=== PATIENT | female | born 1940 | race Caucasian/White ===

== ENCOUNTER → 2017-09-10 09:38 | Outpatient (CLI) | payer MEDICARE, SELFPAY ==
--- NOTE | 2017-09-10 09:41 | RAD_ITS ---
STUDY: X-RAY CHEST REASON FOR EXAM: Female, 76 years old. Long-term use of high risk medication. TECHNIQUE: Frontal and lateral views of the chest. COMPARISON: 12/21/2015. FINDINGS: The lungs are hyperexpanded. There are coarsened interstitial markings suggestive of mild chronic fibrosis. No gross focal infiltrates. No gross effusions. There is borderline cardiomegaly. Normal mediastinum and axel. Normal visualized pulmonary arteries. Normal visualized aortic arch and descending thoracic aorta. Demineralization and diffuse degenerative changes of the skeletal structures. There is no demonstrated abnormality of the visualized soft tissue structures of the upper abdomen. RAD/Chest PA and Lateral IMPRESSION: Stable COPD with mild fibrosis. No acute chest disease. Electronically Signed: Jose Carlos Guzmán MD at 16:47 EST , Service support ,
== END ==
PROVIDERS: Family Provider Family Medicine; PCP Family Medicine; Visit Provider Internal Medicine Cardiovascular Disease
DX: Z79.899 Other long term (current) drug therapy (principal)
CPT/HCPCS: 71046

== ENCOUNTER → 2017-10-22 09:53 | Outpatient (CLI) | payer MEDICARE, SELFPAY ==
[2017-10-22 11:55] LABS: Absolute Neutrophil Count 2.9 X10^3/uL (2.0-7.7); Basophil# 0.06 X10^3/uL; Basophil% 1.2 % (0-1); Eosinophil# 0.08 X10^3/uL; Eosinophils% 1.5 % (0-5); Hematocrit 38.1 % (37-47); Hemoglobin 11.5 g/dl (12.0-15.0); Lymphocyte % 30.8 % (19-41); Mean Corp Hgb Conc 30.2 g/gl (32-36); Mean Corpuscular Hgb 23.8 pg (27.0-32.0); Mean Corpuscular Volume 78.7 fL (81-99); Mean Platelet Vol. 9.9 fl (6.2-12.0); Monocyte# 0.52 X10^3/uL; Neutrophil # 2.94 X10^3/uL (2.7-7.7); Neutrophil % 56.5 % (47-70); Platelet Count 299 K/mm3 (150-450); RBC Distribution Width CV 14.3 % (11.6-14.6); RBC Distribution Width SD 40.9 fl (35.1-43.9); Red Blood Count 4.84 M/mm3 (4.2-5.4); White Blood Count 5.2 K/mm3 (4.4-11.0)
[2017-10-22 11:59] LABS: POSITIVE COUNT NO; POSITIVE DIFFERENTIAL NO; POSITIVE MORPHOLOGY NO
[2017-10-22 12:35] LABS: AST(SGOT) 29 U/L (15-37); Alanine Aminotransfer ALT/SGPT 28 U/L (13-56); Albumin, Serum 3.8 g/dL (3.2-5.0); Alkaline Phosphatase 91 U/L (45-117); Anion Gap 8 (5-15); BUN 13 mg/dL (7-18); BUN/Creat Ratio 12.6 RATIO (10-20); Calcium,Total 8.7 mg/dL (8.5-10.1); Chloride 93 mmol/L (98-107); Creatinine, Serum 1.03 mg/dL (0.55-1.02); EST Glomerular Filtration Rate 55 mL/min (>60); Est Glom Filt Rate - Afr Amer 67 mL/min (>60); Globulin 3.9 g/dL (2.2-4.2); Glucose 86 mg/dL (74-106); Potassium 4.7 mmol/L (3.5-5.1); Protein, Total 7.7 g/dL (6.4-8.2); Sodium Level 130 mmol/L (136-145); Thyroid Stim Hormone (TSH) 5.17 uIU/mL (0.358-3.74)
[2017-10-22 12:37] LABS: Osmolality, Serum 276 mOsm/KG (280-301)
[2017-10-22 12:40] LABS: BNP,B-Type NATRIURETIC PEPTIDE 1146.7 pg/mL (0-100)
== END ==
PROVIDERS: Family Provider Family Medicine; PCP Family Medicine; Visit Provider Family Medicine
DX: I50.9 Heart failure, unspecified (principal); E03.9 Hypothyroidism, unspecified; E87.1 Hypo-osmolality and hyponatremia
CPT/HCPCS: 36415; 80053; 83880; 83930; 84443; 85025

== ENCOUNTER 2018-02-18 07:43 | Inpatient (IN) | payer MEDICARE, SELFPAY ==
[2018-02-18] VITALS (14 sets, daily range): BP systolic 126–150; BP diastolic 64–96; PULSE 69–114; RESP 16–18; TEMP 36.1–36.7; O2SAT 92–100; BMI 18.3
--- NOTE | 2018-02-18 07:54 | RAD_ITS ---
STUDY: X-RAY CHEST REASON FOR EXAM: Female, 77 years old. Chest pain TECHNIQUE: Single AP portable view of the chest. COMPARISON: 09/10/2017 FINDINGS: There is hyperinflation of the lungs consistent with chronic obstructive lung disease (COPD). Lungs are clear. There is no demonstrated pleural abnormality. There is mild cardiac enlargement. Normal mediastinum and axel. Normal visualized pulmonary arteries. There is atherosclerotic tortuosity of the aortic arch and descending thoracic aorta. There are diffuse degenerative changes of the visualized thoracic spine. Normal visualized ribs, clavicles, and shoulders. There is no demonstrated abnormality of the visualized soft tissue structures of the upper abdomen. RAD/Chest 1 View (Portable) IMPRESSION: COPD without acute findings Electronically Signed: Jim King DO at 8:12 EDT Tel , Service support ,
--- NOTE | 2018-02-18 07:54 | EKG12_ITS ---
Test Reason : PALPITATION Blood Pressure : / mmHG Vent. Rate : 089 BPM Atrial Rate : 277 BPM P-R Int : 000 ms QRS Dur : 100 ms QT Int : 402 ms P-R-T Axes : 000 087 -60 degrees QTc Int : 489 ms Atrial flutter with variable A-V block Voltage criteria for left ventricular hypertrophy Nonspecific ST and T wave abnormality Prolonged QT Abnormal ECG Confirmed by SALVADOR BRAND, MIGUEL A ([id number]), video editor CAMPOS WILLIAMSON ([id number] on 02/21/2018 1:17:24 PM Referred By: MAT Confirmed By:MIGUEL A FRANCO MD
[2018-02-18 08:07] LABS: Absolute Lymphocyte Count 0.99 X10^3/ul (0.83-4.51); Absolute Neutrophil Count 4.3 X10^3/uL (2.0-7.7); Basophil# 0.03 X10^3/uL; Basophil% 0.5 % (0-1); Eosinophil# 0.18 X10^3/uL; Eosinophils% 2.9 % (0-5); Hematocrit 36.6 % (37-47); Hemoglobin 11.3 g/dl (12.0-15.0); Lymphocyte # 0.99 X10^3/ul (4.0); Lymphocyte % 15.7 % (19-41); Mean Corp Hgb Conc 30.9 g/gl (32-36); Mean Corpuscular Hgb 23.8 pg (27.0-32.0); Mean Corpuscular Volume 77.2 fL (81-99); Mean Platelet Vol. 9.1 fl (6.2-12.0); Monocyte# 0.82 X10^3/uL; Neutrophil # 4.27 X10^3/uL (2.7-7.7); Neutrophil % 67.7 % (47-70); Platelet Count 282 K/mm3 (150-450); RBC Distribution Width CV 15.1 % (11.6-14.6); RBC Distribution Width SD 42.8 fl (35.1-43.9); Red Blood Count 4.74 M/mm3 (4.2-5.4); White Blood Count 6.3 K/mm3 (4.4-11.0)
[2018-02-18 08:08] LABS: POSITIVE COUNT NO; POSITIVE DIFFERENTIAL NO; POSITIVE MORPHOLOGY NO
--- NOTE | 2018-02-18 08:13 | ED.VISSUMM ---
- ER Visit Summary Date of Service: 02/18/18 Chief Complaint: Palpitations History of Present Illness: The patient is a 77 F with a history of atrial fibrillation, well controlled on Pacerone, who presents for palpitations. She states they began last night between 8 and 9 PM. She had no exertional activity or consumption of stimulants such as caffeine that might have triggered it. She began belching and felt a little bit bluish at the time, but that has resolved. Today she has the sensation of palpitations, but denies any chest pain, shortness of breath, abdominal pain, back pain, weakness or dizziness, or any other symptoms. She is not on Coumadin for 2 years, as she was doing well and was changed to aspirin. She does not smoke. 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 Physical Examination: Vital signs: afebrile, hemodynamically stable, no hypoxia on room air General: well nourished, well developed, in no distress Skin: warm, dry, no rash, no pallor HEENT: normocephalic and atraumatic; PERRL, EOMI, moist mucous membranes Cardiovascular: regular rate irregularly irregular rhythm without murmurs, no peripheral edema, 2+ pulses all distal extremities Respiratory: No increased work of breathing, lungs are clear to auscultation bilaterally, no rales, rhonchi or wheezing Abdominal: Abdomen is soft, nontender with normoactive bowel sounds, no guarding or rebound, no masses MSK: Moves all extremities, no deformities, normal strength Neuro: Awake and alert, oriented ?4. No facial droop, sensation and motor function intact and symmetric Test Results: ] Abnormal Lab Results 02/18/18 02/18/18 02/18/18 08:00 08:00 08:00 WBC 6.3 RBC 4.74 Hgb 11.3 L Hct 36.6 L MCV 77.2 L MCH 23.8 L MCHC 30.9 L RDW 15.1 H RDW Differential 42.8 Plt Count 282 MPV 9.1 Immature Gran % (Auto) 0.200 Neut % (Auto) 67.7 Lymph % (Auto) 15.7 L [place] % (Auto) 13.0 H Eos % (Auto) 2.9 Baso % (Auto) 0.5 Absolute Neuts (auto) 4.3 Absolute Lymphs (auto) 0.99 Total Counted Not Reportable Sodium 132 L Potassium 4.2 Chloride 96 L Carbon Dioxide 30.0 Anion Gap 6 BUN 12 Creatinine 0.98 Estim Creat Clear Calc 34.97 Est GFR (MDRD) Af Amer 71 Est GFR (MDRD) Non-Af 58 L BUN/Creatinine Ratio 12.2 Glucose 102 Calcium 9.1 Troponin I < 0.015 TSH 6.02 H Clinical Impression(s) from Imaging Studies Chest X-Ray 02/18/18 07:54 IMPRESSION: COPD without acute findings Electronically Signed: Jimdelfina ContrerasDO rodney at 8:12 EDT Tel , Service support , Emergency Department Course and Treatment: EKG shows a flutter with a variable ventricular response, rate of 89. Patient in triage was rate of 114. There are no ischemic changes, and QRS and T-wave morphology are similar to patient's EKG from 2016, at which time she was in a normal sinus rhythm. Workup was performed to look for underlying trigger for conversion to A- flutter. Patient had a normal troponin. She had an elevated TSH of 6, and his had an upward trend of her tsh, which has been monitored closely. This is unlikely a cause of a flutter. Patient was discussed with Dr. Shah, who recommended patient be started on a heparin drip and admitted for return to anticoagulation followed by chemical versus electrical cardioversion. Patient is amenable to this plan. She will be discussed with the hospitalist and admitted for further management of her return to a flutter. Treatment Plan: [] Disposition: admit tele Impression: Atrial flutter with variable ventricular response This note was generated with Queweyation software. It may contain incorrect words, spelling, and punctuation that were not noted in review of the chart prior to signing ED Disposition - Plan for ED Patient: Chief Complaint: Palpitations Referrals: Raghu Forbes MD [Primary Care Provider] -
--- NOTE | 2018-02-18 08:17 | ED.DCSUM_ITS ---
- ER Visit Summary Date of Service: 02/18/18 Chief Complaint: Palpitations History of Present Illness: The patient is a 77 F with a history of atrial fibrillation, well controlled on Pacerone, who presents for palpitations. She states they began last night between 8 and 9 PM. She had no exertional activity or consumption of stimulants such as caffeine that might have triggered it. She began belching and felt a little bit bluish at the time, but that has resolved. Today she has the sensation of palpitations, but denies any chest pain, shortness of breath, abdominal pain, back pain, weakness or dizziness, or any other symptoms. She is not on Coumadin for 2 years, as she was doing well and was changed to aspirin. She does not smoke. 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 Shah, and she states she last saw him earlier this year. Physical Examination: Vital signs: afebrile, hemodynamically stable, no hypoxia on room air General: well nourished, well developed, in no distress Skin: warm, dry, no rash, no pallor HEENT: normocephalic and atraumatic; PERRL, EOMI, moist mucous membranes Cardiovascular: regular rate irregularly irregular rhythm without murmurs, no peripheral edema, 2+ pulses all distal extremities Respiratory: No increased work of breathing, lungs are clear to auscultation bilaterally, no rales, rhonchi or wheezing Abdominal: Abdomen is soft, nontender with normoactive bowel sounds, no guarding or rebound, no masses MSK: Moves all extremities, no deformities, normal strength Neuro: Awake and alert, oriented ?4. No facial droop, sensation and motor function intact and symmetric Test Results: ] Abnormal Lab Results 02/18/18 02/18/18 02/18/18 08:00 08:00 08:00 WBC 6.3 RBC 4.74 Hgb 11.3 L Hct 36.6 L MCV 77.2 L MCH 23.8 L MCHC 30.9 L RDW 15.1 H RDW Differential 42.8 Plt Count 282 MPV 9.1 Immature Gran % (Auto) 0.200 Neut % (Auto) 67.7 Lymph % (Auto) 15.7 L [place]comb % (Auto) 13.0 H Eos % (Auto) 2.9 Baso % (Auto) 0.5 Absolute Neuts (auto) 4.3 Absolute Lymphs (auto) 0.99 Total Counted Not Reportable Sodium 132 L Potassium 4.2 Chloride 96 L Carbon Dioxide 30.0 Anion Gap 6 BUN 12 Creatinine 0.98 Estim Creat Clear Calc 34.97 Est GFR (MDRD) Af Amer 71 Est GFR (MDRD) Non-Af 58 L BUN/Creatinine Ratio 12.2 Glucose 102 Calcium 9.1 Troponin I < 0.015 TSH 6.02 H Clinical Impression(s) from Imaging Studies Chest X-Ray 02/18/18 07:54 IMPRESSION: COPD without acute findings Electronically Signed: Jimdelfina ContrerasDO rodney at 8:12 EDT Tel , Service support , Emergency Department Course and Treatment: EKG shows a flutter with a variable ventricular response, rate of 89. Patient in triage was rate of 114. There are no ischemic changes, and QRS and T-wave morphology are similar to patient's EKG from 2016, at which time she was in a normal sinus rhythm. Workup was performed to look for underlying trigger for conversion to A- flutter. Patient had a normal troponin. She had an elevated TSH of 6, and his had an upward trend of her tsh, which has been monitored closely. This is unlikely a cause of a flutter. Patient was discussed with Dr. Shah, who recommended patient be started on a heparin drip and admitted for return to anticoagulation followed by chemical versus electrical cardioversion. Patient is amenable to this plan. She will be discussed with the hospitalist and admitted for further management of her return to a flutter. Treatment Plan: [] Disposition: admit tele Impression: Atrial flutter with variable ventricular response This note was generated with Data3Sixtyation software. It may contain incorrect words, spelling, and punctuation that were not noted in review of the chart prior to signing ED Disposition - Plan for ED Patient: Chief Complaint: Palpitations Referrals: Raghu Forbes MD [Primary Care Provider] -
[2018-02-18 08:24] LABS: Anion Gap 6 (5-15); BUN 12 mg/dL (7-18); BUN/Creat Ratio 12.2 RATIO (10-20); Calcium,Total 9.1 mg/dL (8.5-10.1); Chloride 96 mmol/L (98-107); Creatinine, Serum 0.98 mg/dL (0.55-1.02); EST Glomerular Filtration Rate 58 mL/min (>60); Est Glom Filt Rate - Afr Amer 71 mL/min (>60); Estimated Creatinine Clearance 34.97 ml/min; Glucose 102 mg/dL (74-106); Potassium 4.2 mmol/L (3.5-5.1); Sodium Level 132 mmol/L (136-145)
[2018-02-18 08:49] LABS: Thyroid Stim Hormone (TSH) 6.02 uIU/mL (0.358-3.74)
[2018-02-18 09:49] LABS: Partial Thromboplast Time 34.5 Seconds (24.1-36.2); Prothrombin Time (Protime)PT. 13.4 SECONDS (11.7-14.9)
--- NOTE | 2018-02-18 10:22 | NURSING ---
Pepper notified patient may transfer to PCU
--- NOTE | 2018-02-18 10:43 | ED.RN ---
spoke anika orona charge PCU. regarding heparin and need for pt to recieve.
--- NOTE | 2018-02-18 10:55 | ECHOD_ITS ---
Reason For Study: AFIB Procedure This was a 2D Doppler, Color Flow transthoracic echocardiogram. The exam was of adequate technical quality. Exam performed portable in patient room. Left Ventricle Normal LV size. Apical false tendon noted. Mild global left ventricular systolic dysfunction. The estimated ejection fraction is 40 %. Unable to assess diastolic dysfunction. Right Ventricle Normal RV size. Normal systolic function. Atria The left atrium is moderately enlarged. The right atrium is moderately enlarged. No doppler evidence for ASD. Mitral Valve There is mild mitral annular calcification. Mild diffuse mitral valve thickening. Mild mitral valve prolapse. Mild-Moderate (1-2+) mitral valve insufficiency. Tricuspid Valve Normal tricuspid valve. Mild tricuspid valve insufficiency. Right ventricular systolic pressure estimated to be 30 mmHg. Aortic Valve Trisinus/trileaflet aortic valve. Mild diffuse aortic valve thickening. Mild focal aortic valve calcification. Aortic sclerosis, no stenosis. Trivial aortic valve insufficiency. Pulmonic Valve The pulmonic valve is not well visualized. Trivial pulmonic valve insufficiency. Great Vessels Normal sized aortic root. Pericardium/Pleural No pericardial effusion. MMode/2D Measurements & Calculations LVIDd: 4.0 cm IVSd: 1.1 cm Ao root diam: 2.8 cm LVIDs: 3.1 cm LVPWd: 1.1 cm RVDd: 2.8 cm FS: 21.8 % LAV(MOD-bp): 62.0 ml LA A4 area: 18.2 cm2 RA A4 area: 16.9 cm2 LAV(MOD-bp) Indexed: 43.5 ml/m2 LAV(MOD-sp2): 69.6 ml LAV(MOD-sp4): 48.6 ml Doppler Measurements & Calculations Ao V2 max: 135.3 cm/sec LV V1 max: 90.6 cm/sec PA V2 max: 89.7 cm/sec Ao max P.5 mmHg LV V1 max P.4 mmHg TR max henrik: 260.5 cm/sec TR max P.2 mmHg Interpretation Summary Mild global left ventricular systolic dysfunction. The estimated ejection fraction is 40 %. Apical false tendon noted. The left atrium is moderately enlarged. The right atrium is moderately enlarged. There is mild mitral annular calcification. Mild diffuse mitral valve thickening. Mild mitral valve prolapse. Mild-Moderate (1-2+) mitral valve insufficiency. Mild tricuspid valve insufficiency. Aortic sclerosis, no stenosis. Trivial aortic valve insufficiency. Trivial pulmonic valve insufficiency. Right ventricular systolic pressure estimated to be 30 mmHg. Unable to assess diastolic dysfunction. Ordering Physician: Anmol Gilbert Referring Physician: ELLIS VÁZQUEZ Performed By: Racheal Zamora, ISMA, RVT
[2018-02-18] MEDS: HEPARIN/D5w 25,000 UNITS 25,000 UNITS/250 ML IV.SOLN. 7 UNITS IV (13:07)
[2018-02-18] MEDS: Heparin Injection (Vial) 5,000 UNIT/ML VIAL 3500 UNIT IV (13:07)
--- NOTE | 2018-02-18 15:05 | PCM.HP.STD ---
Problem List (1) Long-term use of high-risk medication Status: Chronic (2) Hyperlipidemia Status: Chronic Qualifiers: (3) Atherosclerotic heart disease of [place] coronary artery without angina pectoris Status: Chronic Qualifiers: (4) Atrial fibrillation Status: Acute Qualifiers: (5) Congestive heart failure Status: Chronic (6) History of GI bleed Status: Chronic (7) History of myocardial infarction Status: Chronic (8) Cardiomyopathy Status: Chronic Qualifiers: History of Present Illness Date of Admission: 02/18/18 Chief Complaint: Palpitations The patient is a 77 year old F who presents to the emergency room due to palpitations. She reports a history of atrial fibrillation and states her symptoms feel similar to prior episodes of A. fib. Her symptoms began last evening. She denies chest pain, shortness of breath. Denies dizziness, lightheadedness. Denies other associated symptoms. Denies recent illness. States she does not feel right. Denies recent illness. She has a past medical history of atrial fibrillation, nonischemic cardiomyopathy, CHF, CAD, hyperlipidemia, GERD, hypertension. Patient follows with Dr. Shah. Past Medical History Past Medical History (Chronic Problems): Chronic Problems (Last Reviewed 08/12/17 @ 09:47 by Stacie Arango) Long-term use of high-risk medication (Chronic) Hyperlipidemia (Chronic) Atherosclerotic heart disease of [place] coronary artery without angina pectoris (Chronic) Congestive heart failure (Chronic) History of GI bleed (Chronic) History of myocardial infarction (Chronic) Cardiomyopathy (Chronic) Medical History: Medical History (Last Reviewed 08/12/17 @ 09:47 by Stacie Arango) Long-term use of high-risk medication (Acute) Z79.899 Hyperlipidemia (Acute) E78.5 Atherosclerotic heart disease of [place] coronary artery without angina pectoris (Chronic) I25.10 Atrial fibrillation (Acute) I48.91 Congestive heart failure (Chronic) I50.9 History of GI bleed (Chronic) Z87.19 History of myocardial infarction (Chronic) I25.2 Cardiomyopathy (Chronic) I42.9 Anxiety F41.9 GERD (gastroesophageal reflux disease) K21.9 Thyroid disorder E07.9 Allergies amiodarone Allergy (Verified 02/18/18 07:45) Hives Pt takes the Pacerone (brand name) with no allergy. Home Medications: Ambulatory Orders Medication Instructions Recorded Pantoprazole Sodium [Protonix] 40 mg PO DAILY PRN 12/14/13 Aspirin 325 mg PO DAILY@0800 12/09/15 lisinopril 2.5 mg tablet 2.5 mg PO DAILY #90 tab 07/18/17 metoprolol tartrate 25 mg tablet 12.5 mg PO BID #90 tab 07/18/17 furosemide 20 mg tablet 20 mg PO DAILY #90 tab 11/04/17 Pacerone 100 mg tablet 100 mg PO QDAY #90 tab NS 12/18/17 Surgical History: Surgical History (Last Reviewed 08/12/17 @ 09:47 by Stacie Arango) History of tubal ligation Z98.51 History of cardiac catheterization Z98.890 thrombectomy of mid LAD 09/12/11 Surgical History: tonsillectomy, - - D&C Psychiatric History: No pertinent psych hx Smoking Status: Never smoker Alcohol: None Drugs: None - *Family History Maternal Family History: Family History (Last Reviewed 08/12/17 @ 09:47 by Stacie Arango) Father Heart disease History Items: No pertinent history Review of Systems Constitutional: Denies: Chills, Fever, Weight Change HEENT: Denies: Head Aches, Sinus Congestion, Sinus Drainage Cardiovascular: Reports: Palpitations. Denies: Chest Pain, Edema, Light Headedness, Syncope Respiratory: Denies: Cough, Shortness of breath at rest, Sputum production Gastrointestinal: Denies: Abdominal Pain, Nausea, Vomiting Genitourinary: Denies: Dysuria Musculoskeletal: Denies: Joint Pain, Joint Tenderness Skin: Denies: Rash, Wounds Neurological: Denies: Numbness, Tingling, Focal weakness Psychiatric: Denies: Anxiety, Depression, Homicidal Ideations, Suicidal Ideations Hematologic/ Lymphatic: Denies: Easy Bruising, Easy Bleeding VTE Information - Inpt Only VTE Present on Admission: No VTE Mechan Device Prophylaxis: None VTE Pharm Prophylaxis ordered?: Yes - Physical Exam General: Alert, Oriented x3, Cooperative, No apparent distress HEENT: Atraumatic, PERRLA, EOMI, Normocephalic Neck: Supple, No JVD, Negative Carotid Bruits Lungs: Clear to auscultation, Normal air movement Cardiovascular: Tachycardic, - - Atrial fibrillation Abdomen: Bowel Sounds Present, Soft, Non Tender, Non-Distended Extremities: No clubbing, No cyanosis, No edema, Capillary Refill Less than 3 Seconds Skin: No rashes, No breakdown Musculoskeletal: No Tenderness to Palpation of Joints or Extremities Neurological: Cranial nerves II-XII grossly intact, Neuro grossly intact Psych/Mental Status: Normal Affect, Appropriate Vital Signs Temp Pulse Resp BP Pulse Ox 98.0 F 101 H 16 147/64 H 98 02/18/18 11:23 02/18/18 12:45 02/18/18 11:23 02/18/18 11:23 02/18/18 11:23 Oxygen Delivery Method Room Air Weight: 99 lb 10.383 oz Body Mass Index (BMI) 18.3 Assessment/Plan All Active Problems (Last Reviewed 08/12/17 @ 09:47 by Stacie Arango) Atrial fibrillation (Acute) 1. Atrial fibrillation with history of paroxysmal atrial fibrillation status post cardioversion-patient denies recent known episodes of atrial fibrillation. She is on Pacerone and metoprolol at home. Rate currently controlled. Begin heparin drip per cardiology. Dr. Shah consulted. Obtain echocardiogram. TSH 6. Check T4. 2. History of nonischemic cardiomyopathy/CHF-echocardiogram in 2014 with an EF of 50%. Repeat echo pending. 3. Hyperlipidemia-not on statin. 4. Hypertension-stable, continue home regimen of metoprolol, lisinopril, Lasix, Pacerone. 5. GERD- Continue PPI. DVT prophylaxis-heparin drip This patient was seen by DOMINIQUE Cooper under the supervision of Dr. Gilbert.
[2018-02-18] MEDS: Furosemide 20 MG Tablet PO (15:10)
[2018-02-18] MEDS: Lisinopril 2.5 MG Tablet PO (15:10)
--- NOTE | 2018-02-18 18:03 | EKG12_ITS ---
Test Reason : Blood Pressure : / mmHG Vent. Rate : 069 BPM Atrial Rate : 326 BPM P-R Int : 000 ms QRS Dur : 098 ms QT Int : 374 ms P-R-T Axes : 000 076 -84 degrees QTc Int : 400 ms Atrial flutter with variable A-V block Left ventricular hypertrophy with repolarization abnormality Abnormal ECG Confirmed by SALVADOR BRAND, MIGUEL A ([id number]), film editor CAMPOS WILLIAMSON ([id number]) on 02/21/2018 1:51:11 PM Referred By: NICK Confirmed By:MIGUEL A FRANCO MD
--- NOTE | 2018-02-18 18:03 | PCM.CONS.C ---
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 She states that she had been in her usual state of health until just recently. She believes yesterday evening she developed symptoms of an atypical chest/abdominal discomfort which she thought was related to a flulike event. However when checking her pulse she noted it was irregular. She waited throughout the night and based upon still an irregular pulse elected to present to the emergency department this day for further evaluation and care. She was found to be in atrial flutter with variable AV block. Based upon her electrocardiogram she was noted to have voltage criteria for LVH and nonspecific ST and T-wave abnormality. She had a troponin I level which was negative. She was brought into the hospital for further evaluation care. At the present time she notes her rhythm is still irregular. She senses the difference in her chest. She has had no other concerning chest discomfort, difficulty breathing, associated nausea or emesis, and there has been no loss of consciousness. She has also undergone evaluation with a transthoracic echocardiogram. The results are as noted below. Interpretation Summary Mild global left ventricular systolic dysfunction. The estimated ejection fraction is 40 %. Apical false tendon noted. The left atrium is moderately enlarged. The right atrium is moderately enlarged. There is mild mitral annular calcification. Mild diffuse mitral valve thickening. Mild mitral valve prolapse. Mild-Moderate (1-2+) mitral valve insufficiency. Mild tricuspid valve insufficiency. Aortic sclerosis, no stenosis. Trivial aortic valve insufficiency. Trivial pulmonic valve insufficiency. Right ventricular systolic pressure estimated to be 30 mmHg. Unable to assess diastolic dysfunction. [] Past Medical History Allergies/Adverse Reactions: Allergies amiodarone Allergy (Verified 02/18/18 07:45) Hives Pt takes the Pacerone (brand name) with no allergy. 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 Denies: Shortness of Breath, Orthopnea, PND, Peripheral Edema, Lightheadedness, Dizziness, Near Syncope, Syncope Respiratory: Denies: Cough, Sputum Production, Hemoptysis Gastrointestinal: Reports: Abdominal Discomfort. Denies: Hematemesis, Hematochezia, Melena Genitourinary: Denies: Dysuria, Hematuria Subjectve: 77-year-old white female who appears to be resting comfortably in no acute distress. Objective: Vital Signs Temp Pulse Resp BP Pulse Ox 98.1 F 69 16 150/84 H 99 02/18/18 16:11 02/18/18 16:11 02/18/18 16:11 02/18/18 16:11 02/18/18 16:11 General: Awake, Alert, Oriented x 3, Cooperative, No Acute Distress HEENT: Atraumatic, Normocephalic, PERRL, EOMI, Sclera Non Icteric Oral: Moist Mucosa Neck: Supple, Good ROM, No JVD Lungs: Clear to auscultation Cardiovascular: Irregular Rhythm, Normal S1, Normal S2 Vascular: No Carotid Bruits Abdomen: Bowel Sounds Present, Soft, Non Tender Extremities: No Cyanosis, No Clubbing, No edema Neurological: No Focal Motor or Sensory Deficit Psych/Mental Status: Appropriate, Normal Affect Rhythm: Atrial flutter EKG: As noted above ECHO: As noted above Transesophageal echocardiogram: 06/10/2012: Moderate segmental systolic dysfunction with an LVEF of 35%; left atrial enlargement; mild spontaneous contrast in the left atrium; no thrombus detected in the left atrial appendage; the right atrium was enlarged; no RA/appendage thrombus identified; equivocal mitral valve prolapse with trivial MR; trivial TR; mild focal aortic valve thickening with trivial AI; negative agitated saline contrast study for interatrial shunting; and a normal-appearing thoracic aorta Stress Test: Pharmacologic stress nuclear imaging study: Previously reported as demonstrating a small area of possible anteroseptal infarct with no evidence of ischemia with borderline preserved LVEF of 53% Cardiac Cath: 04/04/2012: Borderline elevation of the intrapulmonary right heart pressures: Oxygen saturations with a calculated Qp/Qs ratio of 1.3 considered nonhemodynamically significant: A left ventriculogram was not performed: The left main coronary artery, LAD, intermediate ramus, and RCA had no angiographically significant appearing disease and the LCx was a large dominant vessel with proximal 25% tapering leading back to the left main coronary artery. PCI: 09/12/2011: [facility]: LAD thrombectomy thought secondary to an embolic event related to underlying atrial fibrillation CXR: Preliminary evaluation: No acute cardiopulmonary disease process appreciated Assessment/Plan 1. Atrial flutter The patient has had recurrent atrial flutter. This is despite being on rate control therapy and antiarrhythmic therapy if in [id number] Pacerone. The patient has been without anti-coagulant therapy per her previous request as she was remaining in sinus rhythm. At the present time she will need to continue rate control therapy, antiarrhythmic therapy, and reinitiate anticoagulant therapy. She is undergoing noninvasive evaluation. Thus far her cardiac enzymes have been negative and her ECG is demonstrated no new acute changes. She can be considered for further evaluation with a transesophageal echocardiogram to reassess for any obvious evidence of intra-cardiac thrombus. If this is unremarkable then she can proceed with further evaluation and care with synchronized biphasic DC cardioversion. However, she will need to be considered for future EP evaluation, which she has been hesitant to proceed with in the past, based upon recurrence of her atrial dysrhythmia and her concerns of being intolerant to higher dose medication therapy, etc. 2. Non-CAD related cardiomyopathy Her LV systolic function appears to have declined compared to a previous echocardiographic study as she has returned to her atrial dysrhythmia. Thus it appears prudent to continue combined medical management and attempt to regain sinus rhythm. 3. CAD The patient does have evidence of CAD as previously described. It has been non-angiographically significant. She does need to continue risk factor evaluation care as deemed appropriate and as she will allow based upon her concern of intolerance to multiple medications. 4. Hyperlipidemia The patient can undergo evaluation with respect to her lipid profile. If this is concerning then hopefully she will allow herself to be treated with appropriate lipid-lowering medication. The above was discussed and evaluated the patient and Dr. Gilbert. This note was generated with fav.or.it dictation software. It may contain incorrect words, spelling, and punctuation that were not noted in checking the note before signing.
--- NOTE | 2018-02-18 18:14 | CON.PCM_ITS ---
Problem List (1) Atrial flutter Status: Acute (2) Cardiomyopathy Status: Chronic Qualifiers: Cardiomyopathy type: unspecified (3) Atherosclerotic heart disease of [place] coronary artery without angina pectoris Status: Chronic Qualifiers: [place] vs. 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 She states that she had been in her usual state of health until just recently. She believes yesterday evening she developed symptoms of an atypical chest/abdominal discomfort which she thought was related to a flulike event. However when checking her pulse she noted it was irregular. She waited throughout the night and based upon still an irregular pulse elected to present to the emergency department this day for further evaluation and care. She was found to be in atrial flutter with variable AV block. Based upon her electrocardiogram she was noted to have voltage criteria for LVH and nonspecific ST and T-wave abnormality. She had a troponin I level which was negative. She was brought into the hospital for further evaluation care. At the present time she notes her rhythm is still irregular. She senses the difference in her chest. She has had no other concerning chest discomfort, difficulty breathing, associated nausea or emesis, and there has been no loss of consciousness. She has also undergone evaluation with a transthoracic echocardiogram. The results are as noted below. Interpretation Summary Mild global left ventricular systolic dysfunction. The estimated ejection fraction is 40 %. Apical false tendon noted. The left atrium is moderately enlarged. The right atrium is moderately enlarged. There is mild mitral annular calcification. Mild diffuse mitral valve thickening. Mild mitral valve prolapse. Mild-Moderate (1-2+) mitral valve insufficiency. Mild tricuspid valve insufficiency. Aortic sclerosis, no stenosis. Trivial aortic valve insufficiency. Trivial pulmonic valve insufficiency. Right ventricular systolic pressure estimated to be 30 mmHg. Unable to assess diastolic dysfunction. [] Past Medical History Allergies/Adverse Reactions: Allergies amiodarone Allergy (Verified 02/18/18 07:45) Hives Pt takes the Pacerone (brand name) with no allergy. Home Medications: Ambulatory Orders Medication Instructions Recorded Pantoprazole Sodium [Protonix] 40 mg PO DAILY PRN 12/14/13 Aspirin 325 mg PO DAILY@0800 12/09/15 lisinopril 2.5 mg tablet 2.5 mg PO DAILY #90 tab 07/18/17 metoprolol tartrate 25 mg tablet 12.5 mg PO BID #90 tab 07/18/17 furosemide 20 mg tablet 20 mg PO DAILY #90 tab 11/04/17 Pacerone 100 mg tablet 100 mg PO QDAY #90 tab NS 12/18/17 Past Medical History (Chronic Problems): Chronic Problems (Last Reviewed 08/12/17 @ 09:47 by Stacie Arango) Long-term use of high-risk medication (Chronic) Hyperlipidemia (Chronic) Atherosclerotic heart disease of [place] coronary artery without angina pectoris (Chronic) Congestive heart failure (Chronic) History of GI bleed (Chronic) History of myocardial infarction (Chronic) Cardiomyopathy (Chronic) Surgical History: tonsillectomy, - - D&C Psychiatric History: No pertinent psych hx - *Family History Maternal Family History: Family History (Last Reviewed 08/12/17 @ 09:47 by Stacie Arango) Father Heart disease History Items: No pertinent history Smoking Status: Never smoker Alcohol: None Drugs: None Review of Systems - Review of Systems General: Denies: Fever, Night Sweats, Fatigue Cardiovascular: Reports: Chest Discomfort, Palpitations. Denies: Shortness of Breath, Orthopnea, PND, Peripheral Edema, Lightheadedness, Dizziness, Near Syncope, Syncope Respiratory: Denies: Cough, Sputum Production, Hemoptysis Gastrointestinal: Reports: Abdominal Discomfort. Denies: Hematemesis, Hematochezia, Melena Genitourinary: Denies: Dysuria, Hematuria Subjectve: 77-year-old white female who appears to be resting comfortably in no acute distress. Objective: Vital Signs Temp Pulse Resp BP Pulse Ox 98.1 F 69 16 150/84 H 99 02/18/18 16:11 02/18/18 16:11 02/18/18 16:11 02/18/18 16:11 02/18/18 16:11 General: Awake, Alert, Oriented x 3, Cooperative, No Acute Distress HEENT: Atraumatic, Normocephalic, PERRL, EOMI, Sclera Non Icteric Oral: Moist Mucosa Neck: Supple, Good ROM, No JVD Lungs: Clear to auscultation Cardiovascular: Irregular Rhythm, Normal S1, Normal S2 Vascular: No Carotid Bruits Abdomen: Bowel Sounds Present, Soft, Non Tender Extremities: No Cyanosis, No Clubbing, No edema Neurological: No Focal Motor or Sensory Deficit Psych/Mental Status: Appropriate, Normal Affect Rhythm: Atrial flutter EKG: As noted above ECHO: As noted above Transesophageal echocardiogram: 06/10/2012: Moderate segmental systolic dysfunction with an LVEF of 35%; left atrial enlargement; mild spontaneous contrast in the left atrium; no thrombus detected in the left atrial appendage; the right atrium was enlarged; no RA/appendage thrombus identified; equivocal mitral valve prolapse with trivial MR; trivial TR; mild focal aortic valve thickening with trivial AI; negative agitated saline contrast study for interatrial shunting; and a normal-appearing thoracic aorta Stress Test: Pharmacologic stress nuclear imaging study: Previously reported as demonstrating a small area of possible anteroseptal infarct with no evidence of ischemia with borderline preserved LVEF of 53% Cardiac Cath: 04/04/2012: Borderline elevation of the intrapulmonary right heart pressures: Oxygen saturations with a calculated Qp/Qs ratio of 1.3 considered nonhemodynamically significant: A left ventriculogram was not performed: The left main coronary artery, LAD, intermediate ramus, and RCA had no angiographically significant appearing disease and the LCx was a large dominant vessel with proximal 25% tapering leading back to the left main coronary artery. PCI: 09/12/2011: [facility]: LAD thrombectomy thought secondary to an embolic event related to underlying atrial fibrillation CXR: Preliminary evaluation: No acute cardiopulmonary disease process appreciated Assessment/Plan 1. Atrial flutter The patient has had recurrent atrial flutter. This is despite being on rate control therapy and antiarrhythmic therapy if in [id number] Pacerone. The patient has been without anti-coagulant therapy per her previous request as she was remaining in sinus rhythm. At the present time she will need to continue rate control therapy, antiarrhythmic therapy, and reinitiate anticoagulant therapy. She is undergoing noninvasive evaluation. Thus far her cardiac enzymes have been negative and her ECG is demonstrated no new acute changes. She can be considered for further evaluation with a transesophageal echocardiogram to reassess for any obvious evidence of intra-cardiac thrombus. If this is unremarkable then she can proceed with further evaluation and care with synchronized biphasic DC cardioversion. However, she will need to be considered for future EP evaluation, which she has been hesitant to proceed with in the past, based upon recurrence of her atrial dysrhythmia and her concerns of being intolerant to higher dose medication therapy, etc. 2. Non-CAD related cardiomyopathy Her LV systolic function appears to have declined compared to a previous echocardiographic study as she has returned to her atrial dysrhythmia. Thus it appears prudent to continue combined medical management and attempt to regain sinus rhythm. 3. CAD The patient does have evidence of CAD as previously described. It has been non- angiographically significant. She does need to continue risk factor evaluation care as deemed appropriate and as she will allow based upon her concern of intolerance to multiple medications. 4. Hyperlipidemia The patient can undergo evaluation with respect to her lipid profile. If this is concerning then hopefully she will allow herself to be treated with appropriate lipid-lowering medication. The above was discussed and evaluated the patient and Dr. Gilbert. This note was generated with [employer] dictation software. It may contain incorrect words, spelling, and punctuation that were not noted in checking the note before signing.
[2018-02-18 19:36] LABS: Partial Thromboplast Time 134.5 Seconds (24.1-36.2)
[2018-02-18] MEDS: 0.9% NaCl Peripheral Flush Adult/Peds IV ×2 (19:52→22:17)
[2018-02-18] MEDS: Metoprolol Tartrate 25 MG Tablet 12.5 MG PO (22:14)
[2018-02-19] VITALS (23 sets, daily range): BP systolic 97–137; BP diastolic 47–91; PULSE 45–88; RESP 16; TEMP 36.4–36.8; O2SAT 95–100
[2018-02-19 02:27] LABS: Partial Thromboplast Time 41.5 Seconds (24.1-36.2)
[2018-02-19 02:35] LABS: AST(SGOT) 25 U/L (15-37); Alanine Aminotransfer ALT/SGPT 26 U/L (13-56); Albumin, Serum 3.4 g/dL (3.2-5.0); Alkaline Phosphatase 112 U/L (45-117); Bilirubin, Direct 0.13 mg/dL (0.00-0.30); Cholesterol 175 mg/dL (200); Globulin 4.2 g/dL (2.2-4.2); High Density Lipoprotein 101 mg/dL; Protein, Total 7.6 g/dL (6.4-8.2); Triglycerides 48 mg/dL; Very Low Density Lipoprotein 10 mg/dL (5-40)
[2018-02-19] MEDS: Heparin Injection (Vial) 5,000 UNIT/ML VIAL IV ×2 (02:51→12:03)
--- NOTE | 2018-02-19 05:55 | EKG12_ITS ---
Test Reason : RHYTHM Blood Pressure : / mmHG Vent. Rate : 052 BPM Atrial Rate : 052 BPM P-R Int : 178 ms QRS Dur : 104 ms QT Int : 442 ms P-R-T Axes : 054 075 -55 degrees QTc Int : 411 ms Sinus bradycardia Left ventricular hypertrophy with repolarization abnormality Abnormal ECG Confirmed by SALVADOR BRAND, MIGUEL A ([id number]), health editor CAMPOS WILLIAMSON ([id number]) on 02/21/2018 1:48:08 PM Referred By: SALVADOR Confirmed By:MIGUEL A FRANCO MD
--- NOTE | 2018-02-19 08:00 | ECHOTEE_ITS ---
Reason For Study: AFIB/Flutter Medication MANI probe passed with minimal difficulty. No complications were noted. [place] Topical [place] given X9 metered doses orally. Versed 1 mg given slow IVP. Fentanyl 50 mcg given slow IVP. Performed a rapid injection of agitated mix of 9 cc saline and 1cc air to assess for atrial septal defect. Left Ventricle Normal LV size. Moderate global left ventricular systolic dysfunction. The estimated ejection fraction is 35 %. Right Ventricle Normal RV size. The right ventricular wall motion is normal. Atria No doppler evidence for ASD. Bubble contrast study negative for right to left interatrial shunt. The left atrium is moderately enlarged. There is no sponatenous contrast in the left atrium. No thrombus is detected in the left atrial appendage. The right atrium is mildly enlarged. There is no sponatenous contrast in the right atrium. No RA / appendage thrombus identified. Mitral Valve There is mild mitral annular calcification. Mild diffuse mitral valve thickening. Mild (1+) mitral valve insufficiency. Tricuspid Valve Normal tricuspid valve. Trivial tricuspid valve insufficiency. Aortic Valve Trisinus/trileaflet aortic valve. Mild diffuse aortic valve thickening. Mild focal aortic valve calcification. Trivial aortic valve insufficiency. Pulmonic Valve The pulmonic valve is not well visualized. Vessels Normal appearing thoracic aorta. Pericardium No pericardial effusion. Interpretation Summary Moderate global left ventricular systolic dysfunction. The estimated ejection fraction is 35 %. The left atrium is moderately enlarged. There is no sponatenous contrast in the left atrium. No thrombus is detected in the left atrial appendage. The right atrium is mildly enlarged. There is mild mitral annular calcification. Mild diffuse mitral valve thickening. Mild (1+) mitral valve insufficiency. Trivial tricuspid valve insufficiency. Mild diffuse aortic valve thickening. Mild focal aortic valve calcification. Bubble contrast study negative for right to left interatrial shunt. Normal appearing thoracic aorta. Ordering Physician: Sheng Shah Referring Physician: Mio Forbes MD Performed By: Elsy Cano RDCS, RVT ??? Reason For Study: AFIB/Flutter Interpretation Summary Moderate global left ventricular systolic dysfunction. The estimated ejection fraction is 35 %. The left atrium is moderately enlarged. There is no sponatenous contrast in the left atrium. No thrombus is detected in the left atrial appendage. The right atrium is mildly enlarged. There is mild mitral annular calcification. Mild diffuse mitral valve thickening. Mild (1+) mitral valve insufficiency. Trivial tricuspid valve insufficiency. Mild diffuse aortic valve thickening. Mild focal aortic valve calcification. Bubble contrast study negative for right to left interatrial shunt. Normal appearing thoracic aorta. Ordering Physician: Sheng Shah Referring Physician: Mio Forbes MD Performed By: Elsy Cano RDCS, RVT
[2018-02-19] MEDS: Metoprolol Tartrate 25 MG Tablet 12.5 MG PO ×2 (09:48→21:12)
[2018-02-19] MEDS: Lisinopril 2.5 MG Tablet PO (09:48)
[2018-02-19 10:01] LABS: Partial Thromboplast Time 34.8 Seconds (24.1-36.2)
[2018-02-19] MEDS: Etomidate 20 MG/10 ML Vial IV (11:00)
--- NOTE | 2018-02-19 11:02 | SDCEKG_ITS ---
Test Reason : CARDIOVERSION Blood Pressure : / mmHG Vent. Rate : 050 BPM Atrial Rate : 050 BPM P-R Int : 176 ms QRS Dur : 098 ms QT Int : 452 ms P-R-T Axes : 073 077 -67 degrees QTc Int : 412 ms Sinus bradycardia Left ventricular hypertrophy with repolarization abnormality Abnormal ECG Confirmed by SALVADOR BRAND, MIGUEL A ([id number]), editorial specialist CAMPOS WILLIAMSON ([id number]) on 02/21/2018 1:48:59 PM Referred By: NICK Confirmed By:MIGUEL A FRANCO MD
--- NOTE | 2018-02-19 11:04 | PCM.OP.BLANK ---
Problem List (1) Atrial flutter Status: Acute (2) Hyperlipidemia Status: Chronic Qualifiers: Hyperlipidemia type: unspecified (3) Congestive heart failure Status: Chronic (4) History of GI bleed Status: Chronic (5) History of myocardial infarction Status: Chronic (6) Cardiomyopathy Status: Chronic Qualifiers: Cardiomyopathy type: unspecified Operative Report Date of Procedure: 02/19/18 - Conscious sedation CONSCIOUS SEDATION REPORT BRIEF HISTORY OF PRESENT ILLNESS: The patient is a 77-year-old female who presented to [facility] for an elective outpatient cardioversion due to underlying atrial fibrillation. The patient reports no PO intake since midnight. The patient does not have a history of obstructive sleep apnea. The patient reports no history of smoking and COPD. The patient denies any recent constitutional symptoms such as fevers, chills, nausea or vomiting. The patient denies previous anesthetic complications. Patient has been n.p.o. since yesterday. Patient did receive a MANI with 1 mg of Versed and 50 mcg of fentanyl just prior to this procedure and showed no thrombus. PHYSICAL EXAMINATION: VITAL SIGNS: Reviewed and were acceptable. GENERAL: The patient is an obese female, in no apparent distress, speaking in full sentences. HEENT: Normocephalic, atraumatic. Mucous membranes are moist and pink. Good mouth opening noted. Trachea is midline. Good neck mobility. MP I CHEST: S1, S2 irregularly irregular. No murmurs, rubs or gallops were noted. LUNGS: Clear to auscultation bilaterally without appreciable wheezes, rales or rhonchi. ABDOMEN: Soft, nontender, nondistended. Positive bowel sounds. EXTREMITIES: There is no clubbing, cyanosis or edema. ASA Class: II DESCRIPTION OF PROCEDURE: After confirmation of informed consent, the patient's anesthesia plan was reviewed in detail. Etomidate was chosen. Risks and benefits were reviewed and the patient agreed to proceed. At 10:57 AM, the patient was given 4 mg of etomidate. The patient achieved an appropriate level of sedation and received 1 attempt s synchronized cardioversion, at [address] Shah at the bedside. This was successful in achieving normal sinus rhythm. The patient was monitored until 11:03 AM, at which time the patient reached their baseline mental status and function. The patient tolerated the procedure well. COMPLICATIONS: None ESTIMATED BLOOD LOSS: None RECOMMENDATIONS: Okay to recover in usual fashion. Code Visit 9xxxx: Other Procedure See Report - [id number]
--- NOTE | 2018-02-19 11:24 | EKG12_ITS ---
Test Reason : AM EKG Blood Pressure : / mmHG Vent. Rate : 072 BPM Atrial Rate : 357 BPM P-R Int : 000 ms QRS Dur : 098 ms QT Int : 400 ms P-R-T Axes : 000 079 269 degrees QTc Int : 438 ms Atrial fibrillation Voltage criteria for left ventricular hypertrophy Nonspecific ST and T wave abnormality Abnormal ECG Confirmed by SALVADOR BRAND, MIGUEL A ([id number]), editor magazine CAMPOS WILLIAMSON ([id number]) on 02/21/2018 1:50:00 PM Referred By: NICK Confirmed By:MIGUEL A FRANCO MD
--- NOTE | 2018-02-19 12:56 | PCM.PROGNOTE ---
Patient Problems: Active and Suspected Problems (Last Reviewed 08/12/17 @ 09:47 by Stacie Arango) Atrial flutter (Acute) Subjective: Patient seen and examined. Underwent MANI cardioversion this morning. States her heart feels back to normal. Denies shortness of breath, chest pain. Denies palpitations. - Physical Exam General: Alert, Oriented x3, Cooperative HEENT: Atraumatic, PERRLA, EOMI, Normocephalic Neck: Supple, No JVD, Negative Carotid Bruits Lungs: Clear to auscultation, Normal air movement Cardiovascular: Regular Rhythm, Normal S1, Normal S2, No murmurs, Bradycardic - Mild Abdomen: Bowel Sounds Present, Soft, Non Tender, Non-Distended Extremities: No clubbing, No cyanosis, No edema, Capillary Refill Less than 3 Seconds Skin: No rashes, No breakdown Musculoskeletal: No Tenderness to Palpation of Joints or Extremities, Cachexia Neurological: Cranial nerves II-XII grossly intact, Neuro grossly intact Psych/Mental Status: Normal Affect, Appropriate Vital Signs Temp Pulse Resp BP Pulse Ox 98.1 F 45 L 16 133/91 H 99 02/19/18 11:00 02/19/18 11:00 02/19/18 11:00 02/19/18 11:00 02/19/18 11:00 Oxygen Flow Rate (L/min) 2 Oxygen Delivery Method Nasal Cannula Weight: 99 lb 10.383 oz Intake and Output for Last 24 Hours 02/17/18 02/18/18 02/19/18 23:59 23:59 23:59 Intake Total 450 / 450 376 / 376 Balance 450 / 450 376 / 376 Laboratory Tests Past 24 Hrs 02/18/18 02/18/18 02/19/18 18:58 18:58 01:55 APTT 134.5 H* Total Bilirubin 0.50 Direct Bilirubin 0.13 AST 25 ALT 26 Alkaline Phosphatase 112 Total Protein 7.6 Albumin 3.4 Globulin 4.2 Triglycerides 48 Cholesterol 175 LDL Cholesterol 64 VLDL Cholesterol 10 HDL Cholesterol 101 Free T4 1.20 02/19/18 02/19/18 01:55 09:35 APTT 41.5 H 34.8 Total Bilirubin Direct Bilirubin AST ALT Alkaline Phosphatase Total Protein Albumin Globulin Triglycerides Cholesterol LDL Cholesterol VLDL Cholesterol HDL Cholesterol Free T4 Medical Necessity - Tobacco Use Smoking Status: Never smoker Assessment/Plan All Active Problems (Last Reviewed 08/12/17 @ 09:47 by Stacie Arango) Atrial flutter (Acute) Atrial fibrillation (Acute) 1. Atrial flutter with history of paroxysmal atrial fibrillation status post cardioversion-patient denies recent known episodes of atrial fibrillation. She is on Pacerone and metoprolol at home. Patient underwent MANI cardioversion with successful conversion to sinus rhythm. She remains on heparin drip. Cardiology consulted. Patient follows with Dr. Shah. Anticipate discharge home on Coumadin with Lovenox bridging. Cardiology recommending EP evaluation as outpatient. She has been referred in the past and has not followed up. Echocardiogram demonstrated an EF of 40%, apical false tendon noted, mild to moderate mitral valve insufficiency, mild tricuspid valve insufficiency, RVSP estimated to be 30 mmHg. 2. History of nonischemic cardiomyopathy/CHF-echocardiogram in 2014 with an EF of 50%. Repeat echo as noted above. Continue lisinopril, metoprolol, Lasix. 3. Hyperlipidemia-not on statin. Lipid panel within normal limits. 4. Hypertension-stable, continue home regimen of metoprolol, lisinopril, Lasix, Pacerone. 5. GERD- Continue PPI. 6. Elevated TSH-free T4 normal. DVT prophylaxis-heparin drip This patient was seen by DOMINIQUE Cooper under the supervision of Dr. Gilbert.
--- NOTE | 2018-02-19 13:03 | PN_ITS ---
Addendum entered and electronically signed by DOMINIQUE Cooper 02/19/18 15:45: Code Visit Patient has chronic CHF as noted by history of reduced EF. Original Note: Patient Problems: Active and Suspected Problems (Last Reviewed 08/12/17 @ 09:47 by Stacie Arango) Atrial flutter (Acute) Subjective: Patient seen and examined. Underwent MANI cardioversion this morning. States her heart feels back to normal. Denies shortness of breath, chest pain. Denies palpitations. - Physical Exam General: Alert, Oriented x3, Cooperative HEENT: Atraumatic, PERRLA, EOMI, Normocephalic Neck: Supple, No JVD, Negative Carotid Bruits Lungs: Clear to auscultation, Normal air movement Cardiovascular: Regular Rhythm, Normal S1, Normal S2, No murmurs, Bradycardic - Mild Abdomen: Bowel Sounds Present, Soft, Non Tender, Non-Distended Extremities: No clubbing, No cyanosis, No edema, Capillary Refill Less than 3 Seconds Skin: No rashes, No breakdown Musculoskeletal: No Tenderness to Palpation of Joints or Extremities, Cachexia Neurological: Cranial nerves II-XII grossly intact, Neuro grossly intact Psych/Mental Status: Normal Affect, Appropriate Vital Signs Temp Pulse Resp BP Pulse Ox 98.1 F 45 L 16 133/91 H 99 02/19/18 11:00 02/19/18 11:00 02/19/18 11:00 02/19/18 11:00 02/19/18 11:00 Oxygen Flow Rate (L/min) 2 Oxygen Delivery Method Nasal Cannula Weight: 99 lb 10.383 oz Intake and Output for Last 24 Hours 02/17/18 02/18/18 02/19/18 23:59 23:59 23:59 Intake Total 450 / 450 376 / 376 Balance 450 / 450 376 / 376 Laboratory Tests Past 24 Hrs 02/18/18 02/18/18 02/19/18 18:58 18:58 01:55 APTT 134.5 H* Total Bilirubin 0.50 Direct Bilirubin 0.13 AST 25 ALT 26 Alkaline Phosphatase 112 Total Protein 7.6 Albumin 3.4 Globulin 4.2 Triglycerides 48 Cholesterol 175 LDL Cholesterol 64 VLDL Cholesterol 10 HDL Cholesterol 101 Free T4 1.20 02/19/18 02/19/18 01:55 09:35 APTT 41.5 H 34.8 Total Bilirubin Direct Bilirubin AST ALT Alkaline Phosphatase Total Protein Albumin Globulin Triglycerides Cholesterol LDL Cholesterol VLDL Cholesterol HDL Cholesterol Free T4 Medical Necessity - Tobacco Use Smoking Status: Never smoker Assessment/Plan All Active Problems (Last Reviewed 08/12/17 @ 09:47 by Stacie Arango) Atrial flutter (Acute) Atrial fibrillation (Acute) 1. Atrial flutter with history of paroxysmal atrial fibrillation status post cardioversion-patient denies recent known episodes of atrial fibrillation. She is on Pacerone and metoprolol at home. Patient underwent MANI cardioversion with successful conversion to sinus rhythm. She remains on heparin drip. Cardiology consulted. Patient follows with Dr. Shah. Anticipate discharge home on Coumadin with Lovenox bridging. Cardiology recommending EP evaluation as outpatient. She has been referred in the past and has not followed up. Echocardiogram demonstrated an EF of 40%, apical false tendon noted, mild to moderate mitral valve insufficiency, mild tricuspid valve insufficiency, RVSP estimated to be 30 mmHg. 2. History of nonischemic cardiomyopathy/CHF-echocardiogram in 2014 with an EF of 50%. Repeat echo as noted above. Continue lisinopril, metoprolol, Lasix. 3. Hyperlipidemia-not on statin. Lipid panel within normal limits. 4. Hypertension-stable, continue home regimen of metoprolol, lisinopril, Lasix , Pacerone. 5. GERD- Continue PPI. 6. Elevated TSH-free T4 normal. DVT prophylaxis-heparin drip This patient was seen by DOMINIQUE Cooper under the supervision of Dr. Gilbert.
[2018-02-19] MEDS: AMIODARONE HCL 100 MG TABLET PO (13:51)
--- NOTE | 2018-02-19 13:51 | CASEMGMT ---
Per Oliver [employer], pt will be sent home on Lovenox and script e-scribed to [facility] previously. Call to [facility] and per tech, lovenox is covered and co-pay will be $15.00. Pt updated at this time, voices understanding and states would like Mallorie Funez made preferred pharmacy at this time. Pt aware that she will need to waste some of medicine from syringe prior to giving and Lu RN also aware to instruct/teach pt prior to discharge, voices understanding. Samy HOLDER CM
[2018-02-19] MEDS: Furosemide 20 MG Tablet PO (13:52)
--- NOTE | 2018-02-19 14:12 | CASEMGMT ---
Face to Face with patient for initial transition planning/care coordination assessment. GALLO DE GUZMAN introduced self and role at [facility], pt voices understanding and consents to assessment at this time. Pt is sitting up in bed in no distress at this time. Pt is A/O x4 at this time and answers all questions appropriately at this time. Care providers, pharmacy, and demographics verified. See attached link. Pt voices no further concerns/needs at this time. Advised pt to ask for CM if any further questions/concerns/needs arise, voices understanding. PLAN: Home [facility] GALLO DE GUZMAN
--- NOTE | 2018-02-19 17:26 | PCM.OP.BLANK ---
Problem List (1) Atrial flutter Status: Acute (2) Cardiomyopathy Status: Chronic Qualifiers: Cardiomyopathy type: unspecified (3) Atherosclerotic heart disease of [place] coronary artery without angina pectoris Status: Chronic Qualifiers: [place] vs. transplanted heart: [place] heart (4) Hyperlipidemia Status: Chronic Qualifiers: Hyperlipidemia type: unspecified (5) Long-term use of high-risk medication Status: Chronic Operative Report Date of Procedure: 02/19/18 Procedure: Synchronized biphasic DC cardioversion Indications: Atrial flutter; cardiomyopathy Consent: Per the patient Premedications: Per Dr. Moy Camilo with etomidate 4 mg IV push ?1 Procedure: Synchronized biphasic DC cardioversion: 50 J ?1: Result: Sinus rhythm/sinus bradycardia; PACs Complications: No apparent complications This note was generated with [employer] software. It may contain incorrect words, spelling, and punctuation that were not noted in checking the note before signing.
--- NOTE | 2018-02-19 17:29 | PCM.PN.CARD ---
Subjectve: The patient underwent MANI guided synchronized biphasic DC cardioversion earlier this day. She appears without acute adverse event. Objective: Vital Signs Temp Pulse Resp BP Pulse Ox 98.1 F 52 L 16 110/73 95 02/19/18 15:07 02/19/18 15:39 02/19/18 15:07 02/19/18 15:07 02/19/18 15:07 Oxygen Flow Rate (L/min) 2 Oxygen Delivery Method Room Air Weight: 99 lb 10.383 oz Intake and Output for Last 24 Hours 02/17/18 02/18/18 02/19/18 23:59 23:59 23:59 Intake Total 450 / 450 886 / 886 Balance 450 / 450 886 / 886 General: Awake, Alert, Oriented x 3, Cooperative, No Acute Distress Neck: No JVD Lungs: Clear to auscultation Cardiovascular: Regular Rhythm, Premature Ectopic Beats, Normal S1, Normal S2 Abdomen: Bowel Sounds Present, Soft, Non Tender Extremities: No edema 02/18/18 18:58: APTT 134.5 H* 02/19/18 01:55: Total Bilirubin 0.50, Direct Bilirubin 0.13, Triglycerides 48, Cholesterol 175, LDL Cholesterol 64, VLDL Cholesterol 10, HDL Cholesterol 101 02/19/18 01:55: APTT 41.5 H 02/19/18 09:35: APTT 34.8 Rhythm: Sinus rhythm/sinus bradycardia; PACs MANI: Please see official report Medical Necessity - Tobacco Use Smoking Status: Never smoker Assessment/Plan 1. Atrial flutter At the present time she has regained sinus rhythm. She will continue rate limiting therapy, antiarrhythmic therapy, and anticoagulant therapy. She has chosen to remain on anticoagulant therapy with warfarin/Coumadin. However she does not want to remain in the hospital for a prolonged period of time awaiting her INR to be therapeutic. Thus she will be considered for future release home with bridging anticoagulant therapy with Lovenox while her INR is being followed. Once her INR is therapeutic than bridging anticoagulant therapy of Lovenox can be discontinued. She will also be referred to electrophysiology for consideration as to whether or not she is a candidate for possible EPS/RFA of her atrial dysrhythmias. 2. Non-CAD related cardiomyopathy Her LV systolic function appears to have declined compared to a previous echocardiographic study as she has returned to her atrial dysrhythmia. Hopefully this will improve in sinus rhythm. She will continue medical management in the interim. 3. CAD The patient does have evidence of CAD as previously described. It has been non-angiographically significant. She does need to continue risk factor evaluation care as deemed appropriate and as she will allow based upon her concern of intolerance to multiple medications. 4. Hyperlipidemia The patient's lipid profile was reviewed. At the present time the patient wishes to remain without lipid-lowering therapy. The above was discussed and evaluated the patient and Dr. Gilbert. This note was generated with [employer] dictation software. It may contain incorrect words, spelling, and punctuation that were not noted in checking the note before signing.
[2018-02-19 18:22] LABS: Partial Thromboplast Time 62.6 Seconds (24.1-36.2)
[2018-02-19 23:39] LABS: Partial Thromboplast Time 76.6 Seconds (24.1-36.2)
[2018-02-20] VITALS (8 sets, daily range): BP systolic 107–128; BP diastolic 48–78; PULSE 50–64; RESP 16–18; TEMP 36.6–36.7; O2SAT 94–96
[2018-02-20 05:31] LABS: Partial Thromboplast Time 59.9 Seconds (24.1-36.2)
--- NOTE | 2018-02-20 08:45 | PCM.PN.CARD ---
Subjectve: The patient is awake and alert. She states she feels better now that she is back in sinus rhythm. She has no other new acute concerns or complaints. Objective: Vital Signs Temp Pulse Resp BP Pulse Ox 98.1 F 53 L 16 107/54 L 94 02/20/18 03:07 02/20/18 03:07 02/20/18 03:07 02/20/18 03:07 02/20/18 03:07 Oxygen Flow Rate (L/min) 2 Oxygen Delivery Method Room Air Weight: 99 lb 10.383 oz Intake and Output for Last 24 Hours 02/18/18 02/19/18 02/20/18 23:59 23:59 23:59 Intake Total 450 / 450 886 / 886 141.7 / 141.7 Balance 450 / 450 886 / 886 141.7 / 141.7 General: Healthy Appearing, Awake, Alert, Oriented x 3, Cooperative, No Acute Distress HEENT: Atraumatic, Normocephalic, PERRL, EOMI, Sclera Non Icteric Neck: Supple, Good ROM, No JVD Lungs: Clear to auscultation Cardiovascular: Regular Rhythm, Normal S1, Normal S2 Vascular: No Carotid Bruits Abdomen: Bowel Sounds Present, Soft Extremities: No Cyanosis, No Clubbing, No edema Neurological: No Focal Motor or Sensory Deficit Psych/Mental Status: Appropriate, Normal Affect 02/19/18 09:35: APTT 34.8 02/19/18 17:30: APTT 62.6 H 02/19/18 23:22: APTT 76.6 H 02/20/18 05:02: APTT 59.9 H Rhythm: Sinus rhythm/sinus bradycardia/PACs EKG: This rhythm/sinus bradycardia; nonspecific T-wave abnormality Medical Necessity - Tobacco Use Smoking Status: Never smoker Assessment/Plan 1. Atrial flutter At the present time she has regained sinus rhythm. She will continue rate limiting therapy, antiarrhythmic therapy, and anticoagulant therapy. She will continue her low-dose beta-jia therapy for rate limiting therapy. She will continue her antiarrhythmic therapy with Pacerone (she has a reported allergy to amiodarone). Her dose has been increased. She has chosen to remain on anticoagulant therapy with warfarin/Coumadin. However she does not want to remain in the hospital for a prolonged period of time awaiting her INR to be therapeutic. Thus she will be considered for future release home with bridging anticoagulant therapy with Lovenox while her INR is being followed. Once her INR is therapeutic than bridging anticoagulant therapy of Lovenox can be discontinued. She will also be referred to electrophysiology for consideration as to whether or not she is a candidate for possible EPS/RFA of her atrial dysrhythmias. Overall, she will need continued outpatient follow-up. This will include laboratory studies with INR monitoring and outpatient cardiac rate and rhythm monitoring as deemed appropriate. Again she will be referred to electrophysiology for consideration as to being a candidate for possible EPS/RFA. 2. Non-CAD related cardiomyopathy Her LV systolic function appears to have declined compared to a previous echocardiographic study as she has returned to her atrial dysrhythmia. Hopefully this will improve in sinus rhythm. She will continue medical management in the interim. Over time she will need future echocardiographic studies to monitor her left ventricular wall motion systolic function with the hopes of seeing improvement as she is in sinus rhythm. 3. CAD The patient does have evidence of CAD as previously described. It has been non-angiographically significant. She does need to continue risk factor evaluation care as deemed appropriate and as she will allow based upon her concern of intolerance to multiple medications. 4. Hyperlipidemia The patient's lipid profile was reviewed. At the present time the patient wishes to remain without lipid-lowering therapy. This note was generated with [employer] dictation software. It may contain incorrect words, spelling, and punctuation that were not noted in checking the note before signing.
--- NOTE | 2018-02-20 08:49 | PN.CARD_ITS ---
Subjectve: The patient is awake and alert. She states she feels better now that she is back in sinus rhythm. She has no other new acute concerns or complaints. Objective: Vital Signs Temp Pulse Resp BP Pulse Ox 98.1 F 53 L 16 107/54 L 94 02/20/18 03:07 02/20/18 03:07 02/20/18 03:07 02/20/18 03:07 02/20/18 03:07 Oxygen Flow Rate (L/min) 2 Oxygen Delivery Method Room Air Weight: 99 lb 10.383 oz Intake and Output for Last 24 Hours 02/18/18 02/19/18 02/20/18 23:59 23:59 23:59 Intake Total 450 / 450 886 / 886 141.7 / 141.7 Balance 450 / 450 886 / 886 141.7 / 141.7 General: Healthy Appearing, Awake, Alert, Oriented x 3, Cooperative, No Acute Distress HEENT: Atraumatic, Normocephalic, PERRL, EOMI, Sclera Non Icteric Neck: Supple, Good ROM, No JVD Lungs: Clear to auscultation Cardiovascular: Regular Rhythm, Normal S1, Normal S2 Vascular: No Carotid Bruits Abdomen: Bowel Sounds Present, Soft Extremities: No Cyanosis, No Clubbing, No edema Neurological: No Focal Motor or Sensory Deficit Psych/Mental Status: Appropriate, Normal Affect 02/19/18 09:35: APTT 34.8 02/19/18 17:30: APTT 62.6 H 02/19/18 23:22: APTT 76.6 H 02/20/18 05:02: APTT 59.9 H Rhythm: Sinus rhythm/sinus bradycardia/PACs EKG: This rhythm/sinus bradycardia; nonspecific T-wave abnormality Medical Necessity - Tobacco Use Smoking Status: Never smoker Assessment/Plan 1. Atrial flutter At the present time she has regained sinus rhythm. She will continue rate limiting therapy, antiarrhythmic therapy, and anticoagulant therapy. She will continue her low-dose beta-jia therapy for rate limiting therapy. She will continue her antiarrhythmic therapy with Pacerone (she has a reported allergy to amiodarone). Her dose has been increased. She has chosen to remain on anticoagulant therapy with warfarin/Coumadin. However she does not want to remain in the hospital for a prolonged period of time awaiting her INR to be therapeutic. Thus she will be considered for future release home with bridging anticoagulant therapy with Lovenox while her INR is being followed. Once her INR is therapeutic than bridging anticoagulant therapy of Lovenox can be discontinued. She will also be referred to electrophysiology for consideration as to whether or not she is a candidate for possible EPS/RFA of her atrial dysrhythmias. Overall, she will need continued outpatient follow-up. This will include laboratory studies with INR monitoring and outpatient cardiac rate and rhythm monitoring as deemed appropriate. Again she will be referred to electrophysiology for consideration as to being a candidate for possible EPS/ RFA. 2. Non-CAD related cardiomyopathy Her LV systolic function appears to have declined compared to a previous echocardiographic study as she has returned to her atrial dysrhythmia. Hopefully this will improve in sinus rhythm. She will continue medical management in the interim. Over time she will need future echocardiographic studies to monitor her left ventricular wall motion systolic function with the hopes of seeing improvement as she is in sinus rhythm. 3. CAD The patient does have evidence of CAD as previously described. It has been non- angiographically significant. She does need to continue risk factor evaluation care as deemed appropriate and as she will allow based upon her concern of intolerance to multiple medications. 4. Hyperlipidemia The patient's lipid profile was reviewed. At the present time the patient wishes to remain without lipid-lowering therapy. This note was generated with [employer] dictation software. It may contain incorrect words, spelling, and punctuation that were not noted in checking the note before signing.
[2018-02-20] MEDS: Lisinopril 2.5 MG Tablet PO (09:53)
[2018-02-20] MEDS: Furosemide 20 MG Tablet PO (09:53)
[2018-02-20] MEDS: Amiodarone 200 MG Tablet PO (09:54)
[2018-02-20] MEDS: Metoprolol Tartrate 25 MG Tablet 12.5 MG PO (09:55)
--- NOTE | 2018-02-20 10:00 | NURSING ---
per pt she is planning on being discharged today and is not planning on being here at 6pm of lovenox injection.
[2018-02-20] MEDS: Enoxaparin 60 MG/0.6 ML Syringe 50 MG SC (11:21)
--- NOTE | 2018-02-20 16:20 | DCINST_ITS ---
- Discharge Diagnoses Current Active Problems: Current Active and Chronic Problems (Last Reviewed 08/12/17 @ 09:47 by Stacie Arango) Atrial flutter (Acute) You will use the following diet at home:: No restrictions Your food should be the consistency of: Regular Your liquids should be the consistency of: Regular/Thin Discharge Activity: Return to Normal Activity Weight Bearing Status: Full weight bearing Allergies/Adverse Reactions: Allergies amiodarone Allergy (Verified 02/18/18 07:45) Hives Pt takes the Pacerone (brand name) with no allergy. Medications to take at Discharge Pantoprazole Sodium [Protonix] 40 mg PO DAILY PRN 12/14/13 lisinopril 2.5 mg tablet 2.5 mg PO DAILY #90 tab 07/18/17 metoprolol tartrate 25 mg tablet 12.5 mg PO BID #90 tab 07/18/17 furosemide 20 mg tablet 20 mg PO DAILY #90 tab 11/04/17 Acetaminophen [Tylenol Tablet] 650 mg PO Q6H PRN PRN tablet 02/20/18 Amiodarone HCl [Pacerone] 200 mg PO QDAY #90 tab NS 02/20/18 Enoxaparin Sodium [Lovenox] 70 mg SQ DAILY #7 syringe 02/20/18 Warfarin Sodium [Coumadin] 4 mg PO DAILY #60 tablet 02/20/18 The following prescriptions were given: Amiodarone HCl [Pacerone] 200 mg PO QDAY #90 tab NS Enoxaparin Sodium [Lovenox] 70 mg SQ DAILY #7 syringe Warfarin Sodium [Coumadin] 4 mg PO DAILY #60 tablet Primary Care Physician: Raghu Forbes MD [Primary Care Provider] - Please follow up with your Primary Care Physician in: in 2 weeks Test Results: Test results from this visit will be discussed in further detail at your follow- up appointment, if applicable. Please Follow Up With: Sheng Shah MD When: next Saturday for INR
[2018-02-20] MEDS: Enoxaparin 30 MG/0.3 ML Syringe 20 MG SC (17:18)
--- NOTE | 2018-02-21 16:32 | CASEMGMT ---
RN CM Discharge F/U Phone Call LACE: 10 Strata: 3 Discharge date: 02/20/18 Call date: 02/21/18 Call time: [id number] Attempted to reach pt at this time without success, message left for pt to call this RN CM back. [facility] RN CM Admission dx: Afib
--- NOTE | 2018-04-15 08:57 | PCM.DC.SUM ---
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 (Chronic) Long-term use of high-risk medication (Chronic) Hyperlipidemia (Chronic) Atherosclerotic heart disease of [place] coronary artery without angina pectoris (Chronic) Congestive heart failure (Chronic) History of GI bleed (Chronic) History of myocardial infarction (Chronic) Cardiomyopathy (Chronic) Hospital Course and Treatment Operations: None Procedures: Cardioversion Summary of Care Provided: The patient is a 77 year old F who presented to the emergency room at [facility] with chief complaint of palpitations patient had a past history of atrial fibrillation, her Coumadin had been stopped approximately 2 years prior. Evaluation in the emergency room included labs which showed a hemoglobin of 11.3, sodium 132, and TSH of 6.02. EKG showed atrial flutter with variable AV block, chest x-ray did not show any acute findings. Cardiology was contacted and his case was discussed with them, patient was admitted to PCU for new onset atrial flutter, echocardiogram was performed that showed a reduced ejection fraction of 40%. Anticoagulant therapy was reinitiated and medications were adjusted by cardiology for rate control. Transesophageal echocardiogram was ultimately performed which showed a EF of 35% and no evidence of thrombus. It was felt that the patient should undergo a cardioversion for control of her rate, she underwent a cardioversion and converted to normal sinus rhythm-there were no complications from the procedure. On 02/20/18, patient was seen and examined by myself and felt to be in stable condition for discharge home. Discharge Activity: Return to Normal Activity Weight Bearing Status: Full weight bearing Home Medications: Medications to take at Discharge Pantoprazole Sodium [Protonix] 40 mg PO DAILY PRN 12/14/13 lisinopril 2.5 mg tablet 2.5 mg PO DAILY #90 tab 07/18/17 Warfarin [Coumadin] 2 mg PO DAILY 04/01/18 Amiodarone HCl [Pacerone] 200 mg PO BID tab 04/03/18 Metoprolol Tartrate [Lopressor (beta jia)] 25 mg PO BID #0 tab 04/03/18 furosemide 20 mg tablet 20 mg PO BID #90 tab 04/09/18 Primary Care Physician: Raghu Forbes MD [Primary Care Provider] - Please follow up with your Primary Care Physician in: in 2 weeks Please Follow Up With: Sheng Shha MD When: next Saturday for INR Please Follow Up With: Raghu Forbes MD When: in 2 weeks Disposition: Home Minutes spent on discharge:: 32 Patient Condition:: Stable Medical Necessity - Tobacco Use Smoking Status: Never smoker Meaningful Use Info Meaningful Use Diagnoses (Choose all that apply): None applicable Code Visit Inpatient E&M: 67623 Disch Hosp
--- NOTE | 2018-04-15 09:04 | DS.PCM_ITS ---
Discharge Date and Diagnosis Date of Admission: 02/18/18 Date of Discharge: 04/23/18 - Primary Discharge Diagnosis #1 new onset atrial flutter-converted to sinus rhythm at the time of discharge #2 nonischemic cardiomyopathy #3 coronary artery disease #4 hyperlipidemia #5 hypertension #6 chronic systolic congestive heart failure-EF 35% - Secondary Discharge Diagnosis Chronic Problems (Last Reviewed 04/01/18 @ 23:46 by Candelario Conley MD) Anxiety (Chronic) Thyroid disorder (Chronic) GERD (gastroesophageal reflux disease) (Chronic) snf (current) use of anticoagulants (Chronic) Long-term use of high-risk medication (Chronic) Hyperlipidemia (Chronic) Atherosclerotic heart disease of [place] coronary artery without angina pectoris (Chronic) Congestive heart failure (Chronic) History of GI bleed (Chronic) History of myocardial infarction (Chronic) Cardiomyopathy (Chronic) Hospital Course and Treatment Operations: None Procedures: Cardioversion Summary of Care Provided: The patient is a 77 year old F who presented to the emergency room at [facility] with chief complaint of palpitations patient had a past history of atrial fibrillation, her Coumadin had been stopped approximately 2 years prior. Evaluation in the emergency room included labs which showed a hemoglobin of 11.3, sodium 132, and TSH of 6.02. EKG showed atrial flutter with variable AV block, chest x-ray did not show any acute findings. Cardiology was contacted and his case was discussed with them, patient was admitted to PCU for new onset atrial flutter, echocardiogram was performed that showed a reduced ejection fraction of 40%. Anticoagulant therapy was reinitiated and medications were adjusted by cardiology for rate control. Transesophageal echocardiogram was ultimately performed which showed a EF of 35 % and no evidence of thrombus. It was felt that the patient should undergo a cardioversion for control of her rate, she underwent a cardioversion and converted to normal sinus rhythm-there were no complications from the procedure. On 02/20/18, patient was seen and examined by myself and felt to be in stable condition for discharge home. Discharge Activity: Return to Normal Activity Weight Bearing Status: Full weight bearing Home Medications: Medications to take at Discharge Pantoprazole Sodium [Protonix] 40 mg PO DAILY PRN 12/14/13 lisinopril 2.5 mg tablet 2.5 mg PO DAILY #90 tab 07/18/17 Warfarin [Coumadin] 2 mg PO DAILY 04/01/18 Amiodarone HCl [Pacerone] 200 mg PO BID tab 04/03/18 Metoprolol Tartrate [Lopressor (beta jia)] 25 mg PO BID #0 tab 04/03/18 furosemide 20 mg tablet 20 mg PO BID #90 tab 04/09/18 Primary Care Physician: Raghu Forbes MD [Primary Care Provider] - Please follow up with your Primary Care Physician in: in 2 weeks Please Follow Up With: Sheng Shah MD When: next Saturday for INR Please Follow Up With: Raghu Forbes MD When: in 2 weeks Disposition: Home Minutes spent on discharge:: 32 Patient Condition:: Stable Medical Necessity - Tobacco Use Smoking Status: Never smoker Meaningful Use Info Meaningful Use Diagnoses (Choose all that apply): None applicable Code Visit Inpatient E&M: 95077 Disch Hosp
== END 2018-02-20 17:38 | disposition home or self-care (01) | DRG 309 ==
LOC: ED 08:34 → PCU 10:33
PROVIDERS: Internal Medicine Cardiovascular Disease; Nurse Practitioner Family; Admitting Provider Internal Medicine; Emergency Provider Emergency Medicine; Family Provider Family Medicine; PCP Family Medicine; Visit Provider Internal Medicine
DX: I48.92 Unspecified atrial flutter (principal); I50.22 Chronic systolic (congestive) heart failure; I11.0 Hypertensive heart disease with heart failure; I42.9 Cardiomyopathy, unspecified; I25.10 Atherosclerotic heart disease of native coronary artery without angina pectoris; E78.5 Hyperlipidemia, unspecified
CPT/HCPCS: 36415; 71045; 80048; 80061; 80076; 84439; 84443; 84484; 85025; 85610; 85730; 92960; 93005; 93306; 93312; 93320; 93325; 99283; J7030; A4216

== ENCOUNTER 2018-02-24 09:08 | Outpatient (RCR) | payer MEDICARE, SELFPAY ==
[2018-02-24 12:48] LABS: Prothrombin Time (Protime)PT. 42.9 SECONDS (11.7-14.9)
[2018-02-24 13:02] LABS: International Normalized Ratio 4.5
== END 2018-02-25 20:00 | disposition home or self-care (01) ==
LOC: MTLAB 09:08
PROVIDERS: Family Provider Family Medicine; PCP Family Medicine; Visit Provider Internal Medicine Cardiovascular Disease
DX: I48.91 Unspecified atrial fibrillation (principal); Z79.01 Long term (current) use of anticoagulants
CPT/HCPCS: 36415; 85610

== ENCOUNTER 2018-03-24 09:36 | Outpatient (RCR) | payer MEDICARE, SELFPAY ==
[2018-02-27 12:16] LABS: Prothrombin Time (Protime)PT. 53.3 SECONDS (11.7-14.9)
[2018-02-27 12:27] LABS: International Normalized Ratio 5.9
[2018-03-03 12:07] LABS: International Normalized Ratio 3.4; Prothrombin Time (Protime)PT. 34.7 SECONDS (11.7-14.9)
[2018-03-10 12:41] LABS: International Normalized Ratio 3.1; Prothrombin Time (Protime)PT. 31.8 SECONDS (11.7-14.9)
[2018-03-17 12:17] LABS: International Normalized Ratio 3.6; Prothrombin Time (Protime)PT. 36.4 SECONDS (11.7-14.9)
[2018-03-24 12:07] LABS: International Normalized Ratio 1.7; Prothrombin Time (Protime)PT. 20.4 SECONDS (11.7-14.9)
== END 2018-03-24 11:00 | disposition home or self-care (01) ==
LOC: LAB 09:36
PROVIDERS: Family Provider Family Medicine; PCP Family Medicine; Visit Provider Internal Medicine Cardiovascular Disease
DX: I48.91 Unspecified atrial fibrillation (principal); Z79.01 Long term (current) use of anticoagulants
CPT/HCPCS: 36415; 85610

== ENCOUNTER 2018-04-01 16:24 | Inpatient (IN) | payer MEDICARE, SELFPAY ==
[2018-04-01] VITALS (14 sets, daily range): BP systolic 121–158; BP diastolic 79–119; PULSE 80–132; RESP 18–24; TEMP 36.4–36.7; O2SAT 92–99; BMI 18.4; BMI 19.0
[2018-04-01 17:12] LABS: Anion Gap 11 (5-15); BUN 13 mg/dL (7-18); BUN/Creat Ratio 11.9 RATIO (10-20); Chloride 89 mmol/L (98-107); Creatinine, Serum 1.09 mg/dL (0.55-1.02); EST Glomerular Filtration Rate 52 mL/min (>60); Est Glom Filt Rate - Afr Amer 63 mL/min (>60); Estimated Creatinine Clearance 31.76 ml/min; Glucose 177 mg/dL (74-106); Potassium 4.8 mmol/L (3.5-5.1); Sodium Level 128 mmol/L (136-145)
[2018-04-01 17:29] LABS: Absolute Lymphocyte Count 1.07 X10^3/ul (0.83-4.51); Absolute Neutrophil Count 6.6 X10^3/uL (2.0-7.7); Basophil# 0.04 X10^3/uL; Basophil% 0.5 % (0-1); Eosinophil# 0.05 X10^3/uL; Eosinophils% 0.6 % (0-5); Hematocrit 36.2 % (37-47); Hemoglobin 11.2 g/dl (12.0-15.0); Lymphocyte # 1.07 X10^3/ul (4.0); Lymphocyte % 12.3 % (19-41); Mean Corp Hgb Conc 30.9 g/gl (32-36); Mean Corpuscular Hgb 23.1 pg (27.0-32.0); Mean Corpuscular Volume 74.6 fL (81-99); Mean Platelet Vol. 9.1 fl (6.2-12.0); Monocyte# 0.91 X10^3/uL; Monocyte% 10.5 % (0-10); Platelet Count 429 K/mm3 (150-450); RBC Distribution Width CV 14.9 % (11.6-14.6); RBC Distribution Width SD 40.3 fl (35.1-43.9); Red Blood Count 4.85 M/mm3 (4.2-5.4); White Blood Count 8.7 K/mm3 (4.4-11.0)
[2018-04-01 17:30] LABS: Differential Indicated SCAN CRITERIA MET; POSITIVE COUNT NO; POSITIVE DIFFERENTIAL NO; POSITIVE MORPHOLOGY YES
[2018-04-01 17:53] LABS: Differential Comment SCANNED; Hypochromasia RARE; Ovalocyte 1+; Polychromasia RARE
[2018-04-01 17:54] LABS: Crenated RBC 1+
[2018-04-01] MEDS: Metoprolol Tartrate 5 MG/5 ML Vial IV (20:20)
[2018-04-01] MEDS: Furosemide 20 MG/2 ML VIAL IV (20:20)
--- NOTE | 2018-04-01 20:24 | ED.DCSUM_ITS ---
- ER Visit Summary Date of Service: 04/01/18 Chief Complaint: Short of breath, heart racing History of Present Illness: The patient is a 77 F with a 2 day history of shortness of breath and feeling her heart has been racing. She has a history of paroxysmal A. fib. She does report some mild chest pressure and states her legs feel weak. She states her INR today was 1.9. They have been talking about potentially trying another cardioversion for her. She is scheduled to have a cardiac ablation in June. Physical Examination: Blood pressure is 131/119, temperature 97.5, heart rate 101, respiratory rate 18, pulse ox 96% on room air. Patient sitting upright in bed. Heart rate is fluctuating between 95 and 115 during the time of my exam. Head neck examination is unremarkable. Heart is tachycardic and irregular. Lung sounds clear. Abdomen soft nontender. Test Results: EKG is A. fib at 107. She has mild inferior lateral ST depression. CBC was normal white count hemoglobin 11.2. Chemistry studies reveal a sodium of 128 which is just below her baseline. Glucose is 177. Troponin is 0.015. Portable chest x-ray shows new bilateral lower lobe opacity possibly representing bilateral pleural effusions. 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 I spoke with Dr. Shah. He states she will need to be placed on IV heparin and have her Coumadin dose increased. She will be given a dose of Lopressor now to help control heart rate and patient needs to be diuresed. He will check the schedule to see if they will be able to do a MANI and cardioversion and will see her tomorrow. Treatment Plan: [] Disposition: Admit Impression: A. fib RVR This note was generated with [employer] dictation software. It may contain incorrect words, spelling, and punctuation that were not noted in review of the chart prior to signing ED Disposition - Plan for ED Patient: Chief Complaint: Shortness of Breath Referrals: Raghu Forbes MD [Primary Care Provider] -
--- NOTE | 2018-04-01 20:36 | PCM.HP.STD ---
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 transplanted heart: [place] heart Qualified Code(s): I25.10 - Atherosclerotic heart disease of [place] coronary artery without angina pectoris (4) History of myocardial infarction Status: Chronic (5) Cardiomyopathy Status: Chronic Qualifiers: Cardiomyopathy type: unspecified Qualified Code(s): I42.9 - Cardiomyopathy, unspecified History of Present Illness Date of Admission: 04/01/18 Chief Complaint: Shortness of breath and generalized weakness ?1 day The patient is a 77 year old F with a significant history of chronic atrial fibrillation, cardiomyopathy and [place] who presented for 1 day history of shortness of breath and weakness. Associated with her symptoms is episodic feeling of her heart racing. Patient is on chronic anticoagulation with warfarin. At emergency department on the day of admission her INR was 1.9. In regards to her A. fib, she sees Dr. Shah. The plan was for cardiac ablation in June 2018. ED doctor reported conversation with Dr. Shah today. Per ED, Dr. Shah is considering MANI with cardioversion tomorrow (next day of admission); and recommended heparin drip, diuresis; heart rate control and increase of her warfarin dose. Past Medical History Past Medical History (Chronic Problems): Chronic Problems (Last Reviewed 04/01/18 @ 23:37 by Candelario Conley MD) Anxiety (Chronic) Thyroid disorder (Chronic) GERD (gastroesophageal reflux disease) (Chronic) detention (current) use of anticoagulants (Chronic) Long-term use of high-risk medication (Chronic) Hyperlipidemia (Chronic) Atherosclerotic heart disease of [place] coronary artery without angina pectoris (Chronic) Congestive heart failure (Chronic) History of GI bleed (Chronic) History of myocardial infarction (Chronic) Cardiomyopathy (Chronic) Medical History: Medical History (Last Reviewed 04/01/18 @ 23:46 by Candelario Conley MD) Anxiety (Chronic) F41.9 Thyroid disorder (Chronic) E07.9 GERD (gastroesophageal reflux disease) (Chronic) K21.9 Long-term use of high-risk medication (Chronic) Z79.899 Hyperlipidemia (Chronic) E78.5 Atherosclerotic heart disease of [place] coronary artery without angina pectoris (Chronic) I25.10 Atrial fibrillation (Acute) I48.91 DCCV 02/19/18 @ [facility]; Congestive heart failure (Chronic) I50.9 History of GI bleed (Chronic) Z87.19 History of myocardial infarction (Chronic) I25.2 Cardiomyopathy (Chronic) I42.9 Allergies amiodarone Allergy (Verified 04/01/18 16:28) Hives Pt takes the Pacerone (brand name) with no allergy. Home Medications: Ambulatory Orders Medication Instructions Recorded Pantoprazole Sodium [Protonix] 40 mg PO DAILY PRN 12/14/13 lisinopril 2.5 mg tablet 2.5 mg PO DAILY #90 tab 07/18/17 furosemide 20 mg tablet 20 mg PO DAILY #90 tab 11/04/17 Pacerone 100 mg tablet 200 mg PO QDAY #180 tab NS 02/25/18 metoprolol tartrate 25 mg tablet 12.5 mg PO BID tab 03/14/18 Warfarin [Coumadin ([facility])] 2 mg PO DAILY 04/01/18 Surgical History: Surgical History (Last Reviewed 04/01/18 @ 23:46 by Candelario Conley MD) History of cardiac catheterization Z98.890 thrombectomy of mid LAD 09/12/11 History of tonsillectomy Z90.89 History of tubal ligation Z98.51 Surgical History: tonsillectomy, - - D&C Psychiatric History: No pertinent psych hx Lives: Alone Smoking Status: Never smoker - *Family History Maternal Family History: Family History (Last Reviewed 04/01/18 @ 23:46 by Candelario Conley MD) Father Heart disease Sister Heart disease Cardiomyopathy History Items: No pertinent history Review of Systems Constitutional: Reports: Weakness. Denies: Anorexia Eyes: Denies: Blurred vision, Pain HEENT: Denies: Head Aches, Sinus Congestion, Sinus Drainage Cardiovascular: Reports: Heaviness - Chest heaviness., Palpitations Respiratory: Reports: Shortness of breath at rest Gastrointestinal: Denies: Abdominal Pain, Nausea, Vomiting Genitourinary: Denies: Dysuria Musculoskeletal: Reports: Arm Pain Skin: Denies: Rash, Wounds Neurological: Denies: Numbness, Tingling, Focal weakness Psychiatric: Denies: Anxiety, Depression, Homicidal Ideations, Suicidal Ideations Endocrine: Denies: Change in Body Habitus, Polyuria Hematologic/ Lymphatic: Denies: Easy Bruising, Easy Bleeding VTE Information - Inpt Only VTE Present on Admission: No VTE Mechan Device Prophylaxis: None VTE Pharm Prophylaxis ordered?: No Reason prophylaxis not ordered:: Treatment Not Indicated - Started on heparin drip and on Coumadin for A. fib. Patient Problems: Active and Suspected Problems (Last Reviewed 04/01/18 @ 23:37 by Candelario Conley MD) Persistent atrial fibrillation with rapid ventricular response (Acute) - Physical Exam General: Alert, Oriented x3, Cooperative HEENT: Atraumatic, PERRLA, EOMI, Normocephalic Neck: Supple, No JVD, Negative Carotid Bruits Lungs: Clear to auscultation, Tachypneic Cardiovascular: Normal S1, Normal S2, Tachycardic Abdomen: Bowel Sounds Present, Soft, Non Tender Extremities: No edema, Capillary Refill Less than 3 Seconds Skin: No rashes, No breakdown Musculoskeletal: No Tenderness to Palpation of Joints or Extremities Neurological: Cranial nerves II-XII grossly intact Psych/Mental Status: Normal Affect, Appropriate Vital Signs Temp Pulse Resp BP Pulse Ox 97.5 F L 116 H 24 H 121/104 H 97 04/01/18 16:26 04/01/18 20:12 04/01/18 20:12 04/01/18 20:12 04/01/18 20:12 Oxygen Delivery Method Room Air Weight: 45.813 kg Body Mass Index (BMI) 18.4 Laboratory Tests Past 24 Hrs 04/01/18 04/01/18 04/01/18 16:45 16:45 16:45 WBC 8.7 RBC 4.85 Hgb 11.2 L Hct 36.2 L MCV 74.6 L MCH 23.1 L MCHC 30.9 L RDW 14.9 H RDW Differential 40.3 Plt Count 429 MPV 9.1 Immature Gran % (Auto) 0.100 Neut % (Auto) 76.0 H Lymph % (Auto) 12.3 L [place] % (Auto) 10.5 H Eos % (Auto) 0.6 Baso % (Auto) 0.5 Absolute Neuts (auto) 6.6 Absolute Lymphs (auto) 1.07 Total Counted Not Reportable Differential Comment SCANNED RBC Morphology 1+ Polychromasia RARE Hypochromasia RARE Ovalocytes 1+ Sodium 128 L Potassium 4.8 Chloride 89 L Carbon Dioxide 28.0 Anion Gap 11 BUN 13 Creatinine 1.09 H Estim Creat Clear Calc 31.76 Est GFR (MDRD) Af Amer 63 Est GFR (MDRD) Non-Af 52 L BUN/Creatinine Ratio 11.9 Glucose 177 H Calcium 9.0 Troponin I 0.015 B-Natriuretic Peptide Pending Assessment/Plan All Active Problems (Last Reviewed 04/01/18 @ 23:37 by Candelario Conley MD) Persistent atrial fibrillation with rapid ventricular response (Acute) Atrial flutter (Acute) Atrial fibrillation (Acute) The patient is a 77 year old F with a significant history of chronic atrial fibrillation, cardiomyopathy and [place] who presented for 1 day history of shortness of breath, weakness and palpitations and found to be in A. fib with RVR. A. fib with RVR Ventricular rate = 101-110 on admission. Received Metoprolol Tartrate 5mg IV X 1 Scheduled amiodarone and metoprolol tartrate continued. Metoprolol IV as needed ordered for heart rate of > 100. Heparin bolus and drip started On Home Coumadin 2mg daily. INR at admission was 2.1. Coumadin 3mg daily. Daily PT/INR. Titrate Coumadin. TSH on 02/18/2018 showed subclinical hypothyroidism. Magnesium ordered. Cardiology consult. Systolic heart failure Old records reviewed. Last echocardiogram on 02/19/2018 showed an ejection fraction of about 35%. Decompensated with bilateral effusions and BNP of 1,232. On home Lasix 20 mg daily. Received Lasix 20 mg IV at emergency department Lasix 20 mg IV twice daily ordered. Lisinopril continued Trend BMP. Hyponatremia Chronic Likely due to diuretic use. Trend BMP. GERD Pantoprazole continued. DVT prophylaxis Not indicated. Patient is on heparin drip and Coumadin for A. fib. . Code Visit OBSV E&M: 44078 Initial observation care L3
--- NOTE | 2018-04-01 20:58 | NURSING ---
Called ED supervisor concrete stone finishing phone at this time. Confirmed with Nicole that Pt is okay to come to PCU.
[2018-04-01 22:50] LABS: International Normalized Ratio 2.1; Prothrombin Time (Protime)PT. 23.4 SECONDS (11.7-14.9)
[2018-04-01 22:51] LABS: Partial Thromboplast Time 39.5 Seconds (24.1-36.2)
[2018-04-01] MEDS: Metoprolol Tartrate 25 MG Tablet 12.5 MG PO (22:57)
[2018-04-01] MEDS: HEPARIN/D5w 25,000 UNITS 25,000 UNITS/250 ML IV.SOLN. 7 UNITS IV (23:01)
[2018-04-01] MEDS: Heparin Injection (Vial) 5,000 UNIT/ML VIAL 3500 UNIT IV (23:04)
[2018-04-02] VITALS (18 sets, daily range): BP systolic 97–126; BP diastolic 58–73; PULSE 54–85; RESP 14–20; TEMP 36.5–36.9; O2SAT 92–99; BMI 19.0
[2018-04-02 01:12] LABS: Magnesium 1.9 mg/dL (1.6-2.6)
[2018-04-02] MEDS: 0.9% NaCl Peripheral Flush Adult/Peds IV ×4 (05:46→21:09)
[2018-04-02] MEDS: Furosemide 20 MG/2 ML VIAL IV ×2 (05:55→21:09)
[2018-04-02 06:00] LABS: Hematocrit 33.6 % (37-47); Hemoglobin 10.6 g/dl (12.0-15.0); Mean Corp Hgb Conc 31.5 g/gl (32-36); Mean Corpuscular Hgb 23.2 pg (27.0-32.0); Mean Corpuscular Volume 73.7 fL (81-99); Mean Platelet Vol. 9.2 fl (6.2-12.0); Platelet Count 356 K/mm3 (150-450); RBC Distribution Width SD 39.8 fl (35.1-43.9); Red Blood Count 4.56 M/mm3 (4.2-5.4); White Blood Count 6.3 K/mm3 (4.4-11.0)
[2018-04-02 06:01] LABS: Scan Indicated on CBC? Y/N YES- FLAGS NOTED
[2018-04-02 06:09] LABS: Anion Gap 8 (5-15); BUN 13 mg/dL (7-18); BUN/Creat Ratio 13.8 RATIO (10-20); Calcium,Total 8.6 mg/dL (8.5-10.1); Chloride 95 mmol/L (98-107); Creatinine, Serum 0.94 mg/dL (0.55-1.02); EST Glomerular Filtration Rate 61 mL/min (>60); Est Glom Filt Rate - Afr Amer 74 mL/min (>60); Estimated Creatinine Clearance 37.94 ml/min; Glucose 92 mg/dL (74-106); Potassium 3.8 mmol/L (3.5-5.1); Sodium Level 134 mmol/L (136-145)
[2018-04-02 06:21] LABS: Partial Thromboplast Time 221.7 Seconds (24.1-36.2)
[2018-04-02 06:27] LABS: Differential Comment SCANNED
[2018-04-02 06:59] LABS: International Normalized Ratio 2.2; Prothrombin Time (Protime)PT. 24.5 SECONDS (11.7-14.9)
--- NOTE | 2018-04-02 11:02 | EKG12_ITS ---
Test Reason : PRE CARDIOVERSION Blood Pressure : / mmHG Vent. Rate : 087 BPM Atrial Rate : 312 BPM P-R Int : 000 ms QRS Dur : 100 ms QT Int : 406 ms P-R-T Axes : 000 088 -78 degrees QTc Int : 488 ms Atrial flutter with variable A-V block Left ventricular hypertrophy with repolarization abnormality Abnormal ECG When compared with ECG of 01-APR-2018 16:35, MANUAL COMPARISON REQUIRED, DATA IS UNCONFIRMED Confirmed by PRANAV DE LEÓN ([id number]), newspaper photo editor CAMPOS WILLIAMSON ([id number]) on 04/08/2018 3:16:12 PM Referred By: Sheng Shah Confirmed By:PRANAV DE LEÓN
--- NOTE | 2018-04-02 12:53 | PCM.PN.HOSP ---
Patient Problems: Active and Suspected Problems (Last Reviewed 04/01/18 @ 23:46 by Candelario Conley MD) Persistent atrial fibrillation with rapid ventricular response (Acute) Atrial fibrillation and flutter (Acute) Subjective: Patient heart rate is controlled but is still irregular. She has A. fib diagnosed about 6 years ago. Schedule for MANI and subsequent cardioversion The patient has coronary artery disease, congestive heart failure. Vitals/I&O's: Vital Signs Temp Pulse Resp BP Pulse Ox 98.2 F 85 20 H 106/63 94 04/02/18 10:15 04/02/18 11:03 04/02/18 10:15 04/02/18 10:15 04/02/18 10:15 Oxygen Delivery Method Room Air Weight: 104 lb 0.931 oz Body Mass Index (BMI) 19.0 Intake and Output for Last 24 Hours 03/31/18 04/01/18 04/02/18 23:59 23:59 23:59 Intake Total 31.1 / 31.1 80.9 / 80.9 Output Total 900 / 900 1250 / 1250 Balance -868.9 / -868.9 -1169.1 / -1169.1 General: Alert, Oriented x3, Cooperative HEENT: Atraumatic, PERRLA, EOMI, Normocephalic Neck: Supple, No JVD, Negative Carotid Bruits Lungs: Clear to auscultation, Normal air movement Cardiovascular: Regular rate, Normal S1, Normal S2, No murmurs, Irregular Rate Abdomen: Bowel Sounds Present, Soft, Non Tender Extremities: No edema, Capillary Refill Less than 3 Seconds Skin: No rashes, No breakdown Musculoskeletal: No Tenderness to Palpation of Joints or Extremities Neurological: Cranial nerves II-XII grossly intact Psych/Mental Status: Normal Affect, Appropriate Laboratory Results 04/01/18 22:00: PT Cancelled, INR Cancelled, APTT Cancelled 04/01/18 22:13: PT 23.4 H, INR 2.1, APTT 39.5 H 04/02/18 00:29: Magnesium 1.9, Troponin I 0.026 04/02/18 03:20: Troponin I 0.026 04/02/18 05:30: WBC 6.3, RBC 4.56, Hgb 10.6 L, Hct 33.6 L, MCV 73.7 L, MCH 23.2 L, MCHC 31.5 L, RDW 15.0 H, RDW Differential 39.8, Plt Count 356, MPV 9.2, Differential Comment SCANNED 04/02/18 05:30: PT 24.5 H, INR 2.2 04/02/18 05:30: Sodium 134 L, Potassium 3.8, Chloride 95 L, Carbon Dioxide 31.0, Anion Gap 8, BUN 13, Creatinine 0.94, Estim Creat Clear Calc 37.94, Est GFR (MDRD) Af Amer 74, Est GFR (MDRD) Non-Af 61, BUN/Creatinine Ratio 13.8, Glucose 92, Calcium 8.6, Troponin I 0.022 04/02/18 05:30: APTT 221.7 H* 04/02/18 12:00: APTT Pending Current Medications Amiodarone HCl (Cordarone) 200 mg PO DAILY [facility] Bisacodyl (Dulcolax) 5 mg PO DAILY PRN PRN PRN Reason: Constipation Furosemide (Lasix) 20 mg IV BID [facility] Last Admin: 04/02/18 05:55 Dose: 10 mg Sodium Chloride () 1,000 mls @ 15 mls/hr IV .Q48H [facility] PRN Reason: KVO Lisinopril (Zestril) 2.5 mg PO DAILY [facility] Magnesium Hydroxide (Milk Of Magnesia) 30 ml PO DAILY PRN PRN Reason: Constipation Metoprolol Tartrate (Lopressor (Beta Fan)) 5 mg IV Q4H PRN PRN PRN Reason: Heart Rate > 100 Metoprolol Tartrate (Lopressor (Beta Fan)) 25 mg PO BID [facility] Nutritional Formula (Lactose Free) (Ensure Enlive) 120 ml PO 4X/DAY [facility] Last Admin: 04/02/18 11:30 Dose: Not Given Ondansetron HCl (Zofran) 4 mg IV Q8H PRN PRN PRN Reason: Nausea Pantoprazole Sodium (Protonix) 40 mg PO DAILY PRN PRN PRN Reason: Abdominal Pain Sodium Chloride () 5 - 30 ml IV UD PRN PRN Reason: SALINE FLUSH Last Admin: 04/02/18 06:31 Dose: 10 ml Warfarin Sodium (Coumadin (Pbkc)) 3 mg PO DAILY@1700 [facility] Last Admin: 04/01/18 22:58 Dose: 3 mg Medical Necessity - Tobacco Use Smoking Status: Never smoker Tobacco Use: Non-smoker Assessment/Plan All Active Problems (Last Reviewed 04/01/18 @ 23:46 by Candelario Conley MD) Persistent atrial fibrillation with rapid ventricular response (Acute) Atrial fibrillation and flutter (Acute) Atrial flutter (Acute) Atrial fibrillation (Acute) The patient is a 77 year old F with a significant history of chronic atrial fibrillation, cardiomyopathy, coronary artery disease and [place] who presented for 1 day history of shortness of breath, weakness and palpitations and found to be in A. fib with RVR. Chronic A. fib with RVR: Patient had cardioversions in the past and was converted. Patient had successful cardioversion after MANI. Patient was still in A. fib although her heart rate was controlled in the morning after the amiodarone and metoprolol. INR is therapeutic, 2.2. On metoprolol 25 mg twice daily and amiodarone 200 mg daily. Acute on chronic systolic heart failure Patient had MANI. Report is pending. Last echocardiogram on 02/19/2018 showed an ejection fraction of about 35%. Decompensated with bilateral effusions and BNP of 1,232. On Lasix 20 mg twice daily. Blood pressure systolic 120s. On STEPHANIE inhibitor. Hyponatremia, chronic, most probably from chronic diuretic, Lasix use Sodium 134. GERD Pantoprazole continued. DVT prophylaxis INR therapeutic. . Active Medications Amiodarone HCl (Pacerone) 200 mg PO DAILY [facility] Last Admin: 04/02/18 18:01 Dose: 200 mg Bisacodyl (Dulcolax) 5 mg PO DAILY PRN PRN PRN Reason: Constipation Furosemide (Lasix) 20 mg IV BID [facility] Last Admin: 04/02/18 05:55 Dose: 10 mg Sodium Chloride () 1,000 mls @ 15 mls/hr IV .Q48H [facility] PRN Reason: KVO Lisinopril (Zestril) 2.5 mg PO DAILY [facility] Last Admin: 04/02/18 17:09 Dose: 2.5 mg Magnesium Hydroxide (Milk Of Magnesia) 30 ml PO DAILY PRN PRN Reason: Constipation Metoprolol Tartrate (Lopressor (Beta Fan)) 5 mg IV Q4H PRN PRN PRN Reason: Heart Rate > 100 Metoprolol Tartrate (Lopressor (Beta Fan)) 25 mg PO BID [facility] Nutritional Formula (Lactose Free) (Ensure Enlive) 120 ml PO 4X/DAY [facility] Last Admin: 04/02/18 18:01 Dose: 120 ml Ondansetron HCl (Zofran) 4 mg IV Q8H PRN PRN PRN Reason: Nausea Pantoprazole Sodium (Protonix) 40 mg PO DAILY PRN PRN PRN Reason: Abdominal Pain Sodium Chloride () 5 - 30 ml IV UD PRN PRN Reason: SALINE FLUSH Last Admin: 04/02/18 06:31 Dose: 10 ml Warfarin Sodium (Coumadin (Pbkc)) 3 mg PO DAILY@1700 [facility] Last Admin: 04/02/18 17:09 Dose: 3 mg Laboratory Results 04/01/18 16:45: B-Natriuretic Peptide 1232.0 H 04/01/18 22:00: PT Cancelled, INR Cancelled, APTT Cancelled 04/01/18 22:13: PT 23.4 H, INR 2.1, APTT 39.5 H 04/02/18 00:29: Magnesium 1.9, Troponin I 0.026 04/02/18 03:20: Troponin I 0.026 04/02/18 05:30: WBC 6.3, RBC 4.56, Hgb 10.6 L, Hct 33.6 L, MCV 73.7 L, MCH 23.2 L, MCHC 31.5 L, RDW 15.0 H, RDW Differential 39.8, Plt Count 356, MPV 9.2, Differential Comment SCANNED 04/02/18 05:30: PT 24.5 H, INR 2.2 04/02/18 05:30: Sodium 134 L, Potassium 3.8, Chloride 95 L, Carbon Dioxide 31.0, Anion Gap 8, BUN 13, Creatinine 0.94, Estim Creat Clear Calc 37.94, Est GFR (MDRD) Af Amer 74, Est GFR (MDRD) Non-Af 61, BUN/Creatinine Ratio 13.8, Glucose 92, Calcium 8.6, Troponin I 0.022 04/02/18 05:30: APTT 221.7 H* 04/02/18 12:00: APTT 42.0 H Clinical Impression(s) from Imaging Studies Chest X-Ray 04/01/18 16:46 IMPRESSION: New bilateral lower lobe opacity given appearance is suspicious for bilateral effusions with edema atelectasis however cannot exclude pneumonia. 2D echo from January 2018 reviewed. Reported as EF 30% with mild global systolic dysfunction. Moderately enlarged left and right atria. 2+ MR. Code Visit Inpatient E&M: 37739 Subs Hosp L3
--- NOTE | 2018-04-02 13:45 | EKG12_ITS ---
Test Reason : Blood Pressure : / mmHG Vent. Rate : 060 BPM Atrial Rate : 060 BPM P-R Int : 180 ms QRS Dur : 098 ms QT Int : 466 ms P-R-T Axes : 082 088 -70 degrees QTc Int : 466 ms Sinus rhythm with Premature atrial complexes Left ventricular hypertrophy with repolarization abnormality Abnormal ECG When compared with ECG of 02-APR-2018 11:22, MANUAL COMPARISON REQUIRED, DATA IS UNCONFIRMED Confirmed by PRANAV DE LEÓN ([id number]), photograph editor CAMPOS WILLIAMSON ([id number]) on 04/08/2018 3:16:24 PM Referred By: Sheng Shah Confirmed By:PRANAV DE LEÓN
--- NOTE | 2018-04-02 13:47 | PCM.OP.BLANK ---
Problem List (1) Atrial fibrillation and flutter Status: Acute (2) Congestive heart failure Status: Chronic Qualifiers: Heart failure type: systolic Heart failure chronicity: acute on chronic Qualified Code(s): I50.23 - Acute on chronic systolic (congestive) heart failure (3) Cardiomyopathy Status: Chronic Qualifiers: Cardiomyopathy type: unspecified Qualified Code(s): I42.9 - Cardiomyopathy, unspecified (4) Atherosclerotic heart disease of [place] coronary artery without angina pectoris Status: Chronic Qualifiers: [place] vs. transplanted heart: [place] heart Qualified Code(s): I25.10 - Atherosclerotic heart disease of [place] coronary artery without angina pectoris (5) Hyperlipidemia Status: Chronic Qualifiers: Hyperlipidemia type: unspecified Qualified Code(s): E78.5 - Hyperlipidemia, unspecified (6) long-term (current) use of anticoagulants Status: Chronic Operative Report Date of Procedure: 04/02/18 Procedure: Synchronized biphasic DC cardioversion Indications: Atrial fibrillation / flutter; cardiomyopathy Consent: Per the patient Premedications: Per Dr. Moy Camilo with etomidate 4 mg IV push ?1 Procedure: Synchronized biphasic DC cardioversion: 200 J ?1: Result: Sinus rhythm/sinus bradycardia; PACs Complications: No apparent complications This note was generated with [employer] software. It may contain incorrect words, spelling, and punctuation that were not noted in checking the note before signing.
--- NOTE | 2018-04-02 14:19 | NURSING ---
Read and reviewed SN documentation
--- NOTE | 2018-04-02 14:48 | PCM.OP.BLANK ---
Problem List (1) Persistent atrial fibrillation with rapid ventricular response Status: Acute (2) Atrial fibrillation and flutter Status: Acute (3) Long-term use of high-risk medication Status: Chronic (4) Congestive heart failure Status: Chronic Qualifiers: Heart failure type: systolic Heart failure chronicity: acute on chronic Qualified Code(s): I50.23 - Acute on chronic systolic (congestive) heart failure (5) History of GI bleed Status: Chronic (6) History of myocardial infarction Status: Chronic Operative Report Date of Procedure: 04/02/18 - Conscious sedation CONSCIOUS SEDATION REPORT BRIEF HISTORY OF PRESENT ILLNESS: The patient is a 77-year-old female who presented to [facility] for an elective outpatient cardioversion due to underlying atrial fibrillation. The patient reports no PO intake since midnight. The patient does not have a history of obstructive sleep apnea. The patient reports no history of smoking and COPD. The patient denies any recent constitutional symptoms such as fevers, chills, nausea or vomiting. The patient denies previous anesthetic complications. Patient did have a MANI just prior to cardioversion and received 1 mg Versed and 50 mcg of fentanyl. Patient is also on Coumadin therapy with a therapeutic INR. Patient had cardioversion approximately 6 weeks prior without complication using etomidate. PHYSICAL EXAMINATION: VITAL SIGNS: Reviewed and were acceptable. GENERAL: The patient is an obese female, in no apparent distress, speaking in full sentences. HEENT: Normocephalic, atraumatic. Mucous membranes are moist and pink. Good mouth opening noted. Trachea is midline. Good neck mobility. MP I CHEST: S1, S2 irregularly irregular. No murmurs, rubs or gallops were noted. LUNGS: Clear to auscultation bilaterally without appreciable wheezes, rales or rhonchi. ABDOMEN: Soft, nontender, nondistended. Positive bowel sounds. EXTREMITIES: There is no clubbing, cyanosis or edema. ASA Class: II DESCRIPTION OF PROCEDURE: After confirmation of informed consent, the patient's anesthesia plan was reviewed in detail. Etomidate was chosen. Risks and benefits were reviewed and the patient agreed to proceed. At 1:40 PM, the patient was given 4 mg of etomidate. The patient achieved an appropriate level of sedation and received 1 attempt synchronized cardioversion, at [address] Shah at the bedside. This was successful in achieving normal sinus rhythm. The patient was monitored until 1:45 PM, at which time the patient reached their baseline mental status and function. The patient tolerated the procedure well. COMPLICATIONS: None ESTIMATED BLOOD LOSS: None RECOMMENDATIONS: Okay to recover in usual fashion.
[2018-04-02] MEDS: Lisinopril 2.5 MG Tablet PO (17:09)
[2018-04-02] MEDS: AMIODARONE HCL 100 MG TABLET 200 MG PO ×2 (18:01→21:17)
--- NOTE | 2018-04-02 19:50 | PCM.CONS.C ---
Problem List (1) Atrial fibrillation and flutter Status: Acute (2) Congestive heart failure Status: Chronic Qualifiers: Heart failure type: systolic Heart failure chronicity: acute on chronic Qualified Code(s): I50.23 - Acute on chronic systolic (congestive) heart failure (3) Cardiomyopathy Status: Chronic Qualifiers: Cardiomyopathy type: unspecified Qualified Code(s): I42.9 - Cardiomyopathy, unspecified (4) Atherosclerotic heart disease of [place] coronary artery without angina pectoris Status: Chronic Qualifiers: [place] vs. transplanted heart: [place] heart Qualified Code(s): I25.10 - Atherosclerotic heart disease of [place] coronary artery without angina pectoris (5) Hyperlipidemia Status: Chronic Qualifiers: Hyperlipidemia type: unspecified Qualified Code(s): E78.5 - Hyperlipidemia, unspecified (6) senior care (current) use of anticoagulants Status: Chronic Reason for Consult Date of Consultation: 04/02/18 History of Present Illness: The patient is a 77 year old white female with a past cardiovascular history of atrial dysrhythmia with atrial fibrillation and flutter, just of heart failure-chronic systolic, cardiomyopathy, RTM-gou-dxdoxrnpaxxereax significant, hyperlipidemia, and hypertension who presented presents for recurrent atrial fibrillation/flutter with recurrent due to on chronic systolic CHF. She has recently undergone evaluation and care in January of this year for similar type symptoms. She was treated medically. She underwent noninvasive evaluation with both transthoracic and transesophageal echocardiogram. She subsequently underwent synchronized biphasic DC cardioversion to regain sinus rhythm. She was released home for continued outpatient follow-up. However she subsequently was noted to revert back to atrial fibrillation/flutter. She presented to the outpatient setting yesterday with concerns of progressive shortness of breath and dyspnea and was recommended for repeat emergency department evaluation. She was thought to have evidence of recurrent atrial dysrhythmia with acute on chronic CHF. She was placed back in the hospital for further evaluation and care. She has undergone evaluation with cardiac enzymes which have been negative. She had an elevated BNP level. Her ECGs demonstrated the appearance of atrial flutter with consideration for voltage criteria for LVH with nonspecific ST and T-wave changes with subsequent notation of atrial fibrillation with similar type findings. She was treated medically. This included IV diuresis. She noted her breathing has improved. She has subsequently been referred for additional cardiovascular evaluation with consideration for transesophageal echocardiogram, as her INR levels have been intermittently low, as a prelude to repeat synchronized biphasic DC cardioversion in an attempt to regain sinus rhythm. In the interim the patient has also been evaluated by [facility] electrophysiology. She is pending EP study with radiofrequency ablation scheduled for June of this year. [] Past Medical History Allergies/Adverse Reactions: Allergies amiodarone Allergy (Verified 04/01/18 16:28) Hives Pt takes the Pacerone (brand name) with no allergy. Home Medications: Ambulatory Orders Medication Instructions Recorded Pantoprazole Sodium [Protonix] 40 mg PO DAILY PRN 12/14/13 lisinopril 2.5 mg tablet 2.5 mg PO DAILY #90 tab 07/18/17 furosemide 20 mg tablet 20 mg PO DAILY #90 tab 11/04/17 Pacerone 100 mg tablet 200 mg PO QDAY #180 tab NS 02/25/18 metoprolol tartrate 25 mg tablet 12.5 mg PO BID tab 03/14/18 Warfarin [Coumadin ([facility])] 2 mg PO DAILY 04/01/18 Past Medical History (Chronic Problems): Chronic Problems (Last Reviewed 04/01/18 @ 23:46 by Candelario Conley MD) Anxiety (Chronic) Thyroid disorder (Chronic) GERD (gastroesophageal reflux disease) (Chronic) 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 (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) Long-term use of high-risk medication (Chronic) Hyperlipidemia (Chronic) Atherosclerotic heart disease of [place] coronary artery without angina pectoris (Chronic) Congestive heart failure (Chronic) History of GI bleed (Chronic) History of myocardial infarction (Chronic) Cardiomyopathy (Chronic) Surgical History: tonsillectomy, - - D&C Psychiatric History: No pertinent psych hx - *Family History Maternal Family History: Family History (Last Reviewed 04/01/18 @ 23:46 by Candelario Conley MD) Father Heart disease Sister Heart disease Cardiomyopathy History Items: No pertinent history Lives: Alone Smoking Status: Never smoker Tobacco Use: Non-smoker Alcohol: None Drugs: None Review of Systems - Review of Systems General: Denies: Fever, Night Sweats, Fatigue Cardiovascular: Reports: Shortness of Breath, Shortness of Breath at Rest, Shortness of Breath with Exertion, Palpitations. Denies: Chest Discomfort, Orthopnea, PND, Peripheral Edema, Lightheadedness, Dizziness, Near Syncope, Syncope Respiratory: Reports: Shortness of Breath. Denies: Cough, Sputum Production, Hemoptysis Gastrointestinal: Denies: Hematemesis, Hematochezia, Melena Genitourinary: Denies: Dysuria, Hematuria Skin: Denies: Rash Subjectve: This is a 77-year-old white female who appears to be resting comfortably at the moment in no acute distress. Objective: Vital Signs Temp Pulse Resp BP Pulse Ox 98.2 F 68 14 126/62 H 95 04/02/18 15:01 04/02/18 18:40 04/02/18 15:01 04/02/18 15:01 04/02/18 15:01 Oxygen Delivery Method Room Air Weight: 104 lb 0.931 oz Body Mass Index (BMI) 19.0 Intake and Output for Last 24 Hours 03/31/18 04/01/18 04/02/18 23:59 23:59 23:59 Intake Total 31.1 / 31.1 780.9 / 780.9 Output Total 900 / 900 1475 / 1475 Balance -868.9 / -868.9 -694.1 / -694.1 General: Awake, Alert, Oriented x 3, Cooperative, No Acute Distress HEENT: Atraumatic, Normocephalic, PERRL, EOMI, Sclera Non Icteric Oral: Moist Mucosa Neck: Supple, Good ROM, No JVD Lungs: Rales - Horace Bases Cardiovascular: Irregular Rhythm, Normal S1, Normal S2 Vascular: No Carotid Bruits Abdomen: Bowel Sounds Present, Soft, Non Tender Extremities: No Cyanosis, No Clubbing, No edema Neurological: No Focal Motor or Sensory Deficit Psych/Mental Status: Appropriate 04/01/18 22:00: PT Cancelled, INR Cancelled, APTT Cancelled 04/01/18 22:13: PT 23.4 H, INR 2.1, APTT 39.5 H 04/02/18 00:29: Magnesium 1.9, Troponin I 0.026 04/02/18 03:20: Troponin I 0.026 04/02/18 05:30: WBC 6.3, RBC 4.56, Hgb 10.6 L, Hct 33.6 L, MCV 73.7 L, MCH 23.2 L, MCHC 31.5 L, RDW 15.0 H, RDW Differential 39.8, Plt Count 356, MPV 9.2 04/02/18 05:30: PT 24.5 H, INR 2.2 04/02/18 05:30: Sodium 134 L, Potassium 3.8, Chloride 95 L, Carbon Dioxide 31.0, Anion Gap 8, BUN 13, Creatinine 0.94, Est GFR (MDRD) Af Amer 74, Est GFR (MDRD) Non-Af 61, BUN/Creatinine Ratio 13.8, Glucose 92, Calcium 8.6, Troponin I 0.022 04/02/18 05:30: APTT 221.7 H* 04/02/18 12:00: APTT 42.0 H Rhythm: As noted above EKG: As noted above ECHO: 02/18/2018: Left ventricle with global hypokinesis with an LVEF of 40%; moderate biatrial enlargement; mild mitral annular calcification with mild diffuse mitral valve thickening with mild mitral valve prolapse with mild to moderate MR and mild TR and aortic valve sclerosis with trivial AI. Trivial AL. Estimated RV systolic pressure of 30 mmHg. Transesophageal echocardiogram: 02/19/2018: Left ventricle with global hypokinesis with an LVEF of 30%; moderate left atrial enlargement with no spontaneous contrast and no thrombus detected in the left atrial appendage; mild right atrial enlargement; mild mitral annular calcification with mild diffuse mitral valve thickening with mild MR, trivial TR, mild diffuse aortic valve thickening with mild focal aortic valve calcification, negative agitated saline contrast study for interatrial shunt, and normal-appearing thoracic aorta Stress Test: Previous pharmacologic stress nuclear imaging study reported as demonstrating a small area of possible anteroseptal infarct with no evidence of ischemia. Cardiac Cath: 04/04/2012: Borderline elevation of the intrapulmonary and right heart pressures; oxygen saturation with a calculated Qp/Qs ratio of 1.3 considered nonhemodynamically significant; a left ventriculogram was not performed; the left main coronary artery, LAD, intermediate ramus, and RCA had no angiographically significant appearing disease and the LCx was a large dominant vessel with proximal 25% tapering stenosis leading back towards the left main coronary artery PCI: 09/12/2011: [facility]: LAD thrombectomy secondary to an embolic event related to underlying atrial dysrhythmia CXR: Preliminary evaluation: Concerns of increased pulmonary vascularity and bilateral pleural effusions: Please see official report Assessment/Plan 1. Atrial fibrillation/flutter The patient has recurrence of her atrial fibrillation/flutter. It appears that when the patient regains atrial fibrillation/flutter she has diminished LV systolic function and developed acute on chronic systolic mediated CHF. At the present time she is being treated with rate control and anticoagulant therapy. She has been on antiarrhythmic therapy. She has been hesitant to accelerate her dose and attempt to maintain sinus rhythm. She is scheduled for upcoming EPS/RFA at [facility] in June of this year. In the interim, based upon her ongoing concerns, it was felt not unreasonable to reassess her in an attempt to regain sinus rhythm which may help with her overall symptoms and left ventricular systolic function. Thus she will undergo further evaluation care with MANI guided synchronized biphasic DC cardioversion. 2. Congestive heart failure She does present with signs and symptoms and objective findings compatible with acute on chronic systolic mediated CHF. She will continue medical management including diuretic therapy. She will also have an attempt at regaining sinus rhythm to assist with her clinical course. 3. Cardiomyopathy She is thought to have a non-CAD related cardiomyopathy. She has been noted when she has atrial dysrhythmia to have diminished LV systolic function and develop associated symptoms. Thus it was felt prudent that she undergo not only medical therapy but EP consult and attempt to regain and maintain her sinus rhythm in order to assist with her underlying LV systolic function and associated symptoms. In the interim she will continue medical management and evaluation care as noted above. 4. CAD He has a history of non-angiographically significant appearing CAD. She will need to continue risk factor evaluation care as deemed appropriate. 5. Hyperlipidemia She will continue medical management as deemed appropriate and tolerated. Comment: The above was discussed and reviewed with the patient. He was agreeable to this approach. This note was generated with [employer] software. It may contain incorrect words, spelling, and punctuation that were not noted in checking the note before signing.
[2018-04-02] MEDS: Metoprolol Tartrate 25 MG Tablet PO (21:09)
[2018-04-03] VITALS (10 sets, daily range): BP systolic 99–122; BP diastolic 52–72; PULSE 54–89; RESP 16–18; TEMP 36.3–36.8; O2SAT 3–99
[2018-04-03 05:59] LABS: International Normalized Ratio 2.2; Prothrombin Time (Protime)PT. 24.5 SECONDS (11.7-14.9)
[2018-04-03 06:08] LABS: Anion Gap 9 (5-15); BUN 18 mg/dL (7-18); BUN/Creat Ratio 17.3 RATIO (10-20); Calcium,Total 8.5 mg/dL (8.5-10.1); Chloride 97 mmol/L (98-107); Creatinine, Serum 1.04 mg/dL (0.55-1.02); EST Glomerular Filtration Rate 55 mL/min (>60); Est Glom Filt Rate - Afr Amer 66 mL/min (>60); Estimated Creatinine Clearance 32.98 ml/min; Glucose 96 mg/dL (74-106); Sodium Level 136 mmol/L (136-145)
[2018-04-03] MEDS: Metoprolol Tartrate 25 MG Tablet PO (10:05)
[2018-04-03] MEDS: AMIODARONE HCL 100 MG TABLET 200 MG PO (10:05)
[2018-04-03] MEDS: Lisinopril 2.5 MG Tablet PO (10:05)
[2018-04-03] MEDS: Furosemide 20 MG Tablet PO (10:08)
--- NOTE | 2018-04-03 11:56 | PCM.DC ---
- Discharge Diagnoses Current Active Problems: Current Active and Chronic Problems (Last Reviewed 04/01/18 @ 23:46 by Candelario Conley MD) Persistent atrial fibrillation with rapid ventricular response (Acute) Atrial fibrillation and flutter (Acute) You will use the following diet at home:: Cardiac Allergies/Adverse Reactions: Allergies amiodarone Allergy (Verified 04/01/18 16:28) Hives Pt takes the Pacerone (brand name) with no allergy. Medications to take at Discharge Pantoprazole Sodium [Protonix] 40 mg PO DAILY PRN 12/14/13 lisinopril 2.5 mg tablet 2.5 mg PO DAILY #90 tab 07/18/17 Warfarin [Coumadin] 2 mg PO DAILY 04/01/18 Amiodarone HCl [Pacerone] 200 mg PO BID tablet 04/03/18 Furosemide [Lasix] 20 mg PO BID #90 tab 04/03/18 Metoprolol Tartrate [Lopressor (beta jia)] 25 mg PO BID #0 tab 04/03/18 Primary Care Physician: Raghu Forbes MD [Primary Care Provider] - Please follow up with your Primary Care Physician in: in 1-2 weeks with INR Test Results: Test results from this visit will be discussed in further detail at your follow-up appointment, if applicable. Please Follow Up With: Sheng Shah MD When: IN 4 weeks as scheduled
--- NOTE | 2018-04-03 12:26 | CASEMGMT ---
Face to Face with patient for initial transition planning/care coordination assessment. GALLO DE GUZMAN introduced self and role at [facility], pt voices understanding and consents to assessment at this time. Pt is sitting up in bed in no distress at this time. Pt is A/O x4 at this time and answers all questions appropriately. Care providers, pharmacy, and demographics verified. See attached link. Pt voices no further concerns/needs at this time. Advised pt to ask for CM if any further questions/concerns/needs arise, voices understanding. PLAN[place] GALLO [place] GUZMAN
--- NOTE | 2018-04-03 13:27 | PCM.PN.CARD ---
Subjectve: The patient was evaluated earlier this day. She appeared to be remaining in sinus rhythm. She stated she was feeling better overall. She states her breathing has improved compared to admission. Objective: Vital Signs Temp Pulse Resp BP Pulse Ox 98.0 F 89 18 122/72 H 99 04/03/18 12:32 04/03/18 12:32 04/03/18 12:32 04/03/18 12:32 04/03/18 12:32 Oxygen Delivery Method Room Air Weight: 100 lb 1.438 oz Body Mass Index (BMI) 19.0 Intake and Output for Last 24 Hours 04/01/18 04/02/18 04/03/18 23:59 23:59 23:59 Intake Total 977 / 1040.9 460 / 460 Output Total 1125 / 1475 Balance -148 / -434.1 460 / 460 General: Awake, Alert, Oriented x 3, Cooperative, No Acute Distress HEENT: Atraumatic, Normocephalic, PERRL, EOMI, Sclera Non Icteric Oral: Moist Mucosa Neck: Supple, Good ROM, No JVD Lungs: Diminished Horace Bases - Minimal Cardiovascular: Regular Rhythm, Normal S1, Normal S2 Abdomen: Bowel Sounds Present, Soft, Non Tender Extremities: No edema Neurological: No Focal Motor or Sensory Deficit Psych/Mental Status: Appropriate, Normal Affect 04/03/18 05:08: PT 24.5 H, INR 2.2 04/03/18 05:08: Sodium 136, Potassium 4.0, Chloride 97 L, Carbon Dioxide 30.0, Anion Gap 9, BUN 18, Creatinine 1.04 H, Est GFR (MDRD) Af Amer 66, Est GFR (MDRD) Non-Af 55 L, BUN/Creatinine Ratio 17.3, Glucose 96, Calcium 8.5 Rhythm: Sinus rhythm Medical Necessity - Tobacco Use Smoking Status: Never smoker Tobacco Use: Non-smoker Assessment/Plan 1. Atrial fibrillation/flutter The patient has recurrence of her atrial fibrillation/flutter. It appears that when the patient regains atrial fibrillation/flutter she has diminished LV systolic function and developed acute on chronic systolic mediated CHF. She underwent further evaluation with MANI guided synchronized biphasic DC cardioversion. She did regain sinus rhythm. She is continuing medical management. This has included rate control therapy, antiarrhythmic therapy, and anticoagulant therapy. She is pending future follow-up at [facility] with EPS/RFA scheduled for June of this year. 2. Congestive heart failure She does present with signs and symptoms and objective findings compatible with acute on chronic systolic mediated CHF. She will continue medical management including diuretic therapy. 3. Cardiomyopathy She is thought to have a non-CAD related cardiomyopathy. She has been noted when she has atrial dysrhythmia to have diminished LV systolic function and develop associated symptoms. Thus it was felt prudent that she undergo not only medical therapy but EP consult and attempt to regain and maintain her sinus rhythm in order to assist with her underlying LV systolic function and associated symptoms. In the interim she will continue medical management and evaluation care as noted above. 4. CAD He has a history of non-angiographically significant appearing CAD. She will need to continue risk factor evaluation care as deemed appropriate. 5. Hyperlipidemia She will continue medical management as deemed appropriate and tolerated. Comment: The above was discussed and reviewed with the patient. He was agreeable to this approach. This note was generated with [employer] dictation software. It may contain incorrect words, spelling, and punctuation that were not noted in checking the note before signing.
--- NOTE | 2018-04-03 14:04 | PCM.DC.SUM ---
Discharge Date and Diagnosis Date of Admission: 04/01/18 Date of Discharge: 04/03/18 - Primary Discharge Diagnosis Active and Suspected Problems (Last Reviewed 04/01/18 @ 23:46 by Candelario Conley MD) Chronic A. 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 chronic diuretic, - Secondary Discharge Diagnosis Chronic Problems (Last Reviewed 04/01/18 @ 23:46 by Candelario Conley MD) Anxiety (Chronic) Thyroid disorder (Chronic) GERD (gastroesophageal reflux disease) (Chronic) half-way (current) use of anticoagulants (Chronic) Long-term use of high-risk medication (Chronic) Hyperlipidemia (Chronic) Atherosclerotic heart disease of [place] coronary artery without angina pectoris (Chronic) Congestive heart failure (Chronic) History of GI bleed (Chronic) History of myocardial infarction (Chronic) Cardiomyopathy (Chronic) Hospital Course and Treatment Consultations 04/02/18 11:02 MD to MD Notification of Procedure Routine MD Notified:: Sheng Shah Operations: None Summary of Care Provided: [] The patient is a 77 year old F with a significant history of chronic atrial fibrillation, cardiomyopathy, coronary artery disease and PA who presented for 1 day history of shortness of breath, weakness and palpitations and found to be in A. fib with RVR. Seen and examined Patient was converted to normal sinus rhythm but fluid back to A. fib today in the morning. General: Awake, Alert, Oriented x 3, Cooperative, No Acute Distress HEENT: Atraumatic, Normocephalic, PERRL, EOMI, Sclera Non Icteric Oral: Moist Mucosa Neck: Supple, Good ROM, No JVD Lungs: Diminished Horace Bases - Minimal Cardiovascular: Irregular rhythm, Normal S1, Normal S2 Abdomen: Bowel Sounds Present, Soft, Non Tender Extremities: No edema Neurological: No Focal Motor or Sensory Deficit Psych/Mental Status: Appropriate, Normal Affect Chronic A. fib with RVR: Patient had cardioversions in the past and was converted. Patient has history of recurrence of A. fib/flutter Patient had successful cardioversion after MANI by Dr. Shah but flipped back to A. fib. Advised continue medical management with rate control strategy. 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 INR is therapeutic, 2.2. On metoprolol 25 mg twice daily and amiodarone 200 mg daily. Acute on chronic systolic heart failure: Medical management. Patient euvolemic on medical management. Patient had MANI. MANI shows EF 30% with moderately severe global left ventricular systolic dysfunction. No evidence of ASD. Left atrium moderately enlarged. No thrombus seen left atrial appendage. Right atrium moderately enlarged. Last echocardiogram on 02/19/2018 showed an ejection fraction of about 35%. Decompensated with bilateral effusions and BNP of 1,232. On Lasix 20 mg twice daily. Blood pressure systolic 120s. On STEPHANIE inhibitor. Hyponatremia, chronic, most probably from chronic diuretic, Lasix use Sodium 134. GERD Pantoprazole continued. DVT prophylaxis INR therapeutic. Patient was discharged on amiodarone 200 mg twice daily and Lasix 20 mg p.o. twice daily. Follow-up INR with PCP. Discharge medication reconciliation done. Discharge follow-up instructions completed. Total time spent, exact 35 minutes on discharge meds reconciliation, examination, review of imaging and blood test and discussion with the patient on follow-up instructions. Home Medications: Medications to take at Discharge Pantoprazole Sodium [Protonix] 40 mg PO DAILY PRN 12/14/13 lisinopril 2.5 mg tablet 2.5 mg PO DAILY #90 tab 07/18/17 Warfarin [Coumadin] 2 mg PO DAILY 04/01/18 Amiodarone HCl [Pacerone] 200 mg PO BID tab 04/03/18 Furosemide [Lasix] 20 mg PO BID #90 tab 04/03/18 Metoprolol Tartrate [Lopressor (beta jia)] 25 mg PO BID #0 tab 04/03/18 Primary Care Physician: Raghu Forbes MD [Primary Care Provider] - Please follow up with your Primary Care Physician in: in 1-2 weeks with INR Please Follow Up With: Sheng Shah MD When: IN 4 weeks as scheduled Medical Necessity - Tobacco Use Smoking Status: Never smoker Tobacco Use: Non-smoker Meaningful Use Info Meaningful Use Diagnoses (Choose all that apply): None applicable Code Visit Inpatient E&M: 85738 Disch Hosp
--- NOTE | 2018-04-04 14:53 | CASEMGMT ---
GALLO DE GUZMAN DC PHONE CALL: no answer
== END 2018-04-03 15:41 | disposition home or self-care (01) | DRG 308 ==
LOC: ED 20:48 → PCU 21:25
PROVIDERS: Internal Medicine Cardiovascular Disease; Admitting Provider Hospitalist; Emergency Provider Emergency Medicine; Family Provider Family Medicine; PCP Family Medicine; Visit Provider Internal Medicine
DX: I48.2 Chronic atrial fibrillation (principal); I50.23 Acute on chronic systolic (congestive) heart failure; E87.1 Hypo-osmolality and hyponatremia; I42.9 Cardiomyopathy, unspecified; I48.92 Unspecified atrial flutter; F41.9 Anxiety disorder, unspecified; I25.2 Old myocardial infarction; I25.10 Atherosclerotic heart disease of native coronary artery without angina pectoris; Z79.01 Long term (current) use of anticoagulants; Z79.899 Other long term (current) drug therapy; E78.5 Hyperlipidemia, unspecified; K21.9 Gastro-esophageal reflux disease without esophagitis; I11.0 Hypertensive heart disease with heart failure; Z87.19 Personal history of other diseases of the digestive system
CPT/HCPCS: 36415; 71045; 80048; 83735; 83880; 84484; 85025; 85027; 85610; 85730; 93005; 93312; 93320; 93325; 97802; 99283; J7030; A4216; J1940

== ENCOUNTER → 2018-04-11 10:04 | Outpatient (CLI) | payer MEDICARE, SELFPAY ==
[2018-04-11 12:29] LABS: International Normalized Ratio 2.8; Prothrombin Time (Protime)PT. 29.8 SECONDS (11.7-14.9)
== END ==
PROVIDERS: Family Provider Family Medicine; PCP Family Medicine; Visit Provider Internal Medicine Cardiovascular Disease
DX: I48.91 Unspecified atrial fibrillation (principal); Z79.899 Other long term (current) drug therapy
CPT/HCPCS: 36415; 85610

== ENCOUNTER 2018-04-24 10:23 | Outpatient (RCR) | payer MEDICARE, SELFPAY ==
[2018-04-01 12:56] LABS: International Normalized Ratio 1.9; Prothrombin Time (Protime)PT. 22.1 SECONDS (11.7-14.9)
[2018-04-24 12:21] LABS: International Normalized Ratio 2.9; Prothrombin Time (Protime)PT. 30.6 SECONDS (11.7-14.9)
== END 2018-04-24 12:00 | disposition home or self-care (01) ==
LOC: MTLAB 10:23
PROVIDERS: Family Provider Family Medicine; PCP Family Medicine; Visit Provider Internal Medicine Cardiovascular Disease
DX: I48.91 Unspecified atrial fibrillation (principal); Z79.899 Other long term (current) drug therapy
CPT/HCPCS: 36415; 85610

== ENCOUNTER → 2018-04-28 12:01 | Outpatient (CLI) | payer MEDICARE, SELFPAY ==
[2018-04-28 14:34] LABS: T4 Free Direct 1.53 ng/dL (0.76-1.46); Thyroid Stim Hormone (TSH) 4.23 uIU/mL (0.358-3.74)
== END ==
PROVIDERS: Family Provider Family Medicine; PCP Family Medicine; Visit Provider Family Medicine
DX: E03.9 Hypothyroidism, unspecified (principal)
CPT/HCPCS: 36415; 84439; 84443

== ENCOUNTER 2018-05-15 09:38 | Outpatient (RCR) | payer MEDICARE, SELFPAY ==
[2018-05-09 13:00] LABS: Thyroid Stim Hormone (TSH) 3.57 uIU/mL (0.358-3.74)
[2018-05-15 12:30] LABS: International Normalized Ratio 2.9; Prothrombin Time (Protime)PT. 30.5 SECONDS (11.7-14.9)
== END 2018-05-15 11:00 | disposition home or self-care (01) ==
LOC: MTLAB 09:38
PROVIDERS: Family Provider Family Medicine; PCP Family Medicine; Referring Provider Internal Medicine Cardiovascular Disease; Visit Provider Internal Medicine Cardiovascular Disease
DX: I48.91 Unspecified atrial fibrillation (principal); Z79.899 Other long term (current) drug therapy
CPT/HCPCS: 36415; 84443; 85610

== ENCOUNTER 2018-06-16 10:21 | Outpatient (RCR) | payer MEDICARE, SELFPAY ==
[2018-06-16 12:50] LABS: International Normalized Ratio 2.1; Prothrombin Time (Protime)PT. 23.2 SECONDS (11.7-14.9)
== END 2018-06-16 11:00 | disposition home or self-care (01) ==
LOC: MTLAB 10:21
PROVIDERS: Family Provider Family Medicine; PCP Family Medicine; Referring Provider Internal Medicine Cardiovascular Disease; Visit Provider Internal Medicine Cardiovascular Disease
DX: I48.91 Unspecified atrial fibrillation (principal); Z79.899 Other long term (current) drug therapy
CPT/HCPCS: 36415; 85610

== ENCOUNTER → 2018-06-24 11:22 | Outpatient (CLI) | payer MEDICARE, SELFPAY ==
[2018-06-24 14:12] LABS: Hematocrit 37.1 % (37-47); Hemoglobin 11.7 g/dl (12.0-15.0); Mean Corp Hgb Conc 31.5 g/gl (32-36); Mean Corpuscular Hgb 23.2 pg (27.0-32.0); Mean Corpuscular Volume 73.6 fL (81-99); Mean Platelet Vol. 9.6 fl (6.2-12.0); Platelet Count 397 K/mm3 (150-450); RBC Distribution Width CV 19.8 % (11.6-14.6); RBC Distribution Width SD 43.1 fl (35.1-43.9); Red Blood Count 5.04 M/mm3 (4.2-5.4); Scan Indicated on CBC? Y/N NO; White Blood Count 7.2 K/mm3 (4.4-11.0)
[2018-06-24 14:36] LABS: Anion Gap 9 (5-15); BUN 17 mg/dL (7-18); BUN/Creat Ratio 16.2 RATIO (10-20); Calcium,Total 9.4 mg/dL (8.5-10.1); Chloride 93 mmol/L (98-107); Creatinine, Serum 1.05 mg/dL (0.55-1.02); EST Glomerular Filtration Rate 54 mL/min (>60); Est Glom Filt Rate - Afr Amer 65 mL/min (>60); Glucose 91 mg/dL (74-106); Potassium 4.7 mmol/L (3.5-5.1); Sodium Level 133 mmol/L (136-145)
== END ==
PROVIDERS: Family Provider Family Medicine; PCP Family Medicine
DX: I48.0 Paroxysmal atrial fibrillation (principal)
CPT/HCPCS: 36415; 80048; 85027

== ENCOUNTER 2018-07-28 10:15 | Outpatient (RCR) | payer MEDICARE, SELFPAY ==
[2018-04-17 10:59] VITALS: BMI 18.3
[2018-07-09 14:37] LABS: International Normalized Ratio 2.2; Prothrombin Time (Protime)PT. 24.7 SECONDS (11.7-14.9)
[2018-07-14 12:17] LABS: International Normalized Ratio 3.2; Prothrombin Time (Protime)PT. 32.9 SECONDS (11.7-14.9)
[2018-07-21 10:47] LABS: Prothrombin Time (Protime)PT. 35.4 SECONDS (11.7-14.9)
[2018-07-21 11:09] LABS: International Normalized Ratio 3.5
[2018-07-28 12:31] LABS: Prothrombin Time (Protime)PT. 31.5 SECONDS (11.7-14.9)
== END 2018-07-28 11:00 | disposition home or self-care (01) ==
LOC: MTLAB 10:15
PROVIDERS: Family Provider Family Medicine; PCP Family Medicine; Referring Provider Internal Medicine Cardiovascular Disease; Visit Provider Internal Medicine Cardiovascular Disease
DX: I48.91 Unspecified atrial fibrillation (principal); Z79.899 Other long term (current) drug therapy
CPT/HCPCS: 36415; 85610

== ENCOUNTER → 2018-08-13 09:14 | Outpatient (CLI) | payer MEDICARE, SELFPAY ==
[2018-08-13 10:14] LABS: Hematocrit 37.4 % (37-47); Hemoglobin 10.8 g/dl (12.0-15.0); Mean Corp Hgb Conc 28.9 g/gl (32-36); Mean Corpuscular Volume 69.1 fL (81-99); Platelet Count 420 K/mm3 (150-450); RBC Distribution Width SD 42.5 fl (35.1-43.9); Red Blood Count 5.41 M/mm3 (4.2-5.4); Scan Indicated on CBC? Y/N YES- FLAGS NOTED; White Blood Count 6.1 K/mm3 (4.4-11.0)
== END ==
PROVIDERS: Family Provider Family Medicine; PCP Family Medicine
DX: Z79.01 Long term (current) use of anticoagulants (principal)
CPT/HCPCS: 36415; 85027

== ENCOUNTER 2018-08-28 11:38 | Outpatient (RCR) | payer MEDICARE, SELFPAY ==
[2018-04-17 10:59] VITALS: BMI 18.3
[2018-08-04 11:55] LABS: International Normalized Ratio 3.4; Prothrombin Time (Protime)PT. 34.8 SECONDS (11.7-14.9)
[2018-08-11 10:13] LABS: International Normalized Ratio 3.2; Prothrombin Time (Protime)PT. 33.1 SECONDS (11.7-14.9)
[2018-08-21 10:27] LABS: International Normalized Ratio 3.1; Prothrombin Time (Protime)PT. 31.9 SECONDS (11.7-14.9)
[2018-08-28 14:32] LABS: International Normalized Ratio 3.1
== END 2018-08-28 13:00 | disposition home or self-care (01) ==
LOC: MTLAB 11:38
PROVIDERS: Family Provider Family Medicine; PCP Family Medicine; Referring Provider Internal Medicine Cardiovascular Disease; Visit Provider Internal Medicine Cardiovascular Disease
DX: I48.91 Unspecified atrial fibrillation (principal); Z79.899 Other long term (current) drug therapy
CPT/HCPCS: 36415; 85610

== ENCOUNTER 2018-09-25 09:02 | Outpatient (RCR) | payer MEDICARE, SELFPAY ==
[2018-04-17 10:59] VITALS: BMI 18.3
[2018-09-04 10:18] LABS: International Normalized Ratio 2.7; Prothrombin Time (Protime)PT. 28.4 SECONDS (11.7-14.9)
[2018-09-11 12:34] LABS: International Normalized Ratio 2.8; Prothrombin Time (Protime)PT. 29.4 SECONDS (11.7-14.9)
[2018-09-18 12:20] LABS: International Normalized Ratio 3.1; Prothrombin Time (Protime)PT. 32.5 SECONDS (11.7-14.9)
[2018-09-25 10:13] LABS: International Normalized Ratio 3.2; Prothrombin Time (Protime)PT. 32.9 SECONDS (11.7-14.9)
== END 2018-09-25 14:51 | disposition home or self-care (01) ==
LOC: MTLAB 09:02
PROVIDERS: Family Provider Family Medicine; PCP Family Medicine; Referring Provider Internal Medicine Cardiovascular Disease; Visit Provider Internal Medicine Cardiovascular Disease
DX: I48.91 Unspecified atrial fibrillation (principal); Z79.899 Other long term (current) drug therapy
CPT/HCPCS: 36415; 85610

== ENCOUNTER 2018-10-20 09:00 | Outpatient (RCR) | payer MEDICARE, SELFPAY ==
[2018-04-17 10:59] VITALS: BMI 18.3
[2018-10-02 10:12] LABS: Hematocrit 38.3 % (37-47); Hemoglobin 10.8 g/dl (12.0-15.0); Mean Corp Hgb Conc 28.2 g/gl (32-36); Mean Corpuscular Hgb 19.5 pg (27.0-32.0); Mean Corpuscular Volume 69.1 fL (81-99); Mean Platelet Vol. 9.8 fl (6.2-12.0); Platelet Count 384 K/mm3 (150-450); RBC Distribution Width CV 18.5 % (11.6-14.6); RBC Distribution Width SD 45.5 fl (35.1-43.9); Red Blood Count 5.54 M/mm3 (4.2-5.4); White Blood Count 5.9 K/mm3 (4.4-11.0)
[2018-10-02 10:13] LABS: International Normalized Ratio 2.9; Prothrombin Time (Protime)PT. 30.6 SECONDS (11.7-14.9)
[2018-10-02 10:14] LABS: Scan Indicated on CBC? Y/N YES- FLAGS NOTED
[2018-10-02 10:20] LABS: Anion Gap 5 (5-15); BUN 21 mg/dL (7-18); BUN/Creat Ratio 20.8 RATIO (10-20); Calcium,Total 8.7 mg/dL (8.5-10.1); Chloride 100 mmol/L (98-107); Creatinine, Serum 1.01 mg/dL (0.55-1.02); EST Glomerular Filtration Rate 57 mL/min (>60); Est Glom Filt Rate - Afr Amer 68 mL/min (>60); Glucose 97 mg/dL (74-106); Potassium 4.1 mmol/L (3.5-5.1); Sodium Level 136 mmol/L (136-145)
[2018-10-16 09:59] LABS: International Normalized Ratio 2.8; Prothrombin Time (Protime)PT. 29.5 SECONDS (11.7-14.9)
[2018-10-20 10:44] LABS: International Normalized Ratio 2.6; Prothrombin Time (Protime)PT. 28.3 SECONDS (11.7-14.9)
== END 2018-10-20 10:00 | disposition home or self-care (01) ==
LOC: MTLAB 09:00
PROVIDERS: Family Provider Family Medicine; PCP Family Medicine; Referring Provider Internal Medicine Cardiovascular Disease; Visit Provider Internal Medicine Cardiovascular Disease
DX: I48.91 Unspecified atrial fibrillation (principal); Z79.899 Other long term (current) drug therapy
CPT/HCPCS: 36415; 80048; 85027; 85610

== ENCOUNTER 2018-11-21 08:58 | Outpatient (RCR) | payer MEDICARE, SELFPAY ==
[2018-04-17 10:59] VITALS: BMI 18.3
[2018-10-29 12:25] LABS: International Normalized Ratio 2.3; Prothrombin Time (Protime)PT. 25.3 SECONDS (11.7-14.9)
[2018-10-29 13:38] LABS: Anion Gap 7 (5-15); BUN 22 mg/dL (7-18); BUN/Creat Ratio 19.8 RATIO (10-20); Calcium,Total 8.8 mg/dL (8.5-10.1); Chloride 99 mmol/L (98-107); Creatinine, Serum 1.11 mg/dL (0.55-1.02); EST Glomerular Filtration Rate 51 mL/min (>60); Est Glom Filt Rate - Afr Amer 61 mL/min (>60); Glucose 101 mg/dL (74-106); Potassium 4.1 mmol/L (3.5-5.1); Sodium Level 136 mmol/L (136-145)
[2018-11-06 12:27] LABS: Prothrombin Time (Protime)PT. 35.1 SECONDS (11.7-14.9)
[2018-11-06 12:40] LABS: International Normalized Ratio 3.5
[2018-11-13 12:42] LABS: International Normalized Ratio 2.9; Prothrombin Time (Protime)PT. 30.7 SECONDS (11.7-14.9)
[2018-11-21 10:10] LABS: International Normalized Ratio 2.6
[2018-11-21 10:40] LABS: BNP,B-Type NATRIURETIC PEPTIDE 1926.4 pg/mL (0-100)
[2018-11-21 11:17] LABS: Anion Gap 3 (5-15); BUN 21 mg/dL (7-18); BUN/Creat Ratio 19.1 RATIO (10-20); Calcium,Total 8.9 mg/dL (8.5-10.1); Chloride 97 mmol/L (98-107); EST Glomerular Filtration Rate 51 mL/min (>60); Est Glom Filt Rate - Afr Amer 62 mL/min (>60); Glucose 109 mg/dL (74-106); Magnesium 2.3 mg/dL (1.6-2.6); Potassium 4.8 mmol/L (3.5-5.1); Sodium Level 133 mmol/L (136-145); T4 Free Direct 1.31 ng/dL (0.76-1.46); Thyroid Stim Hormone (TSH) 4.98 uIU/mL (0.358-3.74)
== END 2018-11-25 16:00 | disposition home or self-care (01) ==
LOC: MTLAB 08:58
PROVIDERS: Internal Medicine; Nurse Practitioner Family; Family Provider Family Medicine; PCP Family Medicine; Referring Provider Internal Medicine Cardiovascular Disease; Visit Provider Internal Medicine Cardiovascular Disease
DX: I48.91 Unspecified atrial fibrillation (principal); Z79.899 Other long term (current) drug therapy
CPT/HCPCS: 36415; 80048; 83735; 83880; 84439; 84443; 85610

== ENCOUNTER 2018-11-25 10:16 | Day surgery (SDC) | payer MEDICARE, SELFPAY ==
[2018-11-20 14:29] VITALS: BMI 18.4
[2018-11-24 07:59] VITALS: BMI 18.4
[2018-11-25 10:30] LABS: Prothrombin Time Fingerstick 36.1 SEC (11.9-14.4)
--- NOTE | 2018-11-25 12:27 | PCM.OP.PRO ---
Problem List (1) Atrial fibrillation Status: Acute Qualifiers: Comment: [facility] 02/19/18 @ [facility]; [facility] 04/02/2018 @ [facility]; (2) Anxiety Status: Chronic (3) Cardiomyopathy Status: Chronic Qualifiers: (4) Congestive heart failure Status: Chronic Qualifiers: (5) GERD (gastroesophageal reflux disease) Status: Chronic (6) History of GI bleed Status: Chronic (7) History of myocardial infarction Status: Chronic (8) Hyperlipidemia Status: Chronic Qualifiers: (9) custodial (current) use of anticoagulants Status: Chronic (10) Long-term use of high-risk medication Status: Chronic Procedure Report Date of Procedure: 11/25/18 - Conscious sedation CONSCIOUS SEDATION REPORT BRIEF HISTORY OF PRESENT ILLNESS: The patient is a 77-year-old female who presented to [facility] for an elective outpatient cardioversion due to underlying atrial fibrillation. The patient reports no PO intake since midnight. The patient does not have a history of obstructive sleep apnea. The patient reports no history of smoking and COPD. The patient denies any recent constitutional symptoms such as fevers, chills, nausea or vomiting. The patient denies previous anesthetic complications. Patient's last known ejection fraction was 30%. INR on the day of the procedure was 3.2. Patient has been seen previously for a cardioversion and had no complications. PHYSICAL EXAMINATION: VITAL SIGNS: Reviewed and were acceptable. GENERAL: The patient is a female, in no apparent distress, speaking in full sentences. HEENT: Normocephalic, atraumatic. Mucous membranes are moist and pink. Good mouth opening noted. Trachea is midline. Good neck mobility. MP I CHEST: S1, S2 irregularly irregular. No murmurs, rubs or gallops were noted. LUNGS: Clear to auscultation bilaterally without appreciable wheezes, rales or rhonchi. ABDOMEN: Soft, nontender, nondistended. Positive bowel sounds. EXTREMITIES: There is no clubbing, cyanosis or edema. ASA Class: II DESCRIPTION OF PROCEDURE: After confirmation of informed consent, the patient's anesthesia plan was reviewed in detail. Etomidate was chosen. Risks and benefits were reviewed and the patient agreed to proceed. At 11:52 AM, the patient was given 4 mg of etomidate. The patient achieved an appropriate level of sedation and received 1 attempt synchronized cardioversion, at [address] Shah at the bedside. This was successful in achieving normal sinus rhythm. The patient was monitored until 12 PM, at which time the patient reached their baseline mental status and function. The patient tolerated the procedure well. COMPLICATIONS: None ESTIMATED BLOOD LOSS: None RECOMMENDATIONS: Okay to recover in usual fashion. Code Visit 9xxxx: Other Procedure See Report - 96516 -8 minutes conscious sedation
--- NOTE | 2018-11-25 12:30 | PRO.PCM_ITS ---
Problem List (1) Atrial fibrillation Status: Acute Qualifiers: Comment: [facility] 02/19/18 @ [facility]; [facility] 04/02/2018 @ [facility]; (2) Anxiety Status: Chronic (3) Cardiomyopathy Status: Chronic Qualifiers: (4) Congestive heart failure Status: Chronic Qualifiers: (5) GERD (gastroesophageal reflux disease) Status: Chronic (6) History of GI bleed Status: Chronic (7) History of myocardial infarction Status: Chronic (8) Hyperlipidemia Status: Chronic Qualifiers: (9) half-way (current) use of anticoagulants Status: Chronic (10) Long-term use of high-risk medication Status: Chronic Procedure Report Date of Procedure: 11/25/18 - Conscious sedation CONSCIOUS SEDATION REPORT BRIEF HISTORY OF PRESENT ILLNESS: The patient is a 77-year-old female who presented to [facility] for an elective outpatient cardioversion due to underlying atrial fibrillation. The patient reports no PO intake since midnight. The patient does not have a history of obstructive sleep apnea. The patient reports no history of smoking and COPD. The patient denies any recent constitutional symptoms such as fevers, chills, nausea or vomiting. The patient denies previous anesthetic complications. Patient's last known ejection fraction was 30%. INR on the day of the procedure was 3.2. Patient has been seen previously for a cardioversion and had no complications. PHYSICAL EXAMINATION: VITAL SIGNS: Reviewed and were acceptable. GENERAL: The patient is a female, in no apparent distress, speaking in full sentences. HEENT: Normocephalic, atraumatic. Mucous membranes are moist and pink. Good mouth opening noted. Trachea is midline. Good neck mobility. MP I CHEST: S1, S2 irregularly irregular. No murmurs, rubs or gallops were noted. LUNGS: Clear to auscultation bilaterally without appreciable wheezes, rales or rhonchi. ABDOMEN: Soft, nontender, nondistended. Positive bowel sounds. EXTREMITIES: There is no clubbing, cyanosis or edema. ASA Class: II DESCRIPTION OF PROCEDURE: After confirmation of informed consent, the patient's anesthesia plan was reviewed in detail. Etomidate was chosen. Risks and benefits were reviewed and the patient agreed to proceed. At 11:52 AM, the patient was given 4 mg of etomidate. The patient achieved an appropriate level of sedation and received 1 attempt synchronized cardioversion, at [address] Shah at the bedside. This was successful in achieving normal sinus rhythm. The patient was monitored until 12 PM, at which time the patient reached their baseline mental status and function. The patient tolerated the procedure well. COMPLICATIONS: None ESTIMATED BLOOD LOSS: None RECOMMENDATIONS: Okay to recover in usual fashion. Code Visit 9xxxx: Other Procedure See Report - 63137 -8 minutes conscious sedation
--- NOTE | 2018-11-25 12:55 | EKG12_ITS ---
Test Reason : PRE PROCEDURE Blood Pressure : / mmHG Vent. Rate : 107 BPM Atrial Rate : 288 BPM P-R Int : 000 ms QRS Dur : 092 ms QT Int : 314 ms P-R-T Axes : 000 093 -54 degrees QTc Int : 419 ms Atrial flutter with variable A-V block Voltage criteria for left ventricular hypertrophy T wave abnormality, consider inferior ischemia Abnormal ECG No previous ECGs available Confirmed by DAREN COLON ([id number]), electronic news gathering editor CAMPOS WILLIAMSON ([id number]) on 12/01/2018 2:34:10 PM Referred By: Sheng Shah Confirmed By:ANDREWS COLON
--- NOTE | 2018-11-25 12:55 | PCM.OPRPT ---
Problem List (1) Atrial fibrillation and flutter Status: Chronic Report of Operation Date of Procedure: 11/25/18 Pre-Operative Diagnosis: Atrial fibrillation/flutter Post-Operative Diagnosis: Atrial fibrillation/flutter Surgery/Procedure Performed:: Synchronized biphasic DC cardioversion Description of Surgical Findings:: Procedure: Synchronized Biphasic DC Cardioversion Indications: Atrial fibrillation/flutter Consent: [Per the Patient] Anesthesia: per Dr. Camilo of pulmonology and critical care medicine with etomidate 4 mg IV push total Procedure: Synchronized Biphasic DC Cardioversion: 200 J x1: Result: Sinus rhythm with PACs Complications: no apparent complications Type of Anesthesia:: IV Sedation Anesthesiologist: Moy Camilo Special Medications: Etomidate 4 mg IV push total Specimen's removed: N/A Description of Procedure: Procedure: Synchronized Biphasic DC Cardioversion Indications: Atrial fibrillation/flutter Consent: [Per the Patient] Anesthesia: per Dr. Camilo of pulmonology and critical care medicine with etomidate 4 mg IV push total Procedure: Synchronized Biphasic DC Cardioversion: 200 J x1: Result: Sinus rhythm with PACs Complications: no apparent complications - Complications None - Admit VTE Documentation VTE Present on Admission: No VTE Mechan Device Prophylaxis: None VTE Pharm Prophylaxis ordered?: No Reason prophylaxis not ordered:: Treatment Not Indicated - Patient on oral systemic anticoagulant therapy
== END 2018-11-25 13:17 | disposition home or self-care (01) ==
LOC: CLSP 10:17
PROVIDERS: Family Provider Family Medicine; PCP Family Medicine; Referring Provider Internal Medicine Cardiovascular Disease; Visit Provider Internal Medicine Cardiovascular Disease
DX: I48.0 Paroxysmal atrial fibrillation (principal); I48.92 Unspecified atrial flutter; I42.9 Cardiomyopathy, unspecified; I25.10 Atherosclerotic heart disease of native coronary artery without angina pectoris; I50.9 Heart failure, unspecified; E78.5 Hyperlipidemia, unspecified; K21.9 Gastro-esophageal reflux disease without esophagitis; I25.2 Old myocardial infarction; Z79.01 Long term (current) use of anticoagulants; Z79.899 Other long term (current) drug therapy
CPT/HCPCS: 36416; 85610; 92960; 93005; J7040

== ENCOUNTER 2018-12-26 08:59 | Outpatient (RCR) | payer MEDICARE, SELFPAY ==
[2018-11-24 07:59] VITALS: BMI 18.4
[2018-12-09 12:29] LABS: International Normalized Ratio 2.5; Prothrombin Time (Protime)PT. 26.6 SECONDS (11.7-14.9)
[2018-12-26 10:24] LABS: International Normalized Ratio 2.6; Prothrombin Time (Protime)PT. 28.3 SECONDS (11.7-14.9)
== END 2018-12-26 10:00 | disposition home or self-care (01) ==
LOC: MTLAB 08:59
PROVIDERS: Family Provider Family Medicine; PCP Family Medicine; Referring Provider Internal Medicine Cardiovascular Disease; Visit Provider Internal Medicine Cardiovascular Disease
DX: I48.91 Unspecified atrial fibrillation (principal); Z79.899 Other long term (current) drug therapy
CPT/HCPCS: 36415; 85610

== ENCOUNTER 2019-01-23 08:53 | Outpatient (RCR) | payer MEDICARE, SELFPAY ==
[2018-11-24 07:59] VITALS: BMI 18.4
[2019-01-23 10:21] LABS: Prothrombin Time (Protime)PT. 35.7 SECONDS (11.7-14.9)
[2019-01-23 10:27] LABS: International Normalized Ratio 3.5
== END 2019-01-23 09:00 | disposition home or self-care (01) ==
LOC: MTLAB 08:53
PROVIDERS: Family Provider Family Medicine; PCP Family Medicine; Referring Provider Internal Medicine Cardiovascular Disease; Visit Provider Internal Medicine Cardiovascular Disease
DX: I48.91 Unspecified atrial fibrillation (principal); Z79.899 Other long term (current) drug therapy
CPT/HCPCS: 36415; 85610

== ENCOUNTER 2019-02-05 09:03 | Outpatient (RCR) | payer MEDICARE, SELFPAY ==
[2018-11-24 07:59] VITALS: BMI 18.4
[2019-02-05 12:43] LABS: International Normalized Ratio 2.9; Prothrombin Time (Protime)PT. 30.8 SECONDS (11.7-14.9)
== END 2019-02-25 06:35 | disposition home or self-care (01) ==
LOC: MTLAB 09:03
PROVIDERS: Family Provider Family Medicine; PCP Family Medicine; Referring Provider Internal Medicine Cardiovascular Disease; Visit Provider Internal Medicine Cardiovascular Disease
DX: I48.91 Unspecified atrial fibrillation (principal); Z79.899 Other long term (current) drug therapy
CPT/HCPCS: 36415; 85610

== ENCOUNTER → 2019-03-04 10:37 | Outpatient (CLI) | payer MEDICARE, SELFPAY ==
[2019-02-19 08:04] VITALS: BMI 17.7
--- NOTE | 2019-03-04 10:40 | RAD_ITS ---
STUDY: X-RAY CHEST REASON FOR EXAM: Female, 78 years old. Amiodarone therapy. History of atrial fibrillation and cardiomyopathy. TECHNIQUE: 2 views COMPARISON: Prior PA and lateral chest of December 21, 2015 and a portable chest of April 01, 2018 FINDINGS: Lung yadav are severely hyperexpanded without consolidation, focal atelectasis or pleural effusion. Calcified granuloma of the left upper lobe. Normal size heart. Normal mediastinum and axel. Normal visualized pulmonary arteries. There is atherosclerotic calcification of the aortic arch with tortuosity. There is demineralization of the osseous structures with a stable increased kyphosis. 1 mild superior endplate compression deformity of a lower thoracic vertebral body unchanged from prior exam. There is no demonstrated abnormality of the visualized soft tissue structures of the upper abdomen. RAD/Chest PA and Lateral IMPRESSION: Continued severe hyperexpansion without other acute pulmonary findings. Normal cardiac size without evidence of pulmonary venous congestion or pleural effusion. Atherosclerotic changes of the thoracic aorta. Electronically Signed: Brittany Arnold MD at 17:04 EDT , Service support ,
== END ==
PROVIDERS: Family Provider Family Medicine; PCP Family Medicine; Referring Provider Nurse Practitioner Family; Visit Provider Nurse Practitioner Family
DX: I42.9 Cardiomyopathy, unspecified (principal); I48.91 Unspecified atrial fibrillation; I48.92 Unspecified atrial flutter; Z79.899 Other long term (current) drug therapy
CPT/HCPCS: 71046

== ENCOUNTER → 2019-03-19 | Outpatient (CLI) | payer MEDICARE, SELFPAY ==
[2019-02-19 08:04] VITALS: BMI 17.7
--- NOTE | 2019-03-19 10:34 | PFTCOMP_ITS ---
COMPLETE PULMONARY FUNCTION TEST INTERPRETATION Brief HPI: Patient is a 78 year old female, currently under the care of Barrett Boss, who presents to [facility] for complete pulmonary function tests secondary to diagnosis of high risk med use. Respiratory therapist reports good effort and reproducible results. Interpretation: Forced expiration spirometry shows no large airways obstructive ventilatory defect with an FEV1 of 94% predicted. There is no significant bronchodilator response by strict ATS criteria. Spirograms are of good quality and plateau normally. The respiratory flow volume loop shows a normal pattern. Lung volumes were not obtained Diffusion capacity by carbon monoxide is normal at 79% predicted. The airway resistance is normal. Compared to previous pulmonary function tests from 09/25/2016, there has been no significant change. Impression: Normal spirometry and diffusing capacity
== END | disposition home or self-care (01) ==
LOC: PSN 08:42
PROVIDERS: Family Provider Family Medicine; PCP Family Medicine; Referring Provider Nurse Practitioner Family; Visit Provider Nurse Practitioner Family
DX: Z79.899 Other long term (current) drug therapy (principal)
CPT/HCPCS: 94060; 94726; 94729

== ENCOUNTER 2019-03-27 12:24 | Outpatient (RCR) | payer MEDICARE, SELFPAY ==
[2019-02-19 08:04] VITALS: BMI 17.7
[2019-02-27 12:34] LABS: AST(SGOT) 26 U/L (15-37); Alanine Aminotransfer ALT/SGPT 29 U/L (13-56); Albumin, Serum 3.5 g/dL (3.2-5.0); Alkaline Phosphatase 86 U/L (45-117); Bilirubin, Direct 0.13 mg/dL (0.00-0.30); Protein, Total 7.5 g/dL (6.4-8.2)
[2019-02-27 12:39] LABS: International Normalized Ratio 2.9; Prothrombin Time (Protime)PT. 30.4 SECONDS (11.7-14.9)
[2019-03-27 13:53] LABS: International Normalized Ratio 2.8; Prothrombin Time (Protime)PT. 29.4 SECONDS (11.7-14.9)
== END 2019-03-27 13:24 | disposition home or self-care (01) ==
LOC: MTLAB 12:24
PROVIDERS: Nurse Practitioner Family; Family Provider Family Medicine; PCP Family Medicine; Referring Provider Internal Medicine Cardiovascular Disease; Visit Provider Internal Medicine Cardiovascular Disease
DX: I48.91 Unspecified atrial fibrillation (principal); I48.92 Unspecified atrial flutter; Z79.899 Other long term (current) drug therapy
CPT/HCPCS: 36415; 80076; 85610

== ENCOUNTER 2019-04-17 10:03 | Outpatient (RCR) | payer MEDICARE, SELFPAY ==
[2019-02-19 08:04] VITALS: BMI 17.7
[2019-04-17 13:04] LABS: International Normalized Ratio 2.3; Prothrombin Time (Protime)PT. 25.1 SECONDS (11.7-14.9)
== END 2019-04-17 18:00 | disposition home or self-care (01) ==
LOC: MTLAB 10:03
PROVIDERS: Family Provider Family Medicine; PCP Family Medicine; Referring Provider Internal Medicine Cardiovascular Disease; Visit Provider Internal Medicine Cardiovascular Disease
DX: I48.91 Unspecified atrial fibrillation (principal); I48.92 Unspecified atrial flutter; Z79.899 Other long term (current) drug therapy
CPT/HCPCS: 36415; 85610

== ENCOUNTER 2019-05-12 11:11 | Outpatient (RCR) | payer MEDICARE, SELFPAY ==
[2019-02-19 08:04] VITALS: BMI 17.7
[2019-05-12 12:32] LABS: International Normalized Ratio 2.3; Prothrombin Time (Protime)PT. 25.4 SECONDS (11.7-14.9)
== END 2019-05-12 18:00 | disposition home or self-care (01) ==
LOC: MTLAB 11:11
PROVIDERS: Family Provider Family Medicine; PCP Family Medicine; Referring Provider Internal Medicine Cardiovascular Disease; Visit Provider Internal Medicine Cardiovascular Disease
DX: I48.91 Unspecified atrial fibrillation (principal); Z79.899 Other long term (current) drug therapy
CPT/HCPCS: 36415; 85610

== ENCOUNTER 2019-06-09 09:27 | Outpatient (RCR) | payer MEDICARE, SELFPAY ==
[2019-02-19 08:04] VITALS: BMI 17.7
[2019-06-09 12:26] LABS: Prothrombin Time (Protime)PT. 22.8 SECONDS (11.7-14.9)
== END 2019-06-09 18:00 | disposition home or self-care (01) ==
LOC: MTLAB 09:27
PROVIDERS: Family Provider Family Medicine; PCP Family Medicine; Referring Provider Internal Medicine Cardiovascular Disease; Visit Provider Internal Medicine Cardiovascular Disease
DX: I48.91 Unspecified atrial fibrillation (principal); I48.92 Unspecified atrial flutter; Z79.899 Other long term (current) drug therapy
CPT/HCPCS: 36415; 85610

== ENCOUNTER 2019-07-13 10:42 | Outpatient (RCR) | payer MEDICARE, SELFPAY ==
[2019-02-19 08:04] VITALS: BMI 17.7
[2019-06-29 09:25] VITALS: BMI 17.9
[2019-07-13 12:29] LABS: International Normalized Ratio 1.8; Prothrombin Time (Protime)PT. 20.7 SECONDS (11.7-14.9)
== END 2019-07-13 18:00 | disposition home or self-care (01) ==
LOC: MTLAB 10:42
PROVIDERS: Family Provider Family Medicine; PCP Family Medicine; Referring Provider Internal Medicine Cardiovascular Disease; Visit Provider Internal Medicine Cardiovascular Disease
DX: I48.91 Unspecified atrial fibrillation (principal); I48.92 Unspecified atrial flutter; Z79.899 Other long term (current) drug therapy
CPT/HCPCS: 36415; 85610

== ENCOUNTER → 2019-07-27 08:47 | Outpatient (CLI) | payer MEDICARE, SELFPAY ==
[2019-06-29 09:25] VITALS: BMI 17.9
--- NOTE | 2019-07-27 08:47 | ECHOD_ITS ---
Reason For Study: CHF Procedure This was a 2D Doppler, Color Flow transthoracic echocardiogram. The exam was of adequate technical quality. Exam performed in department. Left Ventricle Normal LV size. Left ventricular systolic function is normal. The estimated ejection fraction is 55 %. There is evidence of diastolic dysfunction. No regional wall motion abnormalities noted. Right Ventricle Normal RV size. Normal systolic function. Atria The left atrium is moderately enlarged. Normal right atrium. No doppler evidence for ASD. Mitral Valve There is no mitral annular calcification. Anterior leaflet diffuse mitral valve thickening. Mild (1+) mitral valve insufficiency. Tricuspid Valve Normal tricuspid valve. Trivial tricuspid valve insufficiency. Right ventricular systolic pressure estimated to be 21 mmHg. Aortic Valve Trisinus/trileaflet aortic valve. Mild focal aortic valve calcification. Trivial aortic valve insufficiency. Pulmonic Valve The pulmonic valve is not well visualized. Great Vessels Normal sized aortic root. Pericardium/Pleural No pericardial effusion. MMode/2D Measurements & Calculations LVIDd: 4.0 cm IVSd: 0.99 cm Ao root diam: 2.7 cm LVIDs: 3.0 cm LVPWd: 0.98 cm RVDd: 2.9 cm FS: 24.4 % LAV(MOD-bp): 65.5 ml LA A4 area: 24.0 cm2 LA dimension(2D): 3.6 cm LAV(MOD-bp) Indexed: 46.0 ml/m2 LAV(MOD-sp2): 56.6 ml LAV(MOD-sp4): 71.6 ml RA A4 area: 16.8 cm2 Time Measurements MV dec time: 0.17 sec Doppler Measurements & Calculations MV E max romeo: 110.6 cm/sec Lat Peak E' Romeo: 3.4 cm/sec Med Peak E' Romeo: 3.7 cm/sec E/E' lat: 33.0 E/E' med: 30.1 Ao V2 max: 175.8 cm/sec AI max romeo: 368.9 cm/sec LV V1 max: 100.0 cm/sec Ao max P.4 mmHg AI max P.5 mmHg LV V1 max P.0 mmHg AI dec slope: 225.4 cm/sec2 AI P1/2t: 479.3 msec TR max romeo: 207.1 cm/sec TR max P.8 mmHg Interpretation Summary Left ventricular systolic function is normal. The estimated ejection fraction is 55 %. The left atrium is moderately enlarged. Anterior leaflet diffuse mitral valve thickening. Mild (1+) mitral valve insufficiency. Trivial tricuspid valve insufficiency. Mild focal aortic valve calcification. Trivial aortic valve insufficiency. Right ventricular systolic pressure estimated to be 21 mmHg. There is evidence of diastolic dysfunction. Ordering Physician: Barrett Boss/Sheng Shah Referring Physician: ELILS VÁZQUEZ Performed By: Racheal Zamora RDCS, RVT
== END ==
PROVIDERS: Family Provider Family Medicine; PCP Family Medicine; Referring Provider Nurse Practitioner Family; Visit Provider Nurse Practitioner Family
DX: I25.10 Atherosclerotic heart disease of native coronary artery without angina pectoris (principal); I42.9 Cardiomyopathy, unspecified; I48.0 Paroxysmal atrial fibrillation
CPT/HCPCS: 93306

== ENCOUNTER → 2019-09-10 | Outpatient (CLI) | payer MEDICARE, SELFPAY ==
[2019-06-29 09:25] VITALS: BMI 17.9
[2019-09-10 12:33] LABS: Hematocrit 36.2 % (37-47); Hemoglobin 10.2 g/dL (12.0-15.0); Mean Corp Hgb Conc 28.2 g/dL (32-36); Mean Corpuscular Hgb 21.2 pg (27.0-32.0); Mean Corpuscular Volume 75.3 fL (81-99); Mean Platelet Vol. 10.6 fl (6.2-12.0); Platelet Count 311 K/mm3 (150-450); RBC Distribution Width CV 17.6 % (11.6-14.6); RBC Distribution Width SD 47.5 fl (35.1-43.9); Red Blood Count 4.81 M/mm3 (4.2-5.4); White Blood Count 5.6 K/mm3 (4.4-11.0)
[2019-09-10 13:03] LABS: AST(SGOT) 20 U/L (15-37); Alanine Aminotransfer ALT/SGPT 19 U/L (13-56); Albumin, Serum 3.8 g/dL (3.2-5.0); Alkaline Phosphatase 104 U/L (45-117); Anion Gap 5 (5-15); BUN 19 mg/dL (7-18); BUN/Creat Ratio 18.8 RATIO (10-20); Bilirubin, Direct 0.16 mg/dL (0.00-0.30); Calcium,Total 9.3 mg/dL (8.5-10.1); Chloride 98 mmol/L (98-107); Cholesterol 191 mg/dL (200); Creatinine, Serum 1.01 mg/dL (0.55-1.02); EST Glomerular Filtration Rate 56 mL/min (>60); Est Glom Filt Rate - Afr Amer 68 mL/min (>60); Globulin 3.4 g/dL (2.2-4.2); Glucose 78 mg/dL (74-106); High Density Lipoprotein 92 mg/dL; Potassium 5.4 mmol/L (3.5-5.1); Prealbumin 20.9 mg/dL (20.0-40.0); Protein, Total 7.2 g/dL (6.4-8.2); Sodium Level 135 mmol/L (136-145); Thyroid Stim Hormone (TSH) 4.39 uIU/mL (0.358-3.74); Triglycerides 89 mg/dL; Very Low Density Lipoprotein 18 mg/dL (5-40)
== END | disposition home or self-care (01) ==
LOC: MFPLAB 11:02
PROVIDERS: PCP Family Medicine; Referring Provider Family Medicine; Visit Provider Family Medicine
DX: I11.0 Hypertensive heart disease with heart failure (principal); I50.9 Heart failure, unspecified; R63.4 Abnormal weight loss
CPT/HCPCS: 36415; 80048; 80061; 80076; 84134; 84443; 85027

== ENCOUNTER → 2019-11-30 | Outpatient (CLI) | payer MEDICARE, SELFPAY ==
[2019-11-30 12:53] VITALS: BMI 17.7
[2019-11-30 15:03] LABS: Absolute Lymphocyte Count 1.59 X10^3/uL (0.83-4.51); Absolute Neutrophil Count 5.7 X10^3/uL (2.0-7.7); Basophil# 0.05 X10^3/uL; Basophil% 0.6 % (0-1); Eosinophil# 0.02 X10^3/uL; Eosinophils% 0.2 % (0-5); Hematocrit 35.6 % (37-47); Hemoglobin 10.4 g/dL (12.0-15.0); Lymphocyte # 1.59 X10^3/ul (4.0); Lymphocyte % 19.3 % (19-41); Mean Corp Hgb Conc 29.2 g/dL (32-36); Mean Corpuscular Hgb 22.1 pg (27.0-32.0); Mean Corpuscular Volume 75.7 fL (81-99); Mean Platelet Vol. 10.2 fl (6.2-12.0); Monocyte# 0.89 X10^3/uL; Monocyte% 10.8 % (0-10); NRBC Flagged by Analyzer 0 % (0-5); Neutrophil # 5.65 X10^3/uL (2.7-7.7); Neutrophil % 68.9 % (47-70); Platelet Count 289 K/mm3 (150-450); RBC Distribution Width SD 39.6 fl (35.1-43.9); White Blood Count 8.2 K/mm3 (4.4-11.0)
[2019-11-30 15:58] LABS: Anion Gap 6 (5-15); BUN 19 mg/dL (7-18); BUN/Creat Ratio 18.8 RATIO (10-20); Calcium,Total 9.2 mg/dL (8.5-10.1); Chloride 98 mmol/L (98-107); Creatinine, Serum 1.01 mg/dL (0.55-1.02); EST Glomerular Filtration Rate 56 mL/min (>60); Est Glom Filt Rate - Afr Amer 68 mL/min (>60); Glucose 92 mg/dL (74-106); Magnesium 2.1 mg/dL (1.6-2.6); Potassium 4.5 mmol/L (3.5-5.1); Sodium Level 133 mmol/L (136-145); T4 Free Direct 1.38 ng/dL (0.76-1.46); Thyroid Stim Hormone (TSH) 4.96 uIU/mL (0.358-3.74)
== END | disposition home or self-care (01) ==
LOC: LAB 13:52
PROVIDERS: PCP Family Medicine; Referring Provider Nurse Practitioner Family; Visit Provider Nurse Practitioner Family
DX: I48.0 Paroxysmal atrial fibrillation (principal); I42.9 Cardiomyopathy, unspecified; I25.10 Atherosclerotic heart disease of native coronary artery without angina pectoris
CPT/HCPCS: 36415; 80048; 83735; 84439; 84443; 85025

== ENCOUNTER 2019-12-22 09:42 | Outpatient (RCR) | payer MEDICARE, SELFPAY ==
[2019-11-30 12:53] VITALS: BMI 17.7
[2019-12-07 14:56] LABS: International Normalized Ratio 1.2
[2019-12-14 16:04] LABS: International Normalized Ratio 1.4; Prothrombin Time (Protime)PT. 16.3 SECONDS (11.7-14.9)
[2019-12-22 13:38] LABS: International Normalized Ratio 1.4; Prothrombin Time (Protime)PT. 16.7 SECONDS (11.7-14.9)
== END 2019-12-22 18:00 | disposition home or self-care (01) ==
LOC: MTLAB 09:42
PROVIDERS: PCP Family Medicine; Referring Provider Internal Medicine Cardiovascular Disease; Visit Provider Internal Medicine Cardiovascular Disease
DX: I48.0 Paroxysmal atrial fibrillation (principal); Z79.01 Long term (current) use of anticoagulants
CPT/HCPCS: 36415; 85610

== ENCOUNTER 2020-01-26 09:44 | Outpatient (RCR) | payer MEDICARE, SELFPAY ==
[2019-11-30 12:53] VITALS: BMI 17.7
[2019-12-29 12:22] LABS: International Normalized Ratio 1.4; Prothrombin Time (Protime)PT. 16.9 SECONDS (11.7-14.9)
[2020-01-05 12:20] LABS: International Normalized Ratio 1.7; Prothrombin Time (Protime)PT. 19.7 SECONDS (11.7-14.9)
[2020-01-12 12:32] LABS: International Normalized Ratio 2.2; Prothrombin Time (Protime)PT. 23.7 SECONDS (11.7-14.9)
[2020-01-19 12:57] LABS: Prothrombin Time (Protime)PT. 37.3 SECONDS (11.7-14.9)
[2020-01-19 13:04] LABS: International Normalized Ratio 3.8
[2020-01-26 12:44] LABS: International Normalized Ratio 5.6
== END 2020-01-26 18:00 | disposition home or self-care (01) ==
LOC: MTLAB 09:44
PROVIDERS: PCP Family Medicine; Referring Provider Internal Medicine Cardiovascular Disease; Visit Provider Internal Medicine Cardiovascular Disease
DX: I48.0 Paroxysmal atrial fibrillation (principal); Z79.01 Long term (current) use of anticoagulants
CPT/HCPCS: 36415; 85610

== ENCOUNTER 2020-02-25 10:05 | Outpatient (RCR) | payer MEDICARE, SELFPAY ==
[2019-11-30 12:53] VITALS: BMI 17.7
[2020-01-28 12:52] LABS: Prothrombin Time (Protime)PT. 35.6 SECONDS (11.7-14.9)
[2020-01-28 12:57] LABS: International Normalized Ratio 3.6
[2020-02-01 13:05] LABS: Prothrombin Time (Protime)PT. 22.1 SECONDS (11.7-14.9)
[2020-02-09 15:18] LABS: International Normalized Ratio 1.5
[2020-02-18 12:28] LABS: International Normalized Ratio 1.7; Prothrombin Time (Protime)PT. 19.4 SECONDS (11.7-14.9)
[2020-02-25 13:20] LABS: International Normalized Ratio 2.1; Prothrombin Time (Protime)PT. 23.1 SECONDS (11.7-14.9)
== END 2020-02-25 18:00 | disposition home or self-care (01) ==
LOC: MTLAB 10:05
PROVIDERS: PCP Family Medicine; Referring Provider Internal Medicine Cardiovascular Disease; Visit Provider Internal Medicine Cardiovascular Disease
DX: I48.0 Paroxysmal atrial fibrillation (principal); Z79.01 Long term (current) use of anticoagulants
CPT/HCPCS: 36415; 85610

== ENCOUNTER → 2020-03-14 | Outpatient (CLI) | payer MEDICARE, SELFPAY ==
[2020-03-11 09:33] VITALS: BMI 18.1
[2020-03-14 13:01] LABS: Anion Gap 4 (5-15); BUN 15 mg/dL (7-18); BUN/Creat Ratio 17.9 RATIO (10-20); Calcium,Total 8.8 mg/dL (8.5-10.1); Chloride 97 mmol/L (98-107); Creatinine, Serum 0.84 mg/dL (0.55-1.02); EST Glomerular Filtration Rate 70 mL/min (>60); Est Glom Filt Rate - Afr Amer 84 mL/min (>60); Glucose 96 mg/dL (74-106); Potassium 4.7 mmol/L (3.5-5.1); Sodium Level 133 mmol/L (136-145)
== END | disposition home or self-care (01) ==
LOC: MTLAB 11:00
PROVIDERS: PCP Family Medicine; Referring Provider Nurse Practitioner Family; Visit Provider Nurse Practitioner Family
DX: I25.10 Atherosclerotic heart disease of native coronary artery without angina pectoris (principal); I42.9 Cardiomyopathy, unspecified; I48.0 Paroxysmal atrial fibrillation
CPT/HCPCS: 36415; 80048

== ENCOUNTER → 2020-03-15 | Outpatient (CLI) | payer MEDICARE, SELFPAY ==
[2020-03-11 09:33] VITALS: BMI 18.1
[2020-03-15 15:23] LABS: Absolute Lymphocyte Count 1.66 X10^3/uL (0.83-4.51); Absolute Neutrophil Count 4.3 X10^3/uL (2.0-7.7); Basophil# 0.09 X10^3/uL; Basophil% 1.2 % (0-1); Eosinophil# 0.83 X10^3/uL; Eosinophils% 10.8 % (0-5); Hematocrit 36.7 % (37-47); Hemoglobin 10.2 g/dL (12.0-15.0); Lymphocyte # 1.66 X10^3/ul (4.0); Lymphocyte % 21.6 % (19-41); Mean Corp Hgb Conc 27.8 g/dL (32-36); Mean Corpuscular Hgb 19.7 pg (27.0-32.0); Mean Corpuscular Volume 70.7 fL (81-99); Mean Platelet Vol. 9.8 fl (6.2-12.0); Monocyte# 0.86 X10^3/uL; Monocyte% 11.2 % (0-10); NRBC Flagged by Analyzer 0 % (0-5); Neutrophil # 4.25 X10^3/uL (2.7-7.7); Neutrophil % 55.1 % (47-70); Platelet Count 423 K/mm3 (150-450); RBC Distribution Width CV 17.1 % (11.6-14.6); Red Blood Count 5.19 M/mm3 (4.2-5.4); White Blood Count 7.7 K/mm3 (4.4-11.0)
[2020-03-15 15:41] LABS: Erythrocyte Sedimentation Rate 11 mm/hr (0-30); Vitamin B12 552 pg/mL (211-911); Vitamin D,25 Hydroxy 35.5 ng/mL
[2020-03-15 15:46] LABS: AST(SGOT) 34 U/L (15-37); Alanine Aminotransfer ALT/SGPT 35 U/L (13-56); Albumin, Serum 3.7 g/dL (3.2-5.0); Alkaline Phosphatase 106 U/L (45-117); Anion Gap 6 (5-15); BUN 17 mg/dL (7-18); BUN/Creat Ratio 19.6 RATIO (10-20); Calcium,Total 8.8 mg/dL (8.5-10.1); Chloride 95 mmol/L (98-107); Creatinine, Serum 0.87 mg/dL (0.55-1.02); EST Glomerular Filtration Rate 67 mL/min (>60); Est Glom Filt Rate - Afr Amer 81 mL/min (>60); Globulin 3.8 g/dL (2.2-4.2); Glucose 93 mg/dL (74-106); Iron 19 ug/dL (50-170); Potassium 4.6 mmol/L (3.5-5.1); Protein, Total 7.5 g/dL (6.4-8.2); Sodium Level 131 mmol/L (136-145); T4 Free Direct 1.19 ng/dL (0.76-1.46); Thyroid Stim Hormone (TSH) 5.24 uIU/mL (0.358-3.74)
== END | disposition home or self-care (01) ==
LOC: MFPLAB 11:32
PROVIDERS: PCP Family Medicine; Referring Provider Family Medicine; Visit Provider Family Medicine
DX: E03.9 Hypothyroidism, unspecified (principal); R19.8 Other specified symptoms and signs involving the digestive system and abdomen; R53.83 Other fatigue; I48.91 Unspecified atrial fibrillation; I50.9 Heart failure, unspecified; M81.0 Age-related osteoporosis without current pathological fracture
CPT/HCPCS: 36415; 80053; 82306; 82607; 83540; 83880; 84439; 84443; 85025; 85652

== ENCOUNTER 2020-03-17 07:52 | Observation (INO) | payer MEDICARE, SELFPAY ==
[2020-03-11 09:33] VITALS: BMI 18.1
[2020-03-17] VITALS (17 sets, daily range): BP systolic 131–177; BP diastolic 68–109; PULSE 72–141; RESP 16–18; TEMP 36.6–37.1; O2SAT 95–99; BMI 18.1; BMI 18.0
--- NOTE | 2020-03-17 08:09 | RAD_ITS ---
STUDY: X-RAY CHEST REASON FOR EXAM: Female, 79 years old. Abdominal pain and distention TECHNIQUE: Single AP portable view of the chest. COMPARISON: 03/04/2019 FINDINGS: EKG leads overlie the chest Lungs are mildly hyperexpanded with development of interstitial edema and bilateral pleural effusions since the previous study. There is likely underlying atelectasis. Follow-up recommended to assure resolution Normal size heart. Normal mediastinum and axel. Normal visualized pulmonary arteries. Normal visualized aortic arch and descending thoracic aorta. There are diffuse degenerative changes of the visualized thoracic spine. Normal visualized ribs, clavicles, and shoulders. There is no demonstrated abnormality of the visualized soft tissue structures of the upper abdomen. RAD/Chest 1 View (Portable) IMPRESSION: Diffuse interstitial edema with bilateral pleural effusions. Findings suggest CHF. Follow-up recommended to ensure resolution Electronically Signed: Maxwell Mae MD at 8:46 EDT , Service support ,
--- NOTE | 2020-03-17 08:10 | EKG12_ITS ---
Test Reason : Blood Pressure : / mmHG Vent. Rate : 117 BPM Atrial Rate : 394 BPM P-R Int : 000 ms QRS Dur : 082 ms QT Int : 346 ms P-R-T Axes : 000 089 -86 degrees QTc Int : 482 ms Atrial flutter with variable A-V block Left ventricular hypertrophy with repolarization abnormality Abnormal ECG Confirmed by ISAIAH BRAND, DAREN ([id number]), makeup editor BRAULIO SAHNI ([id number]) on 03/25/2020 11:15:28 A M Referred By: DOYLE Confirmed By:ANDREWS COLON MD
--- NOTE | 2020-03-17 08:12 | ED.DCSUM_ITS ---
- ER Visit Summary Date of Service: 03/17/20 Chief Complaint: Generalized weakness History of Present Illness: The patient is a 79 F presenting with generalized weakness. She states that this has been ongoing for the past 2 weeks. She states she feels fatigued. She has had intermittent abdominal pain. She has been seen by her primary care physician for these symptoms. She was started on Bentyl but states that this made her feel spacey. The abdominal pain is controlled with Pepto-Bismol. She has had mild diarrhea. She denies blood in her stool. Denies nausea or vomiting. Denies fever or cough. Denies chest pain or shortness of breath. Denies myalgias. Denies urinary complaints. Denies lightheadedness or syncope. Denies headache. She did not take her morning medications, but states she is otherwise compliant with her medications. Physical Examination: Vitals are stable. Heart rate 128. Patient is afebrile. Alert no acute distress. HEENT exam is unremarkable. Neck is supple. Lungs are clear and equal bilaterally. Heart is irregularly irregular Abdomen is soft nontender nondistended. No guarding or rebound Extremities are unremarkable. Skin is warm and dry. No focal neurologic deficit. Remainder of exam is unremarkable. Emergency Department Course and Treatment: EKG is A. fib with rate of 117, LVH. Chest x-ray shows diffuse interstitial edema with bilateral pleural effusions. Findings suggest CHF. Follow-up recommended to ensure resolution. CBC shows hemoglobin 10.7, chemistries show sodium 132. Alk phos 120, AST 38. Lipase is normal. INR 6.3. Troponin is negative. She was given her home dose of Lopressor. She continues to be tachycardic in the 120s. She was given Cardizem IV. She states with ambulation she gets very weak and short of breath. Discussed with the hospitalist for observation. Disposition: Observation Impression: A. fib with RVR, CHF exacerbation, generalized weakness This note was generated with Vivaty dictation software. It may contain incorrect words, spelling, and punctuation that were not noted in review of the chart prior to signing ED Disposition - Plan for ED Patient: Disposition: Acute Care [facility]
[2020-03-17 08:30] LABS: Absolute Lymphocyte Count 1.14 X10^3/uL (0.83-4.51); Absolute Neutrophil Count 5.1 X10^3/uL (2.0-7.7); Basophil# 0.06 X10^3/uL; Basophil% 0.9 % (0-1); Eosinophil# 0.02 X10^3/uL; Eosinophils% 0.3 % (0-5); Hematocrit 37.5 % (37-47); Hemoglobin 10.7 g/dL (12.0-15.0); Lymphocyte # 1.14 X10^3/ul (4.0); Lymphocyte % 16.2 % (19-41); Mean Corp Hgb Conc 28.5 g/dL (32-36); Mean Corpuscular Hgb 19.5 pg (27.0-32.0); Mean Corpuscular Volume 68.2 fL (81-99); Mean Platelet Vol. 9.4 fl (6.2-12.0); Monocyte# 0.74 X10^3/uL; Monocyte% 10.5 % (0-10); NRBC Flagged by Analyzer 0 % (0-5); Neutrophil # 5.05 X10^3/uL (2.7-7.7); Platelet Count 391 K/mm3 (150-450); RBC Distribution Width CV 16.6 % (11.6-14.6); RBC Distribution Width SD 39.4 fl (35.1-43.9)
[2020-03-17 08:46] LABS: ALB/GLOB Ratio 0.9 RATIO (0.9-2.4); AST(SGOT) 38 U/L (15-37); Alanine Aminotransfer ALT/SGPT 36 U/L (13-56); Albumin, Serum 3.7 g/dL (3.2-5.0); Alkaline Phosphatase 120 U/L (45-117); Anion Gap 4 (5-15); BUN 17 mg/dL (7-18); BUN/Creat Ratio 18.6 RATIO (10-20); Calcium,Total 8.8 mg/dL (8.5-10.1); Chloride 98 mmol/L (98-107); Creatinine, Serum 0.91 mg/dL (0.55-1.02); EST Glomerular Filtration Rate 63 mL/min (>60); Est Glom Filt Rate - Afr Amer 77 mL/min (>60); Estimated Creatinine Clearance 36.28 ml/min; Glucose 111 mg/dL (74-106); Lipase 265 U/L (73-393); Potassium 4.6 mmol/L (3.5-5.1); Protein, Total 7.7 g/dL (6.4-8.2); Sodium Level 132 mmol/L (136-145)
[2020-03-17 08:49] LABS: International Normalized Ratio 6.3
[2020-03-17] MEDS: Metoprolol Tartrate 25 MG Tablet 12.5 MG PO (09:02)
[2020-03-17 09:12] LABS: Bacteria 0 SEEN /hpf (None Seen); Mucous, Urine 0 SEEN /hpf (<or=2+); Red Blood Cells-Urine 0 SEEN /hpf (0-5); White Blood Cells 0 SEEN /hpf (0-5)
[2020-03-17 09:13] LABS: Color, Urine Yellow (Yellow); Glucose, Dipstick Normal (Normal); Ketone-Dipstick Negative (Negative); Leukocyte Esterase-Dipstick Negative /ul (Negative); Nitrite-Dipstick Negative (Negative); Occult Blood-Urine 10 /ul (Negative); Protein-Dipstick 15 mg/dl (Negative); Urine Bilirubin Dipstick Negative (Negative); Urine Clarity Clear (Clear); Urine Urobilinogen Normal (Normal)
[2020-03-17 09:21] LABS: Squamous Epithelial Cells - UA 0-5 SEEN /hpf (5-10)
[2020-03-17] MEDS: dilTIAZem 25 MG/5 ML Vial 10 MG IV BOLUS (09:55)
--- NOTE | 2020-03-17 10:08 | NURSING ---
102 AFIB WITH RVR, GENERALIZED WEAKNESS KOTSONIA
--- NOTE | 2020-03-17 14:07 | CHAPLAIN ---
Type of Pastoral Visit _x__ Initial Visit ___ Follow-up Visit ___ On-call Visit ___ General Patient Visit ___ Spiritual Assessment ___ Family Conference ___ Bereavement ___ Rapid Response ___ Code Blue ___ Other (describe below) Pastoral Care Referral From _x__ Patient ___ Family ___ Nurse ___ Physician ___ Field Producer ___ Stevedoring Supervisor ___ Other (describe below) Sacrament/Intervention _x__ Active listening ___ Anointing ___ Confucianist ___ Bereavement ___ Communion _x__ Sofia exploration ___ _x__ Life review _x__ Prayer ___ Reconciliation ___ Sacrament of Sick _x__ Supportive presence ___ Wedding ___ Other (describe below) Pastoral Comments
--- NOTE | 2020-03-17 16:26 | HP.PCM_ITS ---
History of Present Illness Date of Admission: 03/17/20 Chief Complaint: Weakness The patient is a 79 year old F H as below presents to the hospital with generalized weakness that is been going on for the last 2 weeks. She says that she feels fatigue and she has been going in and out of of heart palpitations. She was seen by cardiology about a week ago who stated that she needed to be therapeutic on her INR for at least 3 weeks before they can cardiovert her. She is currently supratherapeutic on her INR. In the ER she was found to be in A. fib with RVR with heart rates in the 120s and this was felt to be the cause of her weakness and fatigue. She denies any shortness of breath or fever and does not have any chest pain, lightheadedness, or dizziness. Past Medical History Past Medical History (Chronic Problems): Chronic Problems (Last Reviewed 02/03/20 @ 13:07 by Stacie Arango) Paroxysmal atrial fibrillation (Chronic) Anxiety (Chronic) Thyroid disorder (Chronic) GERD (gastroesophageal reflux disease) (Chronic) [employer] (current) use of anticoagulants (Chronic) Long-term use of high-risk medication (Chronic) Hyperlipidemia (Chronic) Atherosclerotic heart disease of [place] coronary artery without angina pectoris (Chronic) Congestive heart failure (Chronic) History of GI bleed (Chronic) History of myocardial infarction (Chronic) Cardiomyopathy (Chronic) Medical History: Medical History (Last Reviewed 02/03/20 @ 13:07 by Stacie Arango) Paroxysmal atrial fibrillation (Chronic) I48.0 Anxiety (Chronic) F41.9 Thyroid disorder (Chronic) E07.9 GERD (gastroesophageal reflux disease) (Chronic) K21.9 [employer] (current) use of anticoagulants (Chronic) Z79.01 Long-term use of high-risk medication (Chronic) Z79.899 Hyperlipidemia (Chronic) E78.5 Atherosclerotic heart disease of [place] coronary artery without angina pectoris (Chronic) I25.10 Congestive heart failure (Chronic) I50.9 History of GI bleed (Chronic) Z87.19 History of myocardial infarction (Chronic) I25.2 Cardiomyopathy (Chronic) I42.9 Atrial flutter I48.92 Persistent atrial fibrillation with rapid ventricular response I48.1 Atrial fibrillation I48.91 DCCV 02/19/18 @ [facility]; DCCV 04/02/2018 @ [facility]; 11/03/2018 at [facility]; 11/25/2018; radiofrequency PVI on 10/21/2018 Atrial fibrillation and flutter I48.91, I48.92 Allergies amiodarone Allergy (Verified 03/17/20 07:53) Hives Pt takes the Pacerone (brand name) with no allergy. Home Medications: Ambulatory Orders Medication Instructions Recorded furosemide 40 mg tablet 20 mg PO DAILY tab 06/29/19 metoprolol tartrate 25 mg tablet 12.5 mg PO BID tab 02/03/20 Lisinopril 2.5 mg PO DAILY 03/17/20 Warfarin Sodium 2 mg PO DAILY 03/17/20 Warfarin [Coumadin] 4 mg PO DAILY 03/17/20 Surgical History: Surgical History (Last Reviewed 02/03/20 @ 13:07 by Stacie Arango) History of cardiac catheterization Z98.890 thrombectomy of mid LAD 09/12/11 History of tonsillectomy Z90.89 History of tubal ligation Z98.51 Surgical History: tonsillectomy, - - D&C Psychiatric History: No pertinent psych hx Smoking Status: Never smoker Tobacco Use: Non-smoker Alcohol: None Drugs: None - *Family History Maternal Family History: Family History (Last Reviewed 02/03/20 @ 13:07 by Stacie Arango) Father Heart disease Sister Heart disease Cardiomyopathy History Items: No pertinent history Review of Systems Constitutional: Reports: Weakness, Fatigue. Denies: Chills, Fever HEENT: Denies: Head Aches, Sinus Congestion, Sinus Drainage Cardiovascular: Denies: Chest Pain, Palpitations Respiratory: Denies: Cough, Shortness of breath at rest, Sputum production Gastrointestinal: Denies: Abdominal Pain, Nausea, Vomiting Genitourinary: Denies: Dysuria Musculoskeletal: Denies: Joint Pain, Joint Tenderness Skin: Denies: Rash, Wounds Neurological: Denies: Numbness, Tingling, Focal weakness Psychiatric: Denies: Anxiety, Depression Hematologic/ Lymphatic: Denies: Easy Bruising, Easy Bleeding VTE Information - Inpt Only VTE Present on Admission: No - Physical Exam Vitals/I&O's: Vital Signs Temp Pulse Resp BP Pulse Ox 98.8 F 72 18 137/86 H 98 03/17/20 16:21 03/17/20 16:21 03/17/20 16:21 03/17/20 16:21 03/17/20 16:21 Oxygen Delivery Method Room Air Weight: 98 lb 8.746 oz Body Mass Index (BMI) 18.0 General: Alert, Oriented x3, Cooperative, No apparent distress HEENT: Atraumatic, PERRLA, EOMI, Normocephalic Oral: Moist Mucosa Neck: Supple, No JVD Lungs: Clear to auscultation, Normal air movement, No rhonchi, No wheeze, No rales, Diminished Cardiovascular: Regular rate, Regular Rhythm, Normal S1, Normal S2, No murmurs Abdomen: Soft, Non Tender, Non-Distended, No Hepato-splenomegaly Extremities: No edema, Capillary Refill Less than 3 Seconds Skin: No rashes, No breakdown Neurological: Neuro grossly intact, Sensory exam intact to light touch and pain Psych/Mental Status: Normal Affect, Appropriate Laboratory Results 03/17/20 08:20: WBC 7.0, RBC 5.50 H, Hgb 10.7 L, Hct 37.5, MCV 68.2 L, MCH 19.5 L, MCHC 28.5 L, RDW Std Deviation 39.4, RDW Coeff of [place] 16.6 H, Plt Count 391, MPV 9.4, Immature Gran % (Auto) 0.100, Neut % (Auto) 72.0 H, Lymph % (Auto) 16.2 L, [place] % (Auto) 10.5 H, Eos % (Auto) 0.3, Baso % (Auto) 0.9, Absolute Neuts (auto) 5.1, Absolute Lymphs (auto) 1.14, Nucleated RBC % 0 03/17/20 08:20: PT 56.0 H, INR 6.3 H* 03/17/20 08:20: Sodium 132 L, Potassium 4.6, Chloride 98, Carbon Dioxide 30.0, Anion Gap 4 L, BUN 17, Creatinine 0.91, Estim Creat Clear Calc 36.28, Est GFR (MDRD) Af Amer 77, Est GFR (MDRD) Non-Af 63, BUN/Creatinine Ratio 18.6, Glucose 111 H, Calcium 8.8, Total Bilirubin 0.70, AST 38 H, ALT 36, Alkaline Phosphatase 120 H, Troponin I < 0.015, Total Protein 7.7, Albumin 3.7, Globulin 4.0, Albumin/Globulin Ratio 0.9, Lipase 265 03/17/20 09:06: Urine Color Yellow, Urine Clarity Clear, Urine pH 8.0, Ur Specific [place] 1.010, Urine Protein 15 H, Urine Glucose (UA) Normal, Urine Ketones Negative, Urine Occult Blood 10 H, Urine Nitrite Negative, Urine Bilirubin Negative, Urine Urobilinogen Normal, Ur Leukocyte Esterase Negative, Urine RBC 0 SEEN, Urine WBC 0 SEEN, Ur Squamous Epith Cells 0-5 SEEN, Urine Bacteria 0 SEEN, Urine Mucus 0 SEEN Current Medications Acetaminophen (Tylenol) 650 mg PO Q6H PRN PRN PRN Reason: Pain Score 1-10/Temp > 100.7 F Melatonin (Melatonin) 3 mg PO QHS PRN PRN PRN Reason: INSOMNIA Metoprolol Tartrate (Lopressor (Beta Fan)) 25 mg PO BID BEBETO Ondansetron HCl (Zofran) 4 mg IV Q8H PRN PRN PRN Reason: NAUSEA/VOMITING Sodium Chloride () 10 - 40 ml IV UD PRN PRN Reason: SALINE FLUSH Assessment/Plan 1. Paroxysmal A. fib with RVR/HTN/HLD/CAD status post thrombectomy -History of paroxysmal A. fib however she was unable to be cardioverted because she had to be therapeutic on her INR for at least 3 weeks per cardiology -She does not want to take a novel oral anticoagulant -Continue with metoprolol but will increase her home dose from 12-1/2 twice daily to 25 twice daily. She states that metoprolol makes her raynauds worse and she would like cardiology to see her. Can potentially switch her to Cardizem to help both the heart rate and her raynauds, however I will leave this up to cardiology as she would like for them to be involved. -We will also continue with her Lasix as her chest x-ray did not demonstrate findings of acute CHF, her last echo was in June 2019 with an EF of 55% with a right ventricular systolic pressure of 21 mmHg with some evidence of diastolic dysfunction however I think that her current evidence of heart failure is secondary to her A. fib with RVR so once this gets under control this will resolve on its own -Of note she has been cardioverted in 2018 twice and then 2019 at [facility] -We will continue with her lisinopril -We will hold her Coumadin for now as her INR 6.3 DVT: Supratherapeutic INR OBSV E&M: 54121 Initial observation care L3
[2020-03-17] MEDS: Metoprolol Tartrate 25 MG Tablet PO (21:30)
[2020-03-18] VITALS (8 sets, daily range): BP systolic 118–124; BP diastolic 71–94; PULSE 83–108; RESP 16–18; TEMP 37.1–37.3; O2SAT 95–97
[2020-03-18 06:33] LABS: Absolute Lymphocyte Count 2.58 X10^3/uL (0.83-4.51); Absolute Neutrophil Count 4.2 X10^3/uL (2.0-7.7); Basophil# 0.08 X10^3/uL; Eosinophil# 0.17 X10^3/uL; Eosinophils% 2.1 % (0-5); Hematocrit 38.4 % (37-47); Hemoglobin 10.8 g/dL (12.0-15.0); Lymphocyte # 2.58 X10^3/ul (4.0); Lymphocyte % 31.3 % (19-41); Mean Corp Hgb Conc 28.1 g/dL (32-36); Mean Corpuscular Hgb 19.2 pg (27.0-32.0); Mean Corpuscular Volume 68.3 fL (81-99); Mean Platelet Vol. 9.6 fl (6.2-12.0); Monocyte# 1.18 X10^3/uL; Monocyte% 14.3 % (0-10); NRBC Flagged by Analyzer 0 % (0-5); Neutrophil # 4.21 X10^3/uL (2.7-7.7); Neutrophil % 51.1 % (47-70); Platelet Count 381 K/mm3 (150-450); RBC Distribution Width CV 16.9 % (11.6-14.6); RBC Distribution Width SD 39.3 fl (35.1-43.9); Red Blood Count 5.62 M/mm3 (4.2-5.4); White Blood Count 8.2 K/mm3 (4.4-11.0)
[2020-03-18 06:42] LABS: Prothrombin Time (Protime)PT. 54.3 SECONDS (11.7-14.9)
[2020-03-18 06:47] LABS: International Normalized Ratio 6.1
[2020-03-18 06:54] LABS: Anion Gap 3 (5-15); BUN 15 mg/dL (7-18); BUN/Creat Ratio 18.8 RATIO (10-20); Calcium,Total 8.7 mg/dL (8.5-10.1); Chloride 99 mmol/L (98-107); EST Glomerular Filtration Rate 74 mL/min (>60); Est Glom Filt Rate - Afr Amer 89 mL/min (>60); Glucose 94 mg/dL (74-106); Potassium 4.5 mmol/L (3.5-5.1); Sodium Level 132 mmol/L (136-145)
[2020-03-18] MEDS: Furosemide 20 MG Tablet PO (09:23)
[2020-03-18] MEDS: Metoprolol Tartrate 25 MG Tablet PO (09:23)
[2020-03-18] MEDS: Lisinopril 2.5 MG Tablet PO (09:23)
--- NOTE | 2020-03-18 10:58 | PN_ITS ---
Subjective: Doing okay, still notices that she is in A. fib. No lightheadedness or dizziness. No chest pain. No shortness of breath. Vitals/I&O's: Vital Signs Temp Pulse Resp BP Pulse Ox 99.1 F 106 H 18 118/71 96 03/18/20 09:20 03/18/20 09:23 03/18/20 09:20 03/18/20 09:23 03/18/20 09:20 Oxygen Delivery Method Room Air Weight: 98 lb 8.746 oz Body Mass Index (BMI) 18.0 Intake and Output for Last 24 Hours 03/16/20 03/17/20 03/18/20 23:59 23:59 23:59 Intake Total 460 / 460 150 / 150 Balance 460 / 460 150 / 150 General: Alert, Oriented x3, Cooperative, No apparent distress HEENT: Atraumatic, PERRLA, EOMI, Normocephalic Oral: Moist Mucosa Neck: Supple, No JVD Lungs: Clear to auscultation, Normal air movement, No rhonchi, No wheeze, No rales, Diminished Cardiovascular: Regular rate, irregular rhythm, Normal S1, Normal S2, No murmurs Abdomen: Soft, Non Tender, Non-Distended, No Hepato-splenomegaly Extremities: No edema, Capillary Refill Less than 3 Seconds Skin: No rashes, No breakdown Neurological: Neuro grossly intact, Sensory exam intact to light touch and pain Psych/Mental Status: Normal Affect, Appropriate Laboratory Results 03/18/20 05:48: Sodium 132 L, Potassium 4.5, Chloride 99, Carbon Dioxide 30.0, Anion Gap 3 L, BUN 15, Creatinine 0.80, Estim Creat Clear Calc 40.90, Est GFR (MDRD) Af Amer 89, Est GFR (MDRD) Non-Af 74, BUN/Creatinine Ratio 18.8, Glucose 94, Calcium 8.7 03/18/20 05:48: WBC 8.2, RBC 5.62 H, Hgb 10.8 L, Hct 38.4, MCV 68.3 L, MCH 19.2 L, MCHC 28.1 L, RDW Std Deviation 39.3, RDW Coeff of [place] 16.9 H, Plt Count 381, MPV 9.6, Immature Gran % (Auto) 0.200, Neut % (Auto) 51.1, Lymph % (Auto) 31.3, [place] % (Auto) 14.3 H, Eos % (Auto) 2.1, Baso % (Auto) 1.0, Absolute Neuts (auto) 4.2, Absolute Lymphs (auto) 2.58, Nucleated RBC % 0 03/18/20 05:48: PT 54.3 H, INR 6.1 H* Current Medications Acetaminophen (Tylenol) 650 mg PO Q6H PRN PRN PRN Reason: Pain Score 1-10/Temp > 100.7 F Furosemide (Lasix) 20 mg PO DAILY [facility] Last Admin: 03/18/20 09:23 Dose: 20 mg Documented by: Lisinopril (Zestril) 2.5 mg PO DAILY [facility] Last Admin: 03/18/20 09:23 Dose: 2.5 mg Documented by: Melatonin (Melatonin) 3 mg PO QHS PRN PRN PRN Reason: INSOMNIA Metoprolol Tartrate (Lopressor (Beta Fan)) 25 mg PO BID [facility] Last Admin: 03/18/20 09:23 Dose: 25 mg Documented by: Ondansetron HCl (Zofran) 4 mg IV Q8H PRN PRN PRN Reason: NAUSEA/VOMITING Sodium Chloride () 10 - 40 ml IV UD PRN PRN Reason: SALINE FLUSH STROKE Vital Signs/Narrative: Vital Signs Temp Pulse Resp BP Pulse Ox 03/18/20 09:23 106 H 118/71 03/18/20 09:20 99.1 F 106 H 18 118/71 96 03/18/20 07:00 96 Medical Necessity - Tobacco Use Smoking Status: Never smoker Tobacco Use: Non-smoker Assessment/Plan 1. Paroxysmal A. fib with RVR/HTN/HLD/CAD status post thrombectomy -History of paroxysmal A. fib however she was unable to be cardioverted because she had to be therapeutic on her INR for at least 3 weeks per cardiology -She does not want to take a novel oral anticoagulant -Continue with metoprolol but will increase her home dose from 12-1/2 twice daily to 25 twice daily. She states that metoprolol makes her raynauds worse and she would like cardiology to see her. Can potentially switch her to Cardizem to help both the heart rate and her raynauds, however I will leave this up to cardiology as she would like for them to be involved. She cannot tolerate amiodarone. -We will also continue with her Lasix as her chest x-ray did not demonstrate findings of acute CHF, her last echo was in June 2019 with an EF of 55% with a right ventricular systolic pressure of 21 mmHg with some evidence of diastolic dysfunction however I think that her current evidence of heart failure is secondary to her A. fib with RVR so once this gets under control this will resolve on its own -Of note she has been cardioverted in 2018 twice and then 2019 at [facility] she had an ablation -We will continue with her lisinopril -We will hold her Coumadin for now as her INR 6.1 DVT: Supratherapeutic INR OBSV E&M: 08916 Subsequent observation care L2
--- NOTE | 2020-03-18 12:07 | CASEMGMT ---
GALLO DE GUZMAN Note: Intro role of CM to patient and EDEN form explained re: Observation status for treatment of Atrial Fibrillation. Explained hospitalization will be paid per insurance policy for Outpatient billing and condition will continue to be evaluated for Inpt necessity. Also let pt know that [facility] sends paper in the billing packet with their phone number if questions arise. Discussed Pharmacy section of EDEN form and self administered medication guideline. Pt verbalizes understanding and does not have further questions. Form signed and placed in chart, copy to pt. ADDIE HOLDER BSN CM
--- NOTE | 2020-03-18 12:30 | PHA.DC.MC ---
Pharmacy Service has performed discharge medication reconciliation and counseling for this patient. The patient was counseled on the following discharge medications and changes in medications for homegoing were reviewed. 1. DILTIAZEM The Reason for Use, instructions for use, and potential side effects were reviewed for all new medications. The patient's questions regarding all of their medications were answered. The patient was able to verbally demonstrate an understanding of their discharge medications. Home Medications furosemide 40 mg tablet 20 mg PO DAILY tab 06/29/19 metoprolol tartrate 25 mg tablet 12.5 mg PO BID tab 02/03/20 Lisinopril 2.5 mg PO DAILY 03/17/20 Warfarin Sodium 2 mg PO DAILY 03/17/20 Warfarin [Coumadin] 4 mg PO DAILY 03/17/20 The patient's discharge medication list was reviewed for discrepancies and discrepancies were resolved.
--- NOTE | 2020-03-18 13:39 | DCINST_ITS ---
You will use the following diet at home:: Cardiac Your food should be the consistency of: Regular Your liquids should be the consistency of: Regular/Thin Discharge Activity: Return to Normal Activity Call your doctor if you observe: Fever of 101 or Higher, Shortness of breath, Dizziness, Fainting spells, Swelling in the ankles, Chest pain, Increased palpitations (irregular heartbeat) Additional Instructions: Obtain an INR on Saturday to evaluate your coumadin level. On discharge it is 6.1 and should be between 2-3. Hold all coumadin until your INR level on saturday and your doctor will notify you when to resume and how much. Allergies/Adverse Reactions: Allergies amiodarone Allergy (Verified 03/17/20 07:53) Hives Pt takes the Pacerone (brand name) with no allergy. Medications to take at Discharge furosemide 40 mg tablet 20 mg PO DAILY tab 06/29/19 Diltiazem CD [Cardizem CD] 120 mg PO DAILY #30 cap 03/18/20 Warfarin Sodium 2 mg PO DAILY #0 03/18/20 Warfarin [Coumadin] 4 mg PO DAILY #0 03/18/20 The following prescriptions were given: Diltiazem CD [Cardizem CD] 120 mg PO DAILY #30 cap Transmission Status: Pending to [facility] Primary Care Physician: Raghu Forbes MD [Primary Care Provider] - Please follow up with your Primary Care Physician in: 3-5 days Test Results: Test results from this visit will be discussed in further detail at your follow- up appointment, if applicable. Please Follow Up With: Sheng Shah MD When: 2-4 weeks
--- NOTE | 2020-03-18 13:48 | PCM.DC.SUM ---
Discharge Date and Diagnosis Date of Admission: 03/17/20 Date of Discharge: 03/18/20 - Secondary Discharge Diagnosis Chronic Problems: Chronic Problems (Last Reviewed 02/03/20 @ 13:07 by Stacie Arango) Paroxysmal atrial fibrillation (Chronic) Anxiety (Chronic) Thyroid disorder (Chronic) GERD (gastroesophageal reflux disease) (Chronic) [facility] (current) use of anticoagulants (Chronic) Long-term use of high-risk medication (Chronic) Hyperlipidemia (Chronic) Atherosclerotic heart disease of [place] coronary artery without angina pectoris (Chronic) Congestive heart failure (Chronic) History of GI bleed (Chronic) History of myocardial infarction (Chronic) Cardiomyopathy (Chronic) Hospital Course and Treatment Imaging Results: Clinical Impression(s) from Imaging Studies Chest X-Ray 03/17/20 08:09 IMPRESSION: Diffuse interstitial edema with bilateral pleural effusions. Findings suggest CHF. Follow-up recommended to ensure resolution Electronically Signed: Maxwell Mae MD at 8:46 EDT , Service support , Consults: Cardiology Operations: None Procedures: None Summary of Care Provided: Per HPI: The patient is a 79 year old F PMH as below presents to the hospital with generalized weakness that is been going on for the last 2 weeks. She says that she feels fatigue and she has been going in and out of of heart palpitations. She was seen by cardiology about a week ago who stated that she needed to be therapeutic on her INR for at least 3 weeks before they can cardiovert her. She is currently supratherapeutic on her INR. In the ER she was found to be in A. fib with RVR with heart rates in the 120s and this was felt to be the cause of her weakness and fatigue. She denies any shortness of breath or fever and does not have any chest pain, lightheadedness, or dizziness. Hospital Course: 1. A. fib with RVR/HTN/HLD/CAD status post [id number]-[id number]-old female with paroxysmal A. fib who has been cardioverted multiple times in the past as well as had an ablation presents once again with A. fib and RVR. Her metoprolol initially was increased from 12-1/2-25 twice daily however she said that the last time this was tried her Raynauds worsened. Cardiology was consulted per her request and they agreed with my initial assessment of transitioning her to Cardizem which would help both her raynauds, as well as her A. fib. I did discuss with her the possibility of amiodarone however she says that she was on that in the past and she had side effects from it. Cardiology recommended also discontinuing her lisinopril as her EF on her last echo was normal and therefore this would give us a little bit more room to manipulate her Cardizem in terms of her blood pressure. Give her the option to stay today and make sure that the Cardizem works and to recheck her INR in the morning however she said that she wants to go home. I did discuss with her the discharge plan and she expressed understanding of the risks and benefits of going home today. She is to get an INR on Saturday, this was both put in the discharge instructions as well as verbalized to her which she expressed understanding to. She will hold her Coumadin until the INR on Saturday until her PCP calls her with instructions for her Coumadin use. - Physical Exam Vitals/I&O's: Vital Signs Temp Pulse Resp BP Pulse Ox 99.1 F 83 18 118/71 96 03/18/20 09:20 03/18/20 11:00 03/18/20 09:20 03/18/20 09:23 03/18/20 09:20 Oxygen Delivery Method Room Air Weight: 98 lb 8.746 oz Body Mass Index (BMI) 18.0 Intake and Output for Last 24 Hours 03/16/20 03/17/20 03/18/20 23:59 23:59 23:59 Intake Total 460 / 460 390 / 390 Balance 460 / 460 390 / 390 General: Alert, Oriented x3, Cooperative, No apparent distress HEENT: Atraumatic, PERRLA, EOMI, Normocephalic Oral: Moist Mucosa Neck: Supple, No JVD Lungs: Clear to auscultation, Normal air movement, No rhonchi, No wheeze, No rales, Diminished Cardiovascular: Regular rate, irregular rhythm, Normal S1, Normal S2, No murmurs Abdomen: Soft, Non Tender, Non-Distended, No Hepato-splenomegaly Extremities: No edema, Capillary Refill Less than 3 Seconds Skin: No rashes, No breakdown Neurological: Neuro grossly intact, Sensory exam intact to light touch and pain Psych/Mental Status: Normal Affect, Appropriate Laboratory Results 03/18/20 05:48: Sodium 132 L, Potassium 4.5, Chloride 99, Carbon Dioxide 30.0, Anion Gap 3 L, BUN 15, Creatinine 0.80, Estim Creat Clear Calc 40.90, Est GFR (MDRD) Af Amer 89, Est GFR (MDRD) Non-Af 74, BUN/Creatinine Ratio 18.8, Glucose 94, Calcium 8.7 03/18/20 05:48: WBC 8.2, RBC 5.62 H, Hgb 10.8 L, Hct 38.4, MCV 68.3 L, MCH 19.2 L, MCHC 28.1 L, RDW Std Deviation 39.3, RDW Coeff of [place] 16.9 H, Plt Count 381, MPV 9.6, Immature Gran % (Auto) 0.200, Neut % (Auto) 51.1, Lymph % (Auto) 31.3, [place] % (Auto) 14.3 H, Eos % (Auto) 2.1, Baso % (Auto) 1.0, Absolute Neuts (auto) 4.2, Absolute Lymphs (auto) 2.58, Nucleated RBC % 0 03/18/20 05:48: PT 54.3 H, INR 6.1 H* Current Medications Acetaminophen (Tylenol) 650 mg PO Q6H PRN PRN PRN Reason: Pain Score 1-10/Temp > 100.7 F Furosemide (Lasix) 20 mg PO DAILY [facility] Last Admin: 03/18/20 09:23 Dose: 20 mg Documented by: Lisinopril (Zestril) 2.5 mg PO DAILY [facility] Last Admin: 03/18/20 09:23 Dose: 2.5 mg Documented by: Melatonin (Melatonin) 3 mg PO QHS PRN PRN PRN Reason: INSOMNIA Metoprolol Tartrate (Lopressor (Beta Fan)) 25 mg PO BID [facility] Last Admin: 03/18/20 09:23 Dose: 25 mg Documented by: Ondansetron HCl (Zofran) 4 mg IV Q8H PRN PRN PRN Reason: NAUSEA/VOMITING Sodium Chloride () 10 - 40 ml IV UD PRN PRN Reason: SALINE FLUSH Discharge Activity: Return to Normal Activity Call your doctor if you observe: Fever of 101 or Higher, Shortness of breath, Dizziness, Fainting spells, Swelling in the ankles, Chest pain, Increased palpitations (irregular heartbeat) Home Medications: Medications to take at Discharge furosemide 40 mg tablet 20 mg PO DAILY tab 06/29/19 Diltiazem CD [Cardizem CD] 120 mg PO DAILY #30 cap 03/18/20 Warfarin Sodium 2 mg PO DAILY #0 03/18/20 Warfarin [Coumadin] 4 mg PO DAILY #0 03/18/20 Following Prescriptions Were Given to Patient: Diltiazem CD [Cardizem CD] 120 mg PO DAILY #30 cap Transmission Status: Received by [facility] Primary Care Physician: Raghu Forbes MD [Primary Care Provider] - Please follow up with your Primary Care Physician in: 3-5 days Please Follow Up With: Sheng Sahh MD When: 2-4 weeks Disposition: Home Minutes spent on discharge:: 35 Patient Condition:: Stable Medical Necessity - Tobacco Use Smoking Status: Never smoker Tobacco Use: Non-smoker Meaningful Use Info Meaningful Use Diagnoses (Choose all that apply): None applicable OBSV E&M: 40202 Observation care discharge
--- NOTE | 2020-03-18 14:24 | PCM.CONS.C ---
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 She presents to the hospital with generalized weakness that is been going on for the last 2 weeks. She says that she feels fatigue and she has been going in and out of of heart palpitations. She was seen by us about a week ago in the office and plan was to cardiovert her after she has been therapeutic with her INR for about 4 weeks.. She is currently supratherapeutic on her INR. In the ER she was found to be in A. fib with RVR with heart rates in the 120s and this was felt to be the cause of her weakness and fatigue. She denies any shortness of breath or fever and does not have any chest pain, lightheadedness, or dizziness. Review of systems: All systems reviewed. All else is negative except that in HPI Past Medical History Allergies/Adverse Reactions: Allergies amiodarone Allergy (Verified 03/17/20 07:53) Hives Pt takes the Pacerone (brand name) with no allergy. 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 (Chronic) Long-term use of high-risk medication (Chronic) Hyperlipidemia (Chronic) Atherosclerotic heart disease of [place] coronary artery without angina pectoris (Chronic) Congestive heart failure (Chronic) History of GI bleed (Chronic) History of myocardial infarction (Chronic) Cardiomyopathy (Chronic) Surgical History: tonsillectomy, - - D&C Psychiatric History: No pertinent psych hx - *Family History Maternal Family History: Family History (Last Reviewed 02/03/20 @ 13:07 by Stacie Arango) Father Heart disease Sister Heart disease Cardiomyopathy History Items: No pertinent history Smoking Status: Never smoker Tobacco Use: Non-smoker Alcohol: None Drugs: None Objective: Vital Signs Temp Pulse Resp BP Pulse Ox 98.9 F 88 18 123/94 H 97 03/18/20 13:52 03/18/20 13:52 03/18/20 13:52 03/18/20 13:52 03/18/20 13:52 Oxygen Delivery Method Room Air Weight: 98 lb 8.746 oz Body Mass Index (BMI) 18.0 Intake and Output for Last 24 Hours 03/16/20 03/17/20 03/18/20 23:59 23:59 23:59 Intake Total 460 / 460 390 / 390 Balance 460 / 460 390 / 390 General: Awake, Alert, Oriented x 3 HEENT: Atraumatic Oral: Moist Mucosa, Dry Mucosa Lungs: Clear to auscultation Cardiovascular: Irregular Rhythm Abdomen: Soft Extremities: No edema Skin: No Rashes Psych/Mental Status: Appropriate 03/18/20 05:48: Sodium 132 L, Potassium 4.5, Chloride 99, Carbon Dioxide 30.0, Anion Gap 3 L, BUN 15, Creatinine 0.80, Est GFR (MDRD) Af Amer 89, Est GFR (MDRD) Non-Af 74, BUN/Creatinine Ratio 18.8, Glucose 94, Calcium 8.7 03/18/20 05:48: WBC 8.2, RBC 5.62 H, Hgb 10.8 L, Hct 38.4, MCV 68.3 L, MCH 19.2 L, MCHC 28.1 L, Plt Count 381, MPV 9.6, Immature Gran % (Auto) 0.200, Neut % (Auto) 51.1, Lymph % (Auto) 31.3, [place] % (Auto) 14.3 H, Eos % (Auto) 2.1, Baso % (Auto) 1.0, Absolute Neuts (auto) 4.2, Nucleated RBC % 0 03/18/20 05:48: PT 54.3 H, INR 6.1 H* Rhythm: EKG: ECHO: Stress Test: Cardiac Cath: PCI: CT Surgery: Holter monitor: EPS: PPM: CXR: Chest CT Scan: Assessment/Plan 1. Atrial fibrillation: Patient was not able to tolerate higher dose of metoprolol because it made her Raynauds worse. She had preserved EF by last echo in June 2019. We will discontinue her metoprolol and try Cardizem CD 120 mg p.o. daily. Since her blood pressure is borderline we can stop the lisinopril as well. 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
--- NOTE | 2020-03-18 15:49 | CON.PCM_ITS ---
Reason for Consult Date of Consultation: 03/18/20 Reason for Consultation: Evaluate for CAD History of Present Illness: The patient is a 79 year old F [] Patient has multiple risk factor for CAD, diabetes, hypertension, dyslipidemia Presented with symptoms of typical angina. Has significant change in the EKG and had elevated cardiac biomarkers with 3 sets of troponins elevated. Discuss cardiac care plan in detail with the patient, family, nursing staff. 1. Proceed with cardiac catheterization #2 aggressive medical therapy on discuss cardiac care blood with the patient. Past Medical History Allergies/Adverse Reactions: Allergies amiodarone Allergy (Verified 03/17/20 07:53) Hives Pt takes the Pacerone (brand name) with no allergy. 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 coronary artery without angina pectoris (Chronic) Congestive heart failure (Chronic) History of GI bleed (Chronic) History of myocardial infarction (Chronic) Cardiomyopathy (Chronic) Surgical History: tonsillectomy, - - D&C Psychiatric History: No pertinent psych hx - *Family History Maternal Family History: Family History (Last Reviewed 02/03/20 @ 13:07 by Stacie Arango) Father Heart disease Sister Heart disease Cardiomyopathy History Items: No pertinent history Smoking Status: Never smoker Tobacco Use: Non-smoker Alcohol: None Drugs: None Objective: Vital Signs Temp Pulse Resp BP Pulse Ox 98.9 F 88 18 123/94 H 97 03/18/20 13:52 03/18/20 13:52 03/18/20 13:52 03/18/20 13:52 03/18/20 13:52 Oxygen Delivery Method Room Air Weight: 98 lb 8.746 oz Body Mass Index (BMI) 18.0 Intake and Output for Last 24 Hours 03/16/20 03/17/20 03/18/20 23:59 23:59 23:59 Intake Total 460 / 460 390 / 390 Balance 460 / 460 390 / 390 03/18/20 05:48: Sodium 132 L, Potassium 4.5, Chloride 99, Carbon Dioxide 30.0, Anion Gap 3 L, BUN 15, Creatinine 0.80, Est GFR (MDRD) Af Amer 89, Est GFR (MDRD) Non-Af 74, BUN/Creatinine Ratio 18.8, Glucose 94, Calcium 8.7 03/18/20 05:48: WBC 8.2, RBC 5.62 H, Hgb 10.8 L, Hct 38.4, MCV 68.3 L, MCH 19.2 L, MCHC 28.1 L, Plt Count 381, MPV 9.6, Immature Gran % (Auto) 0.200, Neut % (Auto) 51.1, Lymph % (Auto) 31.3, [place] % (Auto) 14.3 H, Eos % (Auto) 2.1, Baso % (Auto) 1.0, Absolute Neuts (auto) 4.2, Nucleated RBC % 0 03/18/20 05:48: PT 54.3 H, INR 6.1 H* Rhythm: EKG: ECHO: Stress Test: Cardiac Cath: PCI: CT Surgery: Holter monitor: EPS: PPM: CXR: Chest CT Scan:
== END 2020-03-18 13:41 | disposition home or self-care (01) ==
LOC: ED 08:27 → PCU 10:02
PROVIDERS: Admitting Provider Family Medicine; Emergency Provider Emergency Medicine; PCP Family Medicine; Visit Provider Family Medicine
DX: I48.0 Paroxysmal atrial fibrillation (principal); E78.5 Hyperlipidemia, unspecified; I25.10 Atherosclerotic heart disease of native coronary artery without angina pectoris; I11.0 Hypertensive heart disease with heart failure; I50.9 Heart failure, unspecified; K21.9 Gastro-esophageal reflux disease without esophagitis; I25.2 Old myocardial infarction; I73.00 Raynaud's syndrome without gangrene; I42.9 Cardiomyopathy, unspecified; Z79.899 Other long term (current) drug therapy; Z79.01 Long term (current) use of anticoagulants
CPT/HCPCS: 36415; 71045; 80048; 80053; 81001; 83690; 84484; 85025; 85610; 93005; 96374; 99218; 99285; J7030; A4216; G0378

== ENCOUNTER 2020-03-28 11:06 | Outpatient (RCR) | payer MEDICARE, SELFPAY ==
[2020-02-03 13:05] VITALS: BMI 18.0
[2020-03-03 12:44] LABS: International Normalized Ratio 1.9; Prothrombin Time (Protime)PT. 21.4 SECONDS (11.7-14.9)
[2020-03-10 15:57] LABS: International Normalized Ratio 2.8; Prothrombin Time (Protime)PT. 28.8 SECONDS (11.7-14.9)
[2020-03-21 12:22] LABS: International Normalized Ratio 1.6; Prothrombin Time (Protime)PT. 18.7 SECONDS (11.7-14.9)
[2020-03-28 15:36] LABS: International Normalized Ratio 3.1; Prothrombin Time (Protime)PT. 31.7 SECONDS (11.7-14.9)
== END 2020-03-28 18:00 | disposition home or self-care (01) ==
LOC: MTLAB 11:06
PROVIDERS: PCP Family Medicine; Referring Provider Internal Medicine Cardiovascular Disease; Visit Provider Internal Medicine Cardiovascular Disease
DX: I48.0 Paroxysmal atrial fibrillation (principal); Z79.01 Long term (current) use of anticoagulants
CPT/HCPCS: 36415; 85610

== ENCOUNTER 2020-04-26 12:13 | Outpatient (RCR) | payer MEDICARE, SELFPAY ==
[2020-03-17 11:07] VITALS: BMI 18.0
[2020-04-05 13:09] LABS: International Normalized Ratio 1.8; Prothrombin Time (Protime)PT. 20.6 SECONDS (11.7-14.9)
[2020-04-12 13:23] LABS: International Normalized Ratio 1.9; Prothrombin Time (Protime)PT. 21.5 SECONDS (11.7-14.9)
[2020-04-19 12:16] LABS: International Normalized Ratio 1.8; Prothrombin Time (Protime)PT. 19.9 SECONDS (11.7-14.9)
[2020-04-26 15:45] LABS: International Normalized Ratio 1.9; Prothrombin Time (Protime)PT. 21.6 SECONDS (11.7-14.9)
== END 2020-04-26 18:00 | disposition home or self-care (01) ==
LOC: MTLAB 12:13
PROVIDERS: PCP Family Medicine; Referring Provider Internal Medicine Cardiovascular Disease; Visit Provider Internal Medicine Cardiovascular Disease
DX: I48.0 Paroxysmal atrial fibrillation (principal); Z79.01 Long term (current) use of anticoagulants
CPT/HCPCS: 36415; 85610

== ENCOUNTER 2020-05-17 10:12 | Outpatient (RCR) | payer MEDICARE, SELFPAY ==
[2020-03-17 11:07] VITALS: BMI 18.0
[2020-05-03 12:29] LABS: International Normalized Ratio 2.4
[2020-05-17 12:07] LABS: International Normalized Ratio 2.5; Prothrombin Time (Protime)PT. 26.9 SECONDS (11.7-14.9)
== END 2020-05-17 18:00 | disposition home or self-care (01) ==
LOC: MTLAB 10:12
PROVIDERS: PCP Family Medicine; Referring Provider Internal Medicine Cardiovascular Disease; Visit Provider Internal Medicine Cardiovascular Disease
DX: I48.0 Paroxysmal atrial fibrillation (principal); Z79.01 Long term (current) use of anticoagulants
CPT/HCPCS: 36415; 85610

== ENCOUNTER 2020-06-07 10:07 | Outpatient (RCR) | payer MEDICARE, SELFPAY ==
[2020-05-03 10:33] VITALS: BMI 17.2
[2020-06-07 12:32] LABS: International Normalized Ratio 2.1; Prothrombin Time (Protime)PT. 22.6 SECONDS (11.7-14.9)
== END 2020-06-07 18:00 | disposition home or self-care (01) ==
LOC: MTLAB 10:07
PROVIDERS: PCP Family Medicine; Referring Provider Internal Medicine Cardiovascular Disease; Visit Provider Internal Medicine Cardiovascular Disease
DX: I48.0 Paroxysmal atrial fibrillation (principal); Z79.01 Long term (current) use of anticoagulants
CPT/HCPCS: 36415; 85610

== ENCOUNTER 2020-07-26 10:30 | Outpatient (RCR) | payer MEDICARE, SELFPAY ==
[2020-05-03 10:33] VITALS: BMI 17.2
[2020-07-05 16:31] LABS: International Normalized Ratio 3.1; Prothrombin Time (Protime)PT. 31.9 SECONDS (11.7-14.9)
[2020-07-26 12:39] LABS: International Normalized Ratio 2.6; Prothrombin Time (Protime)PT. 27.7 SECONDS (11.7-14.9)
== END 2020-07-26 18:00 | disposition home or self-care (01) ==
LOC: MTLAB 10:30
PROVIDERS: PCP Family Medicine; Referring Provider Internal Medicine Cardiovascular Disease; Visit Provider Internal Medicine Cardiovascular Disease
DX: I48.0 Paroxysmal atrial fibrillation (principal); Z79.01 Long term (current) use of anticoagulants
CPT/HCPCS: 36415; 85610

== ENCOUNTER 2020-08-26 09:44 | Outpatient (RCR) | payer MEDICARE, SELFPAY ==
[2020-05-03 10:33] VITALS: BMI 17.2
[2020-08-08 09:53] VITALS: BMI 17.5
[2020-08-23 12:25] LABS: Prothrombin Time (Protime)PT. 47.5 SECONDS (11.7-14.9)
[2020-08-23 12:31] LABS: International Normalized Ratio 5.1
[2020-08-26 12:25] LABS: International Normalized Ratio 2.4; Prothrombin Time (Protime)PT. 25.4 SECONDS (11.7-14.9)
== END 2020-08-26 18:00 | disposition home or self-care (01) ==
LOC: MTLAB 09:44
PROVIDERS: PCP Family Medicine; Referring Provider Internal Medicine Cardiovascular Disease; Visit Provider Internal Medicine Cardiovascular Disease
DX: I48.0 Paroxysmal atrial fibrillation (principal); Z79.01 Long term (current) use of anticoagulants
CPT/HCPCS: 36415; 85610

== ENCOUNTER 2020-09-19 10:31 | Outpatient (RCR) | payer MEDICARE, SELFPAY ==
[2020-08-08 09:53] VITALS: BMI 17.5
[2020-09-02 12:19] LABS: International Normalized Ratio 2.9; Prothrombin Time (Protime)PT. 29.6 SECONDS (11.7-14.9)
[2020-09-16 12:50] LABS: Prothrombin Time (Protime)PT. 52.3 SECONDS (11.7-14.9)
[2020-09-16 12:56] LABS: International Normalized Ratio 5.8
[2020-09-19 12:57] LABS: Prothrombin Time (Protime)PT. 39.9 SECONDS (11.7-14.9)
[2020-09-19 12:59] LABS: International Normalized Ratio 4.1
== END 2020-09-19 18:00 | disposition home or self-care (01) ==
LOC: MTLAB 10:31
PROVIDERS: PCP Family Medicine; Referring Provider Internal Medicine Cardiovascular Disease; Visit Provider Internal Medicine Cardiovascular Disease
DX: I48.0 Paroxysmal atrial fibrillation (principal); Z79.01 Long term (current) use of anticoagulants
CPT/HCPCS: 36415; 85610

== ENCOUNTER 2020-10-10 10:24 | Outpatient (RCR) | payer MEDICARE, SELFPAY ==
[2020-08-08 09:53] VITALS: BMI 17.5
[2020-09-26 12:28] LABS: Prothrombin Time (Protime)PT. 30.9 SECONDS (11.7-14.9)
[2020-10-10 12:53] LABS: International Normalized Ratio 2.1; Prothrombin Time (Protime)PT. 22.9 SECONDS (11.7-14.9)
== END 2020-10-10 18:00 | disposition home or self-care (01) ==
LOC: MTLAB 10:24
PROVIDERS: PCP Family Medicine; Referring Provider Internal Medicine Cardiovascular Disease; Visit Provider Internal Medicine Cardiovascular Disease
DX: I48.0 Paroxysmal atrial fibrillation (principal); Z79.01 Long term (current) use of anticoagulants
CPT/HCPCS: 36415; 85610

== ENCOUNTER 2020-11-13 03:19 | Emergency (ER) | payer MEDICARE, SELFPAY ==
[2020-08-08 09:53] VITALS: BMI 17.5
[2020-11-13 03:19] VITALS: BP 139/85; PULSE 67; RESP 18; TEMP 37.2; O2SAT 97; BMI 18.6
[2020-11-13 03:21] VITALS: BP 139/85; PULSE 67; RESP 18; TEMP 37.2; O2SAT 97
--- NOTE | 2020-11-13 03:35 | CT_ITS ---
STUDY: CT ABDOMEN AND PELVIS WITH CONTRAST REASON FOR EXAM: Female, 79 years old. abd pain -- IV PO Contrast RADIATION DOSAGE (If Supplied By Facility): CTDIvol = ( 12.90 ) mGy, DLP = ( 536.61 ) mGycm TECHNIQUE: Transaxial images were obtained from the dome of the diaphragm to the symphysis pubis without oral contrast. Oral and amp; IV Breeza Neutral and amp; 100mL Isovue-370 was administered. Sagittal and coronal images were reconstructed. Individualized dose optimization techniques were used for this CT. COMPARISON: 05/14/2012 FINDINGS: The visualized lung bases are unremarkable. The visualized portions of the heart are within normal limits. Normal liver. Normal gallbladder and extrahepatic biliary system. Normal spleen. Normal pancreas. Normal bilateral adrenal glands. Normal right kidney. 2 cm cyst in the upper pole the left kidney. Normal visualized stomach. Normal small intestine. Normal colon. The appendix is visualized and appears normal. Normal abdominal aorta. Normal inferior vena cava. Normal retroperitoneum. Normal urinary bladder. Normal abdominal wall. Mild dextroscoliosis of the thoracolumbar spine. CT/Abdomen/Pelvis WITH Contrast IMPRESSION: Normal enhanced CT of the abdomen and pelvis. Electronically Signed: Miguel Torres MD at 6:39 EDT Tel , Service support ,
[2020-11-13 03:41] LABS: Absolute Lymphocyte Count 0.52 X10^3/uL (0.83-4.51); Absolute Neutrophil Count 11.9 X10^3/uL (2.0-7.7); Basophil# 0.02 X10^3/uL; Basophil% 0.1 % (0-1); Eosinophil# 0.01 X10^3/uL; Eosinophils% 0.1 % (0-5); Hematocrit 33.4 % (37-47); Hemoglobin 9.4 g/dL (12.0-15.0); Lymphocyte # 0.52 X10^3/ul (0.83-4.51); Lymphocyte % 3.9 % (19-41); Mean Corp Hgb Conc 28.1 g/dL (32-36); Mean Corpuscular Hgb 19.1 pg (27.0-32.0); Mean Corpuscular Volume 67.9 fL (81-99); Mean Platelet Vol. 9.5 fl (6.2-12.0); Monocyte# 0.89 X10^3/uL; Monocyte% 6.6 % (0-10); NRBC Flagged by Analyzer 0 % (0-5); Neutrophil # 11.87 X10^3/uL (2.7-7.7); Neutrophil % 88.6 % (47-70); POSITIVE DIFFERENTIAL YES; Platelet Count 272 K/mm3 (150-450); RBC Distribution Width CV 17.2 % (11.6-14.6); RBC Distribution Width SD 40.3 fl (35.1-43.9); Red Blood Count 4.92 M/mm3 (4.2-5.4); White Blood Count 13.4 K/mm3 (4.4-11.0)
[2020-11-13 03:46] LABS: Differential Indicated SCAN CRITERIA MET
[2020-11-13 03:54] LABS: International Normalized Ratio 2.8; Prothrombin Time (Protime)PT. 28.8 SECONDS (11.7-14.9)
[2020-11-13 03:56] LABS: AST(SGOT) 25 U/L (15-37); Alanine Aminotransfer ALT/SGPT 19 U/L (13-56); Albumin, Serum 3.2 g/dL (3.2-5.0); Alkaline Phosphatase 104 U/L (45-117); Anion Gap 6 (5-15); BUN 20 mg/dL (7-18); Bilirubin, Direct 0.32 mg/dL (0.00-0.30); Calcium,Total 8.6 mg/dL (8.5-10.1); Chloride 96 mmol/L (98-107); Creatinine, Serum 1.05 mg/dL (0.55-1.02); EST Glomerular Filtration Rate 54 mL/min (>60); Est Glom Filt Rate - Afr Amer 65 mL/min (>60); Estimated Creatinine Clearance 32.14 ml/min; Globulin 3.8 g/dL (2.2-4.2); Glucose 112 mg/dL (74-106); Lipase 151 U/L (73-393); Potassium 3.8 mmol/L (3.5-5.1); Sodium Level 132 mmol/L (136-145)
[2020-11-13 04:57] LABS: Acanthocytes RARE; Differential Comment SCANNED
[2020-11-13 04:58] LABS: Ovalocyte 1+
[2020-11-13 06:00] LABS: Mucous, Urine 0 SEEN /hpf (<or=2+)
[2020-11-13 06:04] LABS: Color, Urine Yellow (Yellow); Glucose, Dipstick Normal (Normal); Ketone-Dipstick 5 mg/dl (Negative); Leukocyte Esterase-Dipstick 500 /ul (Negative); Nitrite-Dipstick Positive (Negative); Occult Blood-Urine 50 /ul (Negative); Protein-Dipstick 100 mg/dl (Negative); Urine Bilirubin Dipstick Negative (Negative); Urine Clarity Sl. Cloudy (Clear); Urine Urobilinogen Normal (Normal)
[2020-11-13 06:19] LABS: Bacteria 3+ /hpf (None Seen); Red Blood Cells-Urine 0-5 SEEN /hpf (0-5); Renal Epithelial Cells 0-5 SEEN /hpf (0-5); Squamous Epithelial Cells - UA 0-5 SEEN /hpf (5-10); White Blood Cells 25-50 SEEN /hpf (0-5); White Cell Cast 0-5 SEEN /lpf (None Seen)
[2020-11-13 06:38] VITALS: BP 112/68; PULSE 100; RESP 19; O2SAT 96
--- NOTE | 2020-11-13 06:53 | ED.DCSUM_ITS ---
History of Present Illness Chief Complaint: Abd Pain Informant: Patient Onset: Yesterday Context: Gradual Onset Timing: Waxes and wanes Current Severity: Mild Maximum Severity: Moderate Narrative: Patient presents with back and lower abdominal pain that started last evening. She denies urinary symptoms such as frequency or dysuria. She does complain of some body aches. She has not noted fever. She does note decreased appetite but did have normal bowel movement. - Past Medical History (1) Anxiety Status: Chronic (2) Cardiomyopathy Status: Chronic (3) Congestive heart failure Status: Chronic (4) GERD (gastroesophageal reflux disease) Status: Chronic (5) History of GI bleed Status: Chronic (6) History of myocardial infarction Status: Chronic (7) Hyperlipidemia Status: Chronic (8) Paroxysmal atrial fibrillation Status: Chronic Past Medical History - Allergies and Home Meds Allergies/Adverse Reactions: Allergies amiodarone Allergy (Verified 11/13/20 03:23) Hives Pt takes the Pacerone (brand name) with no allergy. Primary Care Physician: Raghu Forbes MD [Primary Care Provider] - 1 Week if not improving Prior records reviewed: Yes Surgical History: tonsillectomy, - - D&C Smoking Status: Never smoker - Family History Maternal Family History: Family History (Last Reviewed 02/03/20 @ 13:07 by Stacie Arango) Father Heart disease Sister Heart disease Cardiomyopathy Family History: Reports: No pertinent history Review of Systems General: Denies: Chills, Fever Eyes: Denies: Visual changes - bilaterally ENT: Denies: Bilateral ear pain Cardiovascular: Denies: Chest pain Respiratory: Denies: Dyspnea, Cough Gastrointestinal: Reports: Abdominal pain. Denies: Vomiting, Diarrhea Genitourinary: Denies: Dysuria Musculoskeletal: Denies: Swelling, Extremity Pain Skin: Denies: Rash Neurological: Denies: Headache Hematologic: Denies: Easy bruising, Easy bleeding Allergy: Denies: Uticaria Physical Exam Vital Signs/Narrative: Vital Signs Temp Pulse Resp BP Pulse Ox 11/13/20 06:38 100 19 H 112/68 96 11/13/20 03:21 98.9 F 67 18 139/85 H 97 11/13/20 03:19 98.9 F 67 18 139/85 H 97 Inital Vital Signs reviewed: Yes General: Well nourished, Well developed Head: Normocephalic ENT: Moist mucous membranes Neck: Supple Cardiovascular: Irregular Respiratory: No distress, CTA bilaterally Abdomen: Soft, Tender - Mild lower abdominal tenderness palpation.. Negative for: Guarding, Rebound tenderness Extremities: Nontender Skin: Normal color Neurological: Alert, Oriented x3, Normal Strength, Normal Sensation Psychological: Normal affect Diagnostic/Tx/Re-eval Impressions Abdomen/Pelvis CT 11/13/20 03:35 IMPRESSION: Normal enhanced CT of the abdomen and pelvis. Electronically Signed: Miguel Torres MD at 6:39 EDT Tel , Service support , 11/13/20 03:35 Abdomen/Pelvis WITH Contrast [CT] Stat Laboratory Results 11/13/20 11/13/20 11/13/20 03:32 03:32 03:32 WBC 13.4 H RBC 4.92 Hgb 9.4 L Hct 33.4 L MCV 67.9 L MCH 19.1 L MCHC 28.1 L RDW Std Deviation 40.3 RDW Coeff of [place] 17.2 H Plt Count 272 MPV 9.5 Immature Gran % (Auto) 0.700 Neut % (Auto) 88.6 H Lymph % (Auto) 3.9 L [place] % (Auto) 6.6 Eos % (Auto) 0.1 Baso % (Auto) 0.1 Absolute Neuts (auto) 11.9 H Absolute Lymphs (auto) 0.52 L Nucleated RBC % 0 Differential Comment SCANNED Ovalocytes 1+ Acanthocytes (Spur) RARE PT 28.8 H INR 2.8 Sodium 132 L Potassium 3.8 Chloride 96 L Carbon Dioxide 30.0 Anion Gap 6 BUN 20 H Creatinine 1.05 H Estim Creat Clear Calc 32.14 Est GFR (MDRD) Af Amer 65 Est GFR (MDRD) Non-Af 54 L BUN/Creatinine Ratio 19.0 Glucose 112 H Calcium 8.6 Total Bilirubin 0.80 Direct Bilirubin 0.32 H AST 25 ALT 19 Alkaline Phosphatase 104 Total Protein 7.0 Albumin 3.2 Globulin 3.8 Lipase 151 Urine Color Urine Clarity Urine pH Ur Specific [place] Urine Protein Urine Glucose (UA) Urine Ketones Urine Occult Blood Urine Nitrite Urine Bilirubin Urine Urobilinogen Ur Leukocyte Esterase Urine RBC Urine WBC Ur Squamous Epith Cells Ur Renal Epithelial Cell Urine Bacteria WBC Casts Urine Mucus 11/13/20 05:55 WBC RBC Hgb Hct MCV MCH MCHC RDW Std Deviation RDW Coeff of [place] Plt Count MPV Immature Gran % (Auto) Neut % (Auto) Lymph % (Auto) [place] % (Auto) Eos % (Auto) Baso % (Auto) Absolute Neuts (auto) Absolute Lymphs (auto) Nucleated RBC % Differential Comment Ovalocytes Acanthocytes (Spur) PT INR Sodium Potassium Chloride Carbon Dioxide Anion Gap BUN Creatinine Estim Creat Clear Calc Est GFR (MDRD) Af Amer Est GFR (MDRD) Non-Af BUN/Creatinine Ratio Glucose Calcium Total Bilirubin Direct Bilirubin AST ALT Alkaline Phosphatase Total Protein Albumin Globulin Lipase Urine Color Yellow Urine Clarity Sl. Cloudy Urine pH 8.0 Ur Specific [place] 1.010 Urine Protein 100 H Urine Glucose (UA) Normal Urine Ketones 5 H Urine Occult Blood 50 H Urine Nitrite Positive H Urine Bilirubin Negative Urine Urobilinogen Normal Ur Leukocyte Esterase 500 H Urine RBC 0-5 SEEN Urine WBC 25-50 SEEN Ur Squamous Epith Cells 0-5 SEEN Ur Renal Epithelial Cell 0-5 SEEN Urine Bacteria 3+ WBC Casts 0-5 SEEN Urine Mucus 0 SEEN - Medical Decision Making Patient declined anything for pain while here. CBC does reveal elevated white count. Chemistry studies largely unremarkable. CT scan with p.o. and IV contrast is obtained. No acute abnormality is noted. I was advised by CT staff that her IV did infiltrate with the bolus. On repeat examination warm compress has been applied to the arm and is improving. Urinalysis ultimately returns with evidence of infection. Patient is treated with Bactrim and will be given prescription for 3 days at home. Urine culture has been added. Test results discussed with the patient. She voices understanding and agreement. She is given return instructions. ED Disposition - Plan for ED Patient: Disposition: Home or Assisted Living Diagnosis: UTI (urinary tract infection) Instructions: ED Bladder Infection, Female (Adult) Prescriptions: Smz/Tmp Ds [Bactrim Ds] 1 tablet PO BID #6 tab Prescription Printed Referrals: Raghu Forbes MD [Primary Care Provider] - 1 Week if not improving
[2020-11-13] MEDS: Smz/Tmp Ds Tablet 1 TABLET PO (06:58)
[2020-11-13 06:59] VITALS: BP 112/68; PULSE 71; RESP 16; O2SAT 95
== END 2020-11-13 07:27 | disposition home or self-care (01) ==
PROVIDERS: Emergency Provider Emergency Medicine; PCP Family Medicine
DX: N39.0 Urinary tract infection, site not specified (principal); I48.0 Paroxysmal atrial fibrillation; E78.5 Hyperlipidemia, unspecified; K21.9 Gastro-esophageal reflux disease without esophagitis; Z79.01 Long term (current) use of anticoagulants; Z79.899 Other long term (current) drug therapy
CPT/HCPCS: 74177; 80048; 80076; 81001; 83690; 85025; 85610; 87086; 87088; 87186; 99285; Q9967; A4216

== ENCOUNTER 2020-11-18 10:00 | Outpatient (RCR) | payer MEDICARE, SELFPAY ==
[2020-08-08 09:53] VITALS: BMI 17.5
[2020-10-31 12:17] LABS: International Normalized Ratio 1.7; Prothrombin Time (Protime)PT. 19.1 SECONDS (11.7-14.9)
[2020-11-07 12:44] LABS: International Normalized Ratio 1.9; Prothrombin Time (Protime)PT. 20.6 SECONDS (11.7-14.9)
[2020-11-18 13:45] LABS: International Normalized Ratio 1.5; Prothrombin Time (Protime)PT. 17.3 SECONDS (11.7-14.9)
== END 2020-11-18 18:00 | disposition home or self-care (01) ==
LOC: MTLAB 10:00
PROVIDERS: PCP Family Medicine; Referring Provider Internal Medicine Cardiovascular Disease; Visit Provider Internal Medicine Cardiovascular Disease
DX: I48.0 Paroxysmal atrial fibrillation (principal); Z79.01 Long term (current) use of anticoagulants
CPT/HCPCS: 36415; 85610

== ENCOUNTER → 2020-11-24 10:38 | Outpatient (CLI) | payer MEDICARE, SELFPAY ==
[2020-11-13 03:19] VITALS: BMI 18.6
[2020-11-24 12:37] LABS: BNP,B-Type NATRIURETIC PEPTIDE 601.7 pg/mL (0-100)
[2020-11-24 12:39] LABS: Vitamin D,25 Hydroxy 25.2 ng/mL
[2020-11-24 12:50] LABS: Anion Gap 5 (5-15); BUN 19 mg/dL (7-18); BUN/Creat Ratio 21.4 RATIO (10-20); Calcium,Total 8.9 mg/dL (8.5-10.1); Chloride 96 mmol/L (98-107); Cholesterol 161 mg/dL (200); Creatinine, Serum 0.89 mg/dL (0.55-1.02); EST Glomerular Filtration Rate 65 mL/min (>60); Est Glom Filt Rate - Afr Amer 79 mL/min (>60); Glucose 82 mg/dL (74-106); High Density Lipoprotein 72 mg/dL; Potassium 4.4 mmol/L (3.5-5.1); Sodium Level 131 mmol/L (136-145); Thyroid Stim Hormone (TSH) 6.24 uIU/mL (0.358-3.74); Triglycerides 70 mg/dL; Very Low Density Lipoprotein 14 mg/dL (5-40)
== END ==
PROVIDERS: PCP Family Medicine; Referring Provider Family Medicine; Visit Provider Family Medicine
DX: I50.9 Heart failure, unspecified (principal); E03.9 Hypothyroidism, unspecified; M81.0 Age-related osteoporosis without current pathological fracture
CPT/HCPCS: 36415; 80048; 80061; 82306; 83880; 84439; 84443

== ENCOUNTER 2020-12-16 10:17 | Outpatient (RCR) | payer MEDICARE, SELFPAY ==
[2020-12-02 12:17] LABS: International Normalized Ratio 1.7; Prothrombin Time (Protime)PT. 19.1 SECONDS (11.7-14.9)
[2020-12-16 12:39] LABS: International Normalized Ratio 1.8; Prothrombin Time (Protime)PT. 19.8 SECONDS (11.7-14.9)
== END 2020-12-16 18:00 | disposition home or self-care (01) ==
LOC: MTLAB 10:17
PROVIDERS: PCP Family Medicine; Referring Provider Internal Medicine Cardiovascular Disease; Visit Provider Internal Medicine Cardiovascular Disease
DX: I48.0 Paroxysmal atrial fibrillation (principal); Z79.01 Long term (current) use of anticoagulants
CPT/HCPCS: 36415; 85610

== ENCOUNTER 2021-01-13 10:15 | Outpatient (RCR) | payer MEDICARE, SELFPAY ==
[2020-12-30 12:36] LABS: International Normalized Ratio 2.5; Prothrombin Time (Protime)PT. 25.8 SECONDS (11.7-14.9)
[2021-01-13 12:36] LABS: International Normalized Ratio 2.2; Prothrombin Time (Protime)PT. 23.3 SECONDS (11.7-14.9)
== END 2021-01-13 18:00 | disposition home or self-care (01) ==
LOC: MTLAB 10:15
PROVIDERS: PCP Family Medicine; Referring Provider Internal Medicine Cardiovascular Disease; Visit Provider Internal Medicine Cardiovascular Disease
DX: I48.0 Paroxysmal atrial fibrillation (principal); Z79.01 Long term (current) use of anticoagulants
CPT/HCPCS: 36415; 85610

== ENCOUNTER 2021-02-03 10:37 | Outpatient (RCR) | payer MEDICARE, SELFPAY ==
[2021-02-03 12:43] LABS: International Normalized Ratio 2.4; Prothrombin Time (Protime)PT. 25.2 SECONDS (11.7-14.9)
== END 2021-02-03 18:00 | disposition home or self-care (01) ==
LOC: MTLAB 10:37
PROVIDERS: PCP Family Medicine; Referring Provider Internal Medicine Cardiovascular Disease; Visit Provider Internal Medicine Cardiovascular Disease
DX: I48.0 Paroxysmal atrial fibrillation (principal); Z79.01 Long term (current) use of anticoagulants
CPT/HCPCS: 36415; 85610

== ENCOUNTER 2021-03-03 10:17 | Outpatient (RCR) | payer MEDICARE, SELFPAY ==
[2021-03-03 12:09] LABS: International Normalized Ratio 2.5; Prothrombin Time (Protime)PT. 26.1 SECONDS (11.7-14.9)
== END 2021-03-03 18:00 | disposition home or self-care (01) ==
LOC: MTLAB 10:17
PROVIDERS: PCP Family Medicine; Referring Provider Internal Medicine Cardiovascular Disease; Visit Provider Internal Medicine Cardiovascular Disease
DX: I48.0 Paroxysmal atrial fibrillation (principal); Z79.01 Long term (current) use of anticoagulants
CPT/HCPCS: 36415; 85610

== ENCOUNTER 2021-03-31 10:25 | Outpatient (RCR) | payer MEDICARE, SELFPAY ==
[2021-03-29 01:29] VITALS: BMI 18.6
== END 2021-03-31 18:00 | disposition home or self-care (01) ==
LOC: MTLAB 10:25
PROVIDERS: PCP Family Medicine; Referring Provider Internal Medicine Cardiovascular Disease; Visit Provider Internal Medicine Cardiovascular Disease
DX: I48.0 Paroxysmal atrial fibrillation (principal); Z79.01 Long term (current) use of anticoagulants
CPT/HCPCS: 36415; 85610

== ENCOUNTER 2021-05-22 10:22 | Outpatient (RCR) | payer MEDICARE, SELFPAY ==
[2021-04-28 02:05] VITALS: BMI 18.6
[2021-04-28 12:30] LABS: International Normalized Ratio 1.5; Prothrombin Time (Protime)PT. 17.5 SECONDS (11.7-14.9)
[2021-05-08 12:18] LABS: International Normalized Ratio 2.6; Prothrombin Time (Protime)PT. 26.9 SECONDS (11.7-14.9)
[2021-05-22 12:28] LABS: International Normalized Ratio 2.5; Prothrombin Time (Protime)PT. 26.1 SECONDS (11.7-14.9)
== END 2021-05-28 18:00 | disposition home or self-care (01) ==
LOC: MTLAB 10:22
PROVIDERS: PCP Family Medicine; Referring Provider Internal Medicine Cardiovascular Disease; Visit Provider Internal Medicine Cardiovascular Disease
DX: I48.0 Paroxysmal atrial fibrillation (principal); Z79.01 Long term (current) use of anticoagulants
CPT/HCPCS: 36415; 85610

== ENCOUNTER 2021-06-12 10:11 | Outpatient (RCR) | payer MEDICARE, SELFPAY ==
[2021-05-28 20:42] VITALS: BMI 18.6
[2021-06-12 12:17] LABS: International Normalized Ratio 2.8; Prothrombin Time (Protime)PT. 28.6 SECONDS (11.7-14.9)
== END 2021-06-27 18:00 | disposition home or self-care (01) ==
LOC: MTLAB 10:11
PROVIDERS: PCP Family Medicine; Referring Provider Internal Medicine Cardiovascular Disease; Visit Provider Internal Medicine Cardiovascular Disease
DX: I48.0 Paroxysmal atrial fibrillation (principal); Z79.01 Long term (current) use of anticoagulants
CPT/HCPCS: 36415; 85610

== ENCOUNTER 2021-07-10 10:34 | Outpatient (RCR) | payer MEDICARE, SELFPAY ==
[2021-06-28 04:13] VITALS: BMI 18.6
[2021-07-10 12:35] LABS: International Normalized Ratio 2.5; Prothrombin Time (Protime)PT. 26.1 SECONDS (11.7-14.9)
== END 2021-07-29 18:00 | disposition home or self-care (01) ==
LOC: MTLAB 10:34
PROVIDERS: PCP Family Medicine; Referring Provider Internal Medicine Cardiovascular Disease; Visit Provider Internal Medicine Cardiovascular Disease
DX: I48.0 Paroxysmal atrial fibrillation (principal); Z79.01 Long term (current) use of anticoagulants
CPT/HCPCS: 36415; 85610

== ENCOUNTER 2021-08-07 10:46 | Outpatient (RCR) | payer MEDICARE, SELFPAY ==
[2021-07-30 18:30] VITALS: BMI 18.6
[2021-08-07 12:20] LABS: International Normalized Ratio 2.5; Prothrombin Time (Protime)PT. 26.4 SECONDS (11.7-14.9)
== END 2021-08-28 18:00 | disposition home or self-care (01) ==
LOC: MTLAB 10:46
PROVIDERS: PCP Family Medicine; Referring Provider Internal Medicine Cardiovascular Disease; Visit Provider Internal Medicine Cardiovascular Disease
DX: I48.0 Paroxysmal atrial fibrillation (principal); Z79.01 Long term (current) use of anticoagulants
CPT/HCPCS: 36415; 85610

== ENCOUNTER 2021-12-31 16:44 | Emergency (ER) | payer MEDICARE, SELFPAY ==
[2021-12-31 16:44] VITALS: BP 148/98; PULSE 125; RESP 18; TEMP 36.4; O2SAT 95; BMI 18.3
--- NOTE | 2021-12-31 17:07 | EKG12_ITS ---
Test Reason : ABD PAIN Blood Pressure : / mmHG Vent. Rate : 097 BPM Atrial Rate : 396 BPM P-R Int : 000 ms QRS Dur : 090 ms QT Int : 374 ms P-R-T Axes : 000 082 -69 degrees QTc Int : 474 ms Atrial flutter with variable A-V block Left ventricular hypertrophy with repolarization abnormality Abnormal ECG Confirmed by SALVADOR BRAND, MIGUEL A ([id number]), newspaper editor BRAULIO SAHNI ([id number]) on 01/02/2022 1:28:00 PM Referred By: WILLIAM Confirmed By:MIGUEL A FRANCO MD
--- NOTE | 2021-12-31 17:10 | EX.ED.DYSGE1 ---
HPI History of Present Illness Chief Complaint: Abd Pain Informant: patient Onset/Context/Timing Onset: Days Context: Gradual Onset Current Severity: Mild Maximum Severity: Moderate Narrative Narrative: Patient presents due to concern for GI bleed. She states she has had discomfort in her abdomen over the past week. She has noted that every time she eats she has a bowel movement. Her stools are dark but she does note that she is taking Pepto. She is concerned that she may have a GI bleed. Triage note documents dysuria and frequency but patient denies this. No fever or chills. 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 Long-term use of high-risk medication Paroxysmal atrial fibrillation Persistent atrial fibrillation with rapid ventricular response Thyroid disorder Home Medications diltiazem HCl 120 mg capsule,extended release 24 hr 120 mg PO DAILY #90 cap 04/18/21 [Rx Last Taken Unknown] aspirin 325 mg tablet 325 mg PO DAILY #90 tab 08/23/21 [Rx Last Taken Unknown] chlorpheniramine maleate 4 mg tablet 4 mg PO Q8H PRN 08/23/21 [History Last Taken Unknown] furosemide 40 mg tablet 20 mg PO BID #90 tab 10/19/21 [Rx Last Taken Unknown] Allergy/AdvReac Type Severity Reaction Status Date / Time amiodarone Allergy Hives Verified 12/31/21 16:46 Family History Father Heart disease cardiomyopathy Sister Heart disease Cardiomyopathy heart transplant Surgical History History of cardiac catheterization History of tonsillectomy History of tubal ligation Social History Smoking Status: Never smoker alcohol intake: never substance use type: does not use caffeine: Yes Type: coffee Number of servings: 3 ROS ROS ED Constitutional Constitutional ED: Denies chills or fever(s) Eyes Eyes: Denies change in vision ENT ENT ED: Denies sore throat Cardiovascular Cardiovascular: Denies chest pain Respiratory/Chest Respiratory/Chest: Denies cough or dyspnea Gastrointestinal Gastrointestinal: Reports abdominal pain; Denies diarrhea, nausea or vomiting Genitourinary Genitourinary ED: Denies dysuria Musculoskeletal Musculoskeletal: Denies back pain or neck pain Integumentary Denies rash Neurologic Neurologic: Denies headache(s) or weakness Allergic/Immunologic Allergic/Immunologic ED: Denies urticaria EXAM Physical Exam Const Vital Signs: 12/31/21 16:44 12/31/21 19:03 Temperature 97.5 F L Temperature Source Temporal Pulse Rate 125 H 106 H Respiratory Rate 18 25 H Blood Pressure 148/98 H 159/98 H Blood Pressure Mean 114 118 Pulse Ox 95 97 Oxygen Delivery Method Room Air Positive well nourished and well developed General Appearance ED: well developed HEENT Reports moist mucous membranes Eyes PERRL and EOMs intact bilaterally Neck supple Chest Wall inspection of chest normal and palpation of chest normal Resp normal respiratory effort and clear to auscultation bilaterally Cardio regular rhythm Rate: tachycardic GI non-tender Auscultation: hypoactive bowel sounds Palpation: soft Extremity normal to inspection Neuro oriented x3 Sensorium / Orientation: alert Psych mental status grossly normal Skin no rashes or lesions noted MDM MDM MDM Narrative Medical decision making narrative: 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 EKG, lab work, urinalysis, stool guaiac obtained. Patient given IV fluids. Lab Data Attestation: I reviewed the patient's lab results. Labs: Laboratory Results - last 24 hr 12/31/21 12/31/21 12/31/21 17:15 17:15 17:15 WBC 2.9 L RBC 5.23 Hgb 10.6 L Hct 36.6 L MCV 70.0 L MCH 20.3 L MCHC 29.0 L RDW Std Deviation 42.8 RDW Coeff of [place] 17.1 H Plt Count 193 MPV 9.9 Immature Gran % (Auto) 0.300 Neut % (Auto) 49.0 Lymph % (Auto) 29.4 [place] % (Auto) 20.6 H Eos % (Auto) 0.0 Baso % (Auto) 0.7 Absolute Neuts (auto) 1.4 L Absolute Lymphs (auto) 0.84 Nucleated RBC % 0 Sodium 131 L Potassium 3.4 L Chloride 93 L Carbon Dioxide 32.0 Anion Gap 6 BUN 18 Creatinine 1.08 H Estim Creat Clear Calc 29.75 Est GFR (MDRD) Af Amer 63 Est GFR (MDRD) Non-Af 52 L BUN/Creatinine Ratio 16.7 Glucose 98 Calcium 8.4 L Total Bilirubin 0.40 Direct Bilirubin 0.13 AST 29 ALT 20 Alkaline Phosphatase 84 Total Protein 7.3 Albumin 3.7 Globulin 3.6 Lipase 436 H Urine Color [place] Urine Clarity Clear Urine pH 6.5 Ur Specific [place] 1.015 Urine Protein 30 H Urine Glucose (UA) Normal Urine Ketones Negative Urine Occult Blood Negative Urine Nitrite Positive H Urine Bilirubin 3 H Urine Urobilinogen 8 H Ur Leukocyte Esterase 25 H Urine RBC 0 SEEN Urine WBC 0 SEEN Ur Squamous Epith Cells 0 SEEN Urine Bacteria RARE Urine Mucus 0 SEEN Radiography Diagnostic Testing: Clinical Impression(s) from Imaging Studies Abdomen/Pelvis CT 12/31/21 18:08 IMPRESSION: No acute abnormalities in the abdomen or pelvis. Interstitial edema in the lung bases. Electronically Signed: Mio Maravilla MD at 20:33 EDT , EKG Initial EKG: Attestation: I personally reviewed and interpreted this EKG as follows: Interpretation: Atrial Flutter (Atrial flutter with variable block. Ventricular rate of 97 on EKG. Lateral T wave inversions noted, unchanged when compared to prior study of 2019.) Treatment and Re-Evaluation Narrative: CBC reveals low white counts of 2.9. Hemoglobin is 10.6. Chemistry studies unremarkable. Lipase minimally elevated at 436. Urinalysis shows rare bacteria and 0 white cells. She has not had urinary symptoms. Stool guaiac is negative. Patient is sent for CT scan of the abdomen and pelvis with contrast. This is unremarkable. Test results are all discussed with the patient. She may very well have a viral infection given her leukopenia. I encouraged her to follow a bland diet and slowly increase as tolerated. Return instructions are provided. Discharge Plan Triage Chief Complaint: Abd Pain ED Provider: Nicole Mcmanus Dx/Rx/DC Orders Clinical Impression: Abdominal pain Instructions: ED Abdominal Pain Unkn Cause Fem Prescriptions: No Action chlorpheniramine maleate [Allergy (chlorpheniramine)] 4 mg tablet 4 mg PO Q8H PRN (Reason: Allergy Symptoms) RF: 0 aspirin 325 mg tablet 325 mg PO DAILY Qty: 90 RF: 3 diltiazem HCl 120 mg capsule,extended release 24hr 120 mg PO DAILY Qty: 90 RF: 3 furosemide 40 mg tablet 20 mg PO BID Qty: 90 RF: 3 Primary Care Provider: Raghu Forbes Referrals: Raghu Forbes MD [Primary Care Provider] - 1 Week if not improving Disposition Disposition: Home, Self Care
[2021-12-31 17:25] LABS: Mucous, Urine 0 SEEN /hpf (<or=2+); Red Blood Cells-Urine 0 SEEN /hpf (0-5); Squamous Epithelial Cells - UA 0 SEEN /hpf (5-10); White Blood Cells 0 SEEN /hpf (0-5)
[2021-12-31 17:30] LABS: Absolute Lymphocyte Count 0.84 X10^3/uL (0.83-4.51); Absolute Neutrophil Count 1.4 X10^3/uL (2.0-7.7); Basophil# 0.02 X10^3/uL; Basophil% 0.7 % (0-1); Hematocrit 36.6 % (37-47); Hemoglobin 10.6 g/dL (12.0-15.0); Lymphocyte # 0.84 X10^3/ul (0.83-4.51); Lymphocyte % 29.4 % (19-41); Mean Corpuscular Hgb 20.3 pg (27.0-32.0); Mean Platelet Vol. 9.9 fl (6.2-12.0); Monocyte# 0.59 X10^3/uL; Monocyte% 20.6 % (0-10); NRBC Flagged by Analyzer 0 % (0-5); Platelet Count 193 K/mm3 (150-450); RBC Distribution Width CV 17.1 % (11.6-14.6); RBC Distribution Width SD 42.8 fl (35.1-43.9); Red Blood Count 5.23 M/mm3 (4.2-5.4); White Blood Count 2.9 K/mm3 (4.4-11.0)
[2021-12-31 17:31] LABS: Color, Urine Amber (Yellow); Glucose, Dipstick Normal (Normal); Ketone-Dipstick Negative (Negative); Leukocyte Esterase-Dipstick 25 /ul (Negative); Nitrite-Dipstick Positive (Negative); Occult Blood-Urine Negative /ul (Negative); Protein-Dipstick 30 mg/dl (Negative); Specific Gravity, Urine 1.015 (1.002-1.030); Urine Clarity Clear (Clear); Urine Urobilinogen 8 mg/dl (Normal); Urine pH 6.5 (5.0 - 8.0)
[2021-12-31 17:33] LABS: Urine Bilirubin Dipstick 3 mg/dL (Negative)
[2021-12-31 17:42] LABS: Bacteria RARE /hpf (None Seen)
[2021-12-31] MEDS: 0.9% Normal Saline 1,000 ML 150 ML IV (17:43)
[2021-12-31 17:53] LABS: AST(SGOT) 29 U/L (15-37); Alanine Aminotransfer ALT/SGPT 20 U/L (13-56); Albumin, Serum 3.7 g/dL (3.2-5.0); Alkaline Phosphatase 84 U/L (45-117); Anion Gap 6 (5-15); BUN 18 mg/dL (7-18); BUN/Creat Ratio 16.7 RATIO (10-20); Bilirubin, Direct 0.13 mg/dL (0.00-0.30); Calcium,Total 8.4 mg/dL (8.5-10.1); Chloride 93 mmol/L (98-107); Creatinine, Serum 1.08 mg/dL (0.55-1.02); EST Glomerular Filtration Rate 52 mL/min (>60); Est Glom Filt Rate - Afr Amer 63 mL/min (>60); Estimated Creatinine Clearance 29.75 ml/min; Globulin 3.6 g/dL (2.2-4.2); Glucose 98 mg/dL (74-106); Lipase 436 U/L (73-393); Potassium 3.4 mmol/L (3.5-5.1); Protein, Total 7.3 g/dL (6.4-8.2); Sodium Level 131 mmol/L (136-145)
--- NOTE | 2021-12-31 18:08 | CT_ITS ---
INDICATION: abd pain -- IV PO Contrast, hx gi bleed, a fib, abd pain x 1 week, urinary pain EXAMINATION: CT Abdomen And Pelvis W/ Contrast Injection TECHNIQUE: Helically acquired images were obtained of the abdomen and pelvis after IV contrast. A radiation dose optimization technique was used for this scan. IV Contrast dosage and agent: isovue 370 75 ml Oral contrast: None. COMPARISON: 11/13/2020. FINDINGS: Visualized lung bases: Emphysematous changes. There is interlobular septal thickening with groundglass opacities. Liver: Unremarkable Gallbladder: Unremarkable Spleen: Unremarkable Pancreas: Unremarkable Adrenal Glands: Unremarkable Kidneys: Simple 2 cm left lower pole renal cyst. Vasculature: Mild scattered aortoiliac atherosclerotic calcifications. GI Tract: Scattered diverticula throughout the colon without evidence of inflammation. Lymphadenopathy: None Peritoneum: No ascites. Bladder: Unremarkable Reproductive organs: Unremarkable Bones/Soft tissues: No suspicious osseous or soft tissue lesions CT/Abdomen/Pelvis WITH Contrast IMPRESSION: No acute abnormalities in the abdomen or pelvis. Interstitial edema in the lung bases. Electronically Signed: Mio Maravilla MD at 20:33 EDT ,
[2021-12-31 19:03] VITALS: BP 159/98; PULSE 106; RESP 25; O2SAT 97
[2021-12-31 21:14] VITALS: BP 144/92; PULSE 83; RESP 18
== END 2021-12-31 21:15 | disposition home or self-care (01) ==
PROVIDERS: Emergency Provider Emergency Medicine; PCP Family Medicine; Visit Provider Emergency Medicine
DX: R10.9 Unspecified abdominal pain (principal); I42.9 Cardiomyopathy, unspecified; I50.9 Heart failure, unspecified; I25.10 Atherosclerotic heart disease of native coronary artery without angina pectoris; E78.5 Hyperlipidemia, unspecified; K21.9 Gastro-esophageal reflux disease without esophagitis; Z79.82 Long term (current) use of aspirin; Z79.899 Other long term (current) drug therapy
CPT/HCPCS: 74177; 80048; 80076; 81001; 82274; 83690; 85025; 93005; 96360; 96361; 99284; J7030; Q9967; A4216

== ENCOUNTER 2022-11-28 07:02 | Inpatient (IN) | payer MEDICARE, SELFPAY ==
[2022-11-28] VITALS (12 sets, daily range): BP systolic 127–155; BP diastolic 80–97; PULSE 67–135; RESP 16–29; TEMP 36.4–36.7; O2SAT 91–95; BMI 17.3; BMI 19.8
--- NOTE | 2022-11-28 07:24 | ED.VIS.DYS ---
HPI History of Present Illness Chief Complaint: Shortness of Breath Informant: patient Onset/Context/Timing Onset: Days (2) Context: gradual Timing: Continuous Quality: Positive for Dyspnea on exertion Worsened by: Exertion Relieved by: Rest Associated Symptoms rhinorrhea and post nasal drip; Negative for cough, ear pain, fever, sore throat, chills or sweats Chest Pain: Positive for - (Heaviness) Narrative Narrative: Patient presents with tautness of breath that has been getting worse over the last 2 days. Patient states it is gotten gradually worse. Patient states her breathing became worse with ambulation this morning. Patient states she has had some rhinorrhea and postnasal drainage over the past few days. Patient states she has had some heaviness in her chest over the last couple days. Patient denies any fevers or chills. Patient denies any cough. Patient denies any nausea or vomiting. [facility] Medical History Anxiety Atherosclerotic heart disease of [place] coronary artery without angina pectoris Atrial fibrillation Atrial fibrillation and flutter Atrial flutter Cardiomyopathy Congestive heart failure GERD (gastroesophageal reflux disease) History of GI bleed History of myocardial infarction Hyperlipidemia half-way (current) use of anticoagulants Long-term use of high-risk medication Paroxysmal atrial fibrillation Persistent atrial fibrillation with rapid ventricular response Thyroid disorder Home Medications aspirin 325 mg tablet 325 mg PO DAILY #90 tabs 08/23/21 [Rx Last Taken Unknown] chlorpheniramine maleate 4 mg tablet (Allergy (chlorpheniramine)) 4 mg PO Q8H PRN Allergy Symptoms 08/23/21 [History Last Taken Unknown] diltiazem HCl 120 mg capsule,extended release 24 hr 120 mg PO DAILY #90 caps 05/07/22 [Rx Last Taken Unknown] furosemide 40 mg tablet 20 mg PO BID water pill #90 tabs 11/26/22 [Rx Last Taken Unknown] Allergy/AdvReac Type Severity Reaction Status Date / Time amiodarone Allergy Hives Verified 11/26/22 15:28 Family History Father Heart disease cardiomyopathy Sister Heart disease Cardiomyopathy heart transplant Surgical History History of cardiac catheterization History of tonsillectomy History of tubal ligation Social History Smoking Status: Never smoker alcohol intake: never substance use type: does not use caffeine: Yes Type: coffee Number of servings: 3 ROS ROS ED Constitutional Constitutional ED: Denies chills or fever(s) Eyes Eyes: Denies blurry vision or change in vision ENT ENT ED: Reports rhinorrhea; Denies sore throat Cardiovascular Cardiovascular: Reports chest pain; Denies palpitations Respiratory/Chest Respiratory/Chest: Reports dyspnea; Denies cough Gastrointestinal Gastrointestinal: Denies nausea or vomiting Genitourinary Genitourinary ED: Denies dysuria or hematuria Musculoskeletal Musculoskeletal: Denies back pain or neck pain Integumentary Denies abscess or rash Neurologic Neurologic: Denies headache(s) or weakness Allergic/Immunologic Allergic/Immunologic ED: Denies mouth swelling or urticaria EXAM Physical Exam Const Vital Signs: 11/28/22 07:04 11/28/22 07:06 11/28/22 07:08 Temperature 97.5 F L 97.5 F L Temperature Source Temporal Temporal Pulse Rate 135 H 115 H Respiratory Rate 22 H 22 H Respiratory Effort Normal Non-Labored Respiratory Depth Normal Respiratory Pattern Normal Blood Pressure 155/89 H 155/89 H Blood Pressure Mean 111 111 Pulse Ox Oxygen Delivery Method Room Air Room Air 11/28/22 07:11 11/28/22 07:29 11/28/22 08:06 Temperature 97.6 F L Temperature Source Temporal Pulse Rate 119 H Respiratory Rate 22 H Respiratory Effort Respiratory Depth Respiratory Pattern Blood Pressure 147/97 H Blood Pressure Mean 113 Pulse Ox 91 92 92 Oxygen Delivery Method Room Air Room Air Room Air 11/28/22 09:00 Temperature 97.5 F L Temperature Source Temporal Pulse Rate 73 Respiratory Rate 29 H Respiratory Effort Respiratory Depth Respiratory Pattern Blood Pressure 127/96 H Blood Pressure Mean 106 Pulse Ox 92 Oxygen Delivery Method Room Air Positive well nourished and well developed General Appearance ED: well developed HEENT Reports moist mucous membranes Neck supple and no JVD Resp normal respiratory effort Auscultation: diminished lung sounds Cardio Rate: tachycardic Rhythm: abnormal rhythm irregularly irregular GI normal to inspection, nondistended, normoactive bowel sounds and non-tender Palpation: soft Extremity normal to inspection General Extremety ED: Negative for edema or tenderness General Extremity: Negative for edema Neuro oriented x3, CN's II-XII intact bilaterally and no sensory deficits noted Sensorium / Orientation: alert Motor Exam: strength 5/5 throughout Psych mental status grossly normal Skin no rashes or lesions noted MDM MDM MDM Narrative Medical decision making narrative: Differential diagnosis includes cardiac dysrhythmia, cardiac ischemia, pneumonia, bronchitis, upper respiratory infection, congestive heart failure, pulmonary embolism, hyperthyroidism, hypothyroidism, COVID infection, influenza infection, and pneumothorax. EKG will be obtained to assess for cardiac dysrhythmia and cardiac ischemia. Chest x-ray will be obtained to assess for pneumonia and pneumothorax. CBC will be obtained to assess for leukocytosis and anemia. Basic metabolic profile will be obtained to assess for electrolyte abnormality and renal function. High-sensitivity troponin will be obtained to assess for cardiac ischemia. BNP will be obtained to assess for congestive heart failure. D-dimer will be obtained to assess for pulmonary embolism. TSH will be obtained to assess for thyroid dysfunction. COVID-19 rapid antigen will be obtained to assess for COVID infection. Influenza A and influenza B antigens will be obtained to assess for influenza infection. Lab Data Attestation: I reviewed the patient's lab results. Lab results narrative: CBC was reviewed and was essentially within normal limits. Basic metabolic profile was reviewed and was essentially within normal limits. PT with INR and PTT were reviewed and were normal. D-dimer was reviewed and was 0.64 which is normal for her age. High-sensitivity troponin was reviewed and was normal. TSH was reviewed and was normal. BNP was reviewed and was elevated at 1025.8. COVID-19 rapid antigen was reviewed and was negative. Influenza A and influenza B antigens were reviewed and were negative. Labs: Laboratory Results - last 24 hr 11/28/22 11/28/22 11/28/22 07:35 07:35 07:35 WBC 8.6 RBC 5.72 H Hgb 13.4 Hct 45.4 MCV 79.4 L MCH 23.4 L MCHC 29.5 L RDW Std Deviation 46.6 H RDW Coeff of [place] 16.5 H Plt Count 297 MPV 9.6 Immature Gran % (Auto) 0.400 Neut % (Auto) 76.5 H Lymph % (Auto) 13.5 L [place] % (Auto) 8.0 Eos % (Auto) 0.8 Baso % (Auto) 0.8 Absolute Neuts (auto) 6.6 Absolute Lymphs (auto) 1.15 Nucleated RBC % 0 PT 13.5 INR 1.0 APTT 32.6 D-Dimer Quant (PE/DVT) 0.64 H* Sodium 137 Potassium 4.4 Chloride 97 L Carbon Dioxide 33.0 H Anion Gap 7 BUN 21 H Creatinine 0.86 Estim Creat Clear Calc 35.42 Est GFR (MDRD) Af Amer 82 Est GFR (MDRD) Non-Af 68 BUN/Creatinine Ratio 24.5 H Glucose 143 H Calcium 9.7 Troponin I High Sens 32 B-Natriuretic Peptide TSH 3.44 11/28/22 07:35 WBC RBC Hgb Hct MCV MCH MCHC RDW Std Deviation RDW Coeff of [place] Plt Count MPV Immature Gran % (Auto) Neut % (Auto) Lymph % (Auto) [place] % (Auto) Eos % (Auto) Baso % (Auto) Absolute Neuts (auto) Absolute Lymphs (auto) Nucleated RBC % PT INR APTT D-Dimer Quant (PE/DVT) Sodium Potassium Chloride Carbon Dioxide Anion Gap BUN Creatinine Estim Creat Clear Calc Est GFR (MDRD) Af Amer Est GFR (MDRD) Non-Af BUN/Creatinine Ratio Glucose Calcium Troponin I High Sens B-Natriuretic Peptide 1025.8 H TSH Radiography Chest X-Ray - ED: 2 View, Read by ED Physician and CHF Diagnostic Testing: Clinical Impression(s) from Imaging Studies Chest X-Ray 11/28/22 07:29 IMPRESSION: CHF. Bibasilar pneumonia, atelectasis and/or pulmonary edema. COPD. Electronically Signed: Ramiro Tim MD at 7:55 EDT , PA and lateral chest x-ray was obtained. There are 2 views. On my independent interpretation, there is evidence of congestive heart failure. There is bibasilar atelectasis versus infiltrate. Bony thorax is normal. There is no cardiomegaly. Radiologist also interpreted the x-ray and agrees. EKG Initial EKG: Attestation: I personally reviewed and interpreted this EKG as follows: Interpretation: Atrial Flutter (113) and Non-Specific ST Changes Comments: EKG was obtained. On my independent interpretation, it shows atrial flutter with a rate of 113. QRS interval was normal. QTc interval was normal. [place] was normal. There is left ventricular hypertrophy noted. There are nonspecific ST-T wave changes which are likely related to the left ventricular hypertrophy. Prior EKG tracings: available for review Prior: Unchanged (04/19/2022) Management Discussion w/another healthcare provider: Hospitalist Treatment and Re-Evaluation :: Patient was given a dose of IV Cardizem here. Patient was also given a dose of Lasix. Patient was advised of her findings. Patient is feeling better on reevaluation. Patient was advised of the need for hospitalization. Case was discussed with the hospitalist. She will admit the patient to her service. Patient understood and was agreeable with the plan. All questions were answered. Discharge Plan Dx/Rx/DC Orders Clinical Impression: Congestive heart failure, Dyspnea Disposition Disposition: Acute Care Hospital [facility]
--- NOTE | 2022-11-28 07:29 | RAD_ITS ---
EXAM: XR CHEST, 2 VIEWS CLINICAL INDICATION: Dyspnea TECHNIQUE: Frontal and lateral views of the chest. COMPARISON: XR Chest dated 03/17/2020 FINDINGS: LUNGS AND PLEURAL SPACES: Small bilateral pleural effusions and bibasilar pulmonary densities which may represent edema, pneumonia and/or atelectasis. Upper lobes of lungs appear hyperinflated. No pneumothorax. HEART: Heart is enlarged. MEDIASTINUM: No mediastinal or hilar mass. BONES/JOINTS: No acute abnormality. RAD/Chest PA and Lateral IMPRESSION: CHF. Bibasilar pneumonia, atelectasis and/or pulmonary edema. COPD. Electronically Signed: Ramiro Tim MD at 7:55 EDT ,
[2022-11-28 07:50] LABS: Absolute Lymphocyte Count 1.15 X10^3/uL (0.83-4.51); Absolute Neutrophil Count 6.6 X10^3/uL (2.0-7.7); Basophil# 0.07 X10^3/uL; Basophil% 0.8 % (0-1); Eosinophil# 0.07 X10^3/uL; Eosinophils% 0.8 % (0-5); Hematocrit 45.4 % (37-47); Hemoglobin 13.4 g/dL (12.0-15.0); Lymphocyte # 1.15 X10^3/ul (0.83-4.51); Lymphocyte % 13.5 % (19-41); Mean Corp Hgb Conc 29.5 g/dL (32-36); Mean Corpuscular Hgb 23.4 pg (27.0-32.0); Mean Corpuscular Volume 79.4 fL (81-99); Mean Platelet Vol. 9.6 fl (6.2-12.0); Monocyte# 0.68 X10^3/uL; NRBC Flagged by Analyzer 0 % (0-5); Neutrophil # 6.55 X10^3/uL (2.7-7.7); Neutrophil % 76.5 % (47-70); Platelet Count 297 K/mm3 (150-450); RBC Distribution Width CV 16.5 % (11.6-14.6); RBC Distribution Width SD 46.6 fl (35.1-43.9); Red Blood Count 5.72 M/mm3 (4.2-5.4); White Blood Count 8.6 K/mm3 (4.4-11.0)
[2022-11-28 08:08] LABS: Anion Gap 7 (5-15); BUN 21 mg/dL (7-18); BUN/Creat Ratio 24.5 RATIO (10-20); Calcium,Total 9.7 mg/dL (8.5-10.1); Chloride 97 mmol/L (98-107); Creatinine, Serum 0.86 mg/dL (0.55-1.02); EST Glomerular Filtration Rate 68 mL/min (>60); Est Glom Filt Rate - Afr Amer 82 mL/min (>60); Estimated Creatinine Clearance 35.42 ml/min; Glucose 143 mg/dL (74-106); Potassium 4.4 mmol/L (3.5-5.1); Sodium Level 137 mmol/L (136-145); Thyroid Stim Hormone (TSH) 3.44 uIU/mL (0.358-3.74); Troponin-I HS 32 pg/mL (3.0-54.0)
[2022-11-28 08:10] LABS: BNP,B-Type NATRIURETIC PEPTIDE 1025.8 pg/mL (0-100)
[2022-11-28 08:32] LABS: Prothrombin Time (Protime)PT. 13.5 SECONDS (11.7-14.9)
[2022-11-28 08:33] LABS: Partial Thromboplast Time 32.6 Seconds (24.1-36.2)
[2022-11-28] MEDS: dilTIAZem 25 MG/5 ML Vial IV BOLUS (08:36)
[2022-11-28 08:56] LABS: D-Dimer Quantitative (DVT/PE) 0.64 FEU/ug/m (0.27-0.49)
[2022-11-28] MEDS: Furosemide 40 MG/4 ML Vial IV ×2 (09:05→17:07)
--- NOTE | 2022-11-28 09:38 | HP.PCM.HOS_ITS ---
HPI - General General Date of Admission: 11/28/22 Date of Service: 11/28/22 Chief Complaint: shortness of breath HPI Narrative GISSEL MCKINNEY, is a 81 F with a PMH as outlined who presents via the ED on 11/28/2022 with a complaint of shortness of breath which had been going on for several days. She had associated chest heaviness, and shortness of breath worsened with ambulation and exertion. She denied orthopnea or PND and denied any lightheadedness or dizziness or palpitations. Review of systems is otherwise negative. Vitals were blood pressure of 130/82 with pulse rate of 98 and temperature of 98.1 Fahrenheit. Respiratory rate was 18 and she was saturating at 92% on room air. CBC was largely unremarkable and BMP was significant for BNP of 1025.8. Initial troponin was 32 and trended down was 30. Chest x-ray showed evidence of bibasilar pneumonia and/or pulmonary edema as well as CHF and cardiomegaly. She has been admitted to be managed for acute on chronic exacerbation of heart failure. 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 Long-term use of high-risk medication Paroxysmal atrial fibrillation Persistent atrial fibrillation with rapid ventricular response Thyroid disorder Home Medications aspirin 325 mg tablet 325 mg PO DAILY #90 tabs 08/23/21 [Rx Last Taken Unknown] chlorpheniramine maleate 4 mg tablet (Allergy (chlorpheniramine)) 4 mg PO Q8H PRN Allergy Symptoms 08/23/21 [History Last Taken Unknown] diltiazem HCl 120 mg capsule,extended release 24 hr 120 mg PO DAILY #90 caps 05/07/22 [Rx Last Taken Unknown] furosemide 40 mg tablet 20 mg PO BID water pill #90 tabs 11/26/22 [Rx Last Taken Unknown] Allergy/AdvReac Type Severity Reaction Status Date / Time amiodarone Allergy Hives Verified 11/26/22 15:28 Family History Father Heart disease cardiomyopathy Sister Heart disease Cardiomyopathy heart transplant Surgical History History of cardiac catheterization History of tonsillectomy History of tubal ligation Social History Smoking Status: Never smoker alcohol intake: never substance use type: does not use caffeine: Yes Type: coffee Number of servings: 3 ROS Review of Systems ROS Unobtainable: Denies due to encephalopathy Constitutional Constitutional: Reports fatigue, malaise and weakness; Denies anorexia, chills or fever(s) Eyes Eyes: Denies change in vision ENT HEENT: Denies dysphagia, headache(s) or nasal congestion Cardiovascular Cardiovascular: Reports dyspnea on exertion; Denies chest pain, claudication, edema, lightheadedness, orthopnea, palpitations, paroxysmal nocturnal dyspnea, rapid heart rate or syncope Respiratory/Chest Respiratory/Chest: Reports shortness of breath at rest and shortness of breath with exertion; Denies cough, dyspnea or productive cough Gastrointestinal Gastrointestinal: Denies constipation, diarrhea, nausea or vomiting Genitourinary Genitourinary: Denies dysuria Musculoskeletal Musculoskeletal: Denies arthralgias or joint pain Neurologic Neurologic: Denies confusion, disequilibrium, dizziness, focal weakness, headache(s), numbness or seizures Psychiatric Psychiatric: Denies anxiety or depression Endocrine Endocrinology: Denies change in body appearance Hematologic/Lymphatic Hematologic/Lymphatic: Reports easy bleeding; Denies anemia Vital Signs Vital Signs Vital Signs: 11/28/22 07:04 11/28/22 07:06 11/28/22 07:08 Temperature 97.5 F L 97.5 F L Temperature Source Temporal Temporal Pulse Rate 135 H 115 H Respiratory Rate 22 H 22 H Respiratory Effort Normal Non-Labored Respiratory Depth Normal Respiratory Pattern Normal Blood Pressure 155/89 H 155/89 H Blood Pressure Mean 111 111 Pulse Ox Oxygen Delivery Method Room Air Room Air 11/28/22 07:11 11/28/22 07:29 11/28/22 08:06 Temperature 97.6 F L Temperature Source Temporal Pulse Rate 119 H Respiratory Rate 22 H Respiratory Effort Respiratory Depth Respiratory Pattern Blood Pressure 147/97 H Blood Pressure Mean 113 Pulse Ox 91 92 92 Oxygen Delivery Method Room Air Room Air Room Air 11/28/22 09:00 Temperature 97.5 F L Temperature Source Temporal Pulse Rate 73 Respiratory Rate 29 H Respiratory Effort Respiratory Depth Respiratory Pattern Blood Pressure 127/96 H Blood Pressure Mean 106 Pulse Ox 92 Oxygen Delivery Method Room Air Weight Weight: 94 lb 12.78 oz Body Mass Index (BMI) 17.3 Physical Exam Const alert, oriented x3 and no apparent distress Constitutional Narrative: frail General Appearance: cooperative HEENT normocephalic, head/scalp atraumatic, hearing grossly normal bilaterally and moist oral mucous membranes Mouth: oral and palatal mucosa normal Eyes PERRL, EOMs intact bilaterally and conjunctivae normal Neck no lymphadenopathy, supple and no JVD Resp Resp Narrative: diminished breath sounds bibasally, no crackles, no wheezing. On room air. Cardio regular rate, regular rhythm, S1 normal heart sound, S2 normal heart sound and no murmurs GI normal to inspection, nondistended, normoactive bowel sounds, soft to palpation, non-tender and non-distended Extremity normal to inspection, full ROM and no clubbing, cyanosis or edema Neuro oriented x3, CN's II-XII intact bilaterally and moves all extremities Sensorium / Orientation: awake and alert Motor Exam: strength 5/5 throughout Psych affect normal Results Lab / Micro Data Result Diagrams: 11/28/22 07:35 11/28/22 07:35 Labs: Laboratory Results - last 24 hr 11/28/22 07:35: WBC 8.6, RBC 5.72 H, Hgb 13.4, Hct 45.4, MCV 79.4 L, MCH 23.4 L, MCHC 29.5 L, RDW Std Deviation 46.6 H, RDW Coeff of [place] 16.5 H, Plt Count 297, MPV 9.6, Immature Gran % (Auto) 0.400, Neut % (Auto) 76.5 H, Lymph % (Auto) 13.5 L, [place] % (Auto) 8.0, Eos % (Auto) 0.8, Baso % (Auto) 0.8, Absolute Neuts (auto) 6.6, Absolute Lymphs (auto) 1.15, Nucleated RBC % 0 11/28/22 07:35: PT 13.5, INR 1.0, APTT 32.6, D-Dimer Quant (PE/DVT) 0.64 H* 11/28/22 07:35: Sodium 137, Potassium 4.4, Chloride 97 L, Carbon Dioxide 33.0 H, Anion Gap 7, BUN 21 H, Creatinine 0.86, Estim Creat Clear Calc 35.42, Est GFR (MDRD) Af Amer 82, Est GFR (MDRD) Non-Af 68, BUN/Creatinine Ratio 24.5 H, Glucose 143 H, Calcium 9.7, Troponin I High Sens 32, TSH 3.44 11/28/22 07:35: B-Natriuretic Peptide 1025.8 H Micro: Microbiology 11/28/22 07:36 Nasal Secretion SARS-CoV-2 & FLU Antigen (Rapid) - Final Radiology Impression Chest X-Ray 11/28/22 07:29 IMPRESSION: CHF. Bibasilar pneumonia, atelectasis and/or pulmonary edema. COPD. Electronically Signed: Ramiro Tim MD at 7:55 EDT , Assessment & Plan Assessment/Plan (1) Congestive heart failure: (2) Dyspnea: PLAN: Plan #Acute on chronic exacerbation of heart failure * Admit to PCU. BNP is elevated at over thousand. * Chest x-ray showed evidence of CHF with pulmonary edema and a bibasilar pneumonia. However I suspect that the features are more likely due to CHF exacerbation. * Admit to PCU. Diuresed with IV Lasix 40 mg twice daily. Monitor intake and blood. Fluid restriction 1500 cc daily. * 2D echo ordered. * Previous 2D echo in EMR from 2019 showed EF of 55% with evidence of diastolic dysfunction and no regional wall motion abnormalities noted. * #Paroxysmal afib: * She is s/p cardioversion in January 2018, March 2018 and October 2018 at [facility] as well as radiofrequency ablation. Currently rate controlled. On cardizem. * not anticoagulated. From her last cardiology visit in November 2022 which was just 2 days prior to this admission, it is noted that patient is not on long-term anticoagulation and it is her decision to be off anticoagulation. * * DVT prophylaxis: Lovenox CODE STATUS: Full code * Patient counseled extensively about different types of CODE STATUS including full code, DNR CCA and DNR CCA. Patient elects to be full code. * Total [id number] time 17 minutes. * Total time spent on evaluation and management of patient, reviewing chart, discussing plan with patient, discussion with nursing and ancillary staff as well as documentation: 77 mins # Charges/Coding Visit Charges Inpatient E&M: 49188 Init Hosp L3 Procedures Hospitalists Procedures: 82462 Advncd Care Plan 30 Min
--- NOTE | 2022-11-28 09:40 | NURSING ---
DR SANDOVAL FOR DR PHILLIPS
--- NOTE | 2022-11-28 09:51 | NURSING ---
PCU KORAM CHF, DYSPNEA, ATRIAL FLUTTER
--- NOTE | 2022-11-28 11:25 | ECHOCS_ITS ---
Reason For Study: CONGESTIVE HEART FAILURE Procedure This was a 2D Doppler, Color Flow transthoracic echocardiogram. The study was technically difficult. Exam performed portable in patient room. Left Ventricle Normal LV size. Mild concentric left ventricular hypertrophy. The left ventricular ejection fraction is 50 %. Diastolic function is indeterminate. Right Ventricle Normal right ventricle. Atria The left atrium is severely enlarged. The right atrium is moderately enlarged. Mitral Valve Mild (1+) mitral valve insufficiency. Tricuspid Valve Normal tricuspid valve. Aortic Valve Mild diffuse aortic valve calcification. Mild aortic stenosis. Pulmonic Valve The pulmonic valve is not well visualized. Mild (1+) pulmonic valve insufficiency. Great Vessels Normal sized aortic root. Pericardium/Pleural No pericardial effusion. Large right pleural effusion. Large left pleural effusion. Medication Diluted definity 2ml given slow IV push to enhance endocardial definition. MMode/2D Measurements & Calculations LVIDd: 3.7 cm IVSd: 1.1 cm LVOT diam: 1.9 cm LVIDs: 2.8 cm LVPWd: 1.0 cm RVDd: 3.1 cm FS: 23.3 % LVOT area: 2.7 cm2 Ao root diam: 3.2 cm LAV(MOD-bp): 49.7 ml LVAd ap4: 33.7 cm2 LAV(MOD-bp) Indexed: 33.8 ml/m2 LVLd ap4: 7.5 cm LAV(MOD-sp2): 53.9 ml EDV(MOD-sp4): 123.6 ml LAV(MOD-sp4): 43.3 ml EDV(sp4-el): 128.7 ml LVAs ap4: 23.9 cm2 LVLs ap4: 6.4 cm ESV(MOD-sp4): 72.3 ml ESV(sp4-el): 76.0 ml EF(MOD-sp4): 41.5 % EF(sp4-el): 41.0 % LVAd ap2: 28.9 cm2 SV(MOD-sp4): 51.3 ml SV(MOD-sp2): 46.0 ml LVLd ap2: 6.9 cm EDV(MOD-sp2): 97.3 ml EDV(sp2-el): 102.7 ml LVAs ap2: 19.7 cm2 LVLs ap2: 5.7 cm ESV(MOD-sp2): 51.3 ml ESV(sp2-el): 57.7 ml EF(MOD-sp2): 47.3 % SV(sp4-el): 52.7 ml LA dimension(2D): 3.8 cm LA A4 area: 16.9 cm2 RA A4 area: 16.3 cm2 Time Measurements MV dec time: 0.15 sec Doppler Measurements & Calculations MV E max romeo: 113.4 cm/sec Lat Peak E' Romeo: 7.2 cm/sec Med Peak E' Romeo: 6.0 cm/sec E/E' lat: 15.8 E/E' med: 18.9 Ao V2 max: 212.3 cm/sec LV V1 max: 92.6 cm/sec PA V2 max: 98.5 cm/sec Ao max P.2 mmHg LV V1 max P.5 mmHg PA max PG (full): 1.5 mmHg DAVE(V,D): 1.2 cm2 ECHO/Echo Complete W/ Contrast Interpretation Summary Mild concentric left ventricular hypertrophy. The left ventricular ejection fraction is 45-50 %. Mid to distal septal hypokin esis. Diastolic function is indeterminate. The left atrium is severely enlarged. The right atrium is moderately enlarged. Mild aortic stenosis. Moderate to large bilateral pleural effusions. Ordering Physician: Olivia Newby Referring Physician: Mio Forbes MD Performed By: Aminata Renee
[2022-11-28 14:00] LABS: Troponin-I HS 30 pg/mL (3.0-54.0)
[2022-11-28] MEDS: dilTIAZem CD 120 MG Capsule PO (15:29)
[2022-11-28] MEDS: Aspirin 325 MG Tablet PO (15:29)
[2022-11-28] MEDS: 0.9% Saline Lock 10 ML Syringe IV (17:07)
[2022-11-29 04:18] VITALS: BP 102/61; PULSE 89; RESP 16; TEMP 36.7; O2SAT 92
[2022-11-29 05:50] LABS: Absolute Lymphocyte Count 1.56 X10^3/uL (0.83-4.51); Absolute Neutrophil Count 4.3 X10^3/uL (2.0-7.7); Basophil# 0.07 X10^3/uL; Eosinophil# 0.13 X10^3/uL; Eosinophils% 1.9 % (0-5); Hematocrit 41.6 % (37-47); Hemoglobin 12.6 g/dL (12.0-15.0); Lymphocyte # 1.56 X10^3/ul (0.83-4.51); Lymphocyte % 22.3 % (19-41); Mean Corp Hgb Conc 30.3 g/dL (32-36); Mean Corpuscular Hgb 23.6 pg (27.0-32.0); Mean Corpuscular Volume 77.8 fL (81-99); Mean Platelet Vol. 9.2 fl (6.2-12.0); Monocyte# 0.94 X10^3/uL; Monocyte% 13.4 % (0-10); NRBC Flagged by Analyzer 0 % (0-5); Neutrophil # 4.28 X10^3/uL (2.7-7.7); Neutrophil % 61.1 % (47-70); Platelet Count 261 K/mm3 (150-450); RBC Distribution Width CV 16.2 % (11.6-14.6); RBC Distribution Width SD 45.6 fl (35.1-43.9); Red Blood Count 5.35 M/mm3 (4.2-5.4)
[2022-11-29 06:24] LABS: Anion Gap 6 (5-15); BUN 18 mg/dL (7-18); BUN/Creat Ratio 21.5 RATIO (10-20); Calcium,Total 9.1 mg/dL (8.5-10.1); Chloride 98 mmol/L (98-107); Creatinine, Serum 0.84 mg/dL (0.55-1.02); EST Glomerular Filtration Rate 69 mL/min (>60); Est Glom Filt Rate - Afr Amer 84 mL/min (>60); Estimated Creatinine Clearance 41.49 ml/min; Glucose 110 mg/dL (74-106); Potassium 3.9 mmol/L (3.5-5.1); Sodium Level 137 mmol/L (136-145)
[2022-11-29] MEDS: Aspirin 325 MG Tablet PO (08:19)
[2022-11-29 09:26] VITALS: O2SAT 93
[2022-11-29] MEDS: dilTIAZem CD 120 MG Capsule PO (09:29)
[2022-11-29 09:35] VITALS: BP 105/61; PULSE 99; RESP 15; TEMP 36.6; O2SAT 93
[2022-11-29] MEDS: 0.9% Saline Lock 10 ML Syringe IV ×2 (09:46→17:05)
[2022-11-29] MEDS: Furosemide 40 MG/4 ML Vial IV ×2 (09:46→17:05)
--- NOTE | 2022-11-29 11:35 | CASEMGMT ---
RN CM Face to Face with patient for initial transition planning/care coordination assessment. RN CM introduced self and role at [facility]. Patient lying in bed, alert and oriented. Patient willing to participate in assessment and is able to answer all questions appropriately. Care providers, pharmacy, and demographics verified. Patient wishes to discharge home, denies need for home health at this time. Patient states she has no further needs or concerns at this time. CM to follow for discharge planning needs that may arise. PCP: Leidy Specialists: Ruby belt sander Preferred [facility]acy: [facility] Prescription Benefit: yes Living Will/HPOA: none LNOK: son Living Arrangements: Patient lives alone in a mobile home with 3 steps and railing to enter the home. Patient states she is independent at home. Transportation: self, son DME/HHC: Patient denies DME in the home. No previous HHC or SNF Disposition Plan: Patient to discharge home with family support and follow-up plans in place. Tomeka LEMONS, RN, CM
--- NOTE | 2022-11-29 12:35 | PN_ITS ---
Subjective Subjective Patient seen and examined. She had no complaints and feels much better. Her breathing is improved. Review of systems otherwise negative. She has remained hemodynamically stable. Objective Data Objective Data Vital Signs: Vital Signs Temp Pulse Resp BP Pulse Ox O2 Del Method O2 Flow Rate 97.9 F 99 15 105/61 93 Room Air 100 11/29/22 09:35 11/29/22 09:35 11/29/22 09:35 11/29/22 09:35 11/29/22 09:35 11/29/22 09:44 11/29/22 09:35 Oxygen Flow Rate (L/min) 100 Oxygen Delivery Method Room Air Weight: 108 lb 7.479 oz Body Mass Index (BMI) 19.8 Intake & Output: Intake and Output for Last 24 Hours 11/27/22 11/28/22 11/29/22 23:59 23:59 23:59 Intake Total 270 / 270 100 / 100 Output Total 600 / 600 Balance -330 / -330 100 / 100 Lab / Micro Data Result Diagrams: 11/29/22 05:33 11/29/22 05:33 Labs: Laboratory Results - last 24 hr 11/28/22 13:35: Troponin I High Sens 30 11/29/22 05:33: Sodium 137, Potassium 3.9, Chloride 98, Carbon Dioxide 33.0 H, Anion Gap 6, BUN 18, Creatinine 0.84, Estim Creat Clear Calc 41.49, Est GFR (MDRD) Af Amer 84, Est GFR (MDRD) Non-Af 69, BUN/Creatinine Ratio 21.5 H, G lucose 110 H, Calcium 9.1 11/29/22 05:33: WBC 7.0, RBC 5.35, Hgb 12.6, Hct 41.6, MCV 77.8 L, MCH 23.6 L, MCHC 30.3 L, RDW Std Deviation 45.6 H, RDW Coeff of [place] 16.2 H, Plt Count 261, MPV 9.2, Immature Gran % (Auto) 0.300, Neut % (Auto) 61.1, Lymph % (Auto) 22.3, [place] % (Auto) 13.4 H, Eos % (Auto) 1.9, Baso % (Auto) 1.0, Absolute Neuts (auto) 4.3, Absolute Lymphs (auto) 1.56, Nucleated RBC % 0 Micro: Microbiology 11/28/22 07:36 Nasal Secretion SARS-CoV-2 & FLU Antigen (Rapid) - Final Radiography Diagnostic Testing: Radiology Impression Echocardiogram 11/28/22 11:25 Interpretation Summary Mild concentric left ventricular hypertrophy. The left ventricular ejection fraction is 45-50 %. Mid to distal septal hypokinesis. Diastolic function is indeterminate. The left atrium is severely enlarged. The right atrium is moderately enlarged. Mild aortic stenosis. Moderate to large bilateral pleural effusions. Ordering Physician: Olivia Newby Referring Physician: Mio Forbes MD Performed By: Aminata Renee Physical Exam Const alert, oriented x3 and no apparent distress Constitutional Narrative: frail General Appearance: cooperative HEENT normocephalic, head/scalp atraumatic, hearing grossly normal bilaterally and moist oral mucous membranes Eyes PERRL, EOMs intact bilaterally and conjunctivae normal Neck no lymphadenopathy, supple and no JVD Resp Resp Narrative: diminished breath sounds bibasally, no crackles, no wheezing. On room air. Cardio regular rate, regular rhythm, S1 normal heart sound, S2 normal heart sound and no murmurs GI normal to inspection, nondistended, normoactive bowel sounds, soft to palpation, non-tender and non-distended Extremity normal to inspection, full ROM and no clubbing, cyanosis or edema Skin General Skin Exam: no breakdown Neuro oriented x3, CN's II-XII intact bilaterally and moves all extremities Sensorium / Orientation: awake and alert Motor Exam: strength 5/5 throughout Psych affect normal Assessment & Plan Assessment/Plan (1) Congestive heart failure: (2) Dyspnea: PLAN: Plan #Acute on chronic exacerbation of heart failure with preserved EF * feels much better today. On room air * being diuresed with IV lasix 40mg bid * Monitor intake and output. Fluid restriction to 1500 cc daily. * 2D echo shows EF of 45 to 50% with mild concentric left ventricular hypertrophy and mid to distal septal hypokinesis with severely enlarged left atrium and moderately enlarged right atrium as well as moderate to large bilateral pleural effusion and mild aortic stenosis. * Patient requesting cardiology evaluation. Dr. Beltran informed. * * #Paroxysmal afib: * She is s/p cardioversion in January 2018, March 2018 and October 2018 at [facility] as well as radiofrequency ablation. Currently rate controlled. On cardizem. * not anticoagulated. From her last cardiology visit in November 2022 which was just 2 days prior to this admission, it is noted that patient is not on long-term anticoagulation and it is her decision to be off anticoagulation. * * DVT prophylaxis: Lovenox CODE STATUS: Full code * * Total time spent on evaluation and management of patient, reviewing chart, discussing plan with patient, discussion with nursing and ancillary staff as well as documentation: 45 mins # Charges/Coding Visit Charges Inpatient E&M: 70995 Subs Hosp L2
--- NOTE | 2022-11-29 13:06 | CHAPLAIN ---
Type of Pastoral Visit _x__ Initial Visit ___ Follow-up Visit ___ On-call Visit ___ General Patient Visit ___ Spiritual Assessment ___ Family Conference ___ Bereavement ___ Rapid Response ___ Code Blue ___ Other (describe below) Pastoral Care Referral From _x__ Patient ___ Family ___ Nurse ___ Physician ___ Project Controls Specialist ___ Macroeconomics Professor ___ Other (describe below) Sacrament/Intervention _x__ Active listening ___ Anointing ___ Nondenominational ___ Bereavement ___ Communion _x__ Sofia exploration ___ ___ Life review _x__ Prayer ___ Reconciliation ___ Sacrament of Sick _x__ Supportive presence ___ Wedding ___ Other (describe below) Pastoral Comments
[2022-11-29 14:23] VITALS: BP 108/63; PULSE 87; RESP 17; TEMP 36.4; O2SAT 92
[2022-11-29] MEDS: Ensure Plus High Protein 120 ML LIQUID PO (16:48)
[2022-11-29 18:01] VITALS: BP 124/76; PULSE 75; RESP 16; TEMP 36.5; O2SAT 96
[2022-11-30] VITALS (7 sets, daily range): BP systolic 113–133; BP diastolic 64–82; PULSE 67–95; RESP 16; TEMP 36.1–36.9; O2SAT 93–96; BMI 17.2
[2022-11-30 06:58] LABS: Absolute Lymphocyte Count 1.36 X10^3/uL (0.83-4.51); Absolute Neutrophil Count 4.1 X10^3/uL (2.0-7.7); Basophil# 0.06 X10^3/uL; Basophil% 0.9 % (0-1); Eosinophil# 0.21 X10^3/uL; Eosinophils% 3.2 % (0-5); Hematocrit 43.3 % (37-47); Hemoglobin 12.7 g/dL (12.0-15.0); Lymphocyte # 1.36 X10^3/ul (0.83-4.51); Mean Corp Hgb Conc 29.3 g/dL (32-36); Mean Corpuscular Hgb 23.1 pg (27.0-32.0); Mean Corpuscular Volume 78.7 fL (81-99); Monocyte# 0.77 X10^3/uL; Monocyte% 11.9 % (0-10); NRBC Flagged by Analyzer 0 % (0-5); Neutrophil # 4.08 X10^3/uL (2.7-7.7); Neutrophil % 62.8 % (47-70); Platelet Count 270 K/mm3 (150-450); RBC Distribution Width CV 16.2 % (11.6-14.6); RBC Distribution Width SD 45.9 fl (35.1-43.9); White Blood Count 6.5 K/mm3 (4.4-11.0)
[2022-11-30 07:37] LABS: Anion Gap 6 (5-15); BUN 20 mg/dL (7-18); BUN/Creat Ratio 24.1 RATIO (10-20); Calcium,Total 8.9 mg/dL (8.5-10.1); Chloride 97 mmol/L (98-107); Creatinine, Serum 0.83 mg/dL (0.55-1.02); EST Glomerular Filtration Rate 70 mL/min (>60); Est Glom Filt Rate - Afr Amer 85 mL/min (>60); Estimated Creatinine Clearance 36.36 ml/min; Glucose 100 mg/dL (74-106); Potassium 3.5 mmol/L (3.5-5.1); Sodium Level 139 mmol/L (136-145)
[2022-11-30] MEDS: dilTIAZem CD 120 MG Capsule PO (08:32)
[2022-11-30] MEDS: Ensure Plus High Protein 120 ML LIQUID PO (08:32)
[2022-11-30] MEDS: Aspirin 325 MG Tablet PO (08:32)
[2022-11-30] MEDS: Furosemide 40 MG/4 ML Vial IV (08:33)
[2022-11-30] MEDS: 0.9% Saline Lock 10 ML Syringe IV (08:34)
--- NOTE | 2022-11-30 10:14 | DS.PCM_ITS ---
Providers Date of Admission: 11/28/22 Date of Discharge: 11/30/22 Primary Care Physician: Dr. Raghu Forbes MD Reason For Visit: ACUTE EXACERBATION OF HEART FAILURE Diagnosis Discharge Diagnosis (1) Congestive heart failure: Status: Acute Code(s): I50.9 - Heart failure, unspecified (2) Dyspnea: Status: Acute Code(s): R06.00 - Dyspnea, unspecified Plan #Acute on chronic exacerbation of heart failure with preserved EF * feels much better today. On room air * being diuresed with IV lasix 40mg bid * Monitor intake and output. Fluid restriction to 1500 cc daily. * 2D echo shows EF of 45 to 50% with mild concentric left ventricular hypertrophy and mid to distal septal hypokinesis with severely enlarged left atrium and moderately enlarged right atrium as well as moderate to large bilateral pleural effusion and mild aortic stenosis. * Patient requesting cardiology evaluation. Dr. Beltran informed. * * #Paroxysmal afib: * She is s/p cardioversion in January 2018, March 2018 and October 2018 at [facility] as well as radiofrequency ablation. Currently rate controlled. On cardizem. * not anticoagulated. From her last cardiology visit in November 2022 which was just 2 days prior to this admission, it is noted that patient is not on long-term anticoagulation and it is her decision to be off anticoagulation. * * DVT prophylaxis: Lovenox CODE STATUS: Full code * * Total time spent on evaluation and management of patient, reviewing chart, discussing plan with patient, discussion with nursing and ancillary staff as well as documentation: 45 mins # Medications at Discharge Home Medications aspirin 325 mg tablet 325 mg PO DAILY #90 tabs 08/23/21 chlorpheniramine maleate 4 mg tablet (Allergy (chlorpheniramine)) 4 mg PO Q8H PRN Allergy Symptoms 08/23/21 diltiazem HCl 120 mg capsule,extended release 24 hr 120 mg PO DAILY #90 caps 05/07/22 furosemide 40 mg tablet 40 mg PO BID #60 tabs 11/30/22 potassium chloride 20 mEq tablet,extended release(part/cryst) (Klor-Con M) 20 meq PO DAILY #30 tabs 11/30/22 Hospital Course Operations None Procedures 2-D Echocardiogram Summary of Care Provided Minutes Spent on Discharge: 47 Hospital Course: GISSEL GERELVIRANIC, is a 81 F with a PMH as outlined who presents via the ED on 11/28/2022 with a complaint of shortness of breath which had been going on for several days. She had associated chest heaviness, and shortness of breath worsened with ambulation and exertion.? She denied orthopnea or PND and denied any lightheadedness or dizziness or palpitations.? Review of systems is otherwise negative. Vitals were blood pressure of 130/82 with pulse rate of 98 and temperature of 98.1 Fahrenheit.? Respiratory rate was 18 and she was saturating at 92% on room air.? CBC was largely unremarkable and BMP was significant for BNP of 1025.8.? Initial troponin was 32 and trended down was 30.? Chest x-ray showed evidence of bibasilar pneumonia and/or pulmonary edema as well as CHF and cardiomegaly.? She was admitted to be managed for acute on chronic exacerbation of heart failure with preserved EF. She was diuresed with IV Lasix 40 mg twice daily. Shortness of breath improved and she felt better. She had 2D echo which showed EF of 45 to 50% with mild concentric left ventricular hypertrophy and mid to distal septal hypokinesis with severely enlarged left atrium and moderately enlarged right atrium as well as moderate to large bilateral pleural effusions and mild aortic stenosis. Patient was not on anticoagulation for her A-fib and said this was per her request as she was on aspirin and did not want to be on anything stronger. His shortness of breath improved and she felt better so thoracentesis was deferred. She was placed on room air and felt much better. She was discharged home on 11/30/2022 on p.o. Lasix 40 mg twice daily with potassium supplementation. She is follow-up with her primary care doctor and follow-up with cardiology on outpatient basis. Patient seen and examined prior to discharge. She felt much better and had no active complaints. She had an uneventful night and review of systems otherwise negative. Labs and vitals reviewed. Home medication reviewed and reconciled. Physical Exam Const alert, oriented x3 and no apparent distress Constitutional Narrative: frail General Appearance: cooperative and comfortable HEENT normocephalic, head/scalp atraumatic, hearing grossly normal bilaterally and moist oral mucous membranes Mouth: oral and palatal mucosa normal Eyes PERRL, EOMs intact bilaterally and conjunctivae normal Neck no lymphadenopathy, supple and no JVD Resp Resp Narrative: diminished breath sounds bibasally, no crackles, no wheezing. On room air. Cardio regular rate, regular rhythm, S1 normal heart sound, S2 normal heart sound and no murmurs GI normal to inspection, nondistended, normoactive bowel sounds, soft to palpation, non-tender and non-distended Extremity normal to inspection, full ROM and no clubbing, cyanosis or edema Skin no rashes or lesions noted General Skin Exam: no breakdown Neuro oriented x3, CN's II-XII intact bilaterally and moves all extremities Sensorium / Orientation: awake and alert Motor Exam: strength 5/5 throughout Psych affect normal Medical Records Data Medical Nutrition Assessment Dietitian: Malnutrition Criteria Met Start: 11/29/22 13:49 Freq: Status: Active Protocol: Document 11/29/22 13:49 (Rec: 11/29/22 13:49 [id number]) Nutrition Malnutrition Evidence of Malnutrition Exists Yes Malnutrition (moderate): Chronic Evidenced By Suboptimal Energy Intake ( Moderate),Physical Changes ( Moderate) Clinical Problem Chronic Disease or Condition Related Malnutrition Etiology moderate, chronic malnutrition related to inadequate energy intake Signs/Symptoms as evidenced by estimated PO intake meeting <75% of estimated energy needs > 3 months; moderate muscle wasting/fat loss evident per physical exam in orbital, clavicle, acromion and temporal areas; BMI 19.8 (BMI w/ usual body wt 18.1) Status Active Problem Recommendation Dietitian Recommendations/Changes sodium restricted diet w/ fluid restriction as indicated ; will add 120mL ensure plus high protein TID given evidence of malnutrition Weight / BMI Weight Weight: 93 lb 14.671 oz Body Mass Index (BMI) 17.2 ABG / Lab / Microbiology Data Result Diagrams: 11/30/22 06:05 11/30/22 06:05 Laboratory: Laboratory Results - last 24 hr 11/30/22 06:05: Sodium 139, Potassium 3.5, Chloride 97 L, Carbon Dioxide 36.0 H, Anion Gap 6, BUN 20 H, Creatinine 0.83, Estim Creat Clear Calc 36.36, Est GFR (MDRD) Af Amer 85, Est GFR (MDRD) Non-Af 70, BUN/Creatinine Ratio 24.1 H, Glucose 100, Calcium 8.9 11/30/22 06:05: WBC 6.5, RBC 5.50 H, Hgb 12.7, Hct 43.3, MCV 78.7 L, MCH 23.1 L, MCHC 29.3 L, RDW Std Deviation 45.9 H, RDW Coeff of [place] 16.2 H, Plt Count 270, MPV 10.0, Immature Gran % (Auto) 0.200, Neut % (Auto) 62.8, Lymph % (Auto) 21.0, [place] % (Auto) 11.9 H, Eos % (Auto) 3.2, Baso % (Auto) 0.9, Absolute Neuts (auto) 4.1, Absolute Lymphs (auto) 1.36, Nucleated RBC % 0 Microbiology: Microbiology 11/28/22 07:36 Nasal Secretion SARS-CoV-2 & FLU Antigen (Rapid) - Final Radiography Diagnostic Testing: Radiology Impression Echocardiogram 11/28/22 11:25 Interpretation Summary Mild concentric left ventricular hypertrophy. The left ventricular ejection fraction is 45-50 %. Mid to distal septal hypokinesis. Diastolic function is indeterminate. The left atrium is severely enlarged. The right atrium is moderately enlarged. Mild aortic stenosis. Moderate to large bilateral pleural effusions. Ordering Physician: Olivia Newby Referring Physician: Mio Forbes MD Performed By: Aminata Renee D/C Instructions Discharge Diet: Low fat / Low cholesterol Discharge Activity: Return to Normal Activity Weight Bearing Status: Weight bearing as tolerated Call your doctor if you observe: Fever of 101 or Higher, Shortness of breath, Dizziness, Swelling in the ankles and Chest pain Meaningful Use Info Meaningful Use Diagnoses (Choose all that apply): CHF CHF STEPHANIE/ARB ordered at discharge?: No Reason STEPHANIE/ARB not ordered?: Not indicated Documented LVEF (%): 45 Discharge Plan Admission Admit Date/Time: 11/28/22 09:40 Primary Reason for Your Visit: acute on chronic heart failure Attending Provider: Olivia Newby Primary Care Provider: Raghu Forbes Instructions Patient Instructions: ED Heart Failure, Congestive (CHF), Heart Failure Discharge Orders/Prescriptions Prescriptions: New furosemide 40 mg tablet 40 mg PO BID Qty: 60 2RF potassium chloride [Klor-Con M20] 20 mEq tablet,ER particles/crystals 20 meq PO DAILY Qty: 30 1RF Continued chlorpheniramine maleate [Allergy (chlorpheniramine)] 4 mg tablet 4 mg PO Q8H PRN (Reason: Allergy Symptoms) Rx Instructions: do not exceed 2 doses per 24 hrs aspirin 325 mg tablet 325 mg PO DAILY Qty: 90 3RF diltiazem HCl 120 mg capsule,extended release 24hr 120 mg PO DAILY Qty: 90 3RF Discontinued furosemide 40 mg tablet 20 mg PO BID Qty: 90 3RF Referrals / Follow Up: Gokul Beltran MD [Med Staff - Active Staff] - Within 1 Month (see to establish cardiology care) Raghu Forbes MD [Primary Care Provider] - Within 2 Weeks Disposition Disposition (needs filled in before D/C Order can be placed): Home, Self Care Charges/Coding Visit Charges Inpatient E&M: 39704 Disch Hosp >30min
== END 2022-11-30 12:47 | disposition home or self-care (01) | DRG 292 ==
LOC: ED 09:32 → PCU 09:50
PROVIDERS: Admitting Provider Student in an Organized Health Care Education/Training Program; Emergency Provider Emergency Medicine; PCP Family Medicine; Visit Provider Student in an Organized Health Care Education/Training Program
DX: I50.33 Acute on chronic diastolic (congestive) heart failure (principal); I42.9 Cardiomyopathy, unspecified; E44.0 Moderate protein-calorie malnutrition; Z68.1 Body mass index [BMI] 19.9 or less, adult; I48.0 Paroxysmal atrial fibrillation; I25.10 Atherosclerotic heart disease of native coronary artery without angina pectoris; E78.5 Hyperlipidemia, unspecified; I35.0 Nonrheumatic aortic (valve) stenosis; I25.2 Old myocardial infarction; Z20.822 Contact with and (suspected) exposure to COVID-19; Z79.82 Long term (current) use of aspirin; Z79.899 Other long term (current) drug therapy
CPT/HCPCS: 36415; 71046; 80048; 83880; 84443; 84484; 85025; 85379; 85610; 85730; 87428; 93005; 93306; 99285; Q9957; A4216; C8929; J1940

== ENCOUNTER → 2022-12-11 | Outpatient (CLI) | payer MEDICARE, SELFPAY ==
[2022-12-11 12:55] LABS: Anion Gap 5 (5-15); BUN 21 mg/dL (7-18); BUN/Creat Ratio 22.5 RATIO (10-20); Calcium,Total 9.6 mg/dL (8.5-10.1); Chloride 95 mmol/L (98-107); Creatinine, Serum 0.93 mg/dL (0.55-1.02); EST Glomerular Filtration Rate 61 mL/min (>60); Est Glom Filt Rate - Afr Amer 74 mL/min (>60); Glucose 95 mg/dL (74-106); Potassium 4.4 mmol/L (3.5-5.1); Sodium Level 134 mmol/L (136-145)
[2022-12-11 13:51] LABS: BNP,B-Type NATRIURETIC PEPTIDE 734.7 pg/mL (0-100)
== END | disposition home or self-care (01) ==
LOC: MTLAB 09:40
PROVIDERS: PCP Family Medicine; Referring Provider Family Medicine; Visit Provider Family Medicine
DX: I42.9 Cardiomyopathy, unspecified (principal)
CPT/HCPCS: 80048; 83880

== ENCOUNTER 2023-01-14 10:01 | Emergency (ER) | payer MEDICARE, SELFPAY ==
[2023-01-14 10:02] VITALS: BP 160/112; PULSE 70; RESP 24; TEMP 36.7; O2SAT 93; BMI 16.7
[2023-01-14 11:26] LABS: Absolute Lymphocyte Count 0.87 X10^3/uL (0.83-4.51); Absolute Neutrophil Count 5.6 X10^3/uL (2.0-7.7); Basophil# 0.06 X10^3/uL; Basophil% 0.8 % (0-1); Eosinophil# 0.03 X10^3/uL; Eosinophils% 0.4 % (0-5); Hematocrit 44.9 % (37-47); Hemoglobin 13.2 g/dL (12.0-15.0); Lymphocyte # 0.87 X10^3/ul (0.83-4.51); Lymphocyte % 11.9 % (19-41); Mean Corp Hgb Conc 29.4 g/dL (32-36); Mean Corpuscular Hgb 23.7 pg (27.0-32.0); Mean Corpuscular Volume 80.8 fL (81-99); Mean Platelet Vol. 9.6 fl (6.2-12.0); Monocyte# 0.74 X10^3/uL; Monocyte% 10.2 % (0-10); NRBC Flagged by Analyzer 0 % (0-5); Neutrophil # 5.57 X10^3/uL (2.7-7.7); Neutrophil % 76.4 % (47-70); Platelet Count 293 K/mm3 (150-450); RBC Distribution Width CV 15.6 % (11.6-14.6); RBC Distribution Width SD 45.1 fl (35.1-43.9); Red Blood Count 5.56 M/mm3 (4.2-5.4); White Blood Count 7.3 K/mm3 (4.4-11.0)
[2023-01-14 11:27] VITALS: BP 106/55; PULSE 66; RESP 16; TEMP 36.6
--- NOTE | 2023-01-14 11:38 | ED.VIS.DYS ---
HPI History of Present Illness Chief Complaint: Shortness of Breath Narrative Narrative: Patient presents with shortness of breath that has been getting worse over the last 2 days. Patient states it is gradually getting worse. Patient states it is constant. Patient states it feels similar to prior episodes of congestive heart failure. Patient states her breathing is worse with exertion. Patient states she has had some upper respiratory congestion and rhinorrhea recently. Patient admits to some sweats but denies any fevers or chills. 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 Long-term use of high-risk medication Paroxysmal atrial fibrillation Persistent atrial fibrillation with rapid ventricular response Thyroid disorder Home Medications aspirin 325 mg tablet 325 mg PO DAILY #90 tabs 08/23/21 [Rx Last Taken Unknown] chlorpheniramine maleate 4 mg tablet (Allergy (chlorpheniramine)) 4 mg PO Q8H PRN Allergy Symptoms 08/23/21 [History Last Taken Unknown] diltiazem HCl 120 mg capsule,extended release 24 hr 120 mg PO DAILY #90 caps 05/07/22 [Rx Last Taken Unknown] furosemide 40 mg tablet 40 mg PO BID #60 tabs 11/30/22 [Rx Last Taken Unknown] potassium chloride 20 mEq tablet,extended release(part/cryst) (Klor-Con M) 20 meq PO DAILY #30 tabs 11/30/22 [Rx Last Taken Unknown] Allergy/AdvReac Type Severity Reaction Status Date / Time amiodarone Allergy Hives Verified 01/14/23 10:04 Family History Father Heart disease cardiomyopathy Sister Heart disease Cardiomyopathy heart transplant Surgical History History of cardiac catheterization History of tonsillectomy History of tubal ligation Social History Smoking Status: Never smoker alcohol intake: never substance use type: does not use caffeine: Yes Type: coffee Number of servings: 3 ROS ROS ED Constitutional Constitutional ED: Reports sweats; Denies chills or fever(s) Eyes Eyes: Denies blurry vision or change in vision ENT ENT ED: Reports rhinorrhea and sore throat Cardiovascular Cardiovascular: Denies chest pain or palpitations Respiratory/Chest Respiratory/Chest: Reports dyspnea; Denies cough Gastrointestinal Gastrointestinal: Denies nausea or vomiting Genitourinary Genitourinary ED: Denies dysuria or hematuria Musculoskeletal Musculoskeletal: Denies back pain or neck pain Integumentary Denies abscess or rash Neurologic Neurologic: Denies headache(s) or weakness Allergic/Immunologic Allergic/Immunologic ED: Denies mouth swelling or urticaria EXAM Physical Exam Const Vital Signs: 01/14/23 10:02 01/14/23 11:27 01/14/23 11:27 Temperature 98.0 F 97.8 F Temperature Source Temporal Oral Pulse Rate 70 66 66 Respiratory Rate 24 H 16 16 Respiratory Effort Respiratory Pattern Blood Pressure 160/112 H 106/55 L 106/55 L Blood Pressure Mean 128 72 72 Pulse Ox 93 Oxygen Delivery Method Room Air Room Air Room Air 01/14/23 11:34 01/14/23 12:27 Temperature Temperature Source Pulse Rate 80 Respiratory Rate 18 Respiratory Effort Normal Respiratory Pattern Normal Blood Pressure 134/71 H Blood Pressure Mean 92 Pulse Ox Oxygen Delivery Method Room Air Room Air Positive well nourished and well developed General Appearance ED: well developed and NAD HEENT Reports moist mucous membranes atraumatic Neck supple, no meningeal signs and no JVD Resp normal respiratory effort Auscultation: rales bilateral base (Mild) Cardio Rate: tachycardic Rhythm: abnormal rhythm irregularly irregular GI non-tender Palpation: soft Extremity normal to inspection General Extremety ED: Negative for edema or tenderness General Extremity: Negative for edema Neuro oriented x3, CN's II-XII intact bilaterally and no sensory deficits noted Sensorium / Orientation: alert Speech: speech normal Motor Exam: strength 5/5 throughout Psych mental status grossly normal MDM MDM MDM Narrative Medical decision making narrative: Differential diagnosis includes congestive heart failure, cardiac dysrhythmia, cardiac ischemia, pneumonia, pneumothorax, anemia, and electrolyte abnormality. Patient has a Wells score of 0. I do not feel this is from pulmonary embolism. Lab Data Attestation: I reviewed the patient's lab results. Lab results narrative: CBC was reviewed and was essentially within normal limits. Basic metabolic profile was reviewed and was essentially within normal limits. High-sensitivity troponin was reviewed and was normal at 34. BNP was reviewed and was elevated at 1246.3. COVID-19 rapid antigen was reviewed and was negative. Influenza A and influenza B antigens were reviewed and were negative. Labs: Laboratory Results - last 24 hr 01/14/23 01/14/23 01/14/23 11:15 11:15 11:15 WBC 7.3 RBC 5.56 H Hgb 13.2 Hct 44.9 MCV 80.8 L MCH 23.7 L MCHC 29.4 L RDW Std Deviation 45.1 H RDW Coeff of [place] 15.6 H Plt Count 293 MPV 9.6 Immature Gran % (Auto) 0.300 Neut % (Auto) 76.4 H Lymph % (Auto) 11.9 L [place] % (Auto) 10.2 H Eos % (Auto) 0.4 Baso % (Auto) 0.8 Absolute Neuts (auto) 5.6 Absolute Lymphs (auto) 0.87 Nucleated RBC % 0 Sodium 135 L Potassium 4.4 Chloride 96 L Carbon Dioxide 33.0 H Anion Gap 6 BUN 20 H Creatinine 0.95 Estim Creat Clear Calc 30.40 Est GFR (MDRD) Af Amer 72 Est GFR (MDRD) Non-Af 60 BUN/Creatinine Ratio 21.0 H Glucose 77 Calcium 9.9 Troponin I High Sens 34 B-Natriuretic Peptide 1246.3 H Radiography Diagnostic Testing: Clinical Impression(s) from Imaging Studies Chest X-Ray 01/14/23 11:45 IMPRESSION: Mild bilateral pleural effusions with decreased bibasilar atelectasis, pneumonia, or edema. Electronically Signed: Renetta Rowe MD at 12:00 EDT , PA and lateral chest x-ray was obtained. There are 2 views. On my independent interpretation, lung yadav show some scarring and hyperinflation. There are mild bilateral pleural effusions and bibasilar edema. These are improved from previous chest x-ray. There is normal cardiac silhouette. Bony thorax is normal. There is no acute process noted. Radiologist also interpreted the x-ray and agrees. EKG Initial EKG: Attestation: I personally reviewed and interpreted this EKG as follows: Interpretation: Atrial Fibrillation (115) and Non-Specific ST Changes Comments: EKG was obtained. On my independent interpretation, it shows atrial fibrillation with a rate of 115. QRS interval with normal at 84 ms. QTc interval was normal at 467 ms. Chest [place] was normal. There are nonspecific ST-T wave changes. This was unchanged compared to previous EKG dated 11/28/2022. Prior EKG tracings: available for review Prior: Unchanged (11/28/2022) Treatment and Re-Evaluation :: Patient was advised of her findings. Patient was given a dose of Lasix here. Patient was instructed to follow-up with her primary care physician this week. Patient understands and is agreeable with the plan. All questions were answered. Discharge Plan Triage Chief Complaint: Shortness of Breath ED Provider: Landen Jones Dx/Rx/DC Orders Clinical Impression: Dyspnea, Congestive heart failure Instructions: ED Heart Failure, Congestive (CHF) Prescriptions: No Action chlorpheniramine maleate [Allergy (chlorpheniramine)] 4 mg tablet 4 mg PO Q8H PRN (Reason: Allergy Symptoms) Rx Instructions: do not exceed 2 doses per 24 hrs aspirin 325 mg tablet 325 mg PO DAILY Qty: 90 3RF furosemide 40 mg tablet 40 mg PO BID Qty: 60 2RF potassium chloride [Klor-Con M20] 20 mEq tablet,ER particles/crystals 20 meq PO DAILY Qty: 30 1RF diltiazem HCl 120 mg capsule,extended release 24hr 120 mg PO DAILY Qty: 90 3RF Primary Care Provider: Raghu Forbes Referrals: Raghu Forbes MD [Primary Care Provider] - 3-5 Days Disposition Disposition: Home, Self Care
[2023-01-14 11:41] LABS: Anion Gap 6 (5-15); BUN 20 mg/dL (7-18); Calcium,Total 9.9 mg/dL (8.5-10.1); Chloride 96 mmol/L (98-107); Creatinine, Serum 0.95 mg/dL (0.55-1.02); EST Glomerular Filtration Rate 60 mL/min (>60); Est Glom Filt Rate - Afr Amer 72 mL/min (>60); Glucose 77 mg/dL (74-106); Potassium 4.4 mmol/L (3.5-5.1); Sodium Level 135 mmol/L (136-145); Troponin-I HS 34 pg/mL (3.0-54.0)
--- NOTE | 2023-01-14 11:45 | RAD_ITS ---
HISTORY: Dyspnea. TECHNIQUE: XR Chest 2 Views. COMPARISON: 11/28/2022. FINDINGS: CARDIOMEDIASTINAL BORDERS: Cardiac silhouette again upper limits of normal in size. Mediastinal contour unremarkable with calcification of the aortic knob. LUNGS: Bibasilar opacities, decreased from prior. Hyperinflation suggesting COPD. PLEURA: Mild pleural effusions, also decreased from prior. OSSEOUS STRUCTURES: Degenerative change. RAD/Chest PA and Lateral IMPRESSION: Mild bilateral pleural effusions with decreased bibasilar atelectasis, pneumonia, or edema. Electronically Signed: Renetta Rowe MD at 12:00 EDT ,
[2023-01-14 11:50] LABS: BNP,B-Type NATRIURETIC PEPTIDE 1246.3 pg/mL (0-100)
[2023-01-14 12:27] VITALS: BP 134/71; PULSE 80; RESP 18
[2023-01-14 12:29] VITALS: BP 134/71; PULSE 100; RESP 16; TEMP 36.6
[2023-01-14] MEDS: Furosemide 20 MG Tablet PO (12:32)
[2023-01-14 12:54] VITALS: BP 123/90; PULSE 100; RESP 18; O2SAT 96
== END 2023-01-14 13:00 | disposition home or self-care (01) ==
PROVIDERS: Emergency Provider Emergency Medicine; PCP Family Medicine; Visit Provider Emergency Medicine
DX: R06.02 Shortness of breath (principal); I50.9 Heart failure, unspecified; I25.10 Atherosclerotic heart disease of native coronary artery without angina pectoris; E78.5 Hyperlipidemia, unspecified
CPT/HCPCS: 71046; 80048; 83880; 84484; 85025; 87428; 93005; 99284; A4216

== ENCOUNTER 2023-02-20 13:44 | Inpatient (IN) | payer MEDICARE, SELFPAY ==
[2023-02-20 13:46] VITALS: BP 148/97; PULSE 118; RESP 18; TEMP 36.6; O2SAT 92; BMI 16.6
--- NOTE | 2023-02-20 14:40 | EKG12_ITS ---
Test Reason : SOB Blood Pressure : / mmHG Vent. Rate : 110 BPM Atrial Rate : 375 BPM P-R Int : 000 ms QRS Dur : 080 ms QT Int : 318 ms P-R-T Axes : 000 075 -56 degrees QTc Int : 430 ms Atrial flutter with variable A-V block Minimal voltage criteria for LVH, may be normal variant ( Sokolow-Vallejo ) ST & T wave abnormality, consider lateral ischemia Abnormal ECG Confirmed by LISA BRAND, KEESHA ([id number]), school photograph editor BRAULIO SAHNI ([id number]) on 02/21/2023 1:28:53 PM Referred By: Confirmed By:KEESHA GONZALEZ MD
--- NOTE | 2023-02-20 14:40 | RAD_ITS ---
STUDY: X-RAY CHEST REASON FOR EXAM: Female, 82 years old. Shortness of breath TECHNIQUE: Single AP portable view of the chest. COMPARISON: Comparison is made with prior study January 14, 2023. FINDINGS: Hyperinflation. There is evidence of small bilateral pleural effusions with bibasilar atelectasis and/or infiltrates superimposed on CHF. Normal size heart. Normal mediastinum and axel. Normal visualized pulmonary arteries. There is atherosclerotic calcification of the aortic arch with tortuosity. There are diffuse degenerative changes of the visualized thoracic spine. Normal visualized ribs, clavicles, and shoulders. There is no demonstrated abnormality of the visualized soft tissue structures of the upper abdomen. RAD/Chest 1 View (Portable) IMPRESSION: CHF with superimposed small bilateral pleural effusions and bibasilar atelectasis and/or infiltrates. Electronically Signed: Mau Faulkner MD at 15:00 EDT ,
--- NOTE | 2023-02-20 14:41 | ED.VIS.DYS ---
HPI History of Present Illness Chief Complaint: Shortness of Breath Narrative Narrative: 82-year-old female past medical history of atrial fibrillation, does not take a blood thinner any longer. 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 She states that she also had a diagnosis of congestive heart failure back in November of this year. She takes Lasix 40 mg twice a day. She states she becomes winded on exertion and complains of generalized fatigue. No fevers or chills, no cough, she does have frequent urination secondary to Lasix but no dysuria or hematuria noted. She presents because she also feels heart palpitations at times but denies any chest pain. She does not have any leg swelling but states when she is in CHF she retains fluid in her lungs. PFSH PFS Medical History Anxiety Atherosclerotic heart disease of [place] coronary artery without angina pectoris Atrial fibrillation Atrial fibrillation and flutter Atrial flutter Cardiomyopathy Congestive heart failure Congestive heart failure GERD (gastroesophageal reflux disease) History of GI bleed History of myocardial infarction Hyperlipidemia pen[facility] (current) use of anticoagulants Long-term use of high-risk medication Paroxysmal atrial fibrillation Persistent atrial fibrillation with rapid ventricular response Thyroid disorder Home Medications aspirin 325 mg tablet 325 mg PO DAILY #90 tabs 08/23/21 [Rx Last Taken Unknown] chlorpheniramine maleate 4 mg tablet (Allergy (chlorpheniramine)) 4 mg PO Q8H PRN Allergy Symptoms 08/23/21 [History Last Taken Unknown] diltiazem HCl 120 mg capsule,extended release 24 hr 120 mg PO DAILY #90 caps 05/07/22 [Rx Last Taken Unknown] furosemide 40 mg tablet 40 mg PO BID #60 tabs 11/30/22 [Rx Last Taken Unknown] potassium chloride 20 mEq tablet,extended release(part/cryst) (Klor-Con M) 20 meq PO DAILY #30 tabs 11/30/22 [Rx Last Taken Unknown] Allergy/AdvReac Type Severity Reaction Status Date / Time amiodarone Allergy Hives Verified 02/20/23 13:46 Family History Father Heart disease cardiomyopathy Sister Heart disease Cardiomyopathy heart transplant Surgical History History of cardiac catheterization History of tonsillectomy History of tubal ligation Social History Smoking Status: Never smoker alcohol intake: never substance use type: does not use caffeine: Yes Type: coffee Number of servings: 3 ROS ROS ED ROS Narrative Constitutional: No fever, no chills. Positive fatigue and generalized weakness. HEENT: No sore throat. No neck pain. No loss of vision. No rhinorrhea. Cardiovascular: No chest pain. Occasional palpitations. No pedal edema. Respiratory: No cough, positive dyspnea on exertion and shortness of breath. Abdominal: No abdominal pain. No nausea. No vomiting. Genitourinary: No dysuria. No hematuria. Musculoskeletal: No myalgias. No arthralgias. Neurologic: No headaches. No dizziness. No lightheadedness. Skin: No rash. No change in color. Psychiatric: No depression. No anxiety. EXAM Physical Exam Narrative Exam Narrative: Afebrile. Vital signs noted. HEENT: Normocephalic. Atraumatic. PERRL, EOMI. Neck soft and supple. No point tenderness or step off. Cardiovascular: Positive tachycardia. No murmurs, rubs, or gallops appreciated. Respiratory: No tachypnea. No distress. Speaking in full sentences. Bibasilar rales. Gastrointestinal: Abdomen soft, nontender, with normoactive bowel sounds. No rebound or guarding. Neurological: Awake. Alert. Nonfocal, nonlateralizing. Skin: No rash. Normal color. No pallor. Musculoskeletal: No pedal edema. Full range of motion extremities. Const Vital Signs: 02/20/23 13:46 02/20/23 15:01 02/20/23 15:01 Temperature 97.9 F Temperature Source Temporal Pulse Rate 118 H 84 Respiratory Rate 18 21 H Respiratory Effort Normal Respiratory Depth Normal Respiratory Pattern Normal Blood Pressure 148/97 H Blood Pressure Mean 114 Pulse Ox 92 99 Oxygen Delivery Method Room Air Room Air MDM MDM MDM Narrative Medical decision making narrative: Comprehensive work-up was pursued. Concern is for CHF exacerbation and atrial fibrillation with RVR. EKG will be obtained along with chest x-ray and basic laboratory work including a single troponin as this has been ongoing for the last 4 days, and a BNP. However, clinically she shows no sign of pedal edema, but she does have rales on examination. EKG was obtained and interpreted by myself as atrial flutter with variable AV block at [address] changes. No STEMI. I reviewed her laboratory work, and she has normal white count of 8.4, hemoglobin normal at 13.7, platelet count normal at 309. CMP shows slightly low sodium of 131, chloride 91 with a normal potassium of 3.8. Glucose is appropriately elevated at 103 with a normal anion gap/low at 3. Normal BUN of 16 and normal creatinine of 1.0. Urinalysis is positive for nitrites but negative for leukocyte esterases. Negative for ketones. I do not feel that antibiotics are currently indicated as she is not really having dysuria. Of significance is her BNP which is elevated at 1628, higher than before. She was administered an extra dose of Lasix 40 mg intravenously. Troponin is also elevated at 199. This is high-sensitivity, and it has been in the 30s in the past. I discussed the patient with Dr. Beltran with cardiology. She did receive aspirin, but heparin was deferred as this may be more of a rate this pendent ischemia. I then discussed the patient with Dr. Bharat Perez for admission to the PCU. Patient is in stable condition. History & Record Review Discussion w/independent historian: Patient Additional record(s) reviewed:: Prior ED visit and Prior labs Lab Data Attestation: I reviewed the patient's lab results. Labs: Laboratory Results - last 24 hr 02/20/23 02/20/23 15:00 15:38 WBC 8.4 RBC 5.76 H Hgb 13.7 Hct 45.6 MCV 79.2 L MCH 23.8 L MCHC 30.0 L RDW Std Deviation 44.1 H RDW Coeff of [place] 15.8 H Plt Count 309 MPV 9.8 Immature Gran % (Auto) 0.400 Neut % (Auto) 74.9 H Lymph % (Auto) 12.8 L [place] % (Auto) 10.8 H Eos % (Auto) 0.5 Baso % (Auto) 0.6 Absolute Neuts (auto) 6.3 Absolute Lymphs (auto) 1.08 Nucleated RBC % 0 Sodium 131 L Potassium 3.8 Chloride 91 L Carbon Dioxide 37.0 H Anion Gap 3 L BUN 16 Creatinine 1.00 Estim Creat Clear Calc 28.78 Est GFR (MDRD) Af Amer 68 Est GFR (MDRD) Non-Af 57 L BUN/Creatinine Ratio 16.0 Glucose 103 Calcium 9.4 Total Bilirubin 0.60 AST 32 ALT 32 Alkaline Phosphatase 99 Troponin I High Sens 199 H* B-Natriuretic Peptide 1626.8 H Total Protein 7.8 Albumin 3.7 Globulin 4.1 Albumin/Globulin Ratio 0.9 Urine Color Yellow Urine Clarity Clear Urine pH 7.0 Ur Specific [place] 1.010 Urine Protein 30 H Urine Glucose (UA) Normal Urine Ketones Negative Urine Occult Blood Negative Urine Nitrite Positive H Urine Bilirubin 1 H Urine Urobilinogen 1 H Ur Leukocyte Esterase Negative Radiography Diagnostic Testing: Clinical Impression(s) from Imaging Studies Chest X-Ray 02/20/23 14:40 IMPRESSION: CHF with superimposed small bilateral pleural effusions and bibasilar atelectasis and/or infiltrates. Electronically Signed: Mau Faulkner MD at 15:00 EDT , Management Discussion w/another healthcare provider: Hospitalist (Dr. Bharat Perez) and Stock Chaser (Dr. Beltran) Discharge Plan Dx/Rx/DC Orders Clinical Impression: Congestive heart failure, Elevated troponin, Paroxysmal atrial fibrillation Disposition Disposition: Acute Care Hospital [facility]
[2023-02-20] MEDS: dilTIAZem 25 MG/5 ML Vial 10 MG IV BOLUS (14:58)
[2023-02-20 15:01] VITALS: PULSE 84; RESP 21; O2SAT 99
[2023-02-20 15:09] LABS: Absolute Lymphocyte Count 1.08 X10^3/uL (0.83-4.51); Absolute Neutrophil Count 6.3 X10^3/uL (2.0-7.7); Basophil# 0.05 X10^3/uL; Basophil% 0.6 % (0-1); Eosinophil# 0.04 X10^3/uL; Eosinophils% 0.5 % (0-5); Hematocrit 45.6 % (37-47); Hemoglobin 13.7 g/dL (12.0-15.0); Lymphocyte # 1.08 X10^3/ul (0.83-4.51); Lymphocyte % 12.8 % (19-41); Mean Corpuscular Hgb 23.8 pg (27.0-32.0); Mean Corpuscular Volume 79.2 fL (81-99); Mean Platelet Vol. 9.8 fl (6.2-12.0); Monocyte# 0.91 X10^3/uL; Monocyte% 10.8 % (0-10); NRBC Flagged by Analyzer 0 % (0-5); Neutrophil # 6.31 X10^3/uL (2.7-7.7); Neutrophil % 74.9 % (47-70); Platelet Count 309 K/mm3 (150-450); RBC Distribution Width CV 15.8 % (11.6-14.6); RBC Distribution Width SD 44.1 fl (35.1-43.9); Red Blood Count 5.76 M/mm3 (4.2-5.4); White Blood Count 8.4 K/mm3 (4.4-11.0)
[2023-02-20 15:25] LABS: BNP,B-Type NATRIURETIC PEPTIDE 1626.8 pg/mL (0-100)
[2023-02-20 15:46] LABS: ALB/GLOB Ratio 0.9 RATIO (0.9-2.4); AST(SGOT) 32 U/L (15-37); Alanine Aminotransfer ALT/SGPT 32 U/L (13-56); Albumin, Serum 3.7 g/dL (3.2-5.0); Alkaline Phosphatase 99 U/L (45-117); Anion Gap 3 (5-15); BUN 16 mg/dL (7-18); Calcium,Total 9.4 mg/dL (8.5-10.1); Chloride 91 mmol/L (98-107); EST Glomerular Filtration Rate 57 mL/min (>60); Est Glom Filt Rate - Afr Amer 68 mL/min (>60); Estimated Creatinine Clearance 28.78 ml/min; Globulin 4.1 g/dL (2.2-4.2); Glucose 103 mg/dL (74-106); Potassium 3.8 mmol/L (3.5-5.1); Protein, Total 7.8 g/dL (6.4-8.2); Sodium Level 131 mmol/L (136-145); Troponin-I HS 199 pg/mL (3.0-54.0)
[2023-02-20 15:49] LABS: Mucous, Urine 0 SEEN /hpf (<or=2+); Red Blood Cells-Urine 0 SEEN /hpf (0-5); White Blood Cells 0 SEEN /hpf (0-5)
[2023-02-20 15:57] LABS: Color, Urine Yellow (Yellow); Glucose, Dipstick Normal (Normal); Ketone-Dipstick Negative (Negative); Leukocyte Esterase-Dipstick Negative /ul (Negative); Nitrite-Dipstick Positive (Negative); Occult Blood-Urine Negative /ul (Negative); Protein-Dipstick 30 mg/dl (Negative); Urine Clarity Clear (Clear); Urine Urobilinogen 1 mg/dl (Normal)
[2023-02-20 16:28] LABS: Urine Bilirubin Dipstick 1 mg/dL (Negative)
[2023-02-20 16:32] LABS: Bacteria RARE /hpf (None Seen); Squamous Epithelial Cells - UA 0-5 SEEN /hpf (5-10)
--- NOTE | 2023-02-20 17:02 | HP.PCM.HOS_ITS ---
HPI - General General Date of Admission: 02/20/23 Date of Service: 02/20/23 Chief Complaint: Shortness of breath HPI Narrative GISSEL MCKINNEY, is a 82 F with past medical history seen for congestive heart failure with preserved ejection fraction, paroxysmal A-fib who presented with shortness of breath. Patient symptoms started 3 days prior to her admission. Patient has since experienced progressive dyspnea with minimal exertion. She also did complain of feeling extremely tired. Patient also felt her heart was racing. Presented to the emergency department was found to be in A-fib with RVR did receive Cardizem bolus. Checks x-ray did show vascular congestion. Patient was found to have elevated BNP and troponin. 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 Long-term use of high-risk medication Paroxysmal atrial fibrillation Persistent atrial fibrillation with rapid ventricular response Thyroid disorder Home Medications aspirin 325 mg tablet 325 mg PO DAILY #90 tabs 08/23/21 [Rx Last Taken 02/19/23] chlorpheniramine maleate 4 mg tablet (Allergy (chlorpheniramine)) 4 mg PO Q8H PRN Allergy Symptoms 08/23/21 [History Last Taken 02/20/23] diltiazem HCl 120 mg capsule,extended release 24 hr 120 mg PO DAILY #90 caps 05/07/22 [Rx Last Taken 02/19/23] furosemide 40 mg tablet 40 mg PO BID #60 tabs 11/30/22 [Rx Last Taken 02/20/23] potassium chloride 20 mEq tablet,extended release(part/cryst) (Klor-Con M) 20 meq PO DAILY PRN LEG CRAMPS 02/20/23 [History Last Taken Unknown] Allergy/AdvReac Type Severity Reaction Status Date / Time amiodarone Allergy Hives Verified 02/20/23 13:46 Family History Father Heart disease cardiomyopathy Sister Heart disease Cardiomyopathy heart transplant Surgical History History of cardiac catheterization History of tonsillectomy History of tubal ligation Social History Smoking Status: Never smoker alcohol intake: never substance use type: does not use caffeine: Yes Type: coffee Number of servings: 3 ROS ROS Narrative GENERAL: denies fever, chills, night sweats, weight loss, anorexia HEENT: denies headache, sinus congestion, or drainage, dysphagia RESPIRATORY: shortness of breath, dyspnea on exertion CARDIAC: palpitations, orthopnea, GASTROINTESTINAL: denies abdominal pain, nausea, vomiting, melena, GENITOURINARY: denies dysuria, urgency, frequency, heamaturia EXTREMITY: denies swelling MUSCULOSKELETAL: denies current joint pain or tenderness NEUROLOGIC: denies focal numbness, weakness, tingling HEMATOLOGIC: denies easy bruising and/or hemorrhage INTEGUMENT: denies rashes PSYCHIATRIC: denies suicidal or homicidal ideation Vital Signs Vital Signs Vital Signs: 02/20/23 13:46 02/20/23 15:01 02/20/23 15:01 Temperature 97.9 F Temperature Source Temporal Pulse Rate 118 H 84 Respiratory Rate 18 21 H Respiratory Effort Normal Respiratory Depth Normal Respiratory Pattern Normal Blood Pressure 148/97 H Blood Pressure Mean 114 Pulse Ox 92 99 Oxygen Delivery Method Room Air Room Air Weight Weight: 41.322 kg Body Mass Index (BMI) 16.6 Physical Exam Narrative GENERAL: cooperative HEENT: Atraumatic; normocephalic EYES; Anicteric, Normal Conjunctiva NECK; supple, normal thyroid, RESPIRATORY: Diminished to auscultation with bibasilar Rales CARDIOVASCULAR: Irregular S1-S2 GI: soft, normoactive bowel sounds, : No Renal angle tenderness; EXTREMITIES: Cyanosis of fingers and toes MUSCULOSKELETAL: no muscle wasting NEURO: Awake; no lateralizing signs. SKIN: No Rash PSYCH; Flat affect Results Lab / Micro Data 02/20/23 15:00 02/20/23 15:00 Labs: Laboratory Results - last 24 hr 02/20/23 15:00: WBC 8.4, RBC 5.76 H, Hgb 13.7, Hct 45.6, MCV 79.2 L, MCH 23.8 L, MCHC 30.0 L, RDW Std Deviation 44.1 H, RDW Coeff of [place] 15.8 H, Plt Count 309, MPV 9.8, Immature Gran % (Auto) 0.400, Neut % (Auto) 74.9 H, Lymph % (Auto) 12.8 L, [place] % (Auto) 10.8 H, Eos % (Auto) 0.5, Baso % (Auto) 0.6, Absolute Neuts (auto) 6.3, Absolute Lymphs (auto) 1.08, Nucleated RBC % 0, Sodium 131 L, Potassium 3.8, Chloride 91 L, Carbon Dioxide 37.0 H, Anion Gap 3 L, BUN 16, Creatinine 1.00, Estim Creat Clear Calc 28.78, Est GFR (MDRD) Af Amer 68, Est GFR (MDRD) Non-Af 57 L, BUN/Creatinine Ratio 16.0, Glucose 103, Calcium 9.4, Total Bilirubin 0.60, AST 32, ALT 32, Alkaline Phosphatase 99, Troponin I High Sens 199 H*, B-Natriuretic Peptide 1626.8 H, Total Protein 7.8, Albumin 3.7, Thu bulin 4.1, Albumin/Globulin Ratio 0.9 02/20/23 15:38: Urine Color Yellow, Urine Clarity Clear, Urine pH 7.0, Ur Specific [place] 1.010, Urine Protein 30 H, Urine Glucose (UA) Normal, Urine Ketones Negative, Urine Occult Blood Negative, Urine Nitrite Positive H, Urine Bilirubin 1 H, Urine Urobilinogen 1 H, Ur Leukocyte Esterase Negative, Urine RBC 0 SEEN, Urine WBC 0 SEEN, Ur Squamous Epith Cells 0-5 SEEN, Urine Bacteria RARE, Urine Mucus 0 SEEN Radiology Impression Chest X-Ray 02/20/23 14:40 IMPRESSION: CHF with superimposed small bilateral pleural effusions and bibasilar atelectasis and/or infiltrates. Electronically Signed: Mau Faulkner MD at 15:00 EDT , Assessment & Plan Assessment/Plan (1) Congestive heart failure: PLAN: Plan Patient is an 82-year-old lady presented with progressive shortness of breath Acute on chronic congestive heart failure with preserved ejection fraction ? Echo obtained on 11/28/2022 demonstrated EF of 50%. Patient has been admitted to a monitored bed started on diuretics, was also placed on strict input and output, low-sodium diet, fluid restriction and daily weight. Also placed on supplemental oxygen at titrated to keep saturation greater than 90 2. Paroxysmal A-fib ? Patient presented with RVR did receive Cardizem bolus admitted to telemetry for continuous monitoring. Patient is on Cardizem. Did continue on aspirin for stroke prophylaxis 3. Elevated troponin ? Thought to be secondary to demand ischemia from tachycardia as well as CHF ordered serial cardiac enzymes 4. Raynaud's disease ? Currently stable 5. Hyponatremia ? Thought to be secondary to patient fluid overload status do expect improvement in sodium level with diuresis 6 . DVT prophylaxis - On enoxaparin Time spent in the patient's overall evaluation,decision-making process, review of diagnostic data, adjustment of management, discussion with other providers, nursing nursing and ancillary staff involved in patient's care documentation, 75Minutes Advance planning; did discuss with the patient regarding advanced directives as well as CODE STATUS. Did explain the various scenarios involved ( FULL CODE, DNR CCA, DNR CCA with no intubation, and DNR CC and what each meant) patient elected to remain full code with CPR and intubation if warranted. Order was placed. Time spent on discussion 18 minutes. Charges/Coding Visit Charges Inpatient E&M: 33367 Init Hosp L3 Procedures Hospitalists Procedures: 90826 Advncd Care Plan 30 Min
[2023-02-20 17:26] VITALS: BMI 16.5
[2023-02-20 17:27] VITALS: BP 132/90; PULSE 79; RESP 16; TEMP 36.7; O2SAT 94
[2023-02-20] MEDS: Furosemide 40 MG/4 ML Vial IV ×2 (18:33→22:20)
[2023-02-20 18:59] LABS: Troponin-I HS 171 pg/mL (3.0-54.0)
[2023-02-20 21:35] LABS: Troponin-I HS 158 pg/mL (3.0-54.0)
[2023-02-20 22:15] VITALS: BP 128/86; PULSE 82; RESP 16; TEMP 36.6; O2SAT 95
--- NOTE | 2023-02-20 22:47 | EKG12_ITS ---
Test Reason : RHY CHG Blood Pressure : / mmHG Vent. Rate : 121 BPM Atrial Rate : 000 BPM P-R Int : 000 ms QRS Dur : 084 ms QT Int : 332 ms P-R-T Axes : 000 062 -59 degrees QTc Int : 471 ms Atrial fibrillation with rapid ventricular response Moderate voltage criteria for LVH, may be normal variant ( Sokolow-[place] , [place]o product ) Anterior infarct , age undetermined Abnormal ECG When compared with ECG of 20-FEB-2023 14:43, MANUAL COMPARISON REQUIRED, DATA IS UNCONFIRMED Confirmed by LISA BRAND, KEESHA ([id number]), editor house organ BRAULIO SAHNI ([id number]) on 02/22/2023 9:26:42 AM Referred By: DR HASKINS Confirmed By:KEESHA GONZALEZ MD
[2023-02-20 22:48] VITALS: O2SAT 95
--- NOTE | 2023-02-20 23:34 | PCM.HOSP.N ---
Hospitalist Note Asymptomatic rhythm change on monitor with EKG obtained, consistent with atrial fibrillation with known history. Rate currently 110-120s. Will dose with a x1 of oral Cardizem which patient does take and continue to monitor with further interventions pending response.
[2023-02-21] MEDS: dilTIAZem CD 120 MG Capsule PO ×2 (00:42→09:56)
[2023-02-21 06:30] VITALS: BP 125/84; PULSE 90; RESP 16; TEMP 36.7; O2SAT 94
[2023-02-21] MEDS: Furosemide 40 MG/4 ML Vial IV ×2 (06:39→20:55)
[2023-02-21 06:48] LABS: Absolute Lymphocyte Count 1.42 X10^3/uL (0.83-4.51); Absolute Neutrophil Count 4.5 X10^3/uL (2.0-7.7); Basophil# 0.08 X10^3/uL; Basophil% 1.1 % (0-1); Eosinophil# 0.13 X10^3/uL; Eosinophils% 1.9 % (0-5); Hemoglobin 13.7 g/dL (12.0-15.0); Lymphocyte # 1.42 X10^3/ul (0.83-4.51); Lymphocyte % 20.2 % (19-41); Mean Corp Hgb Conc 29.8 g/dL (32-36); Mean Corpuscular Hgb 23.7 pg (27.0-32.0); Mean Corpuscular Volume 79.7 fL (81-99); Mean Platelet Vol. 9.8 fl (6.2-12.0); Monocyte# 0.87 X10^3/uL; Monocyte% 12.4 % (0-10); NRBC Flagged by Analyzer 0 % (0-5); Neutrophil # 4.51 X10^3/uL (2.7-7.7); Neutrophil % 64.3 % (47-70); Platelet Count 307 K/mm3 (150-450); RBC Distribution Width CV 15.9 % (11.6-14.6); RBC Distribution Width SD 44.7 fl (35.1-43.9); Red Blood Count 5.77 M/mm3 (4.2-5.4)
[2023-02-21 07:12] LABS: Anion Gap 3 (5-15); BUN 15 mg/dL (7-18); Calcium,Total 9.1 mg/dL (8.5-10.1); Chloride 95 mmol/L (98-107); Creatinine, Serum 0.83 mg/dL (0.55-1.02); EST Glomerular Filtration Rate 70 mL/min (>60); Est Glom Filt Rate - Afr Amer 84 mL/min (>60); Estimated Creatinine Clearance 34.41 ml/min; Glucose 100 mg/dL (74-106); Magnesium 2.1 mg/dL (1.6-2.6); Potassium 3.3 mmol/L (3.5-5.1); Sodium Level 134 mmol/L (136-145)
[2023-02-21] MEDS: Ondansetron 4 MG/2 ML Vial IV (07:19)
--- NOTE | 2023-02-21 07:30 | PCM.PN.HOSP ---
Reason for Visit Reason for Visit: Diagnoses Heart failure, unspecified (02/20/23) Subjective Subjective Patient is an 82-year-old lady presented with progressive shortness of breath. An assessment of acute congestive heart failure with preserved ejection fraction made admitted to a monitored bed where patient is currently being managed. Diagnostic data reviewed significant potassium of 3.3 Objective Data Objective Data Vital Signs: Vital Signs Temp Pulse Resp BP Pulse Ox O2 Del Method 98.1 F 90 16 125/84 H 94 Room Air 02/21/23 06:30 02/21/23 06:30 02/21/23 06:30 02/21/23 06:30 02/21/23 06:30 02/21/23 06:30 Oxygen Delivery Method Room Air Weight: 41 kg Body Mass Index (BMI) 16.5 Intake & Output: Intake and Output for Last 24 Hours 02/19/23 02/20/23 02/21/23 23:59 23:59 23:59 Intake Total 400 / 400 Balance 400 / 400 Lab / Micro Data 02/21/23 06:15 02/21/23 06:15 Labs: Laboratory Results - last 24 hr 02/20/23 15:00: WBC 8.4, RBC 5.76 H, Hgb 13.7, Hct 45.6, MCV 79.2 L, MCH 23.8 L, MCHC 30.0 L, RDW Std Deviation 44.1 H, RDW Coeff of [place] 15.8 H, Plt Count 309, MPV 9.8, Immature Gran % (Auto) 0.400, Neut % (Auto) 74.9 H, Lymph % (Auto) 12.8 L, [place] % (Auto) 10.8 H, Eos % (Auto) 0.5, Baso % (Auto) 0.6, Absolute Neuts (auto) 6.3, Absolute Lymphs (auto) 1.08, Nucleated RBC % 0, Sodium 131 L, Potassium 3.8, Chloride 91 L, Carbon Dioxide 37.0 H, Anion Gap 3 L, BUN 16, Creatinine 1.00, Estim Creat Clear Calc 28.78, Est GFR (MDRD) Af Amer 68, Est GFR (MDRD) Non-Af 57 L, BUN/Creatinine Ratio 16.0, Glucose 103, Calcium 9.4, Total Bilirubin 0.60, AST 32, ALT 32, Alkaline Phosphatase 99, Troponin I High Sens 199 H*, B-Natriuretic Peptide 1626.8 H, Total Protein 7.8, Albumin 3.7, Globulin 4.1, Albumin/Globulin Ratio 0.9 02/20/23 15:38: Urine Color Yellow, Urine Clarity Clear, Urine pH 7.0, Ur Specific [place] 1.010, Urine Protein 30 H, Urine Glucose (UA) Normal, Urine Ketones Negative, Urine Occult Blood Negative, Urine Nitrite Positive H, Urine Bilirubin 1 H, Urine Urobilinogen 1 H, Ur Leukocyte Esterase Negative, Urine RBC 0 SEEN, Urine WBC 0 SEEN, Ur Squamous Epith Cells 0-5 SEEN, Urine Bacteria RARE, Urine Mucus 0 SEEN 02/20/23 17:46: Troponin I High Sens 171 H* 02/20/23 20:47: Troponin I High Sens 158 H* 02/21/23 06:15: WBC 7.0, RBC 5.77 H, Hgb 13.7, Hct 46.0, MCV 79.7 L, MCH 23.7 L, MCHC 29.8 L, RDW Std Deviation 44.7 H, RDW Coeff of [place] 15.9 H, Plt Count 307, MPV 9.8, Immature Gran % (Auto) 0.100, Neut % (Auto) 64.3, Lymph % (Auto) 20.2, [place] % (Auto) 12.4 H, Eos % (Auto) 1.9, Baso % (Auto) 1.1 H, Absolute Neuts (auto) 4.5, Absolute Lymphs (auto) 1.42, Nucleated RBC % 0, Sodium 134 L, Potassium 3.3 L, Chloride 95 L, Carbon Dioxide 36.0 H, Anion Gap 3 L, BUN 15, Creatinine 0.83, Estim Creat Clear Calc 34.41, Est GFR (MDRD) Af Amer 84, Est GFR (MDRD) Non-Af 70, BUN/Creatinine Ratio 18.0, Glucose 100, Calcium 9.1, Magnesium 2.1 Radiography Diagnostic Testing: Radiology Impression Chest X-Ray 02/20/23 14:40 IMPRESSION: CHF with superimposed small bilateral pleural effusions and bibasilar atelectasis and/or infiltrates. Electronically Signed: Mau Faulkner MD at 15:00 EDT , Physical Exam Narrative GENERAL: cooperative HEENT: Atraumatic; normocephalic EYES; Anicteric, Normal Conjunctiva NECK; supple, normal thyroid, RESPIRATORY: Diminished to auscultation with bibasilar Rales CARDIOVASCULAR: Irregular S1-S2 GI: soft, normoactive bowel sounds, : No Renal angle tenderness; EXTREMITIES: Cyanosis of fingers and toes MUSCULOSKELETAL: no muscle wasting NEURO: Awake; no lateralizing signs. SKIN: No Rash PSYCH; Flat affect Assessment & Plan Assessment/Plan (1) Congestive heart failure: QUALIFIERS: Heart failure chronicity: acute on chronic Heart failure type: diastolic Qualified Code(s): I50.33 - Acute on chronic diastolic (congestive) heart failure PLAN: Plan Patient is an 82-year-old lady presented with progressive shortness of breath 1. Acute on chronic congestive heart failure with preserved ejection fraction ? Echo obtained on 11/28/2022 demonstrated EF of 50%. Patient has been admitted to a monitored bed started on diuretics, was also placed on strict input and output, low-sodium diet, fluid restriction and daily weight. Also placed on supplemental oxygen at titrated to keep saturation greater than 90 2. Paroxysmal A-fib ? Patient presented with RVR did receive Cardizem bolus admitted to telemetry for continuous monitoring. Patient is on Cardizem. Did continue on aspirin for stroke prophylaxis 3. Elevated troponin ? Thought to be secondary to demand ischemia from tachycardia as well as CHF ordered serial cardiac enzymes 4. Raynaud's disease ? Currently stable 5. Hyponatremia ? Thought to be secondary to patient fluid overload status do expect improvement in sodium level with diuresis 6 . DVT prophylaxis - On enoxaparin 7. Hypokalemia -Corrected per protocol Time spent in the patient's overall evaluation,decision-making process, review of diagnostic data, adjustment of management, discussion with other providers, nursing nursing and ancillary staff involved in patient's care documentation, 50 minutes Charges/Coding Visit Charges Inpatient E&M: [id number] [place] [id number]
[2023-02-21 07:31] LABS: Phosphorus 3.6 mg/dL (2.5-4.9)
[2023-02-21 08:09] VITALS: O2SAT 95
[2023-02-21 09:05] VITALS: BMI 16.1
[2023-02-21 09:17] VITALS: BP 98/63; PULSE 75; RESP 16; TEMP 35.9; O2SAT 94
[2023-02-21] MEDS: Potassium Chloride Oral Tablet 20 MEQ 40 MEQ PO (09:57)
[2023-02-21] MEDS: Enoxaparin 30 MG/0.3 ML Syringe SC (09:57)
[2023-02-21] MEDS: Aspirin 81 MG TAB.CHEW PO (10:00)
--- NOTE | 2023-02-21 12:56 | CASEMGMT ---
Assessment- SW completed an assessment with patient. Patient was sitting up in her bed alert and oriented X4. 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 Living situation- Patient lives alone in a mobile home with entry steps. Patient lives on the same property as her son in her mobile home. PCP: Dr Forbes Specialists: Patient was seeing Dr Shah, but now she will be seeing Dr Beltran Pharmacy: [facility] in [place] DME:? None ADL's/IADL's: Patient said she is independent with all her activities of daily living. 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 Patient said she does not use any assistive devices nor does she own any. Past SNF/rehab: None Past HH: None LW: None POA:? None Patient does not anticipate she will have any discharge needs, however patient is aware SW and GALLO CM are available should this change. Plan: Home with family support. Kristin Mcgarry FLORAL ASSOCIATE [employer]
[2023-02-21 15:22] VITALS: BP 90/51; PULSE 70; RESP 16; TEMP 36.9; O2SAT 92
[2023-02-21] MEDS: Potassium Chloride Oral Tablet 20 MEQ PO (18:13)
[2023-02-21] MEDS: Ensure Plus High Protein 120 ML LIQUID PO (18:13)
[2023-02-21 19:22] VITALS: BP 102/89; PULSE 68; RESP 16; TEMP 36.7
[2023-02-21 20:55] VITALS: BP 120/65; PULSE 75; RESP 16; TEMP 36.4; O2SAT 93
[2023-02-21] MEDS: 0.9% Saline Lock 10 ML Syringe IV (20:55)
[2023-02-22 02:00] VITALS: BP 93/64; PULSE 89; RESP 16; TEMP 36.3; O2SAT 94
[2023-02-22 05:00] VITALS: BP 122/78; PULSE 89; RESP 16; TEMP 36.9; O2SAT 100; BMI 16.3
[2023-02-22] MEDS: 0.9% Saline Lock 10 ML Syringe IV (05:04)
[2023-02-22] MEDS: Furosemide 40 MG/4 ML Vial IV (05:04)
[2023-02-22 06:24] LABS: Absolute Lymphocyte Count 1.52 X10^3/uL (0.83-4.51); Absolute Neutrophil Count 4.4 X10^3/uL (2.0-7.7); Basophil# 0.09 X10^3/uL; Basophil% 1.3 % (0-1); Eosinophil# 0.14 X10^3/uL; Hematocrit 48.2 % (37-47); Lymphocyte # 1.52 X10^3/ul (0.83-4.51); Lymphocyte % 21.4 % (19-41); Mean Corpuscular Volume 82.7 fL (81-99); Mean Platelet Vol. 9.9 fl (6.2-12.0); Monocyte# 0.94 X10^3/uL; Monocyte% 13.3 % (0-10); NRBC Flagged by Analyzer 0 % (0-5); Neutrophil # 4.38 X10^3/uL (2.7-7.7); Neutrophil % 61.7 % (47-70); Platelet Count 308 K/mm3 (150-450); RBC Distribution Width CV 16.4 % (11.6-14.6); RBC Distribution Width SD 47.2 fl (35.1-43.9); Red Blood Count 5.83 M/mm3 (4.2-5.4); White Blood Count 7.1 K/mm3 (4.4-11.0)
[2023-02-22 06:49] LABS: Anion Gap 6 (5-15); BUN 24 mg/dL (7-18); BUN/Creat Ratio 20.7 RATIO (10-20); Calcium,Total 9.2 mg/dL (8.5-10.1); Chloride 94 mmol/L (98-107); Creatinine, Serum 1.16 mg/dL (0.55-1.02); EST Glomerular Filtration Rate 48 mL/min (>60); Est Glom Filt Rate - Afr Amer 58 mL/min (>60); Estimated Creatinine Clearance 24.38 ml/min; Glucose 93 mg/dL (74-106); Potassium 5.2 mmol/L (3.5-5.1); Sodium Level 135 mmol/L (136-145)
[2023-02-22 07:57] VITALS: O2SAT 95
[2023-02-22] MEDS: Potassium Chloride Oral Tablet 20 MEQ PO (08:12)
[2023-02-22] MEDS: Aspirin 81 MG TAB.CHEW PO (08:12)
--- NOTE | 2023-02-22 08:12 | PCM.PN.HOSP ---
Reason for Visit Reason for Visit: Diagnoses Acute on chronic diastolic (congestive) heart failure (02/20/23) Heart failure, unspecified (02/20/23) Subjective Subjective Patient is breathing back to baseline patient to be assessed for possible discharge home Objective Data Objective Data Vital Signs: Vital Signs Temp Pulse Resp BP Pulse Ox O2 Del Method 98.4 F 89 16 122/78 H 95 Room Air 02/22/23 05:00 02/22/23 05:00 02/22/23 05:00 02/22/23 05:00 02/22/23 07:57 02/22/23 07:57 Oxygen Delivery Method Room Air Weight: 40.6 kg Body Mass Index (BMI) 16.3 Intake & Output: Intake and Output for Last 24 Hours 02/20/23 02/21/23 02/22/23 23:59 23:59 23:59 Intake Total 400 / 400 240 / 240 120 / 120 Balance 400 / 400 240 / 240 120 / 120 Medical Nutrition Assessment Dietitian: Malnutrition Criteria Met Start: 02/21/23 15:27 Freq: Status: Active Protocol: Document 02/21/23 15:27 [place] (Rec: 02/21/23 15:27 [facility]INO [id number]) Nutrition Malnutrition Evidence of Malnutrition Exists Yes Malnutrition (severe): Chronic Evidenced By Suboptimal Energy Intake ( Severe),Weight Loss (Severe), Physical Changes (Severe) Clinical Problem Chronic Disease or Condition Related Malnutrition Etiology related to inadequate energy intake Signs/Symptoms as evidenced by 11% unintended wt loss x ~ 10 wks, pt eating <50% of est nutritional needs , fat/muscle loss throughout body and BMI 16.1 Status Active Problem Recommendation Dietitian Recommendations/Changes Will continue Cardiac diet as ordered - add fluid restriction as indicated by MD Will provide vanilla ensure pudding w/ lunch and dinner; 120 ml vanilla ensure plus high protein tid w/ medpass Continue to monitor for changes in pt nutritional status and adjust as indicated Lab / Micro Data 02/22/23 05:13 02/22/23 05:13 Labs: Laboratory Results - last 24 hr 02/22/23 05:13: WBC 7.1, RBC 5.83 H, Hgb 14.0, Hct 48.2 H, MCV 82.7, MCH 24.0 L, MCHC 29.0 L, RDW Std Deviation 47.2 H, RDW Coeff of [place] 16.4 H, Plt Count 308, MPV 9.9, Immature Gran % (Auto) 0.300, Neut % (Auto) 61.7, Lymph % (Auto) 21.4, [place] % (Auto) 13.3 H, Eos % (Auto) 2.0, Baso % (Auto) 1.3 H, Absolute Neuts (auto) 4.4, Absolute Lymphs (auto) 1.52, Nucleated RBC % 0, Sodium 135 L, Potassium 5.2 H, Chloride 94 L, Carbon Dioxide 35.0 H, Anion Gap 6, BUN 24 H, Creatinine 1.16 H, Estim Creat Clear Calc 24.38, Est GFR (MDRD) Af Amer 58 L, Est GFR (MDRD) Non-Af 48 L, BUN/Creatinine Ratio 20.7 H, Glucose 93, Calcium 9.2 Physical Exam Narrative GENERAL: cooperative HEENT: Atraumatic; normocephalic EYES; Anicteric, Normal Conjunctiva NECK; supple, normal thyroid, RESPIRATORY: Diminished to auscultation with bibasilar Rales CARDIOVASCULAR: Irregular S1-S2 GI: soft, normoactive bowel sounds, : No Renal angle tenderness; EXTREMITIES: Cyanosis of fingers and toes MUSCULOSKELETAL: no muscle wasting NEURO: Awake; no lateralizing signs. SKIN: No Rash PSYCH; Flat affect Assessment & Plan Assessment/Plan (1) Congestive heart failure: QUALIFIERS: Heart failure chronicity: acute on chronic Heart failure type: diastolic Qualified Code(s): I50.33 - Acute on chronic diastolic (congestive) heart failure PLAN: Plan Patient is an 82-year-old lady presented with progressive shortness of breath 1. Acute on chronic congestive heart failure with preserved ejection fraction ? Echo obtained on 11/28/2022 demonstrated EF of 50%. Patient has been admitted to a monitored bed started on diuretics, was also placed on strict input and output, low-sodium diet, fluid restriction and daily weight. Also placed on supplemental oxygen at titrated to keep saturation greater than 90 2. Paroxysmal A-fib ? Patient presented with RVR did receive Cardizem bolus admitted to telemetry for continuous monitoring. Patient is on Cardizem. Did continue on aspirin for stroke prophylaxis 3. Elevated troponin ? Thought to be secondary to demand ischemia from tachycardia as well as CHF ordered serial cardiac enzymes 4. Raynaud's disease ? Currently stable 5. Hyponatremia ? Thought to be secondary to patient fluid overload status do expect improvement in sodium level with diuresis 6 . DVT prophylaxis - On enoxaparin 7. Hypokalemia -Corrected per protocol Time spent in the patient's overall evaluation,decision-making process, review of diagnostic data, adjustment of management, discussion with other providers, nursing nursing and ancillary staff involved in patient's care documentation, 35 minutes Charges/Coding Visit Charges Inpatient E&M: 43659 [facility] Hosp L2
[2023-02-22] MEDS: Ensure Plus High Protein 120 ML LIQUID PO (08:57)
[2023-02-22] MEDS: dilTIAZem CD 120 MG Capsule PO (09:53)
--- NOTE | 2023-02-22 10:48 | PCM.DC.SUM ---
Providers Date of Admission: 02/20/23 Date of Discharge: 02/22/23 Primary Care Physician: Dr. Raghu Forbes MD Reason For Visit: ELEVATED TROPONIN, CHF Diagnosis Discharge Diagnosis (1) Congestive heart failure: Status: Chronic Code(s): I50.9 - Heart failure, unspecified Qualifiers: Heart failure type: diastolic Heart failure chronicity: acute on chronic Qualified Code(s): I50.33 - Acute on chronic diastolic (congestive) heart failure Plan Patient is an 82-year-old lady presented with progressive shortness of breath 1. Acute on chronic congestive heart failure with preserved ejection fraction ? Echo obtained on 11/28/2022 demonstrated EF of 50%. Patient has been admitted to a monitored bed started on diuretics, was also placed on strict input and output, low-sodium diet, fluid restriction and daily weight. Also placed on supplemental oxygen at titrated to keep saturation greater than 90 2. Paroxysmal A-fib ? Patient presented with RVR did receive Cardizem bolus admitted to telemetry for continuous monitoring. Patient is on Cardizem. Did continue on aspirin for stroke prophylaxis 3. Elevated troponin ? Thought to be secondary to demand ischemia from tachycardia as well as CHF ordered serial cardiac enzymes 4. Raynaud's disease ? Currently stable 5. Hyponatremia ? Thought to be secondary to patient fluid overload status do expect improvement in sodium level with diuresis 6 . DVT prophylaxis - On enoxaparin 7. Hypokalemia -Corrected per protocol Time spent in the patient's overall evaluation,decision-making process, review of diagnostic data, adjustment of management, discussion with other providers, nursing nursing and ancillary staff involved in patient's care documentation, 35 minutes Medications at Discharge Home Medications aspirin 325 mg tablet 325 mg PO DAILY #90 tabs 08/23/21 chlorpheniramine maleate 4 mg tablet (Allergy (chlorpheniramine)) 4 mg PO Q8H PRN Allergy Symptoms 08/23/21 diltiazem HCl 120 mg capsule,extended release 24 hr 120 mg PO DAILY #90 caps 05/07/22 furosemide 40 mg tablet 40 mg PO BID #60 tabs 11/30/22 Hospital Course Summary of Care Provided Minutes Spent on Discharge: 35 Physical Exam Narrative GENERAL: cooperative HEENT: Atraumatic; normocephalic EYES; Anicteric, Normal Conjunctiva NECK; supple, normal thyroid, RESPIRATORY: Diminished to auscultation with bibasilar Rales CARDIOVASCULAR: Irregular S1-S2 GI: soft, normoactive bowel sounds, : No Renal angle tenderness; EXTREMITIES: Cyanosis of fingers and toes MUSCULOSKELETAL: no muscle wasting NEURO: Awake; no lateralizing signs. SKIN: No Rash PSYCH; Flat affect Medical Records Data Medical Nutrition Assessment Dietitian: Malnutrition Criteria Met Start: 02/21/23 15:27 Freq: Status: Active Protocol: Document 02/21/23 15:27 [facility] (Rec: 02/21/23 15:27 [facility] [id number]) Nutrition Malnutrition Evidence of Malnutrition Exists Yes Malnutrition (severe): Chronic Evidenced By Suboptimal Energy Intake ( Severe),Weight Loss (Severe), Physical Changes (Severe) Clinical Problem Chronic Disease or Condition Related Malnutrition Etiology related to inadequate energy intake Signs/Symptoms as evidenced by 11% unintended wt loss x ~ 10 wks, pt eating <50% of est nutritional needs , fat/muscle loss throughout body and BMI 16.1 Status Active Problem Recommendation Dietitian Recommendations/Changes Will continue Cardiac diet as ordered - add fluid restriction as indicated by MD Will provide vanilla ensure pudding w/ lunch and dinner; 120 ml vanilla ensure plus high protein tid w/ medpass Continue to monitor for changes in pt nutritional status and adjust as indicated Weight / BMI Weight Weight: 40.6 kg Body Mass Index (BMI) 16.3 ABG / Lab / Microbiology Data 02/22/23 05:13 02/22/23 05:13 Laboratory: Laboratory Results - last 24 hr 02/22/23 05:13: WBC 7.1, RBC 5.83 H, Hgb 14.0, Hct 48.2 H, MCV 82.7, MCH 24.0 L, MCHC 29.0 L, RDW Std Deviation 47.2 H, RDW Coeff of [place] 16.4 H, Plt Count 308, MPV 9.9, Immature Gran % (Auto) 0.300, Neut % (Auto) 61.7, Lymph % (Auto) 21.4, [place] % (Auto) 13.3 H, Eos % (Auto) 2.0, Baso % (Auto) 1.3 H, Absolute Neuts (auto) 4.4, Absolute Lymphs (auto) 1.52, Nucleated RBC % 0, Sodium 135 L, Potassium 5.2 H, Chloride 94 L, Carbon Dioxide 35.0 H, Anion Gap 6, BUN 24 H, Creatinine 1.16 H, Estim Creat Clear Calc 24.38, Est GFR (MDRD) Af Amer 58 L, Est GFR (MDRD) Non-Af 48 L, BUN/Creatinine Ratio 20.7 H, Glucose 93, Calcium 9.2 D/C Instructions Discharge Diet: 8 Cup Fluid Restriction and 2000 mg Sodium Diet Discharge Activity: Return to Normal Activity Call your doctor if you observe: Fever of 101 or Higher, Shortness of breath, Fainting spells and Chest pain Meaningful Use Info Meaningful Use Diagnoses (Choose all that apply): CHF CHF STEPHANIE/ARB ordered at discharge?: No Reason STEPHANIE/ARB not ordered?: Not indicated Documented LVEF (%): 50 Discharge Plan Admission Admit Date/Time: 02/20/23 16:29 Attending Provider: Bharat Perez Primary Care Provider: Raghu Forbes Discharge Orders/Prescriptions Prescriptions: Continued chlorpheniramine maleate [Allergy (chlorpheniramine)] 4 mg tablet 4 mg PO Q8H PRN (Reason: Allergy Symptoms) Rx Instructions: do not exceed 2 doses per 24 hrs aspirin 325 mg tablet 325 mg PO DAILY Qty: 90 3RF furosemide 40 mg tablet 40 mg PO BID Qty: 60 2RF diltiazem HCl 120 mg capsule,extended release 24hr 120 mg PO DAILY Qty: 90 3RF Discontinued potassium chloride [Klor-Con M20] 20 mEq tablet,ER particles/crystals 20 meq PO DAILY PRN (Reason: LEG CRAMPS) Patient Comments: PT STATES ONLY TAKES NEEDED FOR LEG CRAMPS Referrals / Follow Up: Raghu Forbes MD [Primary Care Provider] - Within 1 Week Disposition Disposition (needs filled in before D/C Order can be placed): Home, Self Care Charges/Coding Visit Charges Inpatient E&M: 31682 Disch Hosp >30min
[2023-02-22 10:51] VITALS: BP 136/66; PULSE 90; RESP 16; TEMP 36.2; O2SAT 92
== END 2023-02-22 11:33 | disposition home or self-care (01) | DRG 291 ==
LOC: ED 16:31 → PCU 16:40
PROVIDERS: Admitting Provider Internal Medicine; Emergency Provider Emergency Medicine; PCP Family Medicine; Visit Provider Internal Medicine
DX: I50.33 Acute on chronic diastolic (congestive) heart failure (principal); E43 Unspecified severe protein-calorie malnutrition; I42.9 Cardiomyopathy, unspecified; I24.8 Other forms of acute ischemic heart disease; E87.1 Hypo-osmolality and hyponatremia; Z68.1 Body mass index [BMI] 19.9 or less, adult; I48.0 Paroxysmal atrial fibrillation; E87.6 Hypokalemia; I25.10 Atherosclerotic heart disease of native coronary artery without angina pectoris; I73.00 Raynaud's syndrome without gangrene; E78.5 Hyperlipidemia, unspecified; R77.8 Other specified abnormalities of plasma proteins; Z20.822 Contact with and (suspected) exposure to COVID-19; Z79.82 Long term (current) use of aspirin; Z79.899 Other long term (current) drug therapy
CPT/HCPCS: 36415; 71045; 80048; 80053; 81001; 83735; 83880; 84100; 84484; 85025; 93005; 94668; 97802; 99283; A4216; J1940; J2405

== ENCOUNTER → 2023-02-27 | Outpatient (CLI) | payer MEDICARE, SELFPAY ==
--- NOTE | 2023-02-27 09:40 | RAD_ITS ---
STUDY: X-RAY - ESOPHAGUS (BARIUM SWALLOW) WITH FLUOROSCOPY REASON FOR EXAM: Female, 82 years old. DYSPHAGIA TECHNIQUE: 20 view(s) of the esophagus were obtained following swallowing of barium. FLUOROSCOPY TIME (if supplied): (120 seconds) minutes/seconds. 14.58 mGy COMPARISON: None. FINDINGS: There is no demonstrated esophageal foreign body. There is no demonstrated stricture or mucosal abnormality. Normal gastroesophageal junction, without a demonstrated hiatal hernia. The patient ingested a 12 mm tablet of barium without any difficulty. Normal visualized aortic arch and descending thoracic aorta. Normal visualized pulmonary parenchyma. There are diffuse degenerative changes of the visualized thoracic spine. RAD/Esophagus Dual Contrast IMPRESSION: Normal plain film x-ray examination (barium swallow) of the esophagus. Electronically Signed: Mau Faulkner MD at 8:52 EDT ,
== END | disposition home or self-care (01) ==
LOC: RAD 09:22
PROVIDERS: PCP Family Medicine; Referring Provider Family Medicine; Visit Provider Family Medicine
DX: R13.10 Dysphagia, unspecified (principal)
CPT/HCPCS: 74221

== ENCOUNTER → 2023-06-03 | Outpatient (CLI) | payer MEDICARE, SELFPAY ==
[2023-06-03 12:25] LABS: Hematocrit 48.2 % (37-47); Hemoglobin 14.7 g/dL (12.0-15.0); Mean Corp Hgb Conc 30.5 g/dL (32-36); Mean Corpuscular Hgb 26.8 pg (27.0-32.0); Platelet Count 294 K/mm3 (150-450); RBC Distribution Width CV 18.3 % (11.6-14.6); RBC Distribution Width SD 52.4 fl (35.1-43.9); Red Blood Count 5.48 M/mm3 (4.2-5.4); White Blood Count 7.5 K/mm3 (4.4-11.0)
[2023-06-03 12:53] LABS: Vitamin D,25 Hydroxy 44.1 ng/mL
[2023-06-03 13:06] LABS: Anion Gap 2 (5-15); BUN 19 mg/dL (7-18); BUN/Creat Ratio 18.8 RATIO (10-20); Calcium,Total 9.4 mg/dL (8.5-10.1); Chloride 95 mmol/L (98-107); Creatinine, Serum 1.01 mg/dL (0.55-1.02); EST Glomerular Filtration Rate 56 mL/min (>60); Est Glom Filt Rate - Afr Amer 68 mL/min (>60); Glucose 95 mg/dL (74-106); Sodium Level 135 mmol/L (136-145); Thyroid Stim Hormone (TSH) 3.92 uIU/mL (0.358-3.74)
== END | disposition home or self-care (01) ==
LOC: MTLAB 10:24
PROVIDERS: PCP Family Medicine; Referring Provider Nurse Practitioner Family; Visit Provider Nurse Practitioner Family
DX: I50.9 Heart failure, unspecified (principal); I42.9 Cardiomyopathy, unspecified; N18.2 Chronic kidney disease, stage 2 (mild); M81.0 Age-related osteoporosis without current pathological fracture
CPT/HCPCS: 36415; 80048; 82306; 83880; 84443; 85027

== ENCOUNTER 2024-11-28 08:40 | Inpatient (IN) | payer MEDICARE, SELFPAY ==
[2024-11-28 08:40] VITALS: BP 165/64; PULSE 112; RESP 19; TEMP 36.7; O2SAT 97; BMI 16.7
--- NOTE | 2024-11-28 08:48 | EKG12_ITS ---
Test Reason : GENERAL Blood Pressure : */* mmHG Vent. Rate : 102 BPM Atrial Rate : 394 BPM P-R Int : * ms QRS Dur : 80 ms QT Int : 350 ms P-R-T Axes : * 93 -41 degrees QTcB Int : 456 ms Atrial fibrillation /flutter with variable A-V block Rightward axis Biventricular hypertrophy with repolarization abnormality Abnormal ECG Confirmed by Arcenio Vallejo ([id number]), general expeditor BRAULIO SAHNI ([id number]) on 12/04/2024 12:56:26 PM Referred By: Confirmed By: Arcenio Vallejo
--- NOTE | 2024-11-28 08:49 | EDS_ITS ---
HPI History of Present Illness Chief Complaint: General Illness Narrative Narrative: 83-year-old female past medical history of atrial fibrillation, not on anticoagulants and states she only takes an aspirin as she decided she did not want to be on anticoagulants presents with at least 1 week of not feeling well. She endorses at least a week of upper respiratory infection type symptoms and states that she has had a cough on occasion and thinks that her breathing is not quite right. She denies any pain. No chest pain, she is not really feel short of breath. About 3:00 this morning, almost 6 hours ago, she began having urinary frequency stating that she urinates every hour. Once again, denies any pain with urination. States she has not felt quite right and endorses malaise and fatigue as well over the last week and came to the emergency department to be evaluated. [facility] Medical History Congestive heart failure Paroxysmal atrial fibrillation Atrial fibrillation and flutter Persistent atrial fibrillation with rapid ventricular response emt intermediate (current) use of anticoagulants Atrial flutter GERD (gastroesophageal reflux disease) Long-term use of high-risk medication Thyroid disorder Anxiety Hyperlipidemia Atherosclerotic heart disease of [place] coronary artery without angina pectoris Atrial fibrillation Cardiomyopathy History of myocardial infarction History of GI bleed Congestive heart failure Home Medications ?Medication ?Instructions ?Recorded ?Last Taken ?Type aspirin 325 mg tablet 325 mg PO DAILY heart health #90 08/23/21 11/27/24 Rx tabs chlorpheniramine maleate 4 mg 4 mg PO Q8H PRN Allergy Symptoms 08/23/21 11/27/24 History tablet (Allergy (chlorpheniramine)) metoprolol succinate 25 mg 25 mg PO DAILY #30 tabs 04/21 Unknown Rx tablet,extended release 24 hr multivitamin 1 tab PO DAILY 02/04/2409/22 History diltiazem HCl 120 mg 120 mg PO DAILY heart rate # 90 caps 07/13/24 11/27/24 Rx capsule,extended release 24 hr furosemide 40 mg tablet 40 mg PO BID diuretic #180 t abs 07/13/24 11/27/24 Rx Allergy/AdvReac Type Severity Reaction Status Date / Time amiodarone Allergy Hives Verified 11/28/24 08:42 Family History Father Heart disease cardiomyopathy Sister Heart disease Cardiomyopathy heart transplant Surgical History History of tonsillectomy History of cardiac catheterization History of tubal ligation Social History Smoking Status: Never smoker alcohol intake: never substance use type: does not use caffeine: Yes Type: coffee Number of servings: 3 ROS ROS ED ROS Narrative Constitutional: No fever, no chills. Ill feeling. Malaise and fatigue. HEENT: No sore throat. No neck pain. No rhinorrhea. Positive nasal congestion. Cardiovascular: No chest pain. No palpitations. No pedal edema. Respiratory: Occasional cough, no shortness of breath. Abdominal: No abdominal pain. No nausea. No vomiting. Genitourinary: No dysuria. No hematuria. Positive urinary frequency. Musculoskeletal: No myalgias. No arthralgias. Neurologic: Occasional headaches. No dizziness. No lightheadedness. EXAM Physical Exam Narrative Exam Narrative: Afebrile. Vital signs noted. Nontoxic-appearing. Cardiovascular examination reveals mild tachycardia, regular. Lungs are clear to auscultation bilaterally. Abdomen is soft and nontender without guarding or rebound. Positive bowel sounds. Neurological examination nonfocal, nonlateralizing. No pedal edema. Const Vital Signs: 11/28/24 08:40 11/28/24 08:42 Temperature 98.1 F Temperature Source Oral Pulse Rate 112 H Respiratory Rate 19 H Respiratory Effort Normal Respiratory Pattern Normal Blood Pressure 165/64 H Blood Pressure Mean 97 Pulse Ox 97 Oxygen Delivery Method Room Air MDM MDM MDM Narrative Medical decision making narrative: Differential diagnosis includes but not limited to UTI versus pneumonia versus viral syndrome. Comprehensive workup was pursued. I do not feel she needs to be swabbed for COVID, influenza, or RSV as her symptoms have been ongoing for at least a week. She may have dehydration or other electrolyte imbalance as well. I reviewed her prior records. She does have history of congestive heart failure. Initially I considered bolus of IV fluids but instead IV normal saline was run at 100 mL/h until chest x-ray and BNP. However, she does not appear clinically to have fluid overload. I reviewed her laboratory work, she has a normal white count of 7.7 with hemoglobin slightly hemoconcentrated at 15.8 with hematocrit 49.4, platelet count normal at 255. Sodium is low at 128 but when compared to prior labs she has chronic hyponatremia, but it does not seem to be this low. Chloride 89. This may be mild dehydration. Glucose elevated at 173 with a normal anion gap of 14. BUN normal at 15 with creatinine 0.85. BNP is elevated at 9719. Urinalysis is positive for nitrites but 0-5 WBCs. I do not necessarily feel that antibiotics are indicated but I am unsure as to why she is having urinary frequency. She is positive for leukocytes. Chest x-ray interpreted by myself independently shows bilateral trace pleural effusions but no consolidation or pneumothorax. I reviewed the radiology report which confirms my independent interpretation. EKG was obtained and interpreted by myself independently. The initial appears to be atrial flutter with variable AV block at 100 bpm which I feel is rate controlled. No acute ST changes. No STEMI. The RN was concerned regarding one of the leads and repeated EKG. On my individual interpretation, shows atrial flutter with the same variable AV block at 102 bpm but still no acute ST changes. No STEMI. Given the patient's elevated BNP and hyponatremia, I reviewed her prior records and her last echocardiogram was in 2022 where she had an EF of 50%. I will discuss patient with the hospitalist for observation. I discussed patient with Dr. Perez. Given her urinalysis findings he would like her started on Rocephin. Additionally, was felt that she has bilateral CHF on the chest x-ray so she will be admitted to the PCU in stable condition. History & Record Review Discussion w/independent historian: Patient Additional record(s) reviewed:: Prior labs Lab Data Attestation: I reviewed the patient's lab results. Labs: Laboratory Results - last 24 hr 11/28/24 11/28/24 09:03 09:30 WBC 7.7 RBC 5.82 H Hgb 15.8 H Hct 49.4 H MCV 84.9 MCH 27.1 MCHC 32.0 RDW Std Deviation 39.5 RDW Coeff of [place] 12.9 Plt Count 255 MPV 9.4 Immature Gran % (Auto) 0.300 Neut % (Auto) 76.7 H Lymph % (Auto) 12.5 L [place] % (Auto) 8.6 Eos % (Auto) 1.0 Baso % (Auto) 0.9 Absolute Neuts (auto) 5.9 Absolute Lymphs (auto) 0.96 Nucleated RBC % 0 Sodium 128 L Potassium 4.3 Chloride 89 L Carbon Dioxide 25.6 Anion Gap 14 BUN 15 Creatinine 0.85 Estim Creat Clear Calc 33.36 L Est GFR (MDRD) Non-Af 68 BUN/Creatinine Ratio 17.9 Glucose 173 H Calcium 9.4 Total Bilirubin 0.76 AST 46 H ALT 21 Alkaline Phosphatase 103 NT pro BNP II 9719 H Total Protein 7.5 Albumin 4.2 Globulin 3.3 Albumin/Globulin Ratio 1.3 Urine Color Yellow Urine Clarity Clear Urine pH 8.0 Ur Specific [place] 1.015 Urine Protein 30 H Urine Glucose (UA) Normal Urine Ketones Negative Urine Occult Blood 10 H Urine Nitrite Positive H Urine Bilirubin 3 H Urine Urobilinogen 4 H Ur Leukocyte Esterase 25 H Urine RBC 0-5 SEEN Urine WBC 0-5 SEEN Ur Squamous Epith Cells 0-5 SEEN Urine Bacteria RARE Urine Mucus 0 SEEN Radiography Diagnostic Testing: Clinical Impression(s) from Imaging Studies Chest X-Ray 11/28/24 09:04 IMPRESSION: Tiny bilateral pleural effusions. Reading Location: [id number] Discharge Plan Triage Chief Complaint: General Illness ED Provider: Mario Hitchcock Dx/Rx/DC Orders Prescriptions: No Action chlorpheniramine maleate [Allergy (chlorpheniramine)] 4 mg tablet 4 mg PO Q8H PRN (Reason: Allergy Symptoms) Rx Instructions: do not exceed 2 doses per 24 hrs aspirin 325 mg tablet 325 mg PO DAILY Qty: 90 3RF multivitamin Tablet 1 tab PO DAILY metoprolol succinate 25 mg tablet extended release 24 hr 25 mg PO DAILY Qty: 30 11RF Patient Comments: pt has not been taking furosemide 40 mg tablet 40 mg PO BID Qty: 180 3RF diltiazem HCl 120 mg capsule,extended release 24hr 120 mg PO DAILY Qty: 90 3RF Primary Care Provider: Mio Forbes Referrals: Mio Forbes MD [Primary Care Provider] - Print Language: Occitan
--- NOTE | 2024-11-28 09:04 | RAD_ITS ---
PROCEDURE: CHEST 1 VIEW (PORTABLE) 11/28/2024 REASON FOR EXAM: SHORTNESS OF BREATH TECHNIQUE: Frontal view of the chest. COMPARISON: 02/20/2023 FINDINGS: Hardware: None Heart: Cardiac and mediastinal contours are stable. Lungs: The lungs are clear. Tiny bilateral pleural effusions. Bones: The bones are unremarkable. Other: RAD/Chest 1 View (Portable) IMPRESSION: Tiny bilateral pleural effusions. Reading Location: [id number]
[2024-11-28 09:15] LABS: Absolute Lymphocyte Count 0.96 X10^3/uL (0.83-4.51); Absolute Neutrophil Count 5.9 X10^3/uL (2.0-7.7); Basophil# 0.07 X10^3/uL; Basophil% 0.9 % (0-1); Eosinophil# 0.08 X10^3/uL; Hematocrit 49.4 % (37-47); Hemoglobin 15.8 g/dL (12.0-15.0); Lymphocyte # 0.96 X10^3/ul (0.83-4.51); Lymphocyte % 12.5 % (19-41); Mean Corpuscular Hgb 27.1 pg (27.0-32.0); Mean Corpuscular Volume 84.9 fL (81-99); Mean Platelet Vol. 9.4 fl (6.2-12.0); Monocyte# 0.66 X10^3/uL; Monocyte% 8.6 % (0-10); NRBC Flagged by Analyzer 0 % (0-5); Neutrophil # 5.92 X10^3/uL (2.7-7.7); Neutrophil % 76.7 % (47-70); Platelet Count 255 K/mm3 (150-450); RBC Distribution Width CV 12.9 % (11.6-14.6); RBC Distribution Width SD 39.5 fl (35.1-43.9); Red Blood Count 5.82 M/mm3 (4.2-5.4); White Blood Count 7.7 K/mm3 (4.4-11.0)
[2024-11-28] MEDS: 0.9% Normal Saline (1000mL) 1,000 ML 100 ML IV (09:15)
[2024-11-28 09:36] LABS: Mucous, Urine 0 SEEN /hpf (<or=2+)
[2024-11-28 09:38] LABS: Color, Urine Yellow (Yellow); Glucose, Dipstick Normal (Normal); Ketone-Dipstick Negative (Negative); Leukocyte Esterase-Dipstick 25 /ul (Negative); Nitrite-Dipstick Positive (Negative); Occult Blood-Urine 10 /ul (Negative); Protein-Dipstick 30 mg/dl (Negative); Specific Gravity, Urine 1.015 (1.002-1.030); Urine Clarity Clear (Clear); Urine Urobilinogen 4 mg/dl (Normal)
[2024-11-28 09:39] LABS: Urine Bilirubin Dipstick 3 mg/dL (Negative)
[2024-11-28 09:44] LABS: Bacteria RARE /hpf (None Seen); Red Blood Cells-Urine 0-5 SEEN /hpf (0-5); Squamous Epithelial Cells - UA 0-5 SEEN /hpf (5-10); White Blood Cells 0-5 SEEN /hpf (0-5)
[2024-11-28 09:57] LABS: Pro- Brain NATRIURETIC PEPTIDE 9719 pg/mL (<=1800)
[2024-11-28 09:59] LABS: ALB/GLOB Ratio 1.3 RATIO (0.9-2.4); AST(SGOT) 46 U/L (<=31); Alanine Aminotransfer ALT/SGPT 21 U/L (<=34); Albumin, Serum 4.2 g/dL (3.4-4.8); Alkaline Phosphatase 103 U/L (35-104); Anion Gap 14 (5-15); BUN 15 mg/dL (4-19); BUN/Creat Ratio 17.9 RATIO (10-20); Calcium,Total 9.4 mg/dL (7.6-11.0); Carbon Dioxide 25.6 mmol/L (21.0-32.0); Chloride 89 mmol/L (98-108); Creatinine, Serum 0.85 mg/dL (0.70-1.20); EST Glomerular Filtration Rate 68 (>60); Estimated Creatinine Clearance 33.36 ml/min (50-250); Globulin 3.3 g/dL (2.2-4.2); Glucose 173 mg/dL (70-99); Potassium 4.3 mmol/L (3.3-5.1); Protein, Total 7.5 g/dL (5.9-8.4); Sodium Level 128 mmol/L (133-145); Total Bilirubin 0.76 mg/dL (0.00-1.30)
[2024-11-28 10:16] VITALS: BP 104/78; PULSE 78; RESP 16; TEMP 37.1; O2SAT 99
--- NOTE | 2024-11-28 10:19 | PCM.HP.STD ---
HPI - General General Date of Admission: 11/28/24 Date of Service: 11/28/24 HPI Narrative GISSEL MCKINNEY, is a 83 F who presents with multiple complaints including progressive shortness of breath generalized weakness as well as urinary frequency. Per patient symptoms started couple of days prior to his admission he did experience sinus congestion as well as headache. She felt she was experiencing a viral infection. She later noticed increasing shortness of breath with minimal activity. Denied any swelling involving both lower extremities. On the morning of her presentation she developed urinary frequency and dysuria necessitating patient presenting to the emergency department. Workup did reveal bilateral pleural effusion hyponatremia as well as abnormal urinalysis consistent with UTI. Patient admitted to a monitored bed for further management FORMERLY [facility] Medical History Congestive heart failure Paroxysmal atrial fibrillation Atrial fibrillation and flutter Persistent atrial fibrillation with rapid ventricular response [facility] (current) use of anticoagulants Atrial flutter GERD (gastroesophageal reflux disease) Long-term use of high-risk medication Thyroid disorder Anxiety Hyperlipidemia Atherosclerotic heart disease of [place] coronary artery without angina pectoris Atrial fibrillation Cardiomyopathy History of myocardial infarction History of GI bleed Congestive heart failure Home Medications ?Medication ?Instructions ?Recorded ?Last Taken ?Type aspirin 325 mg tablet 325 mg PO DAILY heart health #90 08/23/21 11/27/24 Rx tabs chlorpheniramine maleate 4 mg 4 mg PO Q8H PRN Allergy Symptoms 08/23/21 11/27/24 History tablet (Allergy (chlorpheniramine)) metoprolol succinate 25 mg 25 mg PO DAILY #30 tabs 02/04/24 Unknown Rx tablet,extended release 24 hr multivitamin 1 tab PO DAILY 02/04/24 11/27/24 History diltiazem HCl 120 mg 120 mg PO DAILY heart rate #90 caps 07/13/24 11/27/24 Rx capsule,extended release 24 hr furosemide 40 mg tablet 40 mg PO BID diuretic #180 tabs 07/13/24 11/27/24 Rx Allergy/AdvReac Type Severity Reaction Status Date / Time amiodarone Allergy Hives Verified 11/28/24 08:42 Family History Father Heart disease cardiomyopathy Sister Heart disease Cardiomyopathy heart transplant Surgical History History of tonsillectomy History of cardiac catheterization History of tubal ligation Social History Smoking Status: Never smoker alcohol intake: never substance use type: does not use caffeine: Yes Type: coffee Number of servings: 3 ROS ROS Narrative GENERAL: anorexia HEENT: headache, sinus congestion, RESPIRATORY: , shortness of breath, dyspnea on exertion CARDIAC: denies chest pain, palpitations, orthopnea, GASTROINTESTINAL: denies abdominal pain, nausea, GENITOURINARY: dysuria, urgency, frequency, EXTREMITY: denies swelling MUSCULOSKELETAL: denies current joint pain or tenderness NEUROLOGIC: denies focal numbness, weakness, tingling HEMATOLOGIC: denies easy bruising and/or hemorrhage INTEGUMENT: denies rashes PSYCHIATRIC: denies suicidal or homicidal ideation Vital Signs Vital Signs Vital Signs: 11/28/24 08:40 11/28/24 08:42 11/28/24 10:16 Temperature 98.1 F 98.7 F Temperature Source Oral Pulse Rate 112 H 78 Respiratory Rate 19 H 16 Respiratory Effort Normal Respiratory Pattern Normal Blood Pressure 165/64 H 104/78 Blood Pressure Mean 97 86 Pulse Ox 97 99 Oxygen Delivery Method Room Air Weight Weight: 41.413 kg Body Mass Index (BMI) 16.7 Physical Exam Narrative GENERAL: cooperative HEENT: Atraumatic; normocephalic EYES; Anicteric, Normal Conjunctiva NECK; supple, normal thyroid, RESPIRATORY: Diminished to auscultation CARDIOVASCULAR: Irregularly irregular tachycardic GI: soft, normoactive bowel sounds, : No Renal angle tenderness; EXTREMITIES: No edema, no clubbing, MUSCULOSKELETAL: no muscle wasting NEURO: Awake; no lateralizing signs. SKIN: No Rash PSYCH; Flat affect Results Lab / Micro Data 11/28/24 09:03 11/28/24 09:03 Labs: Laboratory Results - last 24 hr 11/28/24 09:03: WBC 7.7, RBC 5.82 H, Hgb 15.8 H, Hct 49.4 H, MCV 84.9, MCH 27.1, MCHC 32.0, RDW Std Deviation 39.5, RDW Coeff of [place] 12.9, Plt Count 255, MPV 9.4, Immature Gran % (Auto) 0.300, Neut % (Auto) 76.7 H, Lymph % (Auto) 12.5 L, [place] % (Auto) 8.6, Eos % (Auto) 1.0, Baso % (Auto) 0.9, Absolute Neuts (auto) 5.9, Absolute Lymphs (auto) 0.96, Nucleated RBC % 0, Sodium 128 L, Potassium 4.3, Chloride 89 L, Carbon Dioxide 25.6, Anion Gap 14, BUN 15, Creatinine 0.85, Estim Creat Clear Calc 33.36 L, Est GFR (MDRD) Non-Af 68, BUN/Creatinine Ratio 17.9, Glucose 173 H, Calcium 9.4, Total Bilirubin 0.76, AST 46 H, ALT 21, Alkaline Phosphatase 103, NT pro BNP II 9719 H, Total Protein 7.5, Albumin 4.2, Globulin 3.3, Albumin/Globulin Ratio 1.3 11/28/24 09:30: Urine Color Yellow, Urine Clarity Clear, Urine pH 8.0, Ur Specific [place] 1.015, Urine Protein 30 H, Urine Glucose (UA) Normal, Urine Ketones Negative, Urine Occult Blood 10 H, Urine Nitrite Positive H, Urine Bilirubin 3 H, Urine Urobilinogen 4 H, Ur Leukocyte Esterase 25 H, Urine RBC 0-5 SEEN, Urine WBC 0-5 SEEN, Ur Squamous Epith Cells 0-5 SEEN, Urine Bacteria RARE, Urine Mucus 0 SEEN Imaging Radiology Impression Chest X-Ray 11/28/24 09:04 IMPRESSION: Tiny bilateral pleural effusions. Reading Location: [facility] Assessment & Plan Assessment/Plan (1) UTI (urinary tract infection): (2) Paroxysmal atrial fibrillation: (3) Congestive heart failure: QUALIFIERS: Heart failure type: diastolic Heart failure chronicity: acute on chronic Qualified Code(s): I50.33 - Acute on chronic diastolic (congestive) heart failure PLAN: Plan Patient is an 83-year-old lady presenting with multiple complaints including progressive shortness of breath generalized weakness as well as urinary frequency 1. Acute acute on chronic congestive heart failure with reduced ejection fraction ? Echo from 11/28/2022 demonstrated LVEF of 45 to 50% with severely enlarged left atrium and moderately enlarged right atrium with mild aortic stenosis. Patient has been admitted to a monitored bed treatment initiated with strict input and output, fluid restriction, daily weights, and diuretic therapy with furosemide. Repeat echo ordered for EF assessment 2. Nonischemic cardiomyopathy ? Tachycardia induced. Patient presented with acute exacerbation of congestive heart failure management as discussed above 3. Upper respiratory tract infection ? Requested for COVID assay as well as viral respiratory panel. Plan is to treat symptomatically 4. Acute cystitis ? Patient has symptoms including dysuria and frequency with abnormal urinalysis?positive leukocyte Estrace and urine nitrites. Patient was started on ceftriaxone cultures sent 5. Hyponatremia ? Secondary to hypovolemia from CHF do expect improvement with diuresis as well as fluid restriction ordered repeat BMP in a.m. for subsequent management 6.. Paroxysmal atrial fibrillation ? With previous cardioversion and radiofrequency ablation. Patient presented with A-fib with RVR patient is on rate controlling agent with Cardizem did continue if patient rate did not improve plan is to initiate Cardizem drip. Patient is not on systemic anticoagulation apparently per her request 7.. Dyslipidemia ? Currently not on any statin therapy 8. Raynaud's disease ? Per history 9. GERD ? Ordered Mylanta as needed for dyspepsia 10. Hyperglycemia ? Patient patient is not a Known diabetic quality A1c 11. DVT prophylaxis ? Subcu Lovenox Advance planning; did discuss with the patient's regarding advanced directives as well as CODE STATUS. Did explain the various scenarios involved ( FULL CODE, DNR CCA, DNR CCA with no intubation, and DNR CC and what each meant) patient elected to to remain full code with CPR and intubation if needed. Order was placed. Time spent on discussion 16 minutes. Charges/Coding Multi Select Codes Visit Charges Visit Charges: 09335 Init Hosp L3 Hospitalists' Procedures Procedures: 14704 Advncd Care Plan 30 Min
--- NOTE | 2024-11-28 11:13 | ECHOD_ITS ---
Reason For Study Reason For Study: CHF Procedure This was a 2D Doppler, Color Flow transthoracic echocardiogram. Exam performed portable in patient room. Left Ventricle Normal LV size. Mild concentric left ventricular hypertrophy. Generalized LV hypokinesis. Mid to distal anterior septal akinesis. Estimated LVEF 30 to 35%. Diastolic dysfunction with elevated left atrial filling pressures. Right Ventricle Normal right ventricle. Atria The left atrium is severely enlarged. The right atrium is mildly enlarged. Mitral Valve Mild (1+) mitral valve insufficiency. Tricuspid Valve Trivial tricuspid valve insufficiency. Unable to estimate RV systolic pressure due to insufficient tricuspid regurgitant envelope. Aortic Valve Mild diffuse aortic valve calcification. Mild aortic valve stenosis. Mean peak gradient 13 mmHg. Mild aortic valve regurgitation. Pulmonic Valve The pulmonic valve is not well visualized. Great Vessels Normal sized aortic root. Pericardium/Pleural No pericardial effusion. MMode/2D Measurements & Calculations LVIDd: 4.0 cm IVSd: 1.3 cm LVOT diam: 1.9 cm LVIDs: 3.4 cm LVPWd: 1.2 cm LVOT area: 2.8 cm2 RVDd: 3.3 cm FS: 13.2 % Ao root diam: 2.7 cm LAV(MOD-bp): 45.1 ml LVAd ap4: 26.9 cm2 LAV(MOD-bp) Indexed: 33.1 ml/m2 LVLd ap4: 7.3 cm LAV(MOD-sp2): 41.2 ml EDV(MOD-sp4): 81.6 ml LAV(MOD-sp4): 51.9 ml EDV(sp4-el): 84.4 ml LVAs ap4: 17.9 cm2 LVLs ap4: 6.3 cm ESV(MOD-sp4): 41.6 ml ESV(sp4-el): 43.0 ml EF(MOD-sp4): 49.0 % EF(sp4-el): 49.1 % LVAd ap2: 27.8 cm2 SV(MOD-sp4): 40.0 ml SV(MOD-sp2): 47.8 ml LVLd ap2: 7.1 cm SI(MOD-sp4): 29.4 ml/m2 SI(MOD-sp2): 35.1 ml/m2 EDV(MOD-sp2): 91.8 ml EDV(sp2-el): 92.7 ml LVAs ap2: 18.5 cm2 LVLs ap2: 6.4 cm ESV(MOD-sp2): 44.0 ml ESV(sp2-el): 45.2 ml EF(MOD-sp2): 52.1 % SV(sp4-el): 41.4 ml LA dimension(2D): 3.0 cm LA A4 area: 18.4 cm2 RA A4 area: 15.9 cm2 TAPSE: 1.3 cm Doppler Measurements & Calculations MV E max romeo: 115.1 cm/sec Lat Peak E' Romeo: 7.5 cm/sec Med Peak E' Romeo: 6.6 cm/sec E/E' lat: 15.3 E/E' med: 17.5 Ao V2 max: 252.8 cm/sec AI max romeo: 392.8 cm/sec LV V1 max: 125.8 cm/sec Ao max P.1 mmHg AI max P.2 mmHg LV V1 max P.4 mmHg Ao V2 mean: 168.1 cm/sec AI dec slope: 277.2 cm/sec2 LV V1 mean P.6 mmHg Ao mean P.4 mmHg AI P1/2t: 415.0 msec LV V1 mean: 89.9 cm/sec Ao V2 VTI: 39.0 cm LV V1 VTI: 19.0 cm AV (velocity ratio): 0.49 DAVE(I,D): 1.4 cm2 DAVE(V,D): 1.4 cm2 SV(LVOT): 52.7 ml PA V2 max: 75.3 cm/sec ECHO/Echo Complete Interpretation Summary Mild concentric left ventricular hypertrophy. Generalized LV hypokinesis. Mid to distal anterior septal akinesis. Estimated L VEF 30-35%. Diastolic dysfunction with elevated left atrial filling pressures. The left atrium is severely enlarged. The right atrium is mildly enlarged. Mild (1+) mitral valve insufficiency. Mild aortic valve stenosis. Mean peak gradient 13 mmHg. Mild aortic valve regur gitation. Ordering Physician: Bharat Perez Referring Physician: Mio Forbes MD Performed By: Kacy Renee RDCS
[2024-11-28 11:25] VITALS: BMI 16.5
[2024-11-28 11:38] VITALS: BP 125/71; PULSE 85; RESP 17; TEMP 37; O2SAT 94
[2024-11-28] MEDS: 0.9% Normal Saline (250mL Bag) 250 ML 15 ML IV (13:13)
[2024-11-28] MEDS: Furosemide 40 MG/4 ML Vial IV ×2 (13:13→19:49)
[2024-11-28] MEDS: Ceftriaxone 1 GM/50 ML BAG IV (13:14)
[2024-11-28] MEDS: 0.9% Saline Lock 10 ML Syringe IV ×2 (13:15→19:52)
--- NOTE | 2024-11-28 13:35 | CASEMGMT ---
RN CM Face to Face with patient for initial transition planning/care coordination assessment. RN CM introduced self and role at [facility]. Patient lying in bed, alert and oriented. Patient willing to participate in assessment and is able to answer all questions appropriately. Care providers, pharmacy, and demographics verified. Strata: 2 PCP: Leidy Specialists: erlinda Beltran Pharmacy: [facility] Insurance: [employer] [facility] Prescription Benefit: yes Living Will/HPOA: none LNOK: son Living Arrangements: Patient lives in a mobile home with 4 steps and railing to enter the home. Patient is independent and denies needs at discharge. Transportation: self, son DME/HHC: Patietn denies DME in the home. No previous HHC or SNF. Patient wishes to discharge home, denies need for home health at this time. Patient states she has no further needs or concerns at this time. CM to follow for discharge planning needs that may arise. Disposition Plan: Patient to discharge home with family support and follow-up plans in place. Tomeka LEMONS, RN, CM
[2024-11-28 14:22] VITALS: O2SAT 96
[2024-11-28 16:53] VITALS: BP 143/99; PULSE 122; RESP 14; TEMP 37.1; O2SAT 94
[2024-11-28] MEDS: dilTIAZem CD 120 MG Capsule PO (16:59)
[2024-11-28] MEDS: Aspirin 325 MG Tablet PO (16:59)
[2024-11-28] MEDS: Ensure Plus High Protein 120 ML LIQUID PO ×2 (17:17→20:00)
[2024-11-28 22:00] VITALS: BP 133/84; PULSE 109; RESP 18; TEMP 36.6; O2SAT 94
[2024-11-29 03:54] VITALS: BP 120/71; PULSE 92; RESP 16; TEMP 36.8; O2SAT 93
[2024-11-29 05:25] VITALS: BMI 17.1
[2024-11-29] MEDS: Furosemide 40 MG/4 ML Vial IV ×3 (06:06→20:26)
[2024-11-29 06:23] LABS: Absolute Lymphocyte Count 1.37 X10^3/uL (0.83-4.51); Absolute Neutrophil Count 4.6 X10^3/uL (2.0-7.7); Basophil# 0.08 X10^3/uL; Basophil% 1.1 % (0-1); Eosinophil# 0.22 X10^3/uL; Hematocrit 48.1 % (37-47); Hemoglobin 15.7 g/dL (12.0-15.0); Lymphocyte # 1.37 X10^3/ul (0.83-4.51); Lymphocyte % 18.7 % (19-41); Mean Corp Hgb Conc 32.6 g/dL (32-36); Mean Corpuscular Hgb 27.4 pg (27.0-32.0); Mean Corpuscular Volume 83.8 fL (81-99); Mean Platelet Vol. 9.5 fl (6.2-12.0); Monocyte% 13.7 % (0-10); NRBC Flagged by Analyzer 0 % (0-5); Neutrophil # 4.62 X10^3/uL (2.7-7.7); Neutrophil % 63.2 % (47-70); Platelet Count 248 K/mm3 (150-450); RBC Distribution Width CV 12.9 % (11.6-14.6); RBC Distribution Width SD 39.3 fl (35.1-43.9); Red Blood Count 5.74 M/mm3 (4.2-5.4); White Blood Count 7.3 K/mm3 (4.4-11.0)
[2024-11-29 07:12] LABS: Phosphorus 4.4 mg/dL (2.7-4.5)
[2024-11-29 07:15] LABS: Anion Gap 13 (5-15); BUN 17 mg/dL (4-19); Calcium,Total 9.3 mg/dL (7.6-11.0); Carbon Dioxide 27.5 mmol/L (21.0-32.0); Chloride 93 mmol/L (98-108); Creatinine, Serum 0.83 mg/dL (0.70-1.20); EST Glomerular Filtration Rate 70 (>60); Estimated Creatinine Clearance 34.98 ml/min (50-250); Glucose 99 mg/dL (70-99); Potassium 3.9 mmol/L (3.3-5.1); Sodium Level 133 mmol/L (133-145)
[2024-11-29] MEDS: Ensure Plus High Protein 120 ML LIQUID PO ×4 (07:22→20:30)
[2024-11-29] MEDS: Aspirin 325 MG Tablet PO (07:22)
[2024-11-29] MEDS: dilTIAZem CD 120 MG Capsule PO (07:22)
[2024-11-29 07:38] VITALS: BP 106/94; PULSE 105; RESP 14; TEMP 36.6; O2SAT 94
--- NOTE | 2024-11-29 07:42 | EKG12_ITS ---
Test Reason : GENERAL Blood Pressure : */* mmHG Vent. Rate : 100 BPM Atrial Rate : 394 BPM P-R Int : * ms QRS Dur : 76 ms QT Int : 288 ms P-R-T Axes : * 101 -22 degrees QTcB Int : 371 ms Atrial fibrillation /fibrillation with variable A-V block Rightward axis Biventricular hypertrophy ST & T wave abnormality, consider lateral ischemia Abnormal ECG Confirmed by Arcenio Vallejo ([id number]), web editor BRAULIO SAHNI ([id number]) on 12/04/2024 12:56:56 PM Referred By: ADRYAN Confirmed By: Arcenio Vallejo
--- NOTE | 2024-11-29 08:12 | PN.HOSP_ITS ---
Reason for Visit Reason for Visit: Diagnoses Paroxysmal atrial fibrillation (11/28/24) Acute on chronic diastolic (congestive) heart failure (11/28/24) Urinary tract infection, site not specified (11/28/24) Subjective Subjective Patient is an 83-year-old lady presenting with multiple complaints including progressive shortness of breath generalized weakness as well as urinary frequency. An assessment of acute congestive heart failure as well as UTI was made admitted to monitored bed for further management. Patient seen heart rate remains uncontrolled with paroxysmal runs of A-fib with RVR. Telemetry monitoring did show occasional PVCs. Patient did request consultation with cardiology consult subsequently. Objective Data Objective Data Vital Signs: Vital Signs Temp Pulse Resp BP Pulse Ox O2 Del Method 97.8 F 105 H 14 106/94 H 94 Room Air 11/29/24 07:38 11/29/24 07:38 11/29/24 07:38 11/29/24 07:38 11/29/24 07:38 11/29/24 07:38 Oxygen Delivery Method Room Air Weight: 42.4 kg Body Mass Index (BMI) 17.1 Intake & Output: Intake and Output for Last 24 Hours 11/27/24 11/28/24 11/29/24 23:59 23:59 23:59 Intake Total 1786.75 / 1786.75 100 / 100 Output Total 700 / 700 200 / 200 Balance 1086.75 / 1086.75 -100 / -100 Lab / Micro Data 11/29/24 06:13 11/29/24 06:17 Labs: Laboratory Results - last 24 hr 11/28/24 09:03: WBC 7.7, RBC 5.82 H, Hgb 15.8 H, Hct 49.4 H, MCV 84.9, MCH 27.1, MCHC 32.0, RDW Std Deviation 39.5, RDW Coeff of [place] 12.9, Plt Count 255, MPV 9.4, Immature Gran % (Auto) 0.300, Neut % (Auto) 76.7 H, Lymph % (Auto) 12.5 L, [place] % (Auto) 8.6, Eos % (Auto) 1.0, Baso % (Auto) 0.9, Absolute Neuts (auto) 5.9, Absolute Lymphs (auto) 0.96, Nucleated RBC % 0, Sodium 128 L, Potassium 4.3, Chloride 89 L, Carbon Dioxide 25.6, Anion Gap 14, BUN 15, Creatinine 0.85, Estim Creat Clear Calc 33.36 L, Est GFR (MDRD) Non-Af 68, BUN/Creatinine Ratio 17.9, Glucose 173 H, Calcium 9.4, Total Bilirubin 0.76, AST 46 H, ALT 21, Alkaline Phosphatase 103, NT pro BNP II 9719 H, Total Protein 7.5, Albumin 4.2, Globulin 3.3, Albumin/Globulin Ratio 1.3 11/28/24 09:30: Urine Color Yellow, Urine Clarity Clear, Urine pH 8.0, Ur Specific [place] 1.015, Urine Protein 30 H, Urine Glucose (UA) Normal, Urine Ketones Negative, Urine Occult Blood 10 H, Urine Nitrite Positive H, Urine Bilirubin 3 H, Urine Urobilinogen 4 H, Ur Leukocyte Esterase 25 H, Urine RBC 0-5 SEEN, Urine WBC 0-5 SEEN, Ur Squamous Epith Cells 0-5 SEEN, Urine Bacteria RARE, Urine Mucus 0 SEEN 11/29/24 06:13: WBC 7.3, RBC 5.74 H, Hgb 15.7 H, Hct 48.1 H, MCV 83.8, MCH 27.4, MCHC 32.6, RDW Std Deviation 39.3, RDW Coeff of [place] 12.9, Plt Count 248, MPV 9.5, Immature Gran % (Auto) 0.300, Neut % (Auto) 63.2, Lymph % (Auto) 18.7 L, M [place] % (Auto) 13.7 H, Eos % (Auto) 3.0, Baso % (Auto) 1.1 H, Absolute Neuts (auto) 4.6, Absolute Lymphs (auto) 1.37, Nucleated RBC % 0 11/29/24 06:17: Sodium 133, Potassium 3.9, Chloride 93 L, Carbon Dioxide 27.5, Anion Gap 13, BUN 17, Creatinine 0.83, Estim Creat Clear Calc 34.98 L, Est GFR (MDRD) Non-Af 70, BUN/Creatinine Ratio 20.0, Glucose 99, Calcium 9.3, Phosphorus 4.4, Magnesium 2.0, TSH 4.910 H Micro: Microbiology 11/28/24 12:38 Mucosa - Nose Respiratory Panel (PCR) - Final 11/28/24 10:30 Mucosa - Nasopharyngeal Coronavirus COVID-19 PCR - Final Radiography Diagnostic Testing: Radiology Impression Chest X-Ray 11/28/24 09:04 IMPRESSION: Tiny bilateral pleural effusions. Reading Location: [facility] Physical Exam Narrative GENERAL: cooperative HEENT: Atraumatic; normocephalic EYES; Anicteric, Normal Conjunctiva NECK; supple, normal thyroid, RESPIRATORY: Diminished to auscultation CARDIOVASCULAR: Irregularly irregular tachycardic GI: soft, normoactive bowel sounds, : No Renal angle tenderness; EXTREMITIES: No edema, no clubbing, MUSCULOSKELETAL: no muscle wasting NEURO: Awake; no lateralizing signs. SKIN: No Rash PSYCH; Flat affect Assessment & Plan Assessment/Plan (1) UTI (urinary tract infection): (2) Paroxysmal atrial fibrillation: (3) Congestive heart failure: QUALIFIERS: Heart failure chronicity: acute on chronic Heart failure type: diastolic Qualified Code(s): I50.33 - Acute on chronic diastolic (congestive) heart failure PLAN: Plan Patient is an 83-year-old lady presenting with multiple complaints including progressive shortness of breath generalized weakness as well as urinary frequency 1. Acute acute on chronic congestive heart failure with reduced ejection fraction ? Echo from 11/28/2022 demonstrated LVEF of 45 to 50% with severely enlarged left atrium and moderately enlarged right atrium with mild aortic stenosis. Patient has been admitted to a monitored bed treatment initiated with strict input and output, fluid restriction, daily weights, and diuretic therapy with furosemide. Repeat echo ordered for EF assessment ? 11/29/2024; patient responding to diuretic 2. Nonischemic cardiomyopathy ? Tachycardia induced. Patient presented with acute exacerbation of congestive heart failure management as discussed above ? 11/29/2024; telemetry monitoring demonstrated multiple PVCs. Echo ordered result pending 3. Upper respiratory tract infection ? Requested for COVID assay as well as viral respiratory panel. Plan is to treat symptomatically ? 11/29/2024; patient viral respiratory panel negative 4. Acute cystitis ? Patient has symptoms including dysuria and frequency with abnormal urinalysis?positive leukocyte Estrace and urine nitrites. Patient was started on ceftriaxone cultures sent ? 11/29/2024; urine culture is still pending 5. Hyponatremia ? Secondary to hypovolemia from CHF do expect improvement with diuresis as well as fluid restriction ordered repeat BMP in a.m. for subsequent management ?11/29/2024; sodium level did improve from 128 on admission to 133 with diuretic therapy as well as fluid restriction 6.. Paroxysmal atrial fibrillation ? With previous cardioversion and radiofrequency ablation. Patient presented with A-fib with RVR patient is on rate controlling agent with Cardizem did continue if patient rate did not improve plan is to initiate Cardizem drip. Patient is not on systemic anticoagulation apparently per her request ? 11/29/2024; patient has been experiencing runs of nonsustained A-fib with RVR. She did request consultation with cardiology consult subsequently placed 7.. Dyslipidemia ? Currently not on any statin therapy 8. Raynaud's disease ? Per history 9. GERD ? Ordered Mylanta as needed for dyspepsia 10. Hyperglycemia ? Patient patient is not a Known diabetic ? Ordered hemoglobin A1c 11. DVT prophylaxis ? Subcu Lovenox Charges/Coding Visit Charges Inpatient E&M: 92026 Subs Hosp L3
[2024-11-29] MEDS: Ceftriaxone 1 GM/50 ML BAG IV (09:21)
[2024-11-29] MEDS: Enoxaparin 40 MG/0.4 ML Syringe SC (09:21)
[2024-11-29 10:16] LABS: Hemoglobin A1c 5.5 % (<=5.6)
[2024-11-29] MEDS: Multivitamins,Therapeutic Tablet 1 TABLET PO (12:42)
--- NOTE | 2024-11-29 13:39 | PCM.CONS.C ---
Assessment & Plan Assessment/Plan (1) UTI (urinary tract infection): (2) Generalized weakness: (3) Hyperlipidemia: QUALIFIERS: Hyperlipidemia type: unspecified Qualified Code(s): E78.5 - Hyperlipidemia, unspecified (4) Atherosclerotic heart disease of [place] coronary artery without angina pectoris: QUALIFIERS: [place] vs. transplanted heart: [place] heart Qualified Code(s): I25.10 - Atherosclerotic heart disease of [place] coronary artery without angina pectoris (5) Congestive heart failure: QUALIFIERS: Heart failure type: diastolic Heart failure chronicity: acute on chronic Qualified Code(s): I50.33 - Acute on chronic diastolic (congestive) heart failure (6) Paroxysmal atrial fibrillation: PLAN: 83-year-old patient admitted through the ED Patient had a history of atrial fibrillation currently she is not on anticoagulation as her choice which has been discussed with her geoscience professor. She presented with symptoms of palpitation. Also she had symptoms of shortness of breath with cough. She denied any symptoms of chest pain also noted she had increased urinary frequency. And diagnosed with UTI. Symptoms of fatigue and generalized weakness. I review all cardiac evaluation patient had a history of diastolic heart failure Nonobstructive CAD. With previous cardiac catheterization Last echocardiogram EF within the range of around 50-55%. 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 Cardiac care plan recommendations; I reinforced the importance of taking anticoagulation and I explained the risk of stroke I reviewed the current lab as well as the EKG and the EKG showed A-fib with RVR with left ventricular hypertrophy. Based on [id number]- Vas Score. Patient declined to take any anticoagulation at this point. From cardiac standpoint we will continue on rate control using calcium channel jia, beta-jia and adding digoxin as needed in the lower dose. For better control of ventricular rate Also patient declined beta-jia as she mentioned that she had a history of Raynaud's disease. Rest of the medical problem history of hyperlipidemia. GERD UTI anxiety disorders will defer to the medical team for management Patient would like to follow-up by her geoscience professor Dr. Beltran for continuation of cardiac care. Yi Espana MD,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 Atrial flutter GERD (gastroesophageal reflux disease) Long-term use of high-risk medication Thyroid disorder Anxiety Hyperlipidemia Atherosclerotic heart disease of [place] coronary artery without angina pectoris Atrial fibrillation Cardiomyopathy History of myocardial infarction History of GI bleed Congestive heart failure Home Medications ?Medication ?Instructions ?Recorded ?Last Taken ?Type aspirin 325 mg tablet 325 mg PO DAILY heart health #90 08/23/21 11/27/24 Rx tabs chlorpheniramine maleate 4 mg 4 mg PO Q8H PRN Allergy Symptoms 08/23/21 11/27/24 History tablet (Allergy (chlorpheniramine)) metoprolol succinate 25 mg 25 mg PO DAILY #30 tabs 02/04/24 Unknown Rx tablet,extended release 24 hr multivitamin 1 tab PO DAILY suppliment 02/04/24 11/27/24 History diltiazem HCl 120 mg 120 mg PO DAILY heart rate #90 caps 07/13/24 11/27/24 Rx capsule,extended release 24 hr furosemide 40 mg tablet 40 mg PO BID diuretic #180 tabs 07/13/24 11/27/24 Rx Allergy/AdvReac Type Severity Reaction Status Date / Time amiodarone Allergy Hives Verified 11/28/24 08:42 Family History Father Heart disease cardiomyopathy Sister Heart disease Cardiomyopathy heart transplant Surgical History History of tonsillectomy History of cardiac catheterization History of tubal ligation Social History (Updated 11/28/24 @ 11:35 by Laurence Vee) housing: house Smoking Status: Never smoker alcohol intake: never substance use type: does not use caffeine: Yes Type: coffee Number of servings: 3 Physical Exam Cardio Cardio Narrative: Patient seen and evaluated at bedside Cardio consultation requested for management of paroxysmal atrial fibrillation The underlying cardiac rhythm is A-fib with RVR Cardiac examination S1-S2 is irregular Chest examination clear to auscultation bilaterally Examination lower extremity no lower extremity edema noted. Risk Stratification Risk Stratification Applicable: No Objective Data Vital Signs: Vital Signs Temp Pulse Resp BP Pulse Ox O2 Del Method 97.8 F 105 H 14 106/94 H 94 Room Air 11/29/24 07:38 11/29/24 07:38 11/29/24 07:38 11/29/24 07:38 11/29/24 07:38 11/29/24 07:38 Oxygen Delivery Method Room Air Weight: 93 lb 7.616 oz Body Mass Index (BMI) 17.1 Intake & Output: Intake and Output for Last 24 Hours 11/27/24 11/28/24 11/29/24 23:59 23:59 23:59 Intake Total 1786.75 / 1786.75 150 / 150 Output Total 700 / 700 200 / 200 Balance 1086.75 / 1086.75 -50 / -50 Lab / Micro Data 11/29/24 06:13 11/29/24 06:17 Labs: Laboratory Results - last 24 hr 11/29/24 06:13: WBC 7.3, RBC 5.74 H, Hgb 15.7 H, Hct 48.1 H, MCV 83.8, MCH 27.4, MCHC 32.6, RDW Std Deviation 39.3, RDW Coeff of [place] 12.9, Plt Count 248, MPV 9.5, Immature Gran % (Auto) 0.300, Neut % (Auto) 63.2, Lymph % (Auto) 18.7 L, [place] % (Auto) 13.7 H, Eos % (Auto) 3.0, Baso % (Auto) 1.1 H, Absolute Neuts (auto) 4.6, Absolute Lymphs (auto) 1.37, Nucleated RBC % 0 11/29/24 06:17: Sodium 133, Potassium 3.9, Chloride 93 L, Carbon Dioxide 27.5, Anion Gap 13, BUN 17, Creatinine 0.83, Estim Creat Clear Calc 34.98 L, Est GFR (MDRD) Non-Af 70, BUN/Creatinine Ratio 20.0, Glucose 99, Hemoglobin A1c 5.5, Calcium 9.3, Phosphorus 4.4, Magnesium 2.0, TSH 4.910 H Micro: Microbiology 11/28/24 09:30 Urine, Clean Catch Urine Culture - Preliminary Culture exhibits no growth. 11/28/24 12:38 Mucosa - Nose Respiratory Panel (PCR) - Final 11/28/24 10:30 Mucosa - Nasopharyngeal Coronavirus COVID-19 PCR - Final Cardiology Labs/Tests 11/29/24 06:13: WBC 7.3, RBC 5.74 H, Hgb 15.7 H, Hct 48.1 H, MCV 83.8, MCH 27.4, MCHC 32.6, Plt Count 248, MPV 9.5, Immature Gran % (Auto) 0.300, Neut % (Auto) 63.2, Lymph % (Auto) 18.7 L, [place] % (Auto) 13.7 H, Eos % (Auto) 3.0, Baso % (Auto) 1.1 H, Absolute Neuts (auto) 4.6, Nucleated RBC % 0 11/29/24 06:17: Sodium 133, Potassium 3.9, Chloride 93 L, Carbon Dioxide 27.5, Anion Gap 13, BUN 17, Creatinine 0.83, Est GFR (MDRD) Non-Af 70, BUN/Creatinine Ratio 20.0, Glucose 99, Hemoglobin A1c 5.5, Calcium 9.3, Phosphorus 4.4, Magnesium 2.0 Rhythm: EKG: ECHO: Stress Test: Cardiac Cath: PCI: CT Surgery: Holter monitor: EPS: PPM: CXR: Chest CT Scan:
[2024-11-29 14:19] VITALS: PULSE 108
[2024-11-29] MEDS: Digoxin 125 MCG Tablet PO (14:19)
[2024-11-29 16:22] VITALS: BP 110/61; PULSE 93; RESP 14; TEMP 36.6; O2SAT 96
[2024-11-29] MEDS: 0.9% Saline Lock 10 ML Syringe IV (20:26)
[2024-11-29 20:29] VITALS: BP 132/85; PULSE 100; RESP 16; TEMP 36.2; O2SAT 97
[2024-11-30 04:00] VITALS: BP 118/61; PULSE 88; RESP 16; TEMP 36.8; O2SAT 96
[2024-11-30 05:27] VITALS: BMI 17.3
[2024-11-30] MEDS: 0.9% Saline Lock 10 ML Syringe IV ×3 (06:24→14:08)
[2024-11-30] MEDS: Furosemide 40 MG/4 ML Vial IV ×2 (06:24→14:08)
[2024-11-30 08:01] LABS: Absolute Lymphocyte Count 1.51 X10^3/uL (0.83-4.51); Absolute Neutrophil Count 4.8 X10^3/uL (2.0-7.7); Basophil# 0.11 X10^3/uL; Basophil% 1.4 % (0-1); Eosinophil# 0.25 X10^3/uL; Eosinophils% 3.2 % (0-5); Hematocrit 48.6 % (37-47); Hemoglobin 15.8 g/dL (12.0-15.0); Lymphocyte # 1.51 X10^3/ul (0.83-4.51); Lymphocyte % 19.6 % (19-41); Mean Corp Hgb Conc 32.5 g/dL (32-36); Mean Corpuscular Hgb 27.1 pg (27.0-32.0); Mean Corpuscular Volume 83.2 fL (81-99); Mean Platelet Vol. 9.5 fl (6.2-12.0); NRBC Flagged by Analyzer 0 % (0-5); Neutrophil # 4.81 X10^3/uL (2.7-7.7); Neutrophil % 62.4 % (47-70); Platelet Count 261 K/mm3 (150-450); RBC Distribution Width CV 12.9 % (11.6-14.6); RBC Distribution Width SD 39.2 fl (35.1-43.9); Red Blood Count 5.84 M/mm3 (4.2-5.4); White Blood Count 7.7 K/mm3 (4.4-11.0)
[2024-11-30 09:00] VITALS: BP 100/73; PULSE 84; RESP 16; TEMP 36.4; O2SAT 95
[2024-11-30] MEDS: Aspirin 325 MG Tablet PO ×2 (09:06→09:09)
[2024-11-30] MEDS: dilTIAZem CD 120 MG Capsule PO (09:06)
[2024-11-30] MEDS: Ensure Plus High Protein 120 ML LIQUID PO ×2 (09:06→14:08)
[2024-11-30 09:07] VITALS: BP 100/73; PULSE 75
[2024-11-30] MEDS: Digoxin 125 MCG Tablet PO (09:07)
[2024-11-30] MEDS: Enoxaparin 40 MG/0.4 ML Syringe SC (09:07)
[2024-11-30] MEDS: Ceftriaxone 1 GM/50 ML BAG IV (09:13)
--- NOTE | 2024-11-30 09:37 | PCM.PN.HOSP ---
Reason for Visit Reason for Visit: Diagnoses Hyperlipidemia, unspecified (11/28/24) Atherosclerotic heart disease of [place] coronary artery without angina pectoris (11/28/24) Paroxysmal atrial fibrillation (11/28/24) Acute on chronic diastolic (congestive) heart failure (11/28/24) Urinary tract infection, site not specified (11/28/24) Weakness (11/28/24) Subjective Subjective Feeling great. No shortness of breath and has been walking around the floor w/o difficulty. Objective Data Objective Data Vital Signs: Vital Signs Temp Pulse Resp BP Pulse Ox O2 Del Method 36.4 C L 75 16 100/73 95 Room Air 11/30/24 09:00 11/30/24 09:07 11/30/24 09:00 11/30/24 09:07 11/30/24 09:00 11/30/24 09:00 Oxygen Delivery Method Room Air Weight: 43 kg Body Mass Index (BMI) 17.3 Intake & Output: Intake and Output for Last 24 Hours 11/28/24 11/29/24 11/30/24 23:59 23:59 23:59 Intake Total 1786.75 / 1786.75 1430 / 1730 350 / 350 Output Total 700 / 700 1450 / 2050 900 / 900 Balance 1086.75 / 1086.75 -20 / -320 -550 / -550 Medical Nutrition Assessment Dietitian: Malnutrition Criteria Met Start: 11/29/24 09:29 Freq: Status: Active Protocol: Document 11/29/24 09:29 [place] (Rec: 11/29/24 09:29 [facility] [id number]) Nutrition Malnutrition Evidence of Yes Malnutrition Exists Malnutrition (severe Chronic ): Evidenced By Suboptimal Energy Intake (Severe),Weight Loss (Severe), Physical Changes (Severe) Clinical Problem Chronic Disease or Condition Related Malnutrition Etiology related to inadequate energy intake and extensive pmhx Signs/Symptoms as evidenced by po intake meeting <50% of est nutritional needs, BMI 171. and obvious fat / muscle loss throughout body Status Active Problem Recommendation Dietitian Will liberalize diet to Regular No Added Salt d/t signs Recommendations/ /symptoms of malnutrition Changes Will add 1/2 cup CIB w/ meals for increased nutrition if consumed Continue Ensure Plus High Protein 4x/day w/ medpass for increased nutrition if consumed Lab / Micro Data 11/30/24 06:59 11/30/24 06:59 Labs: Laboratory Results - last 24 hr 11/29/24 06:17: Hemoglobin A1c 5.5 11/30/24 06:59: WBC 7.7, RBC 5.84 H, Hgb 15.8 H, Hct 48.6 H, MCV 83.2, MCH 27.1, MCHC 32.5, RDW Std Deviation 39.2, RDW Coeff of [place] 12.9, Plt Count 261, MPV 9.5, Immature Gran % (Auto) 0.400, Neut % (Auto) 62.4, Lymph % (Auto) 19.6, [place] % (Auto) 13.0 H, Eos % (Auto) 3.2, Baso % (Auto) 1.4 H, Absolute Neuts (auto) 4.8, Absolute Lymphs (auto) 1.51, Nucleated RBC % 0 Micro: Microbiology 11/28/24 09:30 Urine, Clean Catch Urine Culture - Final Culture exhibits no growth. 11/28/24 12:38 Mucosa - Nose Respiratory Panel (PCR) - Final 11/28/24 10:30 Mucosa - Nasopharyngeal Coronavirus COVID-19 PCR - Final Physical Exam Const alert and no apparent distress HEENT head/scalp atraumatic and moist oral mucous membranes Resp normal respiratory effort, no retractions, no use of accessory muscles and clear to auscultation bilaterally Cardio regular rate, regular rhythm, S1 normal heart sound and S2 normal heart sound GI normal to inspection, nondistended, normoactive bowel sounds, soft to palpation, non-tender and non-distended Assessment & Plan Assessment/Plan (1) HFrEF (heart failure with reduced ejection fraction): PLAN: on IV furosemide. change back to PO. encouraged checking daily weights. She expressed reluctance, but will consider it. EF 30-35% (down from 55% from 07/27/2019) add low-dose ACEi (2) UTI (urinary tract infection): PLAN: ruled out. UA benign. UCx negative dc abx. PLAN: Plan chronic conditions: pafib: on dilt and digoxin. pt declines anticoagulation (notified of risks by cardiology) raynauds GERD VTE prophylaxis: LMWH.
[2024-11-30] MEDS: Multivitamins,Therapeutic Tablet 1 TABLET PO (12:27)
[2024-11-30 12:37] LABS: Anion Gap 17 (5-15); BUN 25 mg/dL (4-19); BUN/Creat Ratio 27.7 RATIO (10-20); Calcium,Total 9.3 mg/dL (7.6-11.0); Carbon Dioxide 26.8 mmol/L (21.0-32.0); Chloride 89 mmol/L (98-108); Creatinine, Serum 0.89 mg/dL (0.70-1.20); EST Glomerular Filtration Rate 65 (>60); Estimated Creatinine Clearance 33.08 ml/min (50-250); Glucose 100 mg/dL (70-99); Potassium 3.9 mmol/L (3.3-5.1); Sodium Level 133 mmol/L (133-145)
--- NOTE | 2024-11-30 14:35 | CHAPLAIN ---
Type of Pastoral Visit _x__ Initial Visit ___ Follow-up Visit ___ On-call Visit ___ General Patient Visit ___ Spiritual Assessment ___ Family Conference ___ Bereavement ___ Rapid Response ___ Code Blue ___ Other (describe below) Pastoral Care Referral From _x__ Patient ___ Family ___ Nurse ___ Physician ___ Superintendent Meters ___ Boat Detailer ___ Other (describe below) Sacrament/Intervention _x__ Active listening ___ Anointing ___ Religion ___ Bereavement ___ Communion ___ Sofia exploration ___ ___ Life review _x__ Prayer ___ Reconciliation ___ Sacrament of Sick ___ Supportive presence ___ Wedding ___ Other (describe below) Pastoral Comments patient had visitors but they left shortly after this encounter began; pt explained why she was there and that she hoped to go home; pt says that she is normally in good health and that she is active; pt has support from local family, her neighbors, and her rastafarian; pt had received a prayer from her friends that were visiting; pt expresses that she has confidence to do fine
[2024-11-30 14:46] VITALS: BP 105/78; PULSE 75; RESP 16; TEMP 35.9; O2SAT 95
--- NOTE | 2024-11-30 15:37 | DS.PCM_ITS ---
Providers Date of Admission: 11/28/24 Primary Care Physician: Dr. Mio Forbes MD Consultations 11/29/24 12:36 Consult: Cardiology Routine Consulting Provider: Aubree Mcallister Reason for Consult: afib with rvr EMERGENT Consult: No MD Notified: Yes Date Notified: 11/29/24 Time Notified: 13:00 Method of Notification: Text Reason For Visit: CHF, UTI Diagnosis Discharge Diagnosis (1) HFrEF (heart failure with reduced ejection fraction): Status: Acute Code(s): I50.20 - Unspecified systolic (congestive) heart failure Plan: on IV furosemide. change back to PO. encouraged checking daily weights. She expressed reluctance, but will consider it. EF 30-35% (down from 55% from 07/27/2019) add low-dose ACEi (2) UTI (urinary tract infection): Status: Acute Code(s): N39.0 - Urinary tract infection, site not specified Plan: ruled out. UA benign. UCx negative dc abx. Plan chronic conditions: * pafib: on dilt and digoxin. pt declines anticoagulation (notified of risks by cardiology) * raynauds * GERD VTE prophylaxis: LMWH. Medications at Discharge Home Medications aspirin 325 mg tablet 325 mg PO DAILY heart health #90 tabs 08/23/21 chlorpheniramine maleate 4 mg tablet (Allergy (chlorpheniramine)) 4 mg PO Q8H PRN Allergy Symptoms 08/23/21 multivitamin 1 tab PO DAILY suppliment 02/04/24 diltiazem HCl 120 mg capsule,extended release 24 hr 120 mg PO DAILY heart rate #90 caps 07/13/24 furosemide 40 mg tablet 40 mg PO BID diuretic #180 tabs 07/13/24 digoxin 125 mcg (0.125 mg) tablet 125 mcg PO DAILY #30 tabs 11/30/24 food supplemt, lactose-reduced 0.08 gram-1.5 kcal/mL oral liquid (Ensure Plus High Protein) 120 ml PO 4X/DAY #30 mL 11/30/24 lisinopril 5 mg tablet 5 mg PO DAILY #30 tabs 11/30/24 Hospital Course Operations None Procedures 2-D Echocardiogram Summary of Care Provided Minutes Spent on Discharge: 35 Hospital Course: Patient presents with shortness of breath and was diagnosed with acute exacerbation of CHF. Echocardiogram showed an EF of 30 to 35% which was down from 2019 worse 55% at that time. Patient responded with IV furosemide and is now on room air and has been ambulating without difficulty. Patient will resume her home dose of furosemide 40 mg twice daily. In addition we will add a low- dose STEPHANIE inhibitor to help with her symptoms. Patient has previously not tolerated beta-jia in the past. Patient does have a history of paroxysmal atrial fibrillation but she has not tolerated anticoagulation in the past due to GI distress. Patient was seen in consultation by cardiology. Medical Records Data Medical Nutrition Assessment Dietitian: Malnutrition Criteria Met Start: 11/29/24:29 Freq: Status: Active Protocol: Document 11/29/24 09:29 [facility] (Rec: 11/29/24 09: [facility] [id number]) Nutrition Malnutrition Evidence of Yes Malnutrition Exists Malnutrition (severe Chronic ): Evidenced By Suboptimal Energy Intake (Severe),Weight Loss (Severe), Physical Changes (Severe) Clinical Problem Chronic Disease or Condition Related Malnutrition Etiology related to inadequate energy intake and extensive pmhx Signs/Symptoms as evidenced by po intake meeting <50% of est nutritional needs, BMI 171. and obvious fat / muscle loss throughout body Status Active Problem Recommendation Dietitian Will liberalize diet to Regular No Added Salt d/t signs Recommendations/ /symptoms of malnutrition Changes Will add 1/2 cup CIB w/ meals for increased nutrition if consumed Continue Ensure Plus High Protein 4x/day w/ medpass for increased nutrition if consumed Weight / BMI Weight Weight: 43 kg Body Mass Index (BMI) 17.3 ABG / Lab / Microbiology Data 11/30/24 06:59 11/30/24 06:59 Laboratory: Laboratory Results - last 24 hr 11/30/24 06:59: WBC 7.7, RBC 5.84 H, Hgb 15.8 H, Hct 48.6 H, MCV 83.2, MCH 27.1, MCHC 32.5, RDW Std Deviation 39.2, RDW Coeff of [place] 12.9, Plt Count 261, MPV 9.5, Immature Gran % (Auto) 0.400, Neut % (Auto) 62.4, Lymph % (Auto) 19.6, [place] % (Auto) 13.0 H, Eos % (Auto) 3.2, Baso % (Auto) 1.4 H, Absolute Neuts (auto) 4.8, Absolute Lymphs (auto) 1.51, Nucleated RBC % 0, Sodium 133, Potassium 3.9, Chloride 89 L, Carbon Dioxide 26.8, Anion Gap 17 H, BUN 25 H, Creatinine 0.89, E stim Creat Clear Calc 33.08 L, Est GFR (MDRD) Non-Af 65, BUN/Creatinine Ratio 27.7 H, Glucose 100 H, Calcium 9.3 Microbiology: Microbiology 11/28/24 09:30 Urine, Clean Catch Urine Culture - Final Culture exhibits no growth. 11/28/24 12:38 Mucosa - Nose Respiratory Panel (PCR) - Final 11/28/24 10:30 Mucosa - Nasopharyngeal Coronavirus COVID-19 PCR - Final Radiography Diagnostic Testing: Radiology Impression Echocardiogram 11/28/24 11:13 Interpretation Summary Mild concentric left ventricular hypertrophy. Generalized LV hypokinesis. Mid to distal anterior septal akinesis. Estimated LVEF 30-35%. Diastolic dysfunction with elevated left atrial filling pressures. The left atrium is severely enlarged. The right atrium is mildly enlarged. Mild (1+) mitral valve insufficiency. Mild aortic valve stenosis. Mean peak gradient 13 mmHg. Mild aortic valve regurgitation. Ordering Physician: Bharat Perez Referring Physician: Mio Forbes MD Performed By: Kacy Renee EWA D/C Instructions DC O2, CPAP, BIPAP Needs Home O2 Discharge instructions: No Meaningful Use Info Meaningful Use Meaningful Use Diagnoses (Choose all that apply): CHF CHF STEPHANIE/ARB ordered at discharge?: Yes Documented LVEF (%): 30 Ischemic Stroke Statin Dosing Therapy Reference: STATIN DOSE THERAPY REFERENCE: * Patients > 75 years receive moderate or high dose statin therapy. * Patients 75 years or YOUNGER should receive HIGH intensity statin dose unless contraindicated. You will be required to document reason for non-treatment if statin daily dose does not meet guidelines. HIGH DOSE STATIN THERAPY DAILY Atorvastatin > than or = to 40 mg Rosuvastatin > than or = to 20 mg Amlodipine + Atorvastatin > than or = to 2.5/40 mg Ezetimibe + Simvastatin 10/80 mg Simvastatin 80mg Discharge Plan Admission Admit Date/Time: 11/28/24 10:13 Primary Reason for Your Visit: CHF exacerbation Attending Provider: Landen Rowe Primary Care Provider: Mio Forbes Consulting Providers: Karson Sanchez; Jennifer Nj; Mart Alaniz; Carrillo Weathers; Bernardo Kyle; Gokul Beltran; Yi Espana; Arcenio Vallejo; Wali Segura; Holden Harden; Morales Barbour; Barrett Boss NP; Stacie Chatman; Alejandro Avila; Bharat Perez Instructions Patient Instructions: Heart Failure Flare Up Signs, Heart Failure: Tracking Your Weight, Heart Failure Make Changes Diet, Heart Failure Dc, Heart Failure Care, Heart Failure Discharge Orders/Prescriptions Prescriptions: New digoxin 125 mcg (0.125 mg) Tablet 125 mcg PO DAILY Qty: 30 0RF Ensure Plus High Protein 0.08 gram-1.5 kcal/mL Liquid 120 ml PO 4X/DAY Qty: 30 0RF lisinopril 5 mg tablet 5 mg PO DAILY Qty: 30 0RF Continued chlorpheniramine maleate [Allergy (chlorpheniramine)] 4 mg tablet 4 mg PO Q8H PRN (Reason: Allergy Symptoms) Rx Instructions: do not exceed 2 doses per 24 hrs aspirin 325 mg tablet 325 mg PO DAILY Qty: 90 3RF multivitamin Tablet 1 tab PO DAILY furosemide 40 mg tablet 40 mg PO BID Qty: 180 3RF diltiazem HCl 120 mg capsule,extended release 24hr 120 mg PO DAILY Qty: 90 3RF Discontinued metoprolol succinate 25 mg tablet extended release 24 hr 25 mg PO DAILY Qty: 30 11RF Patient Comments: pt has not been taking Referrals / Follow Up: Gokul Beltran MD [Med Staff - Active Staff] - Within 1 Month Mio Forbes MD [Primary Care Provider] - Within 2 Weeks Disposition Disposition (needs filled in before D/C Order can be placed): Home, Self Care Charges/Coding Visit Charges Inpatient E&M: 19631 Disch Hosp >30min
[2024-11-30 15:42] VITALS: BP 105/78; PULSE 75; RESP 18; TEMP 35.9; O2SAT 95
--- NOTE | 2024-11-30 15:55 | CASEMGMT ---
Patient has order for discharge. RN CM in to discuss needs at discharge. Patient is independent in room. Patient denies need or help at discharge. Patient had no further questions or concerns.
--- NOTE | 2024-11-30 16:23 | PHA.DC.MC.R ---
Pharmacy [facility] has performed discharge medication reconciliation and counseling for this patient. 1. Digoxin 125mcg PO BID 2. Lisinopril 5mg PO daily 3. Stop metoprolol The patient's discharge medication list was reviewed for discrepancies and discrepancies were resolved. The patient was counseled on the following discharge medications and changes in medications for homegoing were reviewed. The Reason for Use, instructions for use, and potential side effects were reviewed for all new medications. The patient's questions regarding all of their medications were answered. The patient was able to verbally demonstrate an understanding of their discharge medications. Medications at Discharge Home Medications aspirin 325 mg tablet 325 mg PO DAILY heart health #90 tabs 08/23/21 chlorpheniramine maleate 4 mg tablet (Allergy (chlorpheniramine)) 4 mg PO Q8H PRN Allergy Symptoms 08/23/21 multivitamin 1 tab PO DAILY suppliment 02/04/24 diltiazem HCl 120 mg capsule,extended release 24 hr 120 mg PO DAILY heart rate #90 caps 07/13/24 furosemide 40 mg tablet 40 mg PO BID diuretic #180 tabs 07/13/24 digoxin 125 mcg (0.125 mg) tablet 125 mcg PO DAILY #30 tabs 11/30/24 food supplemt, lactose-reduced 0.08 gram-1.5 kcal/mL oral liquid (Ensure Plus High Protein) 120 ml PO 4X/DAY #30 mL 11/30/24 lisinopril 5 mg tablet 5 mg PO DAILY #30 tabs 11/30/24
== END 2024-11-30 16:25 | disposition home or self-care (01) | DRG 291 ==
LOC: ED 10:15 → PCU 10:50
PROVIDERS: Admitting Provider Internal Medicine; Emergency Provider Emergency Medicine; PCP Family Medicine
DX: I50.23 Acute on chronic systolic (congestive) heart failure (principal); E43 Unspecified severe protein-calorie malnutrition; E87.1 Hypo-osmolality and hyponatremia; I42.8 Other cardiomyopathies; Z68.1 Body mass index [BMI] 19.9 or less, adult; N39.0 Urinary tract infection, site not specified; I35.0 Nonrheumatic aortic (valve) stenosis; I48.0 Paroxysmal atrial fibrillation; I25.10 Atherosclerotic heart disease of native coronary artery without angina pectoris; I73.00 Raynaud's syndrome without gangrene; E78.5 Hyperlipidemia, unspecified; K21.9 Gastro-esophageal reflux disease without esophagitis; Z79.82 Long term (current) use of aspirin; I49.3 Ventricular premature depolarization; R73.9 Hyperglycemia, unspecified; Z79.899 Other long term (current) drug therapy
CPT/HCPCS: 36415; 71045; 80048; 80053; 81001; 83036; 83735; 83880; 84100; 84443; 85025; 87086; 87633; 87635; 93005; 93306; 99285; A4216; J1940

== ENCOUNTER → 2025-03-06 | Outpatient (CLI) | payer MEDICARE, SELFPAY | END | disposition home or self-care (01) | LOC: LABSPEC 03-08 08:18 | PROVIDERS: PCP Family Medicine; Visit Provider Nurse Practitioner Family | DX: R30.0 Dysuria (principal) | CPT/HCPCS: 87086; 87088 ==

== ENCOUNTER → 2025-04-05 | Outpatient (CLI) | payer MEDICARE, SELFPAY ==
--- NOTE | 2025-04-05 09:55 | ECHOL_ITS ---
Reason For Study Reason For Study: ATRIAL FIBRILLATION Procedure This was a limited 2D transthoracic echocardiogram. The study was technically limited. Exam performed in department. Left Ventricle Normal LV size. Apical false tendon noted. Moderately severe global left ventricular systolic dysfunction. The left ventricular ejection fraction is 30 %. Right Ventricle Normal RV size. Moderate global right ventricular systolic dysfunction. Atria The left atrium is mildly enlarged. The right atrium is mildly enlarged. Mitral Valve Mild mitral annular calcification. Mild-Moderate (1-2+) mitral valve insufficiency. Tricuspid Valve Normal tricuspid valve. Mild (1+) tricuspid valve insufficiency. Aortic Valve Trisinus/trileaflet aortic valve. Mild focal aortic valve thickening. Mild (1+) aortic valve insufficiency. Pulmonic Valve Normal pulmonic valve. Great Vessels Normal sized aortic root. Pericardium/Pleural No pericardial effusion. MMode/2D Measurements & Calculations LVIDd: 4.3 cm IVSd: 0.92 cm LAV(MOD- bp): 45.2 ml LVIDs: 3.3 cm LVPWd: 1.0 cm LAV(MOD- bp) Indexed: 33.2 ml/m2 RVDd: 3.2 cm FS: 23.9 % LAV(MOD- sp2): 47.3 ml LAV(MOD- sp4): 43.7 ml SV(MOD- sp4): 12.4 ml LVAd ap4: 15.5 cm2 LVAd ap2: 16.8 cm2 LVLd ap4: 5.8 cm LVLd ap2: 5.9 cm SI(MOD- sp4): 9.1 ml/m2 EDV(MOD-sp4): 33.8 ml EDV(MOD-sp2): 39.4 ml EDV(sp4-el): 34.9 ml EDV(sp2-el): 40.9 ml LVAs ap4: 11.7 cm2 LVAs ap2: 12.7 cm2 LVLs ap4: 5.2 cm LVLs ap2: 5.2 cm ESV(MOD-sp4): 21.5 ml ESV(MOD-sp2): 26.0 ml ESV(sp4-el): 22.4 ml ESV(sp2-el): 26.2 ml EF(MOD-sp4): 36.5 % EF(MOD-sp2): 33.9 % EF(sp4-el): 35.8 % SV(MOD-sp2): 13.4 ml SV(sp4-el): 12.5 ml Ao sinus diam: 2.7 cm SI(MOD-sp2): 9.8 ml/m2 Ao ST Junction: 2.3 cm LA dimension(2D): 3.7 cm LA A4 area: 15.9 cm2 RA A4 area: 17.6 cm2 TAPSE: 1.3 cm Doppler Measurements & Calculations TR max henrik: 252.2 cm/sec TR max P.5 mmHg ECHO/Echo, Limited Study Interpretation Summary The left ventricular ejection fraction is 30 %. Moderate global right ventricular systolic dysfunction. The left atrium is mildly enlarged. The right atrium is mildly enlarged. Mild mitral annular calcification. Mild-Moderate (1-2+) mitral valve insufficiency. Mild (1+) tricuspid valve insufficiency. Mild (1+) aortic valve insufficiency. Compared to previous study, the LV function is similar. Ordering Physician: Barrett Boss Referring Physician: Mio Forbes MD Performed By: Aminata Cevallos RDCS
== END | disposition home or self-care (01) ==
PROVIDERS: PCP Family Medicine; Referring Provider Nurse Practitioner Family; Visit Provider Nurse Practitioner Family
DX: I48.0 Paroxysmal atrial fibrillation (principal); I42.9 Cardiomyopathy, unspecified; E78.5 Hyperlipidemia, unspecified; I25.10 Atherosclerotic heart disease of native coronary artery without angina pectoris
CPT/HCPCS: 93308